=== PATIENT | female | born 1945 | race Caucasian/White ===

== ENCOUNTER 2020-10-10 08:53 | Outpatient (REF) | payer MEDICARE, SELFPAY | END 2020-10-10 08:54 | disposition home or self-care (01) | LOC: HO.HMGCLDS 08:53 | PROVIDERS: PCP Internal Medicine; Visit Provider Internal Medicine | DX: Z20.828 Contact with and (suspected) exposure to other viral communicable diseases (principal) | CPT/HCPCS: C9803; U0003 ==

== ENCOUNTER 2021-05-23 06:40 | Outpatient (REF) | payer MEDICARE, SELFPAY ==
[2021-05-23 12:06] LABS: Alanine Aminotransferase 14 U/L (0-31); Albumin Level 3.8 g/dL (3.5-5.0); Alkaline Phosphatase 57 U/L (39-117); Anion Gap 15 (12-20); Aspartate Amino Transferase 18 U/L (5-31); Bilirubin Total 1.3 mg/dL (0.0-1.0); Blood Urea Nitrogen 24 mg/dL (9-16); Calcium 9.2 mg/dL (8.4-10.2); Carbon Dioxide 22 mmol/L (22-29); Chloride 109 mmol/L (96-108); Cholesterol 177 mg/dL; Estimated Glomerular Filt Rate > 60; Glucose Fasting 95 mg/dL (60-99); HDL Cholesterol 70 mg/dL; LDL Cholesterol Calculated 88 mg/dl; Potassium 4.5 mmol/L (3.3-5.1); Sodium 141 mmol/L (135-145); Total Protein 6.7 g/dL (6.5-8.0); Triglycerides 98 mg/dL
[2021-05-23 12:20] LABS: TSH reflex Free T4 0.79 uIU/mL (0.32-4.0)
== END 2021-05-23 06:41 | disposition home or self-care (01) ==
LOC: HO.HMGCLDS 06:40
PROVIDERS: PCP Internal Medicine; Visit Provider Internal Medicine
DX: M85.80 Other specified disorders of bone density and structure, unspecified site (principal); J42 Unspecified chronic bronchitis; E78.00 Pure hypercholesterolemia, unspecified; M06.9 Rheumatoid arthritis, unspecified; I10 Essential (primary) hypertension; R09.82 Postnasal drip
CPT/HCPCS: 36415; 80053; 80061; 82306; 84443

== ENCOUNTER 2022-02-24 12:15 | Outpatient (REF) | payer MEDICARE, SELFPAY ==
--- NOTE | ~2022-02-24 | XR_ITS ---
EXAMINATION: XR KNEE, BILATERAL XR KNEE, RIGHT XR KNEE, LEFT CLINICAL INFORMATION: Pain COMPARISON: 08/25/2018 TECHNIQUE: AP standing view of both knees. Lateral and sunrise views of both knees. FINDINGS: Left knee: Total left knee arthroplasty. The femoral component articulates appropriately with the tibial plateau and patellar components. No periprosthetic lucency or fracture. No joint effusion. Soft tissue prominence anteriorly. Right knee: No fracture or subluxation. Mild narrowing of the patellofemoral compartment. Small tricompartmental marginal osteophytes. No joint effusion. The soft tissues are unremarkable. XR/XR knee LT 2V IMPRESSION: Total left knee arthroplasty without evidence of failure. Mild tricompartmental degenerative changes of the right knee.
--- NOTE | ~2022-02-24 | XR_ITS ---
EXAMINATION: XR KNEE, BILATERAL XR KNEE, RIGHT XR KNEE, LEFT CLINICAL INFORMATION: Pain COMPARISON: 08/25/2018 TECHNIQUE: AP standing view of both knees. Lateral and sunrise views of both knees. FINDINGS: Left knee: Total left knee arthroplasty. The femoral component articulates appropriately with the tibial plateau and patellar components. No periprosthetic lucency or fracture. No joint effusion. Soft tissue prominence anteriorly. Right knee: No fracture or subluxation. Mild narrowing of the patellofemoral compartment. Small tricompartmental marginal osteophytes. No joint effusion. The soft tissues are unremarkable. XR/XR knee standing BI IMPRESSION: Total left knee arthroplasty without evidence of failure. Mild tricompartmental degenerative changes of the right knee.
--- NOTE | ~2022-02-24 | XR_ITS ---
EXAMINATION: XR KNEE, BILATERAL XR KNEE, RIGHT XR KNEE, LEFT CLINICAL INFORMATION: Pain COMPARISON: 08/25/2018 TECHNIQUE: AP standing view of both knees. Lateral and sunrise views of both knees. FINDINGS: Left knee: Total left knee arthroplasty. The femoral component articulates appropriately with the tibial plateau and patellar components. No periprosthetic lucency or fracture. No joint effusion. Soft tissue prominence anteriorly. Right knee: No fracture or subluxation. Mild narrowing of the patellofemoral compartment. Small tricompartmental marginal osteophytes. No joint effusion. The soft tissues are unremarkable. XR/XR knee RT 2V IMPRESSION: Total left knee arthroplasty without evidence of failure. Mild tricompartmental degenerative changes of the right knee.
== END 2022-02-24 12:16 | disposition home or self-care (01) ==
LOC: HO.HOSX 12:15
PROVIDERS: Visit Provider Orthopaedic Surgery
DX: M17.11 Unilateral primary osteoarthritis, right knee (principal)
CPT/HCPCS: 73560; 73565; 99202

== ENCOUNTER → 2022-04-03 12:48 | Outpatient (REF) | payer MEDICARE, SELFPAY ==
--- NOTE | 2022-04-03 12:52 | CA_ITS ---
Transthoracic Echocardiogram Patient (Last, First, Middle): Melissa De La Garza Ellen Gender: Female Date of : 1945 Age: 77 Procedure Date: 04/03/2022 Procedure Type: Transthoracic Echocardiogram Location: OP Height: 170.18 cm Weight: 108.86 kg BSA: 2.18 m2 Heart Rate: bpm BP: 124 / 60 mmHg Cannon Pinion Adjuster: SB Referring MD: Ana Garcia MD Per Assessment Nurse: Fahad Toussaint MD Symptoms: s/p MVR Study Quality: Adequate ECG Rhythm: Sinus Conclusions: - 1. Normal LV systolic function with pseudonormal filling pattern 2. Mildly dilated left atrium 3. Normally function bioprosthetic mitral valve 4. Normal RV systolic pressure 5. No gross pericardial effusion Findings Left Ventricle Normal left ventricular size, thickness, and systolic function. The visually estimated ejection fraction is between 55-60%. Spectral Doppler is indicative of a pseudonormal filling pattern. Wall Motion Rest Echo Findings The basal inferior segment is hypokinetic. All other scored wall segments showed normal motion. Right Ventricle Normal right ventricular cavity size and systolic function. Atria The left atrium is mildly dilated. There is no evidence of interatrial shunt. The right atrium is normal in size. Aortic Valve Normal aortic valve structure and function. There is no aortic valve stenosis. There is trace (trivial) aortic valve regurgitation. Mitral Valve A bioprosthetic mitral valve is present. The prosthetic mitral valve appears to be functioning normally. There is no mitral valve regurgitation. mean gradient across the bioprosthetic mitral valve is 2 mmHg which is within normal limits. The valve is well seated without abnormal rocking motion. Pulmonic Valve The pulmonic valve is likely normal. There is trace to mild pulmonic valve regurgitation. Tricuspid Valve Normal tricuspid valve structure. There is mild to moderate tricuspid valve regurgitation. The right ventricular systolic pressure is normal. The right ventricular systolic pressure is 24 mmHg. Normal right atrial pressure. There is no evidence of pulmonary hypertension. Great Vessels All visible segments of the aorta are normal in size. The pulmonary artery was not well visualized. Venous The inferior vena cava is normal in size. Inferior vena cava flow is normal. Pericardium/Pleural There is no evidence of pericardial effusion. Prior Study Comparison No previous study in the last 5 years for comparison Measurements 2D Linear Measurements IVSd: 0.95 0.6-0.9/0.6-1.0 cm LVIDd: 5.10 3.9-5.3/4.2-5.9 cm LVIDd Index: 2.34 2.4-3.2/2.2-3.1 cm/m2 LVIDs: 3.46 2.0-3.6 cm LVPWd: 0.95 0.7-1.1 cm LA Diam: 3.90 2.7-3.8/3.0-4.0 cm LAIDs Index: 1.79 1.5-2.3 cm/m2 LV Mass: 217.54 67-162/88-224 g LV Mass Index: 99.79 43-95/49-115 g/m2 LVOT Diam: 2.30 3.0+(-)1.3 cm Mitral Valve MV VTI: 0.44 MV Pk Abelardo: 1.26 MV Mn Abelardo: 0.75 MV Pk Grad: 6.00 MV Mn Grad: 3.00 MV Pk E: 1.08 MV PK A: 0.96 MV Decel Time: 324.00 E/A: 1.10 E'Lateral: 7.18 E'Medial: 6.96 E/E' Med: 15.50 E/E' Lat: 15.00 PHT: 95.00 MVA PHT: 2.32 MVA Continuity: 1.59 Decel [place]: 3.34 Aortic Valve AoV Pk Abelardo: 0.84 AoV Mn Abelardo: 0.62 AoV VTI: 0.20 AoV Pk Grad: 3.00 Aov Mn Grad: 2.00 CAROLYN Cont.VTI: 3.54 LVOT LVOT Pk Abelardo: 0.73 LVOT Mn Abelardo: 0.57 LVOT VTI: 0.17 LVOT Pk Grad: 2.00 LVOT Mn Grad: 1.00 LVOT Diam: 2.30 LVOT Area: 4.15 Diastolic Function MV Pk E: 1.08 MV Pk A: 0.96 E/A: 1.10 E'Medial: 6.96 E/E' Med: 15.50 E' Laterial: 7.18 E/E' Lat: 15.00 Right Ventricle TAPSE (mm): 16.00 TVS' Abelardo: 13.80 Tricuspid Valve TR Pk Abelardo: 2.27 TR Pk Grad: 21.00 RA Press: 3.00 RVSP: 24.00 Great Vessels Aorta Sinus of Valsalva: 3.95 2.0-3.[address] [place]: 3.26 1.7-3.4 cm Ao Asc: 3.40 2.1-3.4 cm Pulmonary Valve PV Pk Abelardo: 0.66 Peak PV Grad: 2.00 Updated in Other Vendor System with Status of Final Fahad Toussaint MD electronically signed on 04/04/2022 3:09:50 PM with status of Final
== END ==
LOC: HO.CARD 12:48
PROVIDERS: PCP Internal Medicine; Visit Provider Internal Medicine
DX: M06.9 Rheumatoid arthritis, unspecified (principal); I10 Essential (primary) hypertension; Z95.2 Presence of prosthetic heart valve
CPT/HCPCS: 93306

== ENCOUNTER → 2022-04-08 09:49 | Outpatient (BNVA) | payer MEDICARE, SELFPAY | PROVIDERS: PCP Internal Medicine; Visit Provider Orthopaedic Surgery | DX: Z13.89 Encounter for screening for other disorder (principal) ==

== ENCOUNTER 2022-04-10 09:35 | Outpatient (REF) | payer MEDICARE, SELFPAY ==
[2022-04-10 11:26] LABS: MANUAL DIFF FLAG NO
[2022-04-10 11:36] LABS: Basophils Absolute Auto 0.1 X10*3/uL (0.0-0.2); Basophils Percent Auto 1.3 % (0-2); Eosinophils Absolute Auto 0.3 X10*3/uL (0.0-0.4); Eosinophils Percent Auto 5.7 % (0-4); Hematocrit 39.2 % (37.0-47.0); Hemoglobin 13.1 g/dl (12.0-16.0); Lymphocytes Absolute Auto 1.5 X10*3/uL (1.2-4.9); Lymphocytes Percent Auto 32.1 % (20-40); Mean Corpuscular HGB Conc 33.4 g/dl (31.0-35.0); Mean Corpuscular Hemoglobin 34.7 pg (27.0-33.0); Monocytes Absolute Auto 0.6 X10*3/uL (0.1-1.2); Monocytes Percent Auto 14.1 % (2-11); Neutrophils Absolute Auto 2.1 x10*3/uL (2.0-8.3); Neutrophils Percent Auto 46.8 % (45-73); Platelet Count 188 X10*3/uL (160-400); Red Blood Count 3.77 X10*6/uL (4.20-5.50); White Blood Count 4.6 X10*3/uL (4.8-10.8)
[2022-04-10 12:14] LABS: Anion Gap 11 (12-20); Blood Urea Nitrogen 14 mg/dL (9-16); Calcium 9.5 mg/dL (8.4-10.2); Carbon Dioxide 26 mmol/L (22-29); Chloride 106 mmol/L (96-108); Estimated Glomerular Filt Rate > 60; Glucose Random 97 mg/dL (60-115); Potassium 4.5 mmol/L (3.3-5.1); Sodium 138 mmol/L (135-145)
== END 2022-04-10 09:36 | disposition home or self-care (01) ==
LOC: HO.HMGCLDS 09:35
PROVIDERS: PCP Internal Medicine; Visit Provider Orthopaedic Surgery
DX: Z01.812 Encounter for preprocedural laboratory examination (principal)
CPT/HCPCS: 36415; 80048; 85025

== ENCOUNTER → 2022-04-29 10:35 | Outpatient (BNVA) | payer MEDICARE, SELFPAY | PROVIDERS: PCP Internal Medicine; Referring Provider Orthopaedic Surgery; Visit Provider Internal Medicine Cardiovascular Disease | DX: Z01.810 Encounter for preprocedural cardiovascular examination (principal); R00.2 Palpitations; Z95.2 Presence of prosthetic heart valve | CPT/HCPCS: 93005; 99202 ==

== ENCOUNTER 2022-05-06 06:42 | Outpatient (REF) | payer MEDICARE, SELFPAY ==
[2022-05-06 11:50] LABS: Hematocrit 40.2 % (37.0-47.0); Hemoglobin 13.4 g/dl (12.0-16.0); Mean Corpuscular HGB Conc 33.3 g/dl (31.0-35.0); Mean Corpuscular Hemoglobin 34.7 pg (27.0-33.0); Mean Corpuscular Volume 104.1 fL (80.0-98.0); Mean Platelet Volume 12.3 fL (9.4-12.3); Platelet Count 200 X10*3/uL (160-400); Red Blood Count 3.86 X10*6/uL (4.20-5.50); Red Cell Distribution Width 14.2 % (11.0-16.0)
[2022-05-06 12:22] LABS: Alanine Aminotransferase 15 U/L (0-31); Albumin Level 3.6 g/dL (3.5-5.0); Alkaline Phosphatase 61 U/L (39-117); Anion Gap 10 (12-20); Aspartate Amino Transferase 21 U/L (5-31); Blood Urea Nitrogen 21 mg/dL (9-16); Carbon Dioxide 26 mmol/L (22-29); Chloride 109 mmol/L (96-108); Cholesterol 167 mg/dL; Estimated Glomerular Filt Rate > 60; Glucose Fasting 95 mg/dL (60-99); HDL Cholesterol 61 mg/dL; LDL Cholesterol Calculated 88 mg/dl; Potassium 4.2 mmol/L (3.3-5.1); Sodium 141 mmol/L (135-145); Total Protein 6.4 g/dL (6.5-8.0); Triglycerides 94 mg/dL
[2022-05-06 12:32] LABS: Vitamin D 25-OH Total 33.2 ng/mL (>30)
== END 2022-05-06 06:43 | disposition home or self-care (01) ==
LOC: HO.HMGCLDS 06:42
PROVIDERS: Visit Provider Internal Medicine
DX: I10 Essential (primary) hypertension (principal); M06.9 Rheumatoid arthritis, unspecified; E78.00 Pure hypercholesterolemia, unspecified
CPT/HCPCS: 36415; 80053; 80061; 82306; 85027

== ENCOUNTER → 2022-05-08 12:35 | Outpatient (BNVA) | payer MEDICARE, SELFPAY | PROVIDERS: PCP Internal Medicine; Visit Provider Physician Assistant | DX: M17.11 Unilateral primary osteoarthritis, right knee (principal) | CPT/HCPCS: 99212 ==

== ENCOUNTER → 2022-05-09 08:27 | Outpatient (REF) | payer MEDICARE, SELFPAY ==
--- NOTE | ~2022-05-09 | NM_ITS ---
Myocardial perfusion study Indication: Preoperative cardiovascular risk stratification Technique: The patient was brought in for a Lexiscan perfusion study on 05/09/2022. Patient performed low-level exercise and was injected 0.4 mg of Lexiscan intravenously. Within a minute of injection, 30 mCi of sestamibi was given intravenously. Images were obtained using the SPECT gamma camera interlaced with the gating device. Images were obtained in supine position. Resting perfusion study was performed on 05/12/2022. Patient was administered 30 mCi of sestamibi intravenously at rest. Images were then obtained in supine position. Images obtained with and without CT attenuation. Total DLP 100 mGy-cm. Images were processed with the software and compared side to side in short axis, horizontal long axis and vertical long axis views. Findings: The stress perfusion study showed non attenuated images show moderately reduced uptake in the apex, mildly reduced uptake in the distal anterior as well as inferoapical wall of the LV myocardium as well as mildly reduced uptake in the distal lateral wall of the LV myocardium attenuation corrected images show normal uptake of radiotracer in all segments of LV myocardium. The gated study shows normal LV systolic function with visually estimated LVEF of greater than 60%. LV cavity is normal in size. The gated study shows normal systolic wall thickening and contraction of segments. Resting study shows non attenuated images show normal uptake of radiotracer in all segments of LV myocardium. Impression corrected images show some thinning of the distal anterior wall of the LV myocardium. Gating at rest reveals normal systolic wall motion with ejection fraction at 62%. The findings are consistent with no clear reversible defect on attenuated corrected images. Findings noted on non attenuated images, most likely due to shifting breast attenuation in stress and rest study. NM/NM lesa perf SPECT rest & str Impression: 1. Myocardial perfusion imaging study shows likely normal myocardial perfusion 2. Gated LVEF is 62% 3. Transient ischemic dilatation not present EKG is nondiagnostic for ischemia
--- NOTE | 2022-05-09 08:31 | CA_ITS ---
Acquisition Time: 2022-05-09 08:50:59 Total Exercise Time: 00:02:00 Test Indications: Dyspnea Medications: ATORVASTATIN CELECOXIB METHOTREXATE METOPROLOL OXYBUTYNIN Protocol: LEXISCAN Max HR: 093 BPM 64% of Pred: 145 BPM Max BP: 116/070 mmHG Max Work Load: 1.0 METS Pharmacological stress test with Lexiscan injection, while sitting and kicking her legs, with mild sob, no chest discomfort, with isolated PACs and PVCs, with normotensive response to injection, with EKG changes post injection: borderline ST depression and T wave inversion inferiorly and V3-V6 with gradual improvement back to baseline. In recovery she reported sob and lightheadedness that was treated with aminophylline 75mg IVP to reverse Lexiscan with resolution of symptoms. Nuclear images pending. Test reviewed with Dr Toussaint. Referred By: Fahad Toussaint Overread By: FLIP GUIDRY
== END ==
LOC: HO.CARD 08:27
PROVIDERS: Visit Provider Internal Medicine Cardiovascular Disease
DX: Z01.810 Encounter for preprocedural cardiovascular examination (principal)
CPT/HCPCS: 78452; 93017; A9500; J0280; J2785

== ENCOUNTER 2022-05-13 07:35 | Day surgery (SDC) | payer MEDICARE, SELFPAY ==
[2022-04-29 11:51] VITALS: BP 137/78; PULSE 55; RESP 20; O2SAT 96; BMI 34.1
--- NOTE | 2022-04-29 12:05 | HO.ANESPROP2 ---
Documented by User: Aliya Snyder NP 05/12/22 12:40 HPI - Anesthesia Eval Consult details Narrative: 77yo F for Right Knee Replacement Total Cardiology clearance pending (s/p MVR in 2005. Had heart fluttering associated with breo inhaler 02/2022 that stopped when d/c'd breo) PCP cleared Methotrexate for RA - to continue per [employer] PMFSH Active Problems Active Problems: All Active Problems (Updated 04/29/22 @ 12:01 by Charley Mensah RN) Osteoarthritis of right knee (Acute) Preop cardiovascular exam (Acute) Palpitations (Acute) Dry mouth (Acute) H/O mitral valve replacement (Acute) Hypertension (Acute) Rheumatoid arthritis (Acute) Osteopenia (Acute) Chronic bronchitis (Acute) Hypercholesteremia (Acute) Postnasal drip (Acute) Past Medical History Medical History COVID-19 vaccine series completed Ear infection H/O bone density study Hard of hearing Lumbago Osteoarthritis Family History Family History Father Cerebral hemorrhage Parkinsonism Mother COPD (chronic obstructive pulmonary disease) Lung cancer Brother Lung cancer Son No problems noted. Daughter No problems noted. Daughter No problems noted. Daughter No problems noted. Surgical History Surgical History H/O colonoscopy History of splenectomy History of total left knee replacement Hx of cholecystectomy Status post herniorrhaphy Social History Social History Housing: House Are you a primary career technical education teacher to a significant other at home: No Do you presently have visiting nurse or other home services: No Patient Tobacco Use Status: Never used Tobacco e-Cigarette/Vaping Use: Never Used Second Hand Smoke Exposure: Yes Use of substances other than those prescribed or required for medical reasons: No Have you been hit, kicked, punched, or otherwise hurt by someone within the past year? If so, by whom?: No Are you DNR?: Yes Advance Directives: No (states is ) Advance Directives Information Provided: Yes (will bring copy DOS) Advance Directives on File: No Recently lost weight without trying: No Eating poorly because of decreased appetite: No Nutrition Risks: Surgical patient >75years Poor oral hygiene: No service: No Current occupational status: retired Current occupational exposures/hazards: No Cognitive needs: No Hearing needs: Yes Vision needs: Yes Narrative Narrative: No recent illness No CP or SOB within limits of activity Meds Allergies Allergy/AdvReac Type Severity Reaction Status Date / Time No Known Allergies Allergy Verified 04/15/22 12:00 [No Known Allergies*] Home Medications Medication Instructions Recorded Confirmed Last Taken Type diclofenac sodium 1 % topical gel 1 ea topical DAILY 11/14/20 05/08/22 Unknown History flu vac qv 2019(18yr up)rc(PF) ml IM 11/14/20 05/08/22 Unknown History folic acid 1 mg tablet 1 mg PO DAILY 11/14/20 05/08/22 Unknown History celecoxib 200 mg capsule 200 mg PO DAILY 12/19/21 05/08/22 05/12/22 History aspirin 81 mg tablet,delayed 81 mg PO DAILY 04/29/22 05/08/22 04/29/22 History release cholecalciferol (vitamin D3) 50 50 mcg PO DAILY 04/29/22 05/08/22 Unknown History mcg (2,000 unit) capsule (Vitamin D3) cyanocobalamin (vitamin B-12) 2,000 mcg PO DAILY 04/29/22 05/08/22 Unknown History 2,000 mcg tablet,extended release (Vitamin B-12 ER) methotrexate sodium 2.5 mg tablet 17.5 mg PO Q7D 04/29/22 05/08/22 04/29/22 History omeprazole 20 mg tablet,delayed 20 mg PO DAILY 04/29/22 05/08/22 05/13/22 History release ciprofloxacin 0.3 %-dexamethasone 0 drp otic (ears) 05/08/22 05/08/22 Unknown History 0.1 % ear drops,suspension clotrimazole 1 % topical solution 1 appl topical BID 05/08/22 05/08/22 Unknown History Exam Exam Date and Time: April 29, 2022 1205 Height,Weight and Vital Signs: Height 5 ft 7 in Weight 98.8 kg Last Vital Signs Pulse 55 04/29/22 11:51 Resp 20 04/29/22 11:51 BP 137/78 04/29/22 11:51 Pulse Ox 96 04/29/22 11:51 Pertinent Lab Results Pertinent Lab Results: Laboratory Tests 04/10/22 04/10/22 09:47 09:47 WBC 4.6 L Hgb 13.1 Hct 39.2 Plt Count 188 Sodium 138 Potassium 4.5 Chloride 106 Carbon Dioxide 26 BUN 14 Creatinine 0.68 Narrative Narrative: EKG 04/2022 normal sinus rhythm with nonspecific ST changes ECHO 03/2022 Conclusions: - 1. Normal LV systolic function with pseudonormal filling ? ? ? pattern? 2. Mildly dilated left atrium? 3. Normally function bioprosthetic mitral valve? 4.? Normal RV systolic pressure? 5.? No gross pericardial effusion? ?? NM lesa perf SPECT rest & str 04/2022 Impression: ? 1.? Myocardial perfusion imaging study shows likely normal myocardial perfusion 2.? Gated LVEF is 62% 3. Transient ischemic dilatation not present ? EKG is nondiagnostic for ischemia Airway Mallampati Class: II TM Dist: >3cm Neck ROM: Full Loose/Missing/Broken Teeth: No (Molars crowned) Heart: RRR Lungs: CTAB Assessment and Plan Assessment Anesthesia Assessment: Anesthesia Plan Discussed and PAT Visit Documented by User: Reji Wang MD 05/13/22 10:48 PMFSH Past Medical History Medical History COVID-19 vaccine series completed Ear infection H/O bone density study Hard of hearing Lumbago Osteoarthritis Family History Family History Father Cerebral hemorrhage Parkinsonism Mother COPD (chronic obstructive pulmonary disease) Lung cancer Brother Lung cancer Son No problems noted. Daughter No problems noted. Daughter No problems noted. Daughter No problems noted. Family history of problems with anesthesia: No Surgical History Surgical History H/O colonoscopy History of splenectomy History of total left knee replacement Hx of cholecystectomy Status post herniorrhaphy History of Problems with Anesthesia: No Social History Social History Housing: House Are you a primary career technical education teacher to a significant other at home: No Do you presently have visiting nurse or other home services: No Patient Tobacco Use Status: Never used Tobacco e-Cigarette/Vaping Use: Never Used Second Hand Smoke Exposure: Yes Use of substances other than those prescribed or required for medical reasons: No Have you been hit, kicked, punched, or otherwise hurt by someone within the past year? If so, by whom?: No Are you DNR?: Yes Advance Directives: No (states is ) Advance Directives Information Provided: Yes (will bring copy DOS) Advance Directives on File: No Recently lost weight without trying: No Eating poorly because of decreased appetite: No Nutrition Risks: Surgical patient >75years Poor oral hygiene: No service: No Current occupational status: retired Current occupational exposures/hazards: No Cognitive needs: No Hearing needs: Yes Vision needs: Yes Meds Allergies Allergy/AdvReac Type Severity Reaction Status Date / Time No Known Allergies Allergy Verified 04/15/22 12:00 [No Known Allergies*] Home Medications Medication Instructions Recorded Confirmed Last Taken Type diclofenac sodium 1 % topical gel 1 ea topical DAILY 11/14/20 05/08/22 Unknown History flu vac qv 2019(18yr up)rc(PF) ml IM 11/14/20 05/08/22 Unknown History folic acid 1 mg tablet 1 mg PO DAILY 11/14/20 05/08/22 Unknown History celecoxib 200 mg capsule 200 mg PO DAILY 12/19/21 05/08/22 05/12/22 History aspirin 81 mg tablet,delayed 81 mg PO DAILY 04/29/22 05/08/22 04/29/22 History release cholecalciferol (vitamin D3) 50 50 mcg PO DAILY 04/29/22 05/08/22 Unknown History mcg (2,000 unit) capsule (Vitamin D3) cyanocobalamin (vitamin B-12) 2,000 mcg PO DAILY 04/29/22 05/08/22 Unknown History 2,000 mcg tablet,extended release (Vitamin B-12 ER) methotrexate sodium 2.5 mg tablet 17.5 mg PO Q7D 04/29/22 05/08/22 04/29/22 History omeprazole 20 mg tablet,delayed 20 mg PO DAILY 04/29/22 05/08/22 05/13/22 History release ciprofloxacin 0.3 %-dexamethasone 0 drp otic (ears) 05/08/22 05/08/22 Unknown History 0.1 % ear drops,suspension clotrimazole 1 % topical solution 1 appl topical BID 05/08/22 05/08/22 Unknown History Assessment and Plan Final Anesthetic Review Family History of Problems with Anesthesia: No History of Problems with Anesthesia: No NPO: Yes ASA Class: III Final Preanesthetic Review: No Changes in Pt Med Stat, Meds/Allgs Chart Reviewed, Consent Obtained/Reviewed and Anes Risks/Benef Reviewed Patient Risk: Low Procedure Risk: Low Anesthetic Plan Anesthetic Plan: MAC: Disposition: Standard PACU
[2022-04-29 14:37] LABS: MRSA Nasal PCR NEGATIVE (Negative); SA Nasal PCR NEGATIVE (Negative)
[2022-05-13] VITALS (20 sets, daily range): BP systolic 92–161; BP diastolic 59–88; PULSE 45–65; RESP 14–18; TEMP 36.3–37; O2SAT 94–99
--- NOTE | ~2022-05-13 | XR_ITS ---
EXAMINATION: XR KNEE, RIGHT CLINICAL INFORMATION: Right TKA COMPARISON: 02/24/2022 TECHNIQUE: Four views of the right knee. FINDINGS: Prosthetic components of the right total knee arthroplasty are appropriately aligned. No periprosthetic fracture. Gas from recent surgery is present in the joint and surrounding soft tissues. No significant joint effusion is present . XR/XR knee RT 2V IMPRESSION: Appropriate alignment of the right total knee arthroplasty.
--- NOTE | 2022-05-13 07:37 | MHC.SHP ---
Pre-Procedural Eval Section A Date of Service: 05/13/22 The patient is an INPATIENT: No Changes since office visit: Yes Patient answered all questions; No Cold of Flu in the past 2 weeks, No New Medical Problems and No Changes in Medication The History & Physical has been completed within 30 days and I have reviewed it.: Yes Section B Chief Complaint: RT TKA Allergies: Allergies Allergy/AdvReac Type Severity Reaction Status Date / Time No Known Allergies Allergy Verified 04/15/22 12:00 [No Known Allergies*] Plan I have reviewed the history and physical and performed a pertinent physical examination on my patient. No changes have occurred unless specified.
[2022-05-13 07:53] LABS: Hematocrit 41.7 % (37.0-47.0)
[2022-05-13 08:14] LABS: COVID-19 Test Negative (Negative); IDNOW Serial# 16C4AD1C
[2022-05-13] MEDS: Lactated Ringers 1,000 ML 100 ML IVCONT ×3 (08:18→23:24)
--- NOTE | 2022-05-13 11:12 | PM.OP ---
Brief Operative Note Date of Service: 05/13/22 Pre-op diagnosis: Right knee OA Post-op diagnosis: same Procedure: Right TKA Implants: [place] Triathalon cruciate retaining press fit 01/24/16 Surgeon: Walker Esquivel MD Anesthesia: regional and spinal Was an Bed Machine Operator used for this Procedure?: Yes Bed Machine Operator: Charles Tong Estimated blood loss (mL): 150 IV fluids (mL): 1,100 Pathology: other Condition: stable Disposition: PACU
--- NOTE | 2022-05-13 11:21 | W.PM.OPN ---
Operative Note Operative Note Date of Service: 05/13/22 Narrative: Date of Service: 05/13/22 Pre-op diagnosis: Right knee OA Post-op diagnosis: same Procedure: Right TKA Implants: [place] Triathalon cruciate retaining press fit 01/24/16 Surgeon: Walker Esquivel MD Anesthesia: regional and spinal Was an Agricultural Research Engineer used for this Procedure?: Yes Agricultural Research Engineer: Charles Tong Estimated blood loss (mL): 150 IV fluids (mL): 1,100 Pathology: other Condition: stable Disposition: PACU Procedure in detail: The patient was brought to the operating room and prepped and draped in standard sterile fashion. A time-out was called to identify proper site proper procedure proper surgeon and IV antibiotics were administered. 1 g of IV tranexamic acid was administered. I began by making a midline incision to the retinaculum and performed a medial parapatellar arthrotomy. The patella was translated laterally and the knee was flexed up. Their was tricompartmental disease affecting the lateral compartment most prominently. I performed a small medial peel and resected the infrapatellar fat pad. [place]'s line was then used to drill my intramedullary femoral guide and my distal femur cut of 10 mm was made in 5 degrees of valgus while protecting the soft tissues. I then measured a #3 femur and placed my cutting guide and made my anterior posterior and chamfer cuts protecting the soft tissues at all times. Once I was satisfied with my cuts I turned my attention to the tibia. I removed the meniscus medially and laterally and , using an external cutting guide, in line with the tibial crest and the third ray, I made my distal tibial cut in 3 deg slope of while protecting the PCL the posterior soft tissues at all times. An extension block was used to confirm appropriate amount of bony resection. I then sized a #3 tibia and once I was satisfied that there was complete tibial coverage I placed my trial and with the trial femur in place took the knee through range of motion. I was satisfied with the extension and flexion as well as the stability and balance at 0, 30 and 90 degrees. I then turned my attention to the patella where I removed 1 cm from the undersurface of the patella and then trialed a 29a patellar button. Again the knee was taken through range of motion I was satisfied with the tracking. I then returned to the femur and drilled my femoral lug holes and prepared the tibia. A femoral bone plug was placed and the knee was irrigated copiously. I then press fit the patella, tibia and femur in standard fashion. I trialed different inserts until I selected a #16 insert. The final insert was placed and a 3 minutes iodine soak with local TXA was performed. A Werewolf cautery wand was used to maintain hemostasis over the capsule and meniscal beds, the gutters and peripatellar soft tissues. The knee was then closed with a running Quill suture, a 3 0 Vicryl and juni on the skin. Patient was then placed in sterile dressing and brought to recovery room in stable condition there were no known complications.
--- NOTE | 2022-05-13 12:05 | PHA.MEDREC ---
Pharmacy Consult ? Medication Reconciliation Pharmacy has reviewed the medication reconciliation completed by nursing.
[2022-05-13] MEDS: Acetaminophen 325 MG TABLET 650 MG PO ×2 (12:54→17:58)
[2022-05-13] MEDS: HYDROmorphone HCl 0.5 MG/0.5 ML SYRINGE 0.25 MG IVPUSH ×4 (13:46→23:23)
--- NOTE | 2022-05-13 14:52 | PM.IMCN ---
History of Present Illness Data of Consult Service Date: 05/13/22 Primary Care Provider: Ana Garcia MD HPI Reason for consult: Medical consult A 77 years old lady with PMH of osteoarthritis, HTN, rheumatoid arthritis, HLD who presents to the hospital for planned right knee surgery. The patient reports feeling generally well as her bronchitis, rheumatoid arthritis her under fair control. She reports pain previously from her right knee osteoarthritis. denies any fever, chills, abdominal pain, chest pain, nausea or vomiting or urinary symptoms. Hospitalist team was asked to evaluate the patient after she went for right knee arthroplasty. Review of Systems Review of Systems: No fever, chills or weakness No chest pain, palpitation No shortness of breath or coughing No abdominal pain, nausea or vomiting No urinary symptoms No any rash or wounds Knee pain after surgery PMFSH Medical History COVID-19 vaccine series completed Ear infection H/O bone density study Hard of hearing Lumbago Osteoarthritis Family History Father Cerebral hemorrhage Parkinsonism Mother COPD (chronic obstructive pulmonary disease) Lung cancer Brother Lung cancer Son No problems noted. Daughter No problems noted. Daughter No problems noted. Daughter No problems noted. Surgical History H/O colonoscopy History of splenectomy History of total left knee replacement Hx of cholecystectomy Status post herniorrhaphy Social History Housing: House Are you a primary childcare center administrator to a significant other at home: No Do you presently have visiting nurse or other home services: No Patient Tobacco Use Status: Never used Tobacco e-Cigarette/Vaping Use: Never Used Second Hand Smoke Exposure: Yes service: No Current occupational status: retired Current occupational exposures/hazards: No Cognitive needs: No Hearing needs: Yes Vision needs: Yes Meds Allergies Allergy/AdvReac Type Severity Reaction Status Date / Time No Known Allergies Allergy Verified 04/15/22 12:00 [No Known Allergies*] Active Medications: Current Medications Acetaminophen (Acetaminophen 325 Mg Tablet) 650 mg PO Q6H PRN PRN Reason: Pain, Mild (Pain Scale 1-3) Last Admin: 05/13/22 12:54 Dose: 650 mg Aspirin (Aspirin 325 Mg Tablet) 325 mg PO BID [facility] Celecoxib (Celecoxib 200 Mg Capsule) 200 mg PO BID [facility] Docusate Sodium (Docusate Sodium 100 Mg Capsule) 100 mg PO BID [facility] Folic Acid (Folic Acid 1 Mg Tablet) 1 mg PO DAILY [facility] Hydromorphone HCl (Hydromorphone Hcl 0.5 Mg/0.5 Ml Syringe) 0.25 mg IVPUSH Q10M PRN; Protocol PRN Reason: Pain, Moderate (Pain Scale 4-6 Last Admin: 05/13/22 13:56 Dose: 0.25 mg Hydromorphone HCl (Hydromorphone Hcl 0.5 Mg/0.5 Ml Syringe) 0.25 mg IVPUSH Q4H PRN; Protocol PRN Reason: Pain, Severe (Pain Scale 7-10) Lactated Ringer's (Lr) 1,000 mls @ 100 mls/hr IVCONT .Q10H [facility] Last Admin: 05/13/22 12:14 Dose: 100 mls/hr Cefazolin Sodium/Dextrose (Ancef) 2 gm in 50 mls @ 100 mls/hr IV POSTOP [facility] Metoprolol Tartrate (Metoprolol Tartrate 25 Mg Tablet) 25 mg PO BID [facility]; Protocol Omeprazole (Omeprazole 20 Mg Capsule.Dr) 20 mg PO DAILY [facility] Ondansetron HCl (Ondansetron Hcl 4 Mg/2 Ml Vial) 4 mg IVPUSH Q8H PRN PRN Reason: Nausea and Vomiting Oxybutynin Chloride (Oxybutynin Chloride Er 5 Mg Tab.Er.24) 10 mg PO DAILY [facility] Oxycodone HCl (Oxycodone Hcl Immed Release 5 Mg Tablet) 5 mg PO Q4H PRN PRN Reason: Pain, Moderate (Pain Scale 4-6 Sodium Chloride (0.9 % Sodium Chloride Flush 3 Ml Syringe) 3 ml IVFLUSH QSHIFT [facility] Home Medications Medication Instructions Recorded Confirmed Last Taken Type folic acid 1 mg tablet 1 mg PO DAILY 11/14/20 05/13/22 Unknown History cholecalciferol (vitamin D3) 50 50 mcg PO DAILY 04/29/22 05/13/22 Unknown History mcg (2,000 unit) capsule (Vitamin D3) cyanocobalamin (vitamin B-12) 2,000 mcg PO DAILY 04/29/22 05/13/22 Unknown History 2,000 mcg tablet,extended release (Vitamin B-12 ER) methotrexate sodium 2.5 mg tablet 17.5 mg PO TH 04/29/22 05/13/22 04/29/22 History omeprazole 20 mg tablet,delayed 20 mg PO DAILY 04/29/22 05/08/22 05/13/22 History release ciprofloxacin 0.3 %-dexamethasone 4 drp otic (ear) right BID 05/13/22 05/13/22 Unknown History 0.1 % ear drops,suspension clotrimazole 1 % topical solution 4 drp otic (ear) right BID 05/13/22 05/13/22 Unknown History diclofenac sodium 1 % topical gel 4 g topical QID 05/13/22 05/13/22 Unknown History Physical Exam Vital Signs and Narrative: Vital Signs: Last Vital Signs Temp 97.6 F 05/13/22 14:06 Pulse 55 05/13/22 14:06 Resp 16 05/13/22 14:06 BP 152/65 H 05/13/22 14:06 Pulse Ox 96 05/13/22 14:06 O2 Del Method 05/13/22 14:06 O2 Flow Rate 6 05/13/22 11:31 BMI result Body Mass Index 34.1 Const: Other: Constitutional : Alert, oriented, not in distress Neck : Normal inspection, Supple Cardiovascular : RRR, no JVP, no lower extremity edema Respiratory : fair bilateral air entry, no crackles, wheezes or rhonchi Gastrointestinal: soft, lax, Normal bowel sounds, Non tender Skin : Warm, Dry Musculoskeletal: Right knee dressing, no drainage noted Neurological : Alert & oriented x3, No focal deficit , CN 2-12 within normal Results Labs CBC and Chem 7: 05/15/22 05:48 05/15/22 05:48 Labs: Laboratory Results - last 24 hr 05/13/22 07:28 COVID-19 (DONIS) Negative COVID-19 Clin Com See Note Imaging Radiologist's Impressions: Impressions Knee X-Ray 05/13/22 12:20 IMPRESSION: Appropriate alignment of the right total knee arthroplasty. Assessment and Plan (1) Osteoarthritis of right knee: Plan A 77 years old lady with PMH of osteoarthritis, HTN, rheumatoid arthritis, HLD who presents to the hospital for planned right knee surgery. Right knee osteoarthritis Post arthroplasty Orthopedic team following HTN Continue metoprolol HLD continue statin DVT PPX Lovenox Thank you for the consult, will continue to monitor the patient with you
[2022-05-13] MEDS: ceFAZolin Sodium/Dextrose,Iso 2 GM/50 ML PIGGYBACK IV (16:25)
[2022-05-13] MEDS: 0.9 % Sodium Chloride Flush 3 ML SYRINGE IVFLUSH ×2 (16:46→20:45)
[2022-05-13] MEDS: Docusate Sodium 100 MG CAPSULE PO (20:45)
[2022-05-13] MEDS: Celecoxib 200 MG CAPSULE PO (20:46)
[2022-05-14 03:36] VITALS: BP 141/73; PULSE 65; RESP 16; TEMP 37.1; O2SAT 94
[2022-05-14] MEDS: oxyCODONE HCl Immed Release 5 MG TABLET PO ×4 (03:46→21:18)
[2022-05-14] MEDS: Omeprazole 20 MG CAPSULE.DR PO (05:01)
[2022-05-14 06:40] LABS: Basophils Percent Auto 0.2 % (0-2); Hematocrit 35.2 % (37.0-47.0); Imm Gran Abs Auto 0.04 X10*3/uL (0.00-0.03); Imm Gran Pct Auto 0.3 % (0.0-0.4); Lymphocytes Absolute Auto 1.6 X10*3/uL (1.2-4.9); Lymphocytes Percent Auto 14.3 % (20-40); MANUAL DIFF FLAG SCAN; Mean Corpuscular HGB Conc 34.1 g/dl (31.0-35.0); Mean Corpuscular Hemoglobin 35.1 pg (27.0-33.0); Mean Corpuscular Volume 102.9 fL (80.0-98.0); Monocytes Absolute Auto 1.5 X10*3/uL (0.1-1.2); Monocytes Percent Auto 13.3 % (2-11); Neutrophils Absolute Auto 8.2 x10*3/uL (2.0-8.3); Neutrophils Percent Auto 71.9 % (45-73); Platelet Count 157 X10*3/uL (160-400); Red Blood Count 3.42 X10*6/uL (4.20-5.50); Red Cell Distribution Width 13.8 % (11.0-16.0); SCAN SMEAR FLAG 1; White Blood Count 11.4 X10*3/uL (4.8-10.8)
[2022-05-14 06:56] LABS: Anion Gap 10 (12-20); Blood Urea Nitrogen 16 mg/dL (9-16); Calcium 8.7 mg/dL (8.4-10.2); Carbon Dioxide 24 mmol/L (22-29); Chloride 106 mmol/L (96-108); Creatinine Clr Calc Pharmacy 88.9; Estimated Glomerular Filt Rate > 60; Glucose Fasting 123 mg/dL (60-99); Potassium 3.9 mmol/L (3.3-5.1); Sodium 136 mmol/L (135-145)
[2022-05-14 07:16] LABS: SLIDE REVIEW VERIFIED
[2022-05-14 07:55] VITALS: BP 134/61; PULSE 65; RESP 16; TEMP 36.5; O2SAT 95
[2022-05-14 08:00] VITALS: BP 134/61; PULSE 65; O2SAT 95
--- NOTE | 2022-05-14 09:04 | P.PNOP_ITS ---
Subjective Subjective Date of Service: 05/14/22 Interval history: Postop day 1 status post right total knee arthroplasty No overnight events. Slightly hypotensive but she is asymptomatic. Physical Exam Vital Signs: Vital Signs: Last Vital Signs Temp 97.7 F 05/14/22 07:55 Pulse 65 05/14/22 08:00 Resp 16 05/14/22 07:55 BP 134/61 05/14/22 08:00 Pulse Ox 95 05/14/22 08:00 O2 Del Method 05/14/22 07:55 O2 Flow Rate 6 05/13/22 11:31 BMI result Body Mass Index 34.1 Const: General: cooperative, healthy appearing and no acute distress Resp: Effort & Inspection: normal respiratory effort and able to speak in complete sentences Cardio: Rate: regular rate Peripheral pulses: Peripheral pulses 2+ throughout GI: Palpation (GI): Soft to palpation Skin: General skin exam: no rashes or lesions noted Extrem: Other: incision clean dry and intact. [place] intact. No erythema or joint effusion. Calf supple nontender. Neurovascularly intact. Procedures Date of Service Date of Service: 05/14/22 Progress Note: A&P Assessment and plan (1) Status post total knee replacement, right: Status: Acute Assessment and Plan: * Continue pain mgmnt * Begin Aspirin for dvt ppx * begin PT for RT TKA * Dispo planning-Pending PT eval, pain mgmnt Time Spent With Patient Time: Total time spent is greater than 50% in coordination of care (as documented) at patient's floor/unit and/or counseling patient: Quality Stroke Does the patient have a stroke diagnosis?: No VTE Prior VTE?: No VTE Risk Level:: Surgical - very high VTE Device Contraindication: N/A - Device Ordered VTE Drug Contraindication: N/A - Med Ordered
[2022-05-14] MEDS: 0.9 % Sodium Chloride 1,000 ML 999 ML IV (09:38)
[2022-05-14] MEDS: Aspirin 325 MG TABLET PO ×2 (09:38→21:15)
[2022-05-14] MEDS: Metoprolol Tartrate 25 MG TABLET PO ×2 (09:39→21:16)
[2022-05-14] MEDS: Docusate Sodium 100 MG CAPSULE PO ×2 (09:39→21:15)
[2022-05-14] MEDS: Atorvastatin Calcium 20 MG TABLET PO (09:39)
[2022-05-14] MEDS: Folic Acid 1 MG TABLET PO (09:39)
[2022-05-14] MEDS: Celecoxib 200 MG CAPSULE PO ×2 (09:39→21:16)
[2022-05-14] MEDS: 0.9 % Sodium Chloride Flush 3 ML SYRINGE IVFLUSH (09:40)
--- NOTE | 2022-05-14 10:14 | HO.POSTANES ---
Post Anesthesia Evaluation Post Anesthesia Evaluation Vital Signs: Vital Signs Temp Pulse Resp BP Pulse Ox O2 Del Method 05/14/22 08:00 65 134/61 95 05/14/22 07:55 97.7 F 65 16 134/61 95 Room Air 05/14/22 03:36 98.7 F 65 16 141/73 H 94 Room Air 05/13/22 23:47 98.6 F 63 14 149/79 H 94 Room Air Anesthesia: Spinal and Nerve Block Mental Status: Awake Pain Control: Satisfactory Nausea/Vomiting: None Hydration: Adequate Anesthesia-Related Issues: No Anes. Related Issues
--- NOTE | 2022-05-14 10:33 | PC.NURSE ---
Patient ambulated to BR with PT. While on toilet became dizzy and weak. B/P 71/40. Patient assisted back to laying position. B/P reassessed 134/71. No further dizziness. Ortho ordered 1L NS bolus. Will continue to monitor.
[2022-05-14] MEDS: Lactated Ringers 1,000 ML 100 ML IVCONT ×2 (10:56→21:14)
[2022-05-14 11:31] VITALS: BP 154/68; PULSE 56; RESP 18; TEMP 36.9; O2SAT 96
--- NOTE | 2022-05-14 13:07 | MHC.CM.PN ---
05/14/22 IMM IN CHART PT REPORTS: SHE LIVES WITH HER SPOUSE, JAMIR. DOES NOT HAVE ASSISTANCE AT HOME, IS INDEPENDENT, AND DOESN'T FEEL SHE NEEDS ASSISTANCE AT THIS TIME. USES CANE/WALKER NEEDED. PCP ON FILE: DODIE CALDWELL VACCINATED X4 (MODERNA) HCP ON FILE/VERIFIED SPOUSE R DAUGHTER WILL TRANSPORT HOME. REFERRAL TO [facility], THEY ARE WILLING TO ACCEPT DISCHARGE PLAN: DISCHARGE HOME WITH [facility] SERVICES.
[2022-05-14 14:04] VITALS: BP 154/68; PULSE 56; O2SAT 96
[2022-05-14] MEDS: Acetaminophen 325 MG TABLET 650 MG PO (14:24)
--- NOTE | 2022-05-14 14:40 | HO.PM.IMPN ---
Subjective Subjective Date of Service: 05/14/22 Interval History: cc: knee pain interval history: knee pain Eyes Eyes: Reports no additional eye complaints Cardiovascular Cardiovascular: Reports no additional cardiovascular complaints Physical Exam Vital Signs: Vital Signs: Last Vital Signs Temp 98.4 F 05/14/22 11:31 Pulse 56 05/14/22 14:04 Resp 18 05/14/22 11:31 BP 154/68 H 05/14/22 14:04 Pulse Ox 96 05/14/22 14:04 O2 Del Method 05/14/22 11:31 O2 Flow Rate 6 05/13/22 11:31 BMI result Body Mass Index 34.1 General: AO X 3, no acute distress Resp: CTA bilateral, no accessory muscles used CVS: S1,S2,RRR GI: soft, non tender, non distended Neuro: motor grossly intact, alert Psych: appropriate affect, appropriate insight Objective Data Active Medications Acetaminophen (Acetaminophen 325 Mg Tablet) 650 mg PO Q6H PRN PRN Reason: Pain, Mild (Pain Scale 1-3) Last Admin: 05/14/22 14:24 Dose: 650 mg Documented By: JIMMIE Aspirin (Aspirin 325 Mg Tablet) 325 mg PO BID [facility] Last Admin: 05/14/22 09:38 Dose: 325 mg Documented By: JIMMIE Atorvastatin Calcium (Atorvastatin Calcium 20 Mg Tablet) 20 mg PO DAILY [facility] Last Admin: 05/14/22 09:39 Dose: 20 mg Documented By: JIMMIE Celecoxib (Celecoxib 200 Mg Capsule) 200 mg PO BID [facility] Last Admin: 05/14/22 09:39 Dose: 200 mg Documented By: JIMMIE Docusate Sodium (Docusate Sodium 100 Mg Capsule) 100 mg PO BID [facility] Last Admin: 05/14/22 09:39 Dose: 100 mg Documented By: JIMMIE Folic Acid (Folic Acid 1 Mg Tablet) 1 mg PO DAILY [facility] Last Admin: 05/14/22 09:39 Dose: 1 mg Documented By: JIMMIE Hydromorphone HCl (Hydromorphone Hcl 0.5 Mg/0.5 Ml Syringe) 0.25 mg IVPUSH Q10M PRN; Protocol PRN Reason: Pain, Moderate (Pain Scale 4-6 Last Admin: 05/13/22 13:56 Dose: 0.25 mg Documented By: ILZ Hydromorphone HCl (Hydromorphone Hcl 0.5 Mg/0.5 Ml Syringe) 0.25 mg IVPUSH Q4H PRN; Protocol PRN Reason: Pain, Severe (Pain Scale 7-10) Last Admin: 05/13/22 23:23 Dose: 0.25 mg Documented By: ALVIN Lactated Ringer's (Lr) 1,000 mls @ 100 mls/hr IVCONT .Q10H [facility] Last Admin: 05/14/22 10:56 Dose: 100 mls/hr Documented By: JIMMIE Metoprolol Tartrate (Metoprolol Tartrate 25 Mg Tablet) 25 mg PO BID [facility]; Protocol Last Admin: 05/14/22 09:39 Dose: 25 mg Documented By: JIMMIE Omeprazole (Omeprazole 20 Mg Capsule.Dr) 20 mg PO DAILY@0630 [facility] Last Admin: 05/14/22 05:01 Dose: 20 mg Documented By: ALVIN Ondansetron HCl (Ondansetron Hcl 4 Mg/2 Ml Vial) 4 mg IVPUSH Q8H PRN PRN Reason: Nausea and Vomiting Oxybutynin Chloride (Oxybutynin Chloride Er 5 Mg Tab.Er.24) 10 mg PO DAILY [facility] Last Admin: 05/14/22 09:39 Dose: 10 mg Documented By: JIMMIE Oxycodone HCl (Oxycodone Hcl Immed Release 5 Mg Tablet) 5 mg PO Q4H PRN PRN Reason: Pain, Moderate (Pain Scale 4-6 Last Admin: 05/14/22 14:25 Dose: 5 mg Documented By: JIMMIE Sodium Chloride (0.9 % Sodium Chloride Flush 3 Ml Syringe) 3 ml IVFLUSH QSHIFT [facility] Last Admin: 05/14/22 09:40 Dose: 3 ml Documented By: JIMMIE Labs CBC & Chem 7: 05/14/22 05:52 05/14/22 05:52 Labs: Laboratory Results - last 24 hr 05/14/22 05/14/22 05:52 05:52 MCV 102.9 H MCH 35.1 H MCHC 34.1 RDW 13.8 Plt Count 157 L MPV 12.0 Immature Gran % (Auto) 0.3 Neut % (Auto) 71.9 Lymph % (Auto) 14.3 L [place] % (Auto) 13.3 H Eos % (Auto) 0.0 Baso % (Auto) 0.2 Lymph # (Auto) 1.6 [place] # (Auto) 1.5 H Eos # (Auto) 0.0 Baso # (Auto) 0.0 Abs Immat Gran (auto) 0.04 H Absolute Neuts (auto) 8.2 Absolute Nucleated RBC 0.000 Nucleated RBC % (auto) 0.0 Smear Tech's Comments VERIFIED Anion Gap 10 L Estim Creat Clear Calc 88.9 Estimated GFR > 60 Fasting Glucose 123 H Calcium 8.7 Assessment and Plan (1) Status post total knee replacement, right: Status: Acute Plan A 77 years old lady with PMH of osteoarthritis, HTN, rheumatoid arthritis, HLD who presents to the hospital for planned right knee surgery.? Right knee osteoarthritis Post arthroplasty pod 1 dvt prophylaxis HTN Continue metoprolol HLD ?continue statin DVT PPX Lovenox Quality Stroke Does the patient have a stroke diagnosis?: No VTE Prior VTE?: No VTE Risk Level:: Surgical - very high VTE Device Contraindication: N/A - Device Ordered VTE Drug Contraindication: N/A - Med Ordered
[2022-05-14 16:00] VITALS: BP 140/56; PULSE 66; RESP 18; TEMP 36.3; O2SAT 98
[2022-05-15] VITALS: BP 148/71; PULSE 67; RESP 16; TEMP 37.4; O2SAT 94
[2022-05-15] MEDS: HYDROmorphone HCl 0.5 MG/0.5 ML SYRINGE 0.25 MG IVPUSH ×2 (02:20→09:27)
[2022-05-15 03:36] VITALS: BP 141/69; PULSE 61; RESP 16; TEMP 37.3; O2SAT 93
[2022-05-15 06:30] LABS: Basophils Absolute Auto 0.1 X10*3/uL (0.0-0.2); Basophils Percent Auto 0.5 % (0-2); Eosinophils Absolute Auto 0.7 X10*3/uL (0.0-0.4); Eosinophils Percent Auto 6.6 % (0-4); Hematocrit 32.8 % (37.0-47.0); Hemoglobin 11.1 g/dl (12.0-16.0); Imm Gran Abs Auto 0.05 X10*3/uL (0.00-0.03); Imm Gran Pct Auto 0.5 % (0.0-0.4); MANUAL DIFF FLAG SCAN; Mean Corpuscular HGB Conc 33.8 g/dl (31.0-35.0); Mean Corpuscular Hemoglobin 34.8 pg (27.0-33.0); Mean Corpuscular Volume 102.8 fL (80.0-98.0); Mean Platelet Volume 11.9 fL (9.4-12.3); Monocytes Absolute Auto 1.5 X10*3/uL (0.1-1.2); Monocytes Percent Auto 14.2 % (2-11); Neutrophils Absolute Auto 6.3 x10*3/uL (2.0-8.3); Neutrophils Percent Auto 59.2 % (45-73); Platelet Count 141 X10*3/uL (160-400); Red Blood Count 3.19 X10*6/uL (4.20-5.50); Red Cell Distribution Width 13.9 % (11.0-16.0); SCAN SMEAR FLAG 1; White Blood Count 10.6 X10*3/uL (4.8-10.8)
[2022-05-15] MEDS: Omeprazole 20 MG CAPSULE.DR PO (06:30)
[2022-05-15] MEDS: oxyCODONE HCl Immed Release 5 MG TABLET PO (06:35)
[2022-05-15 06:50] LABS: Anion Gap 8 (12-20); Blood Urea Nitrogen 12 mg/dL (9-16); Calcium 8.2 mg/dL (8.4-10.2); Carbon Dioxide 27 mmol/L (22-29); Chloride 106 mmol/L (96-108); Creatinine Clr Calc Pharmacy 97.8; Estimated Glomerular Filt Rate > 60; Glucose Fasting 92 mg/dL (60-99); Sodium 137 mmol/L (135-145)
[2022-05-15 07:01] LABS: SLIDE REVIEW VERIFIED
[2022-05-15 08:00] VITALS: BP 139/78; PULSE 101; RESP 20; TEMP 36.4; O2SAT 90
[2022-05-15 08:24] VITALS: BP 139/78; PULSE 101; O2SAT 90
--- NOTE | 2022-05-15 08:41 | PM.DS ---
DS: Providers Provider Date of Service: 05/15/22 Primary care physician: Ana Garcia MD Consults: 05/13/22 14:39 Consult to Hospitalist Routine Consulting Provider: Hospitalist Reason For Exam: h/o mitral valve replacement DS: Diagnosis Discharge Diagnosis (1) Status post total knee replacement, right: Status: Acute DS: Summary Hospital Course Hospital Course: The patient underwent a successful right total knee arthroplasty, they were transferred to PACU and then to the floor to recover. During their stay, their vitals were stable, afebrile at 99.1. Labs were unremarkable, H/H 11.1/32.8. POD 1 they were started on Aspirin 325mg po bid for DVT ppx, they also received Physical Therapy services twice a day. Prior to discharge, their dressing was changed, incision clean dry and intact, new Aquacel dressing applied and the plan was to be discharged home with [facility] services. Time Spent with Patient Time attestation: Total time spent providing and/or coordinating discharge services: Discharge coordination time: Less than 30 minutes Quality: Safe Use of Opioids Does Pt have an Active Cancer Diagnosis on the Problem List?: No Quality: Stroke Does the patient have a stroke diagnosis?: No Physical Exam Vital Signs: Vital Signs: Last Vital Signs Temp 97.6 F 05/15/22 08:00 Pulse 101 H 05/15/22 08:24 Resp 20 05/15/22 08:00 BP 139/78 05/15/22 08:24 Pulse Ox 90 L 05/15/22 08:24 O2 Del Method 05/15/22 08:00 O2 Flow Rate 6 05/13/22 11:31 BMI result Body Mass Index 34.1 Extrem: Other: Right knee incision site is clean dry and intact. [place] intact. No erythema or drainage. New Aquacel dressing applied. NVI. DS: Data Data Completed and Pending Pending studies at discharge: Pending at discharge 05/13/22 11:08 Surgical [PTH] Routine Labs on day of discharge: Laboratory Results - last 24 hr 05/15/22 05/15/22 05:48 05:48 WBC 10.6 RBC 3.19 L Hgb 11.1 L Hct 32.8 L MCV 102.8 H MCH 34.8 H MCHC 33.8 RDW 13.9 Plt Count 141 L MPV 11.9 Immature Gran % (Auto) 0.5 H Neut % (Auto) 59.2 Lymph % (Auto) 19.0 L [place] % (Auto) 14.2 H Eos % (Auto) 6.6 H Baso % (Auto) 0.5 Lymph # (Auto) 2.0 [place] # (Auto) 1.5 H Eos # (Auto) 0.7 H Baso # (Auto) 0.1 Abs Immat Gran (auto) 0.05 H Absolute Neuts (auto) 6.3 Absolute Nucleated RBC 0.000 Nucleated RBC % (auto) 0.0 Smear Tech's Comments VERIFIED Sodium 137 Potassium 4.0 Chloride 106 Carbon Dioxide 27 Anion Gap 8 L BUN 12 Creatinine 0.60 Estim Creat Clear Calc 97.8 Estimated GFR > 60 Fasting Glucose 92 Calcium 8.2 L Discharge Plan Discharge Patient Disposition: Home Health Service Referrals: Ana Garcia MD [Primary Care Provider] - 1 Week Charles Tong PA-C [Physician [employer] Painter] - 2 Weeks (05/29/22 1:00 [facility] [place] [facility]geons Charles Tong PA-C) Discharge Medications: No Action metoprolol tartrate 25 mg tablet 25 mg PO BID Qty: 180 3RF atorvastatin 20 mg tablet 20 mg PO DAILY Qty: 90 3RF oxybutynin chloride 10 mg tablet extended release 24 hr 10 mg PO DAILY Qty: 90 3RF aspirin 81 mg Tablet,Delayed Release (Dr/Ec) 81 mg PO DAILY cyanocobalamin (vitamin B-12) [Vitamin B-12] 2,000 mcg Tablet Extended Release 2,000 mcg PO DAILY omeprazole 20 mg Tablet,Delayed Release (Dr/Ec) 20 mg PO DAILY cholecalciferol (vitamin D3) [Vitamin D3] 50 mcg (2,000 unit) Capsule 50 mcg PO DAILY clotrimazole 1 % solution 4 drp otic (ear) right BID ciprofloxacin-dexamethasone 0.3-0.1 % drops,suspension 4 drp otic (ear) right BID diclofenac sodium 1 % gel 4 g topical QID folic acid 1 mg tablet 1 mg PO DAILY methotrexate sodium 2.5 mg tablet 17.5 mg PO TH celecoxib 200 mg capsule 200 mg PO DAILY Discharge Orders: Discharge Order (Routine); Ordered 05/15/22 Ordered By: Shobha Amaya Activity Restrictions/Additional Instructions: Physical Therapy for Total hip arthroplasty: wbat, posterior precautions, gait training, ROM, strength Limit stair climbing No showering, no tub bath-keep dressing clean, dry and intact No driving x6 weeks Continue Aspirin twice a day x 6 weeks Follow up with [facility] [place] Orthopedics in 2 weeks: --you will also have your first out patient PT eval on the day of your post op appt-so please plan on being in the office that day for an extended period of time.
--- NOTE | 2022-05-15 08:57 | MHC.CM.PN ---
PATIENT IS DC HOME WITH [facility] FOR HOME P.T. RN AWARE OF PLAN.
--- NOTE | 2022-05-15 08:59 | P.F2F_ITS ---
Service Date Service Date: 05/15/22 Encounter Date of encounter: 05/15/22 Reasons for Services Signs and symptoms assessed: Pt. is considered homebound due to recent surgery. Unable to drive, poor balance, poor gait mechanics. Reason for physical therapy: home safety and mobility, therapeutic exercises, restore joint function, gait/transfer training, assess need for DME and ADL training Reason for occupational therapy: home safety and mobility, therapeutic exercises, restore joint function, gait/transfer training, assess need for DME and ADL training Homebound: Leaving the home is medically contraindicated at this time without the asist of a device and/or another person due th the listed conditions above and below. Reason homebound: unsteady gait / fall risk, leg weakness, pain with transfers, poor balance / fall risk and unable to drive Homebound supporting statement: Pt. is considered homebound due to recent surgery. Unable to drive, poor balance, poor gait mechanics. Certification: Based on the above findings, I certify that this patient is confined to the home and needs intermittent prison care, physical therapy and/or speech therapy, or continues to need occupational therapy. The patient is under my care, and I have initiated the establishment of the plan of care. The patient will be followed by a physician who will periodically review the plan of care.
[2022-05-15] MEDS: Celecoxib 200 MG CAPSULE PO (09:16)
[2022-05-15] MEDS: Docusate Sodium 100 MG CAPSULE PO (09:16)
[2022-05-15] MEDS: Aspirin 325 MG TABLET PO (09:17)
[2022-05-15] MEDS: Folic Acid 1 MG TABLET PO (09:17)
[2022-05-15] MEDS: Atorvastatin Calcium 20 MG TABLET PO (09:17)
[2022-05-15] MEDS: 0.9 % Sodium Chloride Flush 3 ML SYRINGE IVFLUSH (09:18)
[2022-05-15] MEDS: Metoprolol Tartrate 25 MG TABLET PO (09:27)
== END 2022-05-15 10:44 | disposition home health service (06) ==
LOC: HO.SSS 07:37 → HO.S3 13:47
PROVIDERS: Physician Assistant; PCP Internal Medicine; Visit Provider Orthopaedic Surgery
PROC: (CPT 27447; principal; 2022-05-13 09:30)
DX: M17.11 Unilateral primary osteoarthritis, right knee (principal); M25.561 Pain in right knee; R26.89 Other abnormalities of gait and mobility; M54.50 Low back pain, unspecified; I10 Essential (primary) hypertension; E78.5 Hyperlipidemia, unspecified; J42 Unspecified chronic bronchitis; H91.93 Unspecified hearing loss, bilateral; Z79.82 Long term (current) use of aspirin; Z79.899 Other long term (current) drug therapy; Z20.822 Contact with and (suspected) exposure to COVID-19
CPT/HCPCS: 27447; 36415; 73560; 80048; 85014; 85018; 85025; 86850; 86900; 86901; 87635; 87640; 87641; 88305; 88311; 97110; 97116; 97162; 97530; C1776; J0690; J1100; J1170; J2370; J2795

== ENCOUNTER → 2022-06-16 10:31 | Outpatient (REF) | payer MEDICARE, SELFPAY ==
--- NOTE | 2022-06-16 10:36 | HM_ITS ---
* Total monitoring time 13 days and 11 hours. * Underlying rhythm is sinus. Average rate 65/Min. Range 44 to 88/Min. * Frequent supraventricular ectopy. [place] of 21%. Numerous episodes. Longest, 27 minutes. Probable atrial tachycardia. Less likely atypical flutter. * Frequent ventricular ectopy. 3 morphologies. 206 couplets. Overall burden 1.27%. * Palpitations correlate with above arrhythmias. MTDD
== END ==
LOC: HO.CARD 10:31
PROVIDERS: Visit Provider Internal Medicine
DX: R00.2 Palpitations (principal)
CPT/HCPCS: 93246

== ENCOUNTER 2022-07-24 09:00 | Outpatient (RCR) | payer MEDICARE, SELFPAY ==
--- NOTE | 2022-05-29 13:53 | MHC.PT.EP ---
[facility] [place] Office [place] Office [place] Office [address] Kristofer Cooney [address] [phone] F: [phone] F: [phone] F: [phone] F: [phone] Physical Therapy Plan of Care Date of Evaluation: Date of Surgery: 05/13/22 Diagnosis: Rt TKA Assessment: 77 YO FEMALE REF TO PT S/P Rt TKA 05/13/22. SHE RESIDES W HER SPOUSE IN A 1 LEVEL HOME AND IS CURRENTLY AMB W A W/WALKER . OBJECTIVE FINDINGS: LIMITED AROM Rt KNEE, TIGHT PSOAS MM MARII AND DECR ANKLE DF MARII; DECR STRENGTH IN PROX / LUMBOPELVIC AND Rt LE, POST-OP PAIN IN RIGHT KNEE ,AND HEALING ANT Rt KNEE INCISION. FUNCTIONALLY, Pt IS AMB W A W/WALKER- SHE HAS COMPENSATORY GAIT, MODIFIED STAIR MGMT, DECR STANDING, SLEEPING, AND DECR MARLEN TO ADLs REQ Rt KNEE FLEX. Pt IS A VERY GOOD PT CANDIDATE TO GUIDE HER IN HER POST-OP TKR COURSE, ADDRESSING THE ABOVE FINDINGS, PAIN MGMT, AND MAXIMIZING FUNCTIONAL INDEPENDENCE. Frequency and Duration: The patient will be seen 2X wk X 8 wks Short Term Goals: Pt DEMON PROPER QUAD SET IN 1 WK Pt'S KNEE PAIN DECREASED TO 2-3/10 IN 2 WKS Pt DEMON WFL AROM HIP EXT AND ANKLE DF/PF AND AROM RIGHT KNEE 0* TO 120* IN 3 WKS Pt DEMO IMPROVED TRANSFERS (W DECR UEs USAGE) AND GAIT MECH W LEAST RESTRICTIVE AD ON LEVEL GROUND AND STAIRS IN 2 WKS Pt INDEP W SCAR MOBILITY LEFT ANT KNEE IN 3 WKS Jail Goals: Pt INDEP W HEP PROGRESSION AND SELF-SX MGMT STRATEGIES IN 8 WKS Pt RESUME REG ADLs EVIDENT W IMPROVED LEFI SCORE BY 8-10 POINTS (AT EVAL 27/80 ) IN 8 WKS Pt INCR LE STRENGTH BY 1 GRADE IN 8 WKS Treatment Plan: Modalities to reduce pain, spasms and effusion. Manual therapy to restore motion and function. Therapeutic exercise to improve strength and flexibility. Neuromuscular re-education for posture and balance. Therapeutic activities to return to functional activities of daily living. Electronically signed by: Lucina Corley PT Please sign and return to therapist. Thank you for your referral.
--- NOTE | 2022-09-05 08:55 | MHC.PT.DC ---
[facility] [place] Office [place] [facility] [place] Office [address] Kristofer Cooney [address] [phone] F: [phone] F: [phone] F: [phone] F: [phone] Physical Therapy Discharge Report Diagnosis: Rt TKA Date of Surgery: 05/13/22 Date of Evaluation: 05/29/22 Date of Discharge: 09/05/22 Treatments to Date: 16 Cancellations to Date: No Shows to Date: Discharge Status: Achieved Goals Improved Function Independent with HEP Discharge Summary: Pt achieved all goals. Pt is DC with HEP Electronically signed by: Hardik No PT Please sign and return to therapist. Thank you for your referral.
== END 2022-09-05 08:51 | disposition home or self-care (01) ==
LOC: HO.PTCHIC 09:00
PROVIDERS: Visit Provider Physician Assistant
DX: Z96.651 Presence of right artificial knee joint (principal)
CPT/HCPCS: 97110; 97112; 97116; 97140; 97162; 97530

== ENCOUNTER → 2022-07-31 10:19 | Outpatient (BNVA) | payer MEDICARE, SELFPAY | PROVIDERS: PCP Internal Medicine; Referring Provider Internal Medicine; Visit Provider Internal Medicine Cardiovascular Disease | DX: I49.9 Cardiac arrhythmia, unspecified (principal); Z95.2 Presence of prosthetic heart valve; Z79.82 Long term (current) use of aspirin | CPT/HCPCS: 99212 ==

== ENCOUNTER 2022-08-08 08:54 | Outpatient (REF) | payer MEDICARE, SELFPAY ==
--- NOTE | ~2022-08-08 | XR_ITS ---
EXAMINATION: XR KNEES, STANDING AP XR KNEE, RIGHT CLINICAL INFORMATION: Knee pain. Prior knee arthroplasty. COMPARISON: Radiographs right knee 05/13/2022, standing AP knees bilateral knees 02/24/2022. TECHNIQUE: Standing AP view of both knees is performed along with lateral and axial patella views of the right knee. FINDINGS: Right: Status post total right knee arthroplasty. Hardware intact. No destructive process or osteolysis or periostitis. Possible trace suprapatellar fluid. Otherwise, no significant effusion. Borderline lateralization patella. Small oval mineralization adjacent to lateral patella. No fracture. Left: Status post left knee arthroplasty. Hardware intact. No destructive process or osteolysis. No fracture or periostitis. XR/XR knee standing BI IMPRESSION: -Bilateral knee arthroplasty. Hardware intact. No osteolysis. -Borderline lateralization right patella.
--- NOTE | ~2022-08-08 | XR_ITS ---
EXAMINATION: XR KNEES, STANDING AP XR KNEE, RIGHT CLINICAL INFORMATION: Knee pain. Prior knee arthroplasty. COMPARISON: Radiographs right knee 05/13/2022, standing AP knees bilateral knees 02/24/2022. TECHNIQUE: Standing AP view of both knees is performed along with lateral and axial patella views of the right knee. FINDINGS: Right: Status post total right knee arthroplasty. Hardware intact. No destructive process or osteolysis or periostitis. Possible trace suprapatellar fluid. Otherwise, no significant effusion. Borderline lateralization patella. Small oval mineralization adjacent to lateral patella. No fracture. Left: Status post left knee arthroplasty. Hardware intact. No destructive process or osteolysis. No fracture or periostitis. XR/XR knee RT 2V IMPRESSION: -Bilateral knee arthroplasty. Hardware intact. No osteolysis. -Borderline lateralization right patella.
== END 2022-08-08 08:55 | disposition home or self-care (01) ==
LOC: HO.HOSX 08:54
PROVIDERS: Visit Provider Orthopaedic Surgery
DX: M25.561 Pain in right knee (principal)
CPT/HCPCS: 73560; 73565

== ENCOUNTER → 2022-08-08 09:17 | Outpatient (BNVA) | payer MEDICARE, SELFPAY | PROVIDERS: PCP Internal Medicine; Visit Provider Orthopaedic Surgery | DX: Z47.1 Aftercare following joint replacement surgery (principal); Z96.651 Presence of right artificial knee joint | CPT/HCPCS: 99212 ==

== ENCOUNTER 2022-10-30 17:15 | Outpatient (REF) | payer MEDICARE, SELFPAY | END 2022-10-30 17:16 | disposition home or self-care (01) | LOC: HO.HOSX 17:15 | PROVIDERS: Visit Provider Orthopaedic Surgery | DX: Z13.89 Encounter for screening for other disorder (principal) ==

== ENCOUNTER 2022-10-31 | Outpatient (REF) | payer MEDICARE, SELFPAY ==
--- NOTE | ~2022-10-31 | XR_ITS ---
EXAMINATION: XR KNEE, RIGHT XR KNEE AP STANDING CLINICAL INFORMATION: Pain. COMPARISON: Radiographs dated 08/06/2022. TECHNIQUE: Lateral and axial views of the right knee were obtained. AP bilateral standing view of the knees was obtained. FINDINGS: Prosthetic components of the bilateral total knee arthroplasties are appropriately aligned without periprosthetic fracture or abnormal lucency. No component migration. No joint effusion. No significant varus or valgus configuration is seen bilaterally. XR/XR knee standing BI IMPRESSION: Appropriate alignment of the bilateral total knee arthroplasties, without evidence of complications.
--- NOTE | ~2022-10-31 | XR_ITS ---
EXAMINATION: XR KNEE, RIGHT XR KNEE AP STANDING CLINICAL INFORMATION: Pain. COMPARISON: Radiographs dated 08/06/2022. TECHNIQUE: Lateral and axial views of the right knee were obtained. AP bilateral standing view of the knees was obtained. FINDINGS: Prosthetic components of the bilateral total knee arthroplasties are appropriately aligned without periprosthetic fracture or abnormal lucency. No component migration. No joint effusion. No significant varus or valgus configuration is seen bilaterally. XR/XR knee RT 2V IMPRESSION: Appropriate alignment of the bilateral total knee arthroplasties, without evidence of complications.
== END 2022-10-31 00:01 | disposition home or self-care (01) ==
LOC: HO.HOSX
PROVIDERS: Visit Provider Orthopaedic Surgery
DX: M25.561 Pain in right knee (principal); M76.31 Iliotibial band syndrome, right leg; Z96.651 Presence of right artificial knee joint
CPT/HCPCS: 73560; 73565; 99212

== ENCOUNTER 2022-12-02 14:25 | Outpatient (REF) | payer MEDICARE, SELFPAY ==
[2022-12-02 17:11] LABS: Appearance Urine Turbid; Color Urine Dark Yellow; Glucose Urine UA Negative (Negative); Leukocyte Esterase Urine Moderate (2+) (Negative); Nitrite Urine Negative (Negative); PH 5.5 (5.0-9.0); Specific Gravity - Urine >= 1.030 (1.005-1.025); UMIC TRIGGER UACC YES; Urine Blood Large (3+) (Negative); Urine Ketones Negative (Negative); Urine Protein 300 (3+) mg/dL (Neg-Trace)
[2022-12-02 17:46] LABS: Bacteria Urine 1+ (None Seen); Calcium Oxalate Crystals Urine Present; Hyaline Casts Urine 0-2 /LPF (0-2); RBC Urine >20 /HPF (0-2); Squamous Epithelial Cell Urine >20 /HPF (0-2); UACC Culture Trigger YES; WBC Urine >50 /HPF (0-5)
== END 2022-12-02 14:26 | disposition home or self-care (01) ==
LOC: HO.HMGCLDS 14:25
PROVIDERS: PCP Internal Medicine; Visit Provider Internal Medicine
DX: R30.0 Dysuria (principal)
CPT/HCPCS: 81001; 81003; 87086; 87088; 87186

== ENCOUNTER 2022-12-29 09:00 | Outpatient (RCR) | payer MEDICARE, SELFPAY ==
--- NOTE | 2022-11-20 16:52 | MHC.PT.EP ---
[facility] [place] Office [place] Office [place] Office [address] Kristofer Cooney [address] [phone] F: [phone] F: [phone] F: [phone] F: [phone] Physical Therapy Plan of Care Date of Evaluation: Date of Surgery: Diagnosis: R leg ITB syndrome, s/p R TKA Assessment: Pt is a 77 y/o female who is 6 months s/p R TKE and is referred to PT for eval and treat of R ITB syndrome resulting in difficulty walking for duration, ascending stairs, performing squatting activities and entering her car secondary to decreased R hip and knee strength, increased lateral R leg tissue tension, gait abnormality, mild- moderate R knee anterior drawer instability, TTP of her lateral R knee, and pain with activity. Pt is deemed an appropriate candidate to receive skilled PT services to address their physical impairments in order to improve their functional ability. Frequency and Duration: The patient will be seen 2 x / wk x 5 wks. Short Term Goals: Initiate HEP. No longer TTP of R lateral knee. Senior Care Goals: I with HEP. Pt will no longer be painful entering and exiting vehicles. Pt will be able to walk 2 blocks with at most a little bid of difficulty, initial: quite a bit of difficulty. Pt will no longer painful negotiating stairs. Improve R knee flexion and extension MMT by at least 1/2 MMT; initial: 4/5 Treatment Plan: Modalities to reduce pain, spasms and effusion. Manual therapy to restore motion and function. Therapeutic exercise to improve strength and flexibility. Neuromuscular re-education for posture and balance. Therapeutic activities to return to functional activities of daily living. Electronically signed by: Hardik No PT. Please sign and return to therapist. Thank you for your referral.
== END 2022-12-29 10:06 | disposition home or self-care (01) ==
LOC: HO.PTCHIC 09:00
PROVIDERS: Visit Provider Orthopaedic Surgery
DX: M76.31 Iliotibial band syndrome, right leg (principal); Z96.651 Presence of right artificial knee joint
CPT/HCPCS: 97110; 97116; 97140; 97162

== ENCOUNTER → 2023-04-09 10:06 | Outpatient (BNVA) | payer MEDICARE, SELFPAY | PROVIDERS: PCP Internal Medicine; Visit Provider Internal Medicine Cardiovascular Disease | DX: R00.2 Palpitations (principal); R06.02 Shortness of breath | CPT/HCPCS: 93005 ==

== ENCOUNTER 2023-04-22 10:12 | Outpatient (REF) | payer MEDICARE, SELFPAY ==
[2023-04-22 11:24] LABS: Appearance Urine Cloudy; Color Urine Dark Yellow; Glucose Urine UA Negative (Negative); Leukocyte Esterase Urine Moderate (2+) (Negative); Nitrite Urine Positive (Negative); UMIC TRIGGER UACC YES; Urine Blood Large (3+) (Negative); Urine Ketones Negative (Negative); Urine Protein 30 (1+) mg/dL (Neg-Trace)
[2023-04-22 12:03] LABS: Bacteria Urine 4+ (None Seen); Hyaline Casts Urine 0-2 /LPF (0-2); RBC Urine >20 /HPF (0-2); UACC Culture Trigger YES; WBC Urine >50 /HPF (0-5)
== END 2023-04-22 10:13 | disposition home or self-care (01) ==
LOC: HO.HMGCLDS 10:12
PROVIDERS: PCP Internal Medicine; Visit Provider Internal Medicine
DX: R30.0 Dysuria (principal)
CPT/HCPCS: 81001; 87086; 87088; 87186

== ENCOUNTER 2023-05-25 06:46 | Outpatient (REF) | payer MEDICARE, SELFPAY ==
[2023-05-25 11:57] LABS: Alanine Aminotransferase 13 U/L (0-31); Albumin Level 3.7 g/dL (3.5-5.0); Alkaline Phosphatase 60 U/L (39-117); Anion Gap 13 (12-20); Aspartate Amino Transferase 22 U/L (5-31); Bilirubin Total 1.6 mg/dL (0.0-1.0); Blood Urea Nitrogen 21 mg/dL (9-16); Calcium 9.6 mg/dL (8.4-10.2); Carbon Dioxide 22 mmol/L (22-29); Chloride 110 mmol/L (96-108); Cholesterol 157 mg/dL; Estimated Glomerular Filt Rate > 60; Glucose Fasting 98 mg/dL (60-99); HDL Cholesterol 65 mg/dL; LDL Cholesterol Calculated 75 mg/dl; Potassium 4.1 mmol/L (3.3-5.1); Sodium 141 mmol/L (135-145); Total Protein 6.7 g/dL (6.5-8.0); Triglycerides 85 mg/dL
[2023-05-25 12:14] LABS: Vitamin D 25-OH Total 47.1 ng/mL (>30)
== END 2023-05-25 06:47 | disposition home or self-care (01) ==
LOC: HO.HMGCLDS 06:46
PROVIDERS: PCP Internal Medicine; Visit Provider Internal Medicine
DX: I10 Essential (primary) hypertension (principal); E78.00 Pure hypercholesterolemia, unspecified; M06.9 Rheumatoid arthritis, unspecified
CPT/HCPCS: 36415; 80053; 80061; 82306; 82607; 82746; 85025

== ENCOUNTER → 2023-05-28 15:07 | Outpatient (BNVA) | payer MEDICARE, SELFPAY | PROVIDERS: PCP Internal Medicine; Referring Provider Internal Medicine; Visit Provider Internal Medicine Cardiovascular Disease | DX: I49.9 Cardiac arrhythmia, unspecified (principal); R00.2 Palpitations; R06.02 Shortness of breath; R53.83 Other fatigue; Z95.2 Presence of prosthetic heart valve | CPT/HCPCS: 99212 ==

== ENCOUNTER 2023-06-01 09:27 | Outpatient (AMB) | payer MEDICARE, SELFPAY ==
--- NOTE | 2023-06-01 10:17 | AM.OFFVISMDC ---
Intake Vital Signs 06/01/23 10:18 Height 5 ft 7 in Weight 211 lb BMI 33.0 BP 122/100 H Blood Pressure Location Lt brachial Position Sitting Pulse 66 Pulse Source Pulse Oximeter Pulse Oximetry (%) 96 Oxygen Delivery Method Room Air Intake Visit Reasons: AWV Intake Note: Pt is here today for AWV. Allergies No Known Allergies [No Known Allergies*] Allergy (Verified 04/09/23 10:27) Medication List - Last Reconciled 06/01/23 by Ana Garcia MD acetaminophen 650 mg (2 x 325 mg) PO Q6H PRN 30 days adalimumab (Humira Pen) mg subcut albuterol sulfate 90 mcg/actuation 2 puffs inhalation Q6H PRN aspirin (Adult Low Dose Aspirin) 81 mg PO DAILY atorvastatin 20 mg PO DAILY celecoxib 200 mg PO BID cholecalciferol (vitamin D3) (Vitamin D3) 50 mcg PO DAILY cyanocobalamin (vitamin B-12) ER (Vitamin B-12 ER) 2,000 mcg PO DAILY diclofenac sodium 1% 4 grams topical QID docusate sodium 100 mg PO BID fluticasone propion-salmeterol 100-50 mcg/dose (Advair Diskus) 1 inh inhalation BID folic acid 1 mg PO DAILY methotrexate sodium 17.5 mg PO TH metoprolol tartrate 50 mg PO BID omeprazole 20 mg PO DAILY oxybutynin chloride ER 10 mg PO DAILY HPI AWV HPI Details Patient presents for annual visit. She complains of increased urination and bladder pressure for the last week. Patient denies abdominal pain nausea vomiting fever chills or back pain. Patient is concerned about the episode of bronchitis that took a few weeks for patient to recover. She currently denies any shortness of breath pain, cough, wheezing or pleurisy. Patient had secondhand tobacco exposure because her both parents smoked heavily and is concerned because her brother was diagnosed with lung cancer . Initiated the conversation about Advanced Directives. Advanced Directives help? patients prepare for current and future decisions about their medical treatment? and place of care. Discussed with patient that it is a process where a patients? current condition and prognosis are reviewed, their wishes for information? regarding their illness are elicited, and likely medical dilemmas are presented? and options discussed. The form can be amended as needed, reviewed yearly and? make changes as needed IPPE/AWV ? year old presents? for her ? Annual? Wellness Visit, initial visit.? Medical / Social History Reviewed? Past Medical History ?Yes? . ? [place]? of Care / Care Team list updated ?Yes . ? Surgical/Hospitalization? History ?Yes . ? Current Medications? (including OTC and supplements) ?Yes . ? Family History ?Yes? . ? Tobacco? Control form ?Yes . ? AUDIT-C (Alcohol use) form? ?Yes . ? Illicit drug use in Social? History ?Yes . ? Current diagnosis of? depression? ?No ? Appropriate PHQ2/PHQ9? completed ?Yes . ? Data entered by ?Medical? Commercial Solar Sales Consultant and reviewed by provider ? Fall Risk ? Fall? History? Have you had any falls with? injury in the past year? ?No . ? Have you had two or more? falls in the past year? ?No . ? Fall Risk Assessment: ?No? falls in the past year . ? HRA filled out by? the patient, reviewed by Provider and scanned. ? IPPE/AWV ? Balance? [place]? ?Yes . ? Tandem? walk ?Yes . ? Walk and? Turn ?Yes . ? Rise from? sit to stand ?Yes . ?Vision? Corrective? lens ?Yes ? Vision? screen ? Up-to-date, has an appointment [] for vision? screening and glaucoma screening ?Hearing? Whisper? test ?pass .? Initiated the conversation about Advanced Directives. Advanced Directives help? patients prepare for current and future decisions about their medical treatment? and place of care. Discussed with patient that it is a process where a patients? current condition and prognosis are reviewed, their wishes for information? regarding their illness are elicited, and likely medical dilemmas are presented? and options discussed. The form can be amended as needed, reviewed yearly and? make changes as needed Written? Plan?Completed. See Patient? Documents. [facility] Medical History Chronic bronchitis COVID-19 vaccine series completed Dry mouth Ear infection H/O bone density study Hard of hearing Hypercholesteremia Hypertension Lumbago Osteoarthritis Osteoarthritis of right knee Osteopenia Palpitations Postnasal drip Preop cardiovascular exam Rheumatoid arthritis Surgical History H/O colonoscopy H/O mitral valve replacement History of splenectomy History of total left knee replacement Hx of cholecystectomy Status post herniorrhaphy Family History Father Cerebral hemorrhage Parkinsonism Mother COPD (chronic obstructive pulmonary disease) Lung cancer Brother Lung cancer Son No problems noted. Daughter No problems noted. Daughter No problems noted. Daughter No problems noted. Social History Housing: House Are you a primary pet caregiver to a significant other at home: No Do you presently have visiting nurse or other home services: No Patient Tobacco Use Status: Never used Tobacco e-Cigarette/Vaping Use: Never Used Second Hand Smoke Exposure: Yes service: No Current occupational status: retired Current occupational exposures/hazards: No Cognitive needs: No Hearing needs: Yes Vision needs: Yes Questionnaire Medicare Wellness Checkup What [age] What gender do you identify with?: female During the past 4 weeks, how much have you been bothered by emotional problems such as feeling anxious, depressed, irritable, sad or downhearted, and blue?: not at all During the past 4 weeks, has your physical & emotional health limited your social activities with family, friends, neighbors, or groups?: not at all During the past 4 weeks, how much bodily pain have you generally had?: severe pain During the past 4 weeks, was someone available to help you if you needed & wanted help?: yes, as much as I wanted During the past 4 weeks, what was the hardest physical activity you could do for at least 2 minutes?: moderate Can you get to places out of walking distance without help? (For eg., can you travel alone on buses, taxis or drive your car?): Yes Can you go shopping for groceries or clothes without someone's help?: Yes Can you prepare your own meals?: Yes Because of any health problems, do you need the help of another person with your personal care needs such as eating, bathing, dressing or getting around the house?: No Can you handle your own money without help?: Yes During the past 4 weeks, how would you rate your health in general?: good During the past 4 weeks how have things been going for you?: pretty well Are you having difficulties driving your car?: no Do you always fasten your seat belt when you are in a car?: yes, usually During past 4 weeks, have you been bothered by the following: never: Falling or dizzy when standing up, Sexual problems?, Trouble eating well?, Teeth or denture problems? and Problems using the telephone? and sometimes: Tiredness or fatigue? Have you fallen 2 or more times in the past year?: No Are you afraid of falling?: No Are you a smoker?: no During the past 4 weeks, how many drinks of wine, beer, or other alcoholic beverages did you have?: no alcohol at all Do you exercise for about 20 minutes 3 or more times a week?: no, I usually do not exercise this much Have you been given information to help with the following?: no: Hazards in your house that might hurt you? and no: Keeping track of your medications? How often do you have trouble taking medicines the way you have been told to take them?: I always take medicine as prescribed How confident are you that you can control & manage most of your health problems?: very confident What is your race?: White Mini Mental State Exam (MMSE) Orientation What is the (year) (season) (date) (day) (month)?: year, season, date, day and month Where are we (state) (county) (town or city) (hospital) (floor)?: state, county, town or city, hospital/clinic and floor Registration Name of 3 unrelated objects clearly and slowly, then ask patient to repeat all 3 of them. (1st repeat determines score. Make sure they can repeat all three): object 1, object 2 and object 3 Attention & Calculation (CHOOSE ONE) Spell WORLD backwards (DLROW): 5 letters Recall Ask patient to repeat the 3 items from question #3.: object 1, object 2 and object 3 Language Show patient a wristwatch & ask what it is. Repeat for pencil.: watch and pencil Ask the patient to repeat the phrase 'No ifs, ands, or buts' after you.: correct Ask the patient to 'take a piece of paper with their right hand' 'fold paper in half' 'place paper on floor': take paper in right hand, fold paper in half and place paper on floor Print the sentence 'CLOSE YOUR EYES' on a piece. If patient actually closes eyes then score.: followed written direction Give patient a blank piece of paper & ask to write a sentence. Score if it contains a noun & verb.: sentence contains subject and verb Ask patient to copy figure of intersecting pentagons exactly. Score if all 10 angles & 2 intersects are included.: all 10 angles present & 2 are intersected Score Score: 30 Activity of Daily Living Bathing - sponge bath, tub bath or shower: receives no assistance (gets in/out by self, if usual bathing means Dressing - getting clothes from closets & drawers, including inner/outer garments & fasteners.: gets clothes & gets completely dressed without help Toileting - going to the 'toilet room' for urine/bowel elimination & cleaning self/arranging clothes: goes to toilet room, cleans self, arranges clothes without help Transfer: moves in & out of bed and chair without help (may use support object) Continence: controls urination/bowel movements completely by self Feeding: feeds self without help Total Score: 0 Information obtained from: patient Using telephone: independent Traveling: independent Shopping: independent Preparing meals: independent Housework: independent Taking medicine: independent Managing money: independent PHQ-9 Over the last 2 weeks, how often have you been bothered by any of the following problems? 1. Little interest or pleasure in doing things: not at all 2. Feeling down, depressed, or hopeless: not at all 3. Trouble falling or staying asleep, or sleeping too much: not at all 4. Feeling tired or having little energy: several days 5. Poor appetite or overeating: not at all 6. Feeling bad about yourself - or that you are a failure or have let yourself or your family down: not at all 7. Trouble concentrating on things, such as reading the newspaper or watching television: not at all 8. Moving or speaking so slowly that other people could have noticed. Or the opposite - being so fidgety or restless that you have been moving around a lot more than usual: not at all 9. Thoughts that you would be better off or of hurting yourself in some way: not at all Total score: 1 Depression Screening Interpretation: Negative Source: Developed by Drs. Peterson Torres, Sangeetha Avelar, Jorge Alberto Bradshaw and colleagues, with an educational lauren from [employer]. Review of Systems Const All systems reviewed & are unremarkable except as noted in HPI and below Reports no additional complaints Eyes Reports no additional complaints ENT Reports no additional complaints Card Reports no additional complaints Resp Reports no additional complaints GI Reports no additional complaints Reports no additional complaints Physical Exam Vital Signs: Last Vital Signs Pulse 66 06/01/23 10:18 BP 122/100 H 06/01/23 10:18 Pulse Ox 96 06/01/23 10:18 Oxygen Delivery Method Room Air 06/01/23 10:18 BMI result Body Mass Index 33.0 Const General: no acute distress HEENT Head: Yes normal to inspection Neck Neck: Yes supple Resp Effort & Inspection: normal respiratory effort Auscultation: clear to auscultation bilaterally Cardio Rhythm: regular rhythm Heart sounds: S1 normal heart sound present and S2 normal heart sound present GI Inspection: Yes normal to inspection Palpation (GI): Soft to palpation Percussion: Yes normal to percussion Auscultation: normal bowel sounds Extrem General: Yes no clubbing, cyanosis or edema Results AMB Urinalysis, Automated UA Leukoctes 70 Calista/uL Last Edit by JUDITH Angela on 06/01/23 10:26 1+ Diane Escalante 06/01/23 10:26 UA Nitrite Positive Last Edit by JUDITH Angela on 06/01/23 10:26 UA Urobilinogen 0.2 mg/dL Last Edit by Diane Escalante [facility] on 06/01/23 10:26 UA Protein 100 mg/dL Last Edit by Diane Escalante [facility] on 06/01/23 10:26 2+ Diane Escalante 06/01/23 10:26 UA pH 6.0 Last Edit by RICK Angela on 06/01/23 10:26 UA Blood 200 Sky/uL Last Edit by Diane Escalante [facility] on 06/01/23 10:26 3+ Diane Escalante 06/01/23 10:26 UA Specific [place] 1.030 Last Edit by JUDITH Angela on 06/01/23 10:26 UA Ketone Last Edit by Diane Escalante [facility] on 06/01/23 10:26 UA Bilirubin 0 mg/dL Last Edit by Diane Escalante [facility] on 06/01/23 10:26 UA Glucose 0 mg/dL Last Edit by Diane Escalante [facility] on 06/01/23 10:26 Results Reviewed Results Reviewed: Laboratory Last Values Urine pH (Auto) 6.0 06/01/23 10:24 Specific [place] (Auto) 1.030 06/01/23 10:24 Urine Protein (Auto) 100 mg/dL 06/01/23 10:24 Glucose (UA)(Auto) 0 mg/dL 06/01/23 10:24 Urine Blood (Auto) 200 Sky/uL 06/01/23 10:24 Urine Nitrite (Auto) Positive 06/01/23 10:24 Urine Bilirubin (Auto) 0 mg/dL 06/01/23 10:24 Urine Urobilinogen (Auto) 0.2 mg/dL 06/01/23 10:24 Leukocyte Esterase (Auto) 70 Calista/uL 06/01/23 10:24 Assessment & Plan Assessment & Plan (1) Dysuria: Code(s): R30.0 - Dysuria Plan: Check urine culture and start Macrobid (2) Hypertension: Code(s): I10 - Essential (primary) hypertension Plan: Continue current medications (3) Chronic bronchitis: Code(s): J42 - Unspecified chronic bronchitis Plan: Obtain PFTs and refer to registered clinical dietitian as per patient's request (4) Annual physical exam: Code(s): Z00.00 - Encounter for general adult medical examination without abnormal findings Plan: Well-balanced diet regular physical activity discussed with the patient. She is up-to-date with the mammogram. Patient follows up with traffic checker for osteoporosis (5) H/O mitral valve replacement: Comment: repair 2005 (ring on mitral valve)- ECHO 04/13 nl EF, NORMAL BIOPROSTHETIC MITRAL VALVE, mild to moderate TR Code(s): Z95.2 - Presence of prosthetic heart valve Plan: Follow-up with Cardiology (6) Cardiac arrhythmia: Code(s): I49.9 - Cardiac arrhythmia, unspecified Plan: Patient has Holter and echocardiogram ordered by fire regulator Orders: Orders UA CC w/rflx Micro + Cult Today R35.0 - Frequency of micturition PFT pulmonary function test Today J42 - Unspecified chronic bronchitis AMB Urinalysis Automated Today Z13.9 - Encounter for screening, unspecified Referrals Pulmonary Medicine Referral J42 - Unspecified chronic bronchitis Medications: New nitrofurantoin monohyd/m-cryst 100 mg (Macrobid) must administer with a meal/food 100 mg PO Q12H 14 caps 0RF 7 days Quality Reporting (2019) Depression/Bipolar (159/160/161/177) PHQ-9: Total score: 1 Coding Level of Care Code Medicare Subsequent (G0439) Diagnoses Dysuria R30.0 Hypertension I10 Chronic bronchitis J42 Annual physical exam Z00.00 H/O mitral valve replacement Z95.2 Cardiac arrhythmia I49.9 CPT Codes Advance Care Planning - Time spent: 1-15 minutes, not on file ([id number]) Advance Care Planning Advance Care Planning discussion: Exists, not on file Forms completed: Health Care Proxy Time spent: 1-15 minutes, not on file
[2023-06-01 10:18] VITALS: BP 122/100; PULSE 66; O2SAT 96; BMI 33.0
== END 2023-06-01 10:52 | disposition home or self-care (01) ==
LOC: HO.HMGC 10:13
PROVIDERS: PCP Internal Medicine; Visit Provider Internal Medicine
DX: Z00.00 Encounter for general adult medical examination without abnormal findings (principal); I10 Essential (primary) hypertension; J42 Unspecified chronic bronchitis; R30.0 Dysuria; Z95.2 Presence of prosthetic heart valve; I49.9 Cardiac arrhythmia, unspecified; Z71.89 Other specified counseling
CPT/HCPCS: 1124F; 81003; G0439

== ENCOUNTER 2023-06-01 10:24 | Outpatient (REF) | payer MEDICARE, SELFPAY | END 2023-06-01 10:25 | disposition home or self-care (01) | LOC: HO.LAB 10:24 | PROVIDERS: Visit Provider Internal Medicine | DX: R35.0 Frequency of micturition (principal) | CPT/HCPCS: 81001; 81003; 87086; 87088; 87186 ==

== ENCOUNTER 2023-06-16 11:15 | Outpatient (REF) | payer MEDICARE, SELFPAY ==
--- NOTE | 2023-06-16 12:12 | PFT_ITS ---
Forced vital capacity is 72%, FEV1 71%, FEV1/FVC ratio is 75. FEF 25/75 69% and MVV 77%. Post bronchodilator therapy, there is a slight improvement in FEF 25/75. Total lung capacity 71% and residual volume 69%. Diffusion capacity is 43%. DL/VA is 65%. CONCLUSION: Mild restrictive pulmonary disorder. Mild small airway obstructive disorder with good response to bronchodilator therapy. This finding is suggestive of mild bronchial asthma. For this, clinical correlation is recommended. Diffusion capacity is much decreased, which is partly due to restrictive and obstructive disorder, but may also be due to non-pulmonary factor such as technical difficulty or pulmonary vascular disease. Clinical correlation is recommended. MD SYDNEE Ames/MODL / [phone]
== END 2023-06-16 11:16 | disposition home or self-care (01) ==
LOC: HO.RESP 11:15
PROVIDERS: PCP Internal Medicine; Visit Provider Internal Medicine
DX: J42 Unspecified chronic bronchitis (principal)
CPT/HCPCS: 94010; 94727; 94729

== ENCOUNTER → 2023-06-16 12:12 | Outpatient (BNV) | payer MEDICARE, SELFPAY | PROVIDERS: PCP Internal Medicine; Visit Provider Internal Medicine | DX: J42 Unspecified chronic bronchitis (principal) | CPT/HCPCS: 94060; 94727; 94729 ==

== ENCOUNTER 2023-06-18 08:00 | Outpatient (RCR) | payer MEDICARE, SELFPAY | END 2023-06-29 14:24 | disposition home or self-care (01) | LOC: HO.PTCHIC 08:00 | PROVIDERS: PCP Internal Medicine; Visit Provider Internal Medicine Rheumatology | DX: M51.36 Other intervertebral disc degeneration, lumbar region (principal) | CPT/HCPCS: 97110; 97140; 97161 ==

== ENCOUNTER → 2023-07-20 09:46 | Outpatient (REF) | payer MEDICARE, SELFPAY ==
--- NOTE | 2023-07-20 09:48 | HM_ITS ---
* Total monitoring time 3 days. * Underlying rhythm is sinus. Average ventricular rate 50/Min. Range 41 to 67/Min. About 80% the time, ventricular rate less than 60/Min. * Frequent supraventricular ectopy with a burden of 4%. * Occasional ventricular ectopy with a burden of 0.3%. Two couplets. Evidence of bigeminy. * No significant pauses or AV blocks. * No patient markers or events in diary. MTDD
--- NOTE | 2023-07-20 09:48 | CA_ITS ---
Transthoracic Echocardiogram Patient (Last, First, Middle): Melissa De La Garza Ellen Gender: Female Date of : 1945 Age: 78 Procedure Date: 07/20/2023 Procedure Type: Transthoracic Echocardiogram Location: OP Height: 170.18 cm Weight: 97.52 kg BSA: 2.09 m2 Heart Rate: 49 bpm BP: 140 / 80 mmHg Binder And Wrapper Packer: LYNN Referring MD: Fahad Toussaint MD Symptoms: Z95.2 - Presence of prosthetic heart valve Study Quality: Fair ECG Rhythm: Bradycardia Conclusions: - The left ventricular systolic function is normal. The calculated ejection fraction is 58% by biplane method. - Suspect mitral annuloplasty ring with normal valvular function. Findings Left Ventricle Normal left ventricular cavity size. There is mildly increased left ventricular wall thickness. The left ventricular systolic function is normal. The calculated ejection fraction is 58% by biplane method. There is no evidence of regional wall motion abnormalities. Diastolic function is indeterminate on the basis of available data. Right Ventricle Normal right ventricular cavity size and systolic function. Atria The left atrium is mildly dilated. The right atrium is moderately dilated. Aortic Valve There is a normal trileaflet aortic valve. There is no aortic valve stenosis. There is trace (trivial) aortic valve regurgitation. Mitral Valve There is no mitral valve regurgitation. There is no mitral valve stenosis. Suspect mitral annuloplasty ring with normal valvular function. Pulmonic Valve The pulmonic valve is likely normal. Tricuspid Valve Normal tricuspid valve structure. There is mild tricuspid valve regurgitation. There is no evidence of pulmonary hypertension. Great Vessels The asc aorta is normal in size. Venous The inferior vena cava is mildly dilated and collapses greater than 50% with inspiration. Pericardium/Pleural There is no evidence of pericardial effusion. Prior Study Comparison No significant change compared to prior study dated: 04/03/2022. Measurements 2D Linear Measurements IVSd: 1.16 0.6-0.9/0.6-1.0 cm LVIDd: 5.27 3.9-5.3/4.2-5.9 cm LVIDd Index: 2.52 2.4-3.2/2.2-3.1 cm/m2 LVIDs: 3.01 2.0-3.6 cm LVPWd: 1.10 0.7-1.1 cm LA Diam: 3.60 2.7-3.8/3.0-4.0 cm LAIDs Index: 1.72 1.5-2.3 cm/m2 LV Mass: 291.82 67-162/88-224 g LV Mass Index: 139.63 43-95/49-115 g/m2 LVOT Diam: 2.40 3.0+(-)1.3 cm 2D Systolic Function EF 4C: 53.20 >55% EF 2C: 59.60 >55% EF BiP: 57.90 >55% Mitral Valve MV VTI: 0.46 MV Pk Abelardo: 1.25 MV Mn Abelardo: 0.59 MV Pk Grad: 6.00 MV Mn Grad: 2.00 MV Pk E: 1.14 MV PK A: 0.91 MV Decel Time: 361.00 E/A: 1.20 E'Lateral: 7.72 E'Medial: 5.55 E/E' Med: 20.50 E/E' Lat: 14.80 PHT: 106.00 MVA PHT: 2.08 MVA Continuity: 1.72 Decel [place]: 3.16 Aortic Valve AoV Pk Abelardo: 0.92 AoV Mn Abelardo: 0.68 AoV VTI: 0.26 AoV Pk Grad: 3.00 Aov Mn Grad: 2.00 CAROLYN Cont.VTI: 3.04 LVOT LVOT Pk Abelardo: 0.65 LVOT Mn Abelardo: 0.48 LVOT VTI: 0.18 LVOT Pk Grad: 2.00 LVOT Mn Grad: 1.00 LVOT Diam: 2.40 LVOT Area: 4.52 Diastolic Function MV Pk E: 1.14 MV Pk A: 0.91 E/A: 1.20 E'Medial: 5.55 E/E' Med: 20.50 E' Laterial: 7.72 E/E' Lat: 14.80 Right Ventricle TAPSE (mm): 24.00 TVS' Abelardo: 10.60 Tricuspid Valve TR Pk Abelardo: 2.42 TR Pk Grad: 23.00 RA Press: 8.00 RVSP: 31.00 Great Vessels Aorta Sinus of Valsalva: 4.40 2.0-3.5 cm Ao Asc: 3.80 2.1-3.4 cm Pulmonary Valve PV Pk Abelardo: 0.48 Peak PV Grad: 1.00 Updated in Other Vendor System with Status of Final Tray Yanez MD electronically signed on 07/20/2023 12:31:06 PM with status of Final
== END ==
LOC: HO.CARD 09:46
PROVIDERS: PCP Internal Medicine; Visit Provider Internal Medicine Cardiovascular Disease
DX: Z95.2 Presence of prosthetic heart valve (principal); R00.1 Bradycardia, unspecified
CPT/HCPCS: 93242; 93306

== ENCOUNTER → 2023-07-20 09:48 | Outpatient (BNV) | payer MEDICARE, SELFPAY | PROVIDERS: PCP Internal Medicine; Visit Provider Internal Medicine | DX: I47.1 Supraventricular tachycardia (principal) | CPT/HCPCS: 93244; 93306 ==

== ENCOUNTER 2023-08-03 14:18 | Outpatient (AMB) | payer MEDICARE, SELFPAY ==
[2023-08-03 14:38] VITALS: BP 132/68; PULSE 46; O2SAT 98; BMI 33.0
--- NOTE | 2023-08-03 14:38 | MHC.OFFVIS ---
Intake Vital Signs 08/03/23 14:38 Height 5 ft 7 in Weight 211 lb BMI 33.0 BP 132/68 Blood Pressure Location Lt brachial Position Sitting Pulse 46 L Pulse Source Pulse Oximeter Pulse Oximetry (%) 98 Oxygen Delivery Method Room Air Intake Visit Reasons: Chronic Bronchitis Intake Note: pt is here as a new patient, she states she had a horrible 2021. started with nasal drip that now has a lot of phlegm, only some short of breath with tiredness due to knee replacement. Charge Manager Required: No Allergies No Known Allergies [No Known Allergies*] Allergy (Verified 08/03/23 15:40) Medication List - Last Reconciled 08/03/23 by Won Boyce MD acetaminophen 650 mg (2 x 325 mg) PO Q6H PRN 30 days adalimumab (Humira Pen) mg subcut albuterol sulfate 90 mcg/actuation 2 puffs inhalation Q6H PRN aspirin (Adult Low Dose Aspirin) 81 mg PO DAILY atorvastatin 20 mg PO DAILY celecoxib 200 mg PO BID cholecalciferol (vitamin D3) (Vitamin D3) 50 mcg PO DAILY cyanocobalamin (vitamin B-12) ER (Vitamin B-12 ER) 2,000 mcg PO DAILY diclofenac sodium 1% 4 grams topical QID docusate sodium 100 mg PO BID fluticasone propion-salmeterol 100-50 mcg/dose (Advair Diskus) 1 inh inhalation BID folic acid 1 mg PO DAILY methotrexate sodium 17.5 mg PO TH metoprolol tartrate 50 mg PO BID omeprazole 20 mg PO DAILY oxybutynin chloride ER 10 mg PO DAILY Do you need a note to return to daycare/school/sports/work: No HPI Chronic Bronchitis HPI Details THIS PATIENT IS 78 YEARS OLD FEMALE, REFERRED FOR PULMONARY EVALUATION, SHE HAD HISTORY OF ONGOING COUGH WITH SOME NASAL CONGESTION AND POSTNASAL DISCHARGE. HAS A BACKGROUND THIS PATIENT HAS RHEUMATOID ARTHRITIS, WHICH IS CURRENTLY BEING TREATED WITH HUMIRA INJECTION ONCE A MONTH. PREVIOUSLY HAS BEEN TREATED WITH METHOTREXATE AND STILL ON 17.5 MG DAILY. SHE SUFFERED FROM COVID-19 INFECTION IN LATE 2020, RECOVERED AT HOME WITHOUT ANY RESIDUAL SIDE EFFECTS. THIS YEAR IN SPRING SHE HAD SYMPTOMS OF COMMON COLD. AND AFTER THAT CONTINUE TO HAVE ONGOING COUGH FOR A FEW MONTHS. NOW HER COUGH HAS ALREADY DISSIPATED TO MINIMAL. SHE ALSO STARTED HAVING INCREASED NASAL CONGESTION WITH POSTNASAL DISCHARGE. INITIALLY BEING TREATED WITH SYMPTOMATIC MEDS AND NOW SHE HAS SEEN AN RN SUPPORT SERVICES WHO HAS PRESCRIBED 2 KIND OF NASAL SPRAYS BUT SHE HAS NOT PICKED UP FROM THE PHARMACY. THIS PATIENT HAS BEEN A NONSMOKER. SHE DID HAVE SECONDHAND EXPOSURE TO SMOKING FROM HER MOTHER AND BROTHER WERE BOTH SMOKERS, AND ACTUALLY BOTH OF THEM OF LUNG CANCER. AFTER THE COMMON COLD SYMPTOMS IN SPRING AND ONGOING COUGH SHE WAS STARTED ON ADVAIR DISKUS 100-51 INHALATION B.I.D., WHICH SHE USED ONLY FOR A SHORT PERIOD AND THEN HAS STOPPED USING IT. [facility] Medical History Restrictive lung disease Cough Ear infection Hard of hearing COVID-19 vaccine series completed Preop cardiovascular exam Palpitations Osteoarthritis of right knee Dry mouth Osteopenia Postnasal drip Hypercholesteremia Chronic bronchitis Osteoarthritis Hypertension Rheumatoid arthritis H/O bone density study Lumbago Surgical History History of total left knee replacement H/O colonoscopy Status post herniorrhaphy H/O mitral valve replacement History of splenectomy Hx of cholecystectomy Family History Father Cerebral hemorrhage Parkinsonism Mother COPD (chronic obstructive pulmonary disease) Lung cancer Brother Lung cancer Son No problems noted. Daughter No problems noted. Daughter No problems noted. Daughter No problems noted. Social History Housing: House Are you a primary certified caregiver to a significant other at home: No Do you presently have visiting nurse or other home services: No Patient Tobacco Use Status: Never used Tobacco e-Cigarette/Vaping Use: Never Used Second Hand Smoke Exposure: Yes service: No Current occupational status: retired Current occupational exposures/hazards: No Cognitive needs: No Hearing needs: Yes Vision needs: Yes Review of Systems Const All systems reviewed & are unremarkable except as noted in HPI and below Eyes Reports no additional complaints ENT Reports nasal congestion and Reports nasal discharge Card Denies chest pain, Denies syncope, Denies irregular heart rhythm and Denies leg edema Resp Reports as per HPI GI Reports no additional complaints Reports nocturia Musc Reports back pain and Reports arthralgias Skin/Breast Reports system reviewed and no additional complaints, except as documented Neuro Reports no additional complaints and Denies syncope Psych Reports no additional complaints Physical Exam Vital Signs: Last Vital Signs Pulse 46 L 08/03/23 14:38 BP 132/68 08/03/23 14:38 Pulse Ox 98 08/03/23 14:38 Oxygen Delivery Method Room Air 08/03/23 14:38 BMI result Body Mass Index 33.0 Const General: healthy appearing (EXCEPT FOR BEING OVERWEIGHT), comfortable, no acute distress, alert and awake Orientation/consciousness: patient oriented x3 HEENT Head: Yes normal to inspection General nose exam: No nasal polyps present and No nasal discharge present Face and sinus: Yes sinuses nontender Mouth: oropharynx normal Throat: Yes posterior oropharynx normal Eyes General: appearance normal, both eyes and all related structures Neck Neck: Yes normal visual inspection, Yes no lymphadenopathy, Yes trachea midline and Yes no JVD Thyroid: Thyroid normal Chest Chest palpation & inspection: normal inspection of the chest, normal palpation of entire chest wall and no tenderness Resp Effort & Inspection: normal respiratory effort and no cough Auscultation: clear to auscultation bilaterally, no crackles and no wheezes Cardio Palpation: normal PMI Rate: regular rate Rhythm: regular rhythm Heart sounds: no gallops and no murmurs GI Palpation (GI): Soft to palpation, nontender, No hepatosplenomegaly present and no masses Auscultation: normal bowel sounds Back/Spine/Pelvis Thoracic/Lumbar Spine: thoracic and lumbar spine normal to inspection Skin General skin exam: no rashes or lesions noted Neuro General: patient oriented x3 and no focal motor deficits Cranial nerves: Yes CN's II-XII intact bilaterally Extrem General: Yes normal to inspection, Yes no clubbing, cyanosis or edema and Yes no calf tenderness Psych Speech and movement: Normal speech and movement present Results Reviewed Results Reviewed: PULMONARY FUNCTION TEST ON 06/16/2023. FVC FEV1 AND TLC WORSE SLIGHTLY DECREASED CONSISTENT AND WITH MILD RESTRICTIVE PULMONARY DISORDER, THERE WAS NO EVIDENCE OF OBSTRUCTIVE. AIRWAY DISORDER DLCO , 43 WHICH IS MODERATELY DECREASED HOWEVER DL/VA WAS 65, Assessment & Plan Assessment & Plan (1) Cough: Comment: POST INFECTIOUS COUGH SECONDARY TO REACTIVE AIRWAYS, RESOLVED, NOW SHE DOES HAVE MILD RESIDUAL COUGH WHICH MAY BE DUE TO ALLERGIC RHINITIS AND POSTNASAL DISCHARGE. Code(s): R05.9 - Cough, unspecified (2) Postnasal drip: Comment: SHE HAS POSTNASAL DISCHARGE, SECONDARY TO ALLERGIC RHINITIS, WHICH FLARES UP IN CERTAIN SEASONS LIKE THE END OF SUMMER THIS TIME. PATIENT IS UNDER CARE OF AN RN SUPPORT SERVICES, I THINK SHE WOULD NEED STEROID NASAL SPRAY LIKE FLONASE TWICE A DAY , AND MAY USE. ANTIHISTAMINIC AGENTS NEEDED Code(s): R09.82 - Postnasal drip (3) Restrictive lung disease: Comment: PULMONARY FUNCTION TEST SHOWS MILD RESTRICTIVE PULMONARY DISORDER, THIS IS RELATED TO HER MODERATE OBESITY, AND CHEST X-RAY IS ORDERED TO RULE OUT ANY PARENCHYMAL DISEASE OF THE LUNGS, ESPECIALLY BECAUSE SHE HAS RHEUMATOID ARTHRITIS AND HAS HAD TREATMENT WITH METHOTREXATE. CHEST X-RAY WILL BE REVIEWED AND IF ANY SUSPICION OF INTERSTITIAL LUNG DISEASE THEN SHE WOULD NEED A CT SCAN OF THE CHEST, IN THE MEANTIME SHE IS INSTRUCTED TO LOSE 5-10 LB OF WEIGHT. AND ALSO INSTRUCTED TO DO DEEP BREATHING EXERCISES 3 TIMES A DAY. Code(s): J98.4 - Other disorders of lung Orders: Orders XR chest 2V Today J98.4 - Other disorders of lung, R05.9 - Cough, unspecified Coding Level of Care Code New Pt Level 4 (10073) Diagnoses Cough R05.9 Postnasal drip R09.82 Restrictive lung disease J98.4
== END 2023-08-03 16:00 | disposition home or self-care (01) ==
PROVIDERS: PCP Internal Medicine; Visit Provider Internal Medicine
DX: R05.9 Cough, unspecified (principal); R09.82 Postnasal drip; J98.4 Other disorders of lung
CPT/HCPCS: 99214

== ENCOUNTER 2023-08-03 14:18 | Outpatient (REF) | payer MEDICARE, SELFPAY ==
--- NOTE | ~2023-08-03 | XR_ITS ---
EXAMINATION: XR CHEST 2 VIEWS CLINICAL INFORMATION: Cough. COMPARISON: Chest radiographs dated 09/12/2013 TECHNIQUE: Frontal and lateral views of the chest were obtained. FINDINGS: There is stable cardiomegaly. There has been a prior cardiac valvuloplasty. The lungs are clear. No infiltrate, effusion or pneumothorax is seen. There is biapical pleural thickening. There is no acute osseous abnormality. There are right upper quadrant surgical clips. XR/XR chest 2V IMPRESSION: 1. No focal infiltrate or congestive heart clear is seen. 2. There is cardiomegaly, without congestive heart failure. 3. There has been a prior cardiac valvuloplasty.
== END 2023-08-03 14:19 | disposition home or self-care (01) ==
LOC: HO.XRAY 14:18
PROVIDERS: PCP Internal Medicine; Visit Provider Internal Medicine
DX: J98.4 Other disorders of lung (principal); R05.9 Cough, unspecified
CPT/HCPCS: 71046; 99212

== ENCOUNTER 2023-08-06 10:35 | Outpatient (AMB) | payer MEDICARE, SELFPAY ==
[2023-08-06 10:41] VITALS: BP 118/70; PULSE 47; BMI 32.5
--- NOTE | 2023-08-06 10:41 | A.OFFVIS_ITS ---
Intake Vital Signs 08/06/23 10:41 Height 5 ft 7 in Weight 207 lb 3.752 oz BMI 32.5 BP 118/70 Blood Pressure Location Lt brachial Position Sitting Pulse 47 L Intake Visit Reasons: 1 year follow up Intake Note: 1 year follow-up with ekg feeling good Paper Finisher Required: No Allergies No Known Allergies [No Known Allergies*] Allergy (Verified 08/03/23 15:40) Medication List - Last Reconciled 08/06/23 by Fahad Toussaint MD acetaminophen 650 mg (2 x 325 mg) PO Q6H PRN 30 days adalimumab (Humira Pen) mg subcut albuterol sulfate 90 mcg/actuation 2 puffs inhalation Q6H PRN aspirin (Adult Low Dose Aspirin) 81 mg PO DAILY atorvastatin 20 mg PO DAILY celecoxib 200 mg PO BID cholecalciferol (vitamin D3) (Vitamin D3) 50 mcg PO DAILY cyanocobalamin (vitamin B-12) ER (Vitamin B-12 ER) 2,000 mcg PO DAILY diclofenac sodium 1% 4 grams topical QID docusate sodium 100 mg PO BID folic acid 1 mg PO DAILY methotrexate sodium 17.5 mg PO TH metoprolol tartrate 50 mg PO BID omeprazole 20 mg PO DAILY oxybutynin chloride ER 10 mg PO DAILY HPI HPI Comments History of Present Illness Details Melissa comes for follow-up. She says she feels lot more energetic on current metoprolol dose. She denies any prolonged palpitation irregular heartbeat. Her shortness of breath is improved. Denies any orthopnea, PND, leg edema. Taking all her medications as prescribed [facility] Medical History Restrictive lung disease Cough Ear infection Hard of hearing COVID-19 vaccine series completed Preop cardiovascular exam Palpitations Osteoarthritis of right knee Dry mouth Osteopenia Postnasal drip Hypercholesteremia Chronic bronchitis Osteoarthritis Hypertension Rheumatoid arthritis H/O bone density study Lumbago Surgical History History of total left knee replacement H/O colonoscopy Status post herniorrhaphy H/O mitral valve replacement History of splenectomy Hx of cholecystectomy Family History Father Cerebral hemorrhage Parkinsonism Mother COPD (chronic obstructive pulmonary disease) Lung cancer Brother Lung cancer Son No problems noted. Daughter No problems noted. Daughter No problems noted. Daughter No problems noted. Social History Housing: House Are you a primary transitional care liaison to a significant other at home: No Do you presently have visiting nurse or other home services: No Patient Tobacco Use Status: Never used Tobacco e-Cigarette/Vaping Use: Never Used Second Hand Smoke Exposure: Yes service: No Current occupational status: retired Current occupational exposures/hazards: No Cognitive needs: No Hearing needs: Yes Vision needs: Yes Review of Systems Const Denies chills, Denies fatigue, Denies fever(s), Denies frequent falls, Denies weakness, Denies weight gain and Denies weight loss ENT Denies dizziness Card Denies chest pain, Denies leg edema, Denies lightheadedness, Denies palpitations, Denies dyspnea, Denies dyspnea on exertion, Denies orthopnea and Denies other (loss of consciousness) Resp Denies cough, Denies dyspnea and Denies dyspnea on exertion GI Denies hematochezia and Denies change in stool character Musc Denies abnormal gait, Denies muscle weakness, Denies numbness, Denies radiating pain into limb and Denies tingling Neuro Denies Abnormal speech present, Denies abnormal gait, Denies dizziness, Denies frequent falls, Denies numbness, Denies tingling and Denies weakness Endo Denies fatigue and Denies palpitations Physical Exam Vital Signs: Last Vital Signs Pulse 47 L 08/06/23 10:41 BP 118/70 08/06/23 10:41 BMI result Body Mass Index 32.5 Const General: cooperative, comfortable, no acute distress, alert and awake Nutritional Appearance: obese Orientation/consciousness: patient oriented x3 Limitations: no limitations Neck Neck: Yes trachea midline, Yes supple and Yes no JVD Chest Chest palpation & inspection: normal inspection of the chest and other (Well- healed sternotomy scar) Resp Effort & Inspection: normal respiratory effort Auscultation: clear to auscultation bilaterally Cardio Jugular venous distension: no JVD Palpation: normal PMI Rate: bradycardic Rhythm: regular rhythm Heart sounds: S1 normal heart sound present, S2 normal heart sound present, no click, no gallops, no murmurs and no rubs GI Inspection: Yes obesity Auscultation: normal bowel sounds Neuro General: patient oriented x3 and no focal motor deficits Speech: No Abnormal speech present Extrem General: Yes no clubbing, cyanosis or edema Office Procedures EKG Details: EKG shows sinus bradycardia with sinus arrhythmia otherwise no acute ST T wave changes [id number], Complete Assessment & Plan Assessment & Plan (1) Cardiac arrhythmia: Code(s): I49.9 - Cardiac arrhythmia, unspecified Plan: Patient with frequent atrial tachycardia also frequent PACs, now suppressed with symptom improvement on metoprolol therapy. Continue the same. Importance of continue metoprolol therapy was discussed. Avoidance of stimulants was discussed. She understands agrees. Advised to call me with any worsening symptoms that may require antiarrhythmic drug therapy. (2) H/O mitral valve replacement: Comment: repair 2005 (ring on mitral valve)- ECHO 04/13 nl EF, NORMAL BIOPROSTHETIC MITRAL VALVE, mild to moderate TR Code(s): Z95.2 - Presence of prosthetic heart valve Plan: History of prior mitral valve repair. Currently doing well from that perspective. Continue low-dose aspirin therapy. SBE prophylaxis as per ACC/[facility] guidelines. Will follow with echocardiogram in 1 year's time. (3) Sinus bradycardia: Code(s): R00.1 - Bradycardia, unspecified Plan: Sinus bradycardia suggestive sinoatrial xavier dysfunction. Most likely exacerbated by medical therapy. Currently having no symptoms. She has good energy level. Will continue to monitor clinically. Advised to call me with any symptoms of increasing fatigue, lightheadedness, syncope. Follow up in the clinic in 1 year's time after echo and Holter monitor. Thank you for allowing me to partake in her care Coding Level of Care Code Est Pt Level 4 (55687) Diagnoses Cardiac arrhythmia I49.9 H/O mitral valve replacement Z95.2 Sinus bradycardia R00.1 CPT Codes EKG - CPT: 34962-[id number], Complete ([id number])
== END 2023-08-06 10:59 | disposition home or self-care (01) ==
PROVIDERS: PCP Internal Medicine; Referring Provider Internal Medicine; Visit Provider Internal Medicine Cardiovascular Disease
DX: R00.1 Bradycardia, unspecified (principal); Z95.2 Presence of prosthetic heart valve
CPT/HCPCS: 93010; 99214

== ENCOUNTER → 2023-08-06 10:35 | Outpatient (BNVA) | payer MEDICARE, SELFPAY | PROVIDERS: PCP Internal Medicine; Referring Provider Internal Medicine; Visit Provider Internal Medicine Cardiovascular Disease | DX: I49.9 Cardiac arrhythmia, unspecified (principal); Z79.82 Long term (current) use of aspirin; Z79.899 Other long term (current) drug therapy | CPT/HCPCS: 93005; 99212 ==

== ENCOUNTER 2023-10-05 10:16 | Outpatient (AMB) | payer MEDICARE, SELFPAY ==
--- NOTE | 2023-10-05 13:32 | AM.OFFWIN_ITS ---
Intake Vital Signs 10/05/23 13:33 Height 5 ft 7 in Weight 212 lb 8 oz BMI 33.3 BP 120/78 Blood Pressure Location Rt brachial Position Sitting Pulse 97 Pulse Source Pulse Oximeter Temp 97.9 F Temp Source Temporal Artery Scan Pulse Oximetry (%) 98 Oxygen Delivery Method Room Air Intake Visit Reasons: EP Runny nose/cough/sneezeing etc. [id number] Intake Note: pt is here for c.o runny nose, cough, sneezing, 1 neg and 1 pos at home covid test Patient Tobacco Use Status: Never used Tobacco Allergies No Known Allergies [No Known Allergies*] Allergy (Verified 10/05/23 14:11) Medication List - Last Reconciled 10/05/23 by Jose Miguel Flores MD acetaminophen 650 mg (2 x 325 mg) PO Q6H PRN 30 days adalimumab (Humira Pen) mg subcut albuterol sulfate 90 mcg/actuation 2 puffs inhalation Q6H PRN aspirin (Adult Low Dose Aspirin) 81 mg PO DAILY atorvastatin 20 mg PO DAILY cefdinir 300 mg PO BID celecoxib 200 mg PO BID cholecalciferol (vitamin D3) (Vitamin D3) 50 mcg PO DAILY cyanocobalamin (vitamin B-12) ER (Vitamin B-12 ER) 2,000 mcg PO DAILY diclofenac sodium 1% 4 grams topical QID docusate sodium 100 mg PO BID folic acid 1 mg PO DAILY methotrexate sodium 17.5 mg PO TH metoprolol tartrate 50 mg PO BID 90 days omeprazole 20 mg PO DAILY oxybutynin chloride ER 10 mg PO DAILY Do you need a note to return to daycare/school/sports/work: Yes HPI EP Runny nose/cough/sneezeing etc. [id number] HPI Details Patient presents for a sick visit. Reporting symptoms of sinus congestion, sore throat and difficulty swallowing. Low-grade fever. No family member is sick. No recent travel. Patient reports symptoms of malaise and fatigue. [facility] Medical History Restrictive lung disease Cough Ear infection Hard of hearing COVID-19 vaccine series completed Preop cardiovascular exam Palpitations Osteoarthritis of right knee Dry mouth Osteopenia Postnasal drip Hypercholesteremia Chronic bronchitis Osteoarthritis Hypertension Rheumatoid arthritis H/O bone density study Lumbago Surgical History History of total left knee replacement H/O colonoscopy Status post herniorrhaphy H/O mitral valve replacement History of splenectomy Hx of cholecystectomy Family History Father Cerebral hemorrhage Parkinsonism Mother COPD (chronic obstructive pulmonary disease) Lung cancer Brother Lung cancer Son No problems noted. Daughter No problems noted. Daughter No problems noted. Daughter No problems noted. Social History Housing: House Are you a primary career law clerk to a significant other at home: No Do you presently have visiting nurse or other home services: No Patient Tobacco Use Status: Never used Tobacco e-Cigarette/Vaping Use: Never Used Second Hand Smoke Exposure: Yes service: No Current occupational status: retired Current occupational exposures/hazards: No Cognitive needs: No Hearing needs: Yes Vision needs: Yes Physical Exam Vital Signs: Last Vital Signs Temp 97.9 F 10/05/23 13:33 Pulse 97 10/05/23 13:33 BP 120/78 10/05/23 13:33 Pulse Ox 98 10/05/23 13:33 Oxygen Delivery Method Room Air 10/05/23 13:33 BMI result Body Mass Index 33.3 Const General: cooperative and healthy appearing Nutritional Appearance: well nourished Orientation/consciousness: patient oriented x3 Limitations: no limitations HEENT Head: Yes normal to inspection Eyes General: appearance normal, both eyes and all related structures Neck Neck: Yes normal visual inspection Chest Chest palpation & inspection: normal palpation of entire chest wall Resp Effort & Inspection: normal respiratory effort Neuro General: patient oriented x3 Assessment & Plan Assessment & Plan (1) Upper respiratory tract infection: Code(s): J06.9 - Acute upper respiratory infection, unspecified Plan: Continue medications that she is taking from her primary care doc for this condition. Flu swab was done and will call with results. Orders: Orders SARS-CoV2/FLU/RSV Today R43.9 - Unspecified disturbances of smell and taste Coding Level of Care Code Est Pt Level 3 (74640) Diagnoses Upper respiratory tract infection J06.9
[2023-10-05 13:33] VITALS: BP 120/78; PULSE 97; TEMP 36.6; O2SAT 98; BMI 33.3
== END 2023-10-05 14:17 | disposition home or self-care (01) ==
PROVIDERS: PCP Internal Medicine; Visit Provider Internal Medicine
DX: J06.9 Acute upper respiratory infection, unspecified (principal)
CPT/HCPCS: 99213

== ENCOUNTER 2023-10-05 15:52 | Outpatient (REF) | payer MEDICARE, SELFPAY ==
[2023-10-05 16:35] LABS: Influenza A PCR NEGATIVE (Negative); Influenza B PCR NEGATIVE (Negative); Resp Syncy Virus RNA Qual PCR NEGATIVE (Negative); SARS COV2 PCR INHOUSE POSITIVE (Negative)
== END 2023-10-05 15:53 | disposition home or self-care (01) ==
LOC: HO.LNP 15:52
PROVIDERS: Visit Provider Internal Medicine
DX: R43.9 Unspecified disturbances of smell and taste (principal); Z11.52 Encounter for screening for COVID-19
CPT/HCPCS: 0241U

== ENCOUNTER 2023-11-25 11:46 | Outpatient (REF) | payer MEDICARE, SELFPAY | END 2023-11-25 11:47 | disposition home or self-care (01) | LOC: HO.HMGCLDS 11:46 | PROVIDERS: PCP Internal Medicine; Visit Provider Internal Medicine | DX: R30.0 Dysuria (principal) | CPT/HCPCS: 87086 ==

== ENCOUNTER 2023-12-02 09:47 | Outpatient (AMB) | payer MEDICARE, SELFPAY ==
--- NOTE | 2023-12-02 09:51 | A.OFFPC_ITS ---
Vital Signs 12/02/23 09:52 Height 5 ft 7 in Weight 210 lb BMI 32.9 BP 124/80 Blood Pressure Location Lt brachial Position Sitting Pulse 86 Pulse Source Pulse Oximeter Pulse Oximetry (%) 96 Oxygen Delivery Method Room Air Intake Visit Reasons: 6 month follow up Intake Note: Pt is here today for 6 months follow up visit. Allergies No Known Allergies [No Known Allergies*] Allergy (Verified 12/02/23 09:56) Medication List - Last Reconciled 12/02/23 by Ana Garcia MD acetaminophen 650 mg (2 x 325 mg) PO Q6H PRN 30 days adalimumab (Humira Pen) mg subcut albuterol sulfate 90 mcg/actuation 2 puffs inhalation Q6H PRN aspirin (Adult Low Dose Aspirin) 81 mg PO DAILY atorvastatin 20 mg PO DAILY celecoxib 200 mg PO BID cholecalciferol (vitamin D3) (Vitamin D3) 50 mcg PO DAILY cyanocobalamin (vitamin B-12) ER (Vitamin B-12 ER) 2,000 mcg PO DAILY diclofenac sodium 1% 4 grams topical QID docusate sodium 100 mg PO BID estradiol 0.01%(0.1mg/gram) 0.25 appful vaginal 2XW famotidine PO folic acid 1 mg PO DAILY methotrexate sodium 17.5 mg PO TH metoprolol tartrate 50 mg PO BID 90 days omeprazole 20 mg PO DAILY oxybutynin chloride ER 10 mg PO DAILY Tobacco use date assessed: 12/02/23 Fall risk assessment: No Falls in past year Last assessed Fall Risk: 12/02/23 Dental Screening Dental Screen Date: 12/02/23 Did you have a dental visit in the last 12 months?: Yes Did you have a dental problem in the last 6 months where you did not have access to dental care?: No Was dental information given to patient?: Patient has dentist HPI 6 month follow up HPI Details Patient presents for the follow-up of hypertension hyperlipidemia. She reports recurrent urine tract infections and symptoms of increased urinary frequency. She denies pelvic pain dysuria fever chills nausea vomiting. Patient has been seeing ENT for evaluation of her chronic postnasal drip and has been using saline nasal spray in taking famotidine. Patient tried Flonase nasal spray which cause nasaldryness when she used it daily. Patient was up with team coordinator for RA. She has been under lot of stress taking care of her with Alzheimer's. FORMERLY [facility] Medical History (Updated 12/02/23 @ 11:00 by Ana Garcia MD) Restrictive lung disease Cough Ear infection Hard of hearing COVID-19 vaccine series completed Preop cardiovascular exam Osteoarthritis of right knee Dry mouth Osteopenia Postnasal drip Hypercholesteremia Osteoarthritis Hypertension Rheumatoid arthritis H/O bone density study Lumbago Surgical History History of total left knee replacement H/O colonoscopy Status post herniorrhaphy H/O mitral valve replacement History of splenectomy Hx of cholecystectomy Family History Father Cerebral hemorrhage Parkinsonism Mother COPD (chronic obstructive pulmonary disease) Lung cancer Brother Lung cancer Son No problems noted. Daughter No problems noted. Daughter No problems noted. Daughter No problems noted. Social History Housing: House Are you a primary wound care coordinator to a significant other at home: No Do you presently have visiting nurse or other home services: No Patient Tobacco Use Status: Never used Tobacco e-Cigarette/Vaping Use: Never Used Second Hand Smoke Exposure: Yes service: No Current occupational status: retired Current occupational exposures/hazards: No Cognitive needs: No Hearing needs: Yes Vision needs: Yes Questionnaire Thrive Questionnaire Date Thrive assessed: 11/27/22 AUDIT C Alcohol Use Questionnaire (AUDIT-C) 1. How often do you have a drink containing alcohol?: Monthly or less 2. How many drinks containing alcohol do you have on a typical day when you are drinking?: 1 or 2 3. How often do you have six or more drinks on one occasion?: Never Total Score: 1 STACEY-7 AMB Questionnaire STACEY-7 Date STACEY - 7 assessed: 11/27/22 Feeling nervous, anxious, or on edge: 0 = Not at all Not being able to stop or control worryin = Not at all Worrying too much about different things: 0 = Not at all Trouble relaxin = Not at all Being so restless that it is hard to sit still: 0 = Not at all Becoming easily annoyed or irritable: 1 = Several days Feeling afraid as if something awful might happen: 0 = Not at all Total STACEY-7 score (0-4 normal; 5-9 mild; 10-14 moderate; 15-21 severe): 1 Source: Developed by Drs. Peterson Torres, Sangeetha Avelar, Jorge Alberto Bradshaw and colleagues, with an educational lauren from [employer]. Review of Systems Const All systems reviewed & are unremarkable except as noted in HPI and below Reports no additional complaints Eyes Reports no additional complaints ENT Reports no additional complaints Card Reports no additional complaints Resp Reports no additional complaints GI Reports no additional complaints Physical exam (Primary Care) Vital Signs: Last Vital Signs Pulse 86 12/02/23 09:52 BP 124/80 12/02/23 09:52 Pulse Ox 96 12/02/23 09:52 Oxygen Delivery Method Room Air 12/02/23 09:52 BMI result Body Mass Index 32.9 Tobacco/Smoking Status: Tobacco use Status Tobacco use date assessed 12/02/23 12/02/23 09:59 Patient Tobacco Use Status Never used Tobacco 12/02/23 09:59 e-Cigarette/Vaping Use Never Used 12/02/23 09:52 Thrive Assessment: Date of Thrive Assessment Date Thrive assessed 11/27/22 12/02/23 09:52 Const General: no acute distress HENMT Ears: hearing grossly normal bilaterally Mouth: Normal oral and palatal mucosa present Throat: Yes posterior oropharynx normal Eyes General: appearance normal, both eyes and all related structures Neck Neck: Yes supple Resp Effort & Inspection: normal respiratory effort Auscultation: clear to auscultation bilaterally Cardio Rhythm: regular rhythm Heart sounds: S1 normal heart sound present and S2 normal heart sound present GI Inspection: Yes normal to inspection Palpation (GI): Soft to palpation Percussion: Yes normal to percussion Auscultation: normal bowel sounds Assessment and Plan Assessment & Plan (1) Dysuria: Code(s): R30.0 - Dysuria Plan: For increased urinary frequency urine culture will be obtained and estradiol vaginal cream twice a week will be tried (2) H/O mitral valve replacement: Comment: repair 2005 (ring on mitral valve)- ECHO 04/13 nl EF, NORMAL BIOPROSTHETIC MITRAL VALVE, mild to moderate TR Code(s): Z95.2 - Presence of prosthetic heart valve Plan: Follow-up with Cardiology (3) Hypertension: Code(s): I10 - Essential (primary) hypertension Plan: Continue metoprolol (4) Rheumatoid arthritis: Comment: f/u Code(s): M06.9 - Rheumatoid arthritis, unspecified Plan: Continue current medications and follow-up with team coordinator (5) Hypercholesteremia: Code(s): E78.00 - Pure hypercholesterolemia, unspecified Plan: Continue statin (6) Postnasal drip: Comment: SHE HAS POSTNASAL DISCHARGE, SECONDARY TO ALLERGIC RHINITIS, WHICH FLARES UP IN CERTAIN SEASONS LIKE THE END OF SUMMER THIS TIME. PATIENT IS UNDER CARE OF AN DIRECTOR OF PROMOTIONS, I THINK SHE WOULD NEED STEROID NASAL SPRAY LIKE FLONASE TWICE A DAY , AND MAY USE. ANTIHISTAMINIC AGENTS NEEDED Code(s): R09.82 - Postnasal drip Plan: Patient was advise restart fluticasone nasal spray at least 3 times a week and continue saline nasal spray daily, she will try antihistamine as needed (7) Sinus bradycardia: Code(s): R00.1 - Bradycardia, unspecified Orders: Orders Urine Culture Today R30.0 - Dysuria Comprehensive [place]. Panel Fast 6 Months E53.8 - Deficiency of other specified B group vitamins, E55.9 - Vitamin D deficiency, unspecified, E78.00 - Pure hypercholesterolemia, unspecified, I10 - Essential (primary) hypertension, R00.1 - Bradycardia, unspecified Complete Blood Count Auto Diff 6 Months E53.8 - Deficiency of other specified B group vitamins, E55.9 - Vitamin D deficiency, unspecified, E78.00 - Pure hypercholesterolemia, unspecified, I10 - Essential (primary) hypertension, R00.1 - Bradycardia, unspecified Lipid Panel 6 Months E53.8 - Deficiency of other specified B group vitamins, E55.9 - Vitamin D deficiency, unspecified, E78.00 - Pure hypercholesterolemia, unspecified, I10 - Essential (primary) hypertension, R00.1 - Bradycardia, unspecified Vitamin D 25-OH Total 6 Months E53.8 - Deficiency of other specified B group vitamins, E55.9 - Vitamin D deficiency, unspecified, E78.00 - Pure hypercholesterolemia, unspecified, I10 - Essential (primary) hypertension, R00.1 - Bradycardia, unspecified Vitamin B12 and Folate 6 Months E53.8 - Deficiency of other specified B group vitamins, E55.9 - Vitamin D deficiency, unspecified, E78.00 - Pure hypercholesterolemia, unspecified, I10 - Essential (primary) hypertension, R00.1 - Bradycardia, unspecified Medications: New estradiol 0.01%(0.1mg/gram) 0.25 appful vaginal 2XW 42.5 grams 2RF Coding Level of Care Code Est Pt Level 4 (73207) Diagnoses Dysuria R30.0 H/O mitral valve replacement Z95.2 Hypertension I10 Rheumatoid arthritis M06.9 Hypercholesteremia E78.00 Postnasal drip R09.82 Sinus bradycardia R00.1
[2023-12-02 09:52] VITALS: BP 124/80; PULSE 86; O2SAT 96; BMI 32.9
== END 2023-12-02 11:03 | disposition home or self-care (01) ==
PROVIDERS: PCP Internal Medicine; Visit Provider Internal Medicine
DX: R30.0 Dysuria (principal); M06.9 Rheumatoid arthritis, unspecified; Z95.2 Presence of prosthetic heart valve; I10 Essential (primary) hypertension; E78.00 Pure hypercholesterolemia, unspecified; R09.82 Postnasal drip; R00.1 Bradycardia, unspecified
CPT/HCPCS: 99214

== ENCOUNTER 2023-12-02 10:46 | Outpatient (REF) | payer MEDICARE, SELFPAY | END 2023-12-02 10:47 | disposition home or self-care (01) | LOC: HO.HMGCLDS 10:46 | PROVIDERS: PCP Internal Medicine; Visit Provider Internal Medicine | DX: R30.0 Dysuria (principal) | CPT/HCPCS: 87086 ==

== ENCOUNTER 2024-04-13 13:52 | Outpatient (REF) | payer MEDICARE, SELFPAY ==
[2024-04-13 17:33] LABS: Erythrocyte Sedimentation Rate 9 MM/HR (0-20)
== END 2024-04-13 13:53 | disposition home or self-care (01) ==
LOC: HO.HMGCLDS 13:52
PROVIDERS: PCP Internal Medicine; Visit Provider Podiatrist
DX: M10.9 Gout, unspecified (principal)
CPT/HCPCS: 36415; 84550; 85652

== ENCOUNTER 2024-05-24 06:48 | Outpatient (REF) | payer MEDICARE, SELFPAY ==
[2024-05-24 10:46] LABS: MANUAL DIFF FLAG NO
[2024-05-24 11:24] LABS: Basophils Absolute Auto 0.1 X10*3/uL (0.0-0.2); Basophils Percent Auto 1.8 % (0-2); Eosinophils Absolute Auto 0.3 X10*3/uL (0.0-0.4); Eosinophils Percent Auto 6.6 % (0-4); Hematocrit 40.5 % (37.0-47.0); Hemoglobin 13.5 g/dl (12.0-16.0); Imm Gran Abs Auto 0.01 X10*3/uL (0.00-0.03); Imm Gran Pct Auto 0.3 % (0.0-0.4); Lymphocytes Absolute Auto 1.2 X10*3/uL (1.2-4.9); Lymphocytes Percent Auto 30.3 % (20-40); Mean Corpuscular HGB Conc 33.3 g/dl (31.0-35.0); Mean Platelet Volume 10.9 fL (9.4-12.3); Monocytes Absolute Auto 0.7 X10*3/uL (0.1-1.2); Monocytes Percent Auto 16.9 % (2-11); Neutrophils Absolute Auto 1.8 x10*3/uL (2.0-8.3); Neutrophils Percent Auto 44.1 % (45-73); Platelet Count 198 X10*3/uL (160-400); Red Blood Count 3.75 X10*6/uL (4.20-5.50); Red Cell Distribution Width 15.1 % (11.0-16.0)
[2024-05-24 11:56] LABS: Alanine Aminotransferase 13 U/L (0-31); Albumin Level 3.9 g/dL (3.5-5.0); Alkaline Phosphatase 62 U/L (39-117); Anion Gap 13 (12-20); Aspartate Amino Transferase 23 U/L (5-31); Bilirubin Total 1.3 mg/dL (0.0-1.0); Blood Urea Nitrogen 20 mg/dL (9-16); Calcium 9.7 mg/dL (8.4-10.2); Carbon Dioxide 26 mmol/L (22-29); Chloride 108 mmol/L (96-108); Cholesterol 151 mg/dL (<200); Estimated Glomerular Filt Rate > 60; Glucose Fasting 92 mg/dL (60-99); HDL Cholesterol 54 mg/dL (>40); LDL Cholesterol Calculated 72 mg/dL (<100); Potassium 4.6 mmol/L (3.3-5.1); Sodium 142 mmol/L (135-145); Triglycerides 128 mg/dL (<150); Vitamin D 25-OH Total 37.1 ng/mL (>30)
[2024-05-24 12:17] LABS: Folate 12.6 ng/mL (> or = 4.0); Vitamin B12 1420 pg/mL (200-900)
== END 2024-05-24 06:49 | disposition home or self-care (01) ==
LOC: HO.HMGCLDS 06:48
PROVIDERS: PCP Internal Medicine; Visit Provider Internal Medicine
DX: R00.1 Bradycardia, unspecified (principal); I10 Essential (primary) hypertension; E78.00 Pure hypercholesterolemia, unspecified; E55.9 Vitamin D deficiency, unspecified; E53.8 Deficiency of other specified B group vitamins
CPT/HCPCS: 36415; 80053; 80061; 82306; 82607; 82746; 85025

== ENCOUNTER 2024-06-02 14:12 | Outpatient (REF) | payer MEDICARE, SELFPAY ==
[2024-06-02 16:20] LABS: Appearance Urine Clear; Color Urine Dark Yellow; Glucose Urine UA Negative (Negative); Leukocyte Esterase Urine Large (3+) (Negative); Nitrite Urine Positive (Negative); Specific Gravity - Urine <= 1.005 (1.005-1.025); UMIC TRIGGER UA YES; Urine Blood Trace (Negative); Urine Ketones Negative (Negative); Urine Protein Negative (Neg-Trace)
[2024-06-02 16:31] LABS: Bacteria Urine 4+ (None Seen); Hyaline Casts Urine 0-2 /LPF (0-2); RBC Urine 0-2 /HPF (0-2); WBC Urine >50 /HPF (0-5)
== END 2024-06-02 14:13 | disposition home or self-care (01) ==
LOC: HO.HMGCLDS 14:12
PROVIDERS: PCP Internal Medicine; Visit Provider Internal Medicine
DX: R30.0 Dysuria (principal)
CPT/HCPCS: 81001; 87086; 87088; 87186

== ENCOUNTER 2024-06-03 08:41 | Outpatient (AMB) | payer MEDICARE, SELFPAY ==
[2024-06-03 08:47] VITALS: BP 120/76; PULSE 82; O2SAT 98; BMI 32.9
--- NOTE | 2024-06-03 08:47 | A.OFFVIS_ITS ---
Intake Vital Signs 06/03/24 08:47 Height 5 ft 7 in Weight 210 lb BMI 32.9 BP 120/76 Blood Pressure Location Lt brachial Position Sitting Pulse 82 Pulse Source Pulse Oximeter Pulse Oximetry (%) 98 Oxygen Delivery Method Room Air Intake Visit Reasons: HATTIE [id number] Allergies No Known Allergies [No Known Allergies*] Allergy (Verified 06/03/24 09:03) Medication List - Last Reconciled 06/03/24 by Ana Garcia MD acetaminophen 650 mg (2 x 325 mg) PO Q6H PRN 30 days adalimumab (Humira Pen) mg subcut albuterol sulfate 90 mcg/actuation 2 puffs inhalation Q6H PRN aspirin (Adult Low Dose Aspirin) 81 mg PO DAILY atorvastatin 20 mg PO DAILY celecoxib 200 mg PO BID cholecalciferol (vitamin D3) (Vitamin D3) 50 mcg PO DAILY cyanocobalamin (vitamin B-12) ER (Vitamin B-12 ER) 2,000 mcg PO DAILY diclofenac sodium 1% 4 grams topical QID docusate sodium 100 mg PO BID estradiol 0.01%(0.1mg/gram) 0.25 appful vaginal 2XW famotidine PO folic acid 1 mg PO DAILY methotrexate sodium 17.5 mg PO TH metoprolol tartrate 50 mg PO BID omeprazole 20 mg PO DAILY oxybutynin chloride ER 10 mg PO DAILY HPI V [id number] HPI Details Patient presents for annual visit. 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 Patient was recommended to see pain management for cortisone injection and is referral to [facility]. Initiated the conversation about Advanced Directives. Advanced Directives help? patients prepare for current and future decisions about their medical treatment? and place of care. Discussed with patient that it is a process where a patients? current condition and prognosis are reviewed, their wishes for information? regarding their illness are elicited, and likely medical dilemmas are presented? and options discussed. The form can be amended as needed, reviewed yearly and? make changes as needed IPPE/AWV ? year old presents? for her ? Annual? Wellness Visit, initial visit.? Medical / Social History Reviewed? Past Medical History ?Yes? . ? [place]? of Care / Care Team list updated ?Yes . ? Surgical/Hospitalization? History ?Yes . ? Current Medications? (including OTC and supplements) ?Yes . ? Family History ?Yes? . ? Tobacco? Control form ?Yes . ? AUDIT-C (Alcohol use) form? ?Yes . ? Illicit drug use in Social? History ?Yes . ? Current diagnosis of? depression? ?No ? Appropriate PHQ2/PHQ9? completed ?Yes . ? Data entered by ?Medical? [employer] and reviewed by provider ? Fall Risk ? Fall? History? Have you had any falls with? injury in the past year? ?No . ? Have you had two or more? falls in the past year? ?No . ? Fall Risk Assessment: ?No? falls in the past year . ? HRA filled out by? the patient, reviewed by Provider and scanned. ? IPPE/AWV ? Balance? [place]? ?Yes . ? Tandem? walk ?Yes . ? Walk and? Turn ?Yes . ? Rise from? sit to stand ?Yes . ?Vision? Corrective? lens ?Yes ? Vision? screen ? Up-to-date, has an appointment [] for vision? screening and glaucoma screening ?Hearing? Whisper? test ?pass .? Initiated the conversation about Advanced Directives. Advanced Directives help? patients prepare for current and future decisions about their medical treatment? and place of care. Discussed with patient that it is a process where a patients? current condition and prognosis are reviewed, their wishes for information? regarding their illness are elicited, and likely medical dilemmas are presented? and options discussed. The form can be amended as needed, reviewed yearly and? make changes as needed Written? Plan?Completed. See Patient? Documents. FORMERLY [facility] Medical History (Updated 06/03/24 @ 09:09 by Ana Garcia MD) Restrictive lung disease Cough Ear infection Hard of hearing COVID-19 vaccine series completed Preop cardiovascular exam Osteoarthritis of right knee Dry mouth Osteopenia Postnasal drip Hypercholesteremia Osteoarthritis Hypertension Rheumatoid arthritis H/O bone density study Lumbago Surgical History History of total left knee replacement H/O colonoscopy Status post herniorrhaphy H/O mitral valve replacement History of splenectomy Hx of cholecystectomy Family History Father Cerebral hemorrhage Parkinsonism Mother COPD (chronic obstructive pulmonary disease) Lung cancer Brother Lung cancer Son No problems noted. Daughter No problems noted. Daughter No problems noted. Daughter No problems noted. Social History Housing: House Are you a primary managed care nurse to a significant other at home: No Do you presently have visiting nurse or other home services: No Patient Tobacco Use Status: Never used Tobacco e-Cigarette/Vaping Use: Never Used Second Hand Smoke Exposure: Yes service: No Current occupational status: retired Current occupational exposures/hazards: No Cognitive needs: No Hearing needs: Yes Vision needs: Yes Questionnaire Medicare Wellness Checkup [age] What gender do you identify with?: female During the past 4 weeks, how much have you been bothered by emotional problems such as feeling anxious, depressed, irritable, sad or downhearted, and blue?: slightly During the past 4 weeks, has your physical & emotional health limited your social activities with family, friends, neighbors, or groups?: not at all During the past 4 weeks, how much bodily pain have you generally had?: moderate pain During the past 4 weeks, was someone available to help you if you needed & wanted help?: yes, as much as I wanted During the past 4 weeks, what was the hardest physical activity you could do for at least 2 minutes?: moderate Can you get to places out of walking distance without help? (For eg., can you travel alone on buses, taxis or drive your car?): Yes Can you go shopping for groceries or clothes without someone's help?: Yes Can you prepare your own meals?: Yes Can you do your housework without help?: Yes Because of any health problems, do you need the help of another person with your personal care needs such as eating, bathing, dressing or getting around the house?: No Can you handle your own money without help?: Yes During the past 4 weeks, how would you rate your health in general?: good During the past 4 weeks how have things been going for you?: pretty well Are you having difficulties driving your car?: no Do you always fasten your seat belt when you are in a car?: yes, usually During past 4 weeks, have you been bothered by the following: never: Falling or dizzy when standing up, Sexual problems?, Trouble eating well?, Teeth or denture problems? and Problems using the telephone? and sometimes: Tiredness or fatigue? Have you fallen 2 or more times in the past year?: No Are you afraid of falling?: Yes Are you a smoker?: no During the past 4 weeks, how many drinks of wine, beer, or other alcoholic beverages did you have?: 1 drink or less per week Do you exercise for about 20 minutes 3 or more times a week?: no, I usually do not exercise this much Have you been given information to help with the following?: yes: Keeping track of your medications? and no: Hazards in your house that might hurt you? How often do you have trouble taking medicines the way you have been told to take them?: I always take medicine as prescribed How confident are you that you can control & manage most of your health problems?: very confident What is your race?: White Mini Mental State Exam (MMSE) Orientation What is the (year) (season) (date) (day) (month)?: year, season, date, day and month Where are we (state) (county) (town or city) (hospital) (floor)?: state, county, town or city, hospital/clinic and floor Registration Name of 3 unrelated objects clearly and slowly, then ask patient to repeat all 3 of them. (1st repeat determines score. Make sure they can repeat all three): object 1, object 2 and object 3 Attention & Calculation (CHOOSE ONE) Spell WORLD backwards (DLROW): 5 letters Recall Ask patient to repeat the 3 items from question #3.: object 1, object 2 and object 3 Language Show patient a wristwatch & ask what it is. Repeat for pencil.: watch and pencil Ask the patient to repeat the phrase 'No ifs, ands, or buts' after you.: correct Ask the patient to 'take a piece of paper with their right hand' 'fold paper in half' 'place paper on floor': take paper in right hand, fold paper in half and place paper on floor Print the sentence 'CLOSE YOUR EYES' on a piece. If patient actually closes eyes then score.: followed written direction Give patient a blank piece of paper & ask to write a sentence. Score if it contains a noun & verb.: sentence contains subject and verb Score Score: 29 Activity of Daily Living Bathing - sponge bath, tub bath or shower: receives no assistance (gets in/out by self, if usual bathing means Dressing - getting clothes from closets & drawers, including inner/outer garments & fasteners.: gets clothes & gets completely dressed without help Toileting - going to the 'toilet room' for urine/bowel elimination & cleaning self/arranging clothes: goes to toilet room, cleans self, arranges clothes without help Transfer: moves in & out of bed and chair without help (may use support object) Continence: controls urination/bowel movements completely by self Feeding: feeds self without help Total Score: 0 Information obtained from: patient Using telephone: independent Traveling: independent Shopping: independent Preparing meals: independent Housework: independent Taking medicine: independent Managing money: independent PHQ-9 Over the last 2 weeks, how often have you been bothered by any of the following problems? 1. Little interest or pleasure in doing things: not at all 2. Feeling down, depressed, or hopeless: not at all 3. Trouble falling or staying asleep, or sleeping too much: not at all 4. Feeling tired or having little energy: not at all 5. Poor appetite or overeating: not at all 6. Feeling bad about yourself - or that you are a failure or have let yourself or your family down: not at all 7. Trouble concentrating on things, such as reading the newspaper or watching television: not at all 8. Moving or speaking so slowly that other people could have noticed. Or the opposite - being so fidgety or restless that you have been moving around a lot more than usual: not at all 9. Thoughts that you would be better off or of hurting yourself in some w ay: not at all Total score: 0 Depression Screening Interpretation: Negative Depression Screening Done: Yes Source: Developed by Drs. Peterson Torres, Sangeetha Avelar, Jorge Alberto Bradshaw and colleagues, with an educational lauren from [employer]. Review of Systems Const All systems reviewed & are unremarkable except as noted in HPI and below Eyes Reports no additional complaints ENT Reports no additional complaints Card Reports no additional complaints Resp Reports no additional complaints GI Reports no additional complaints Reports no additional complaints Physical Exam Vital Signs: Last Vital Signs Pulse 82 06/03/24 08:47 BP 120/76 06/03/24 08:47 Pulse Ox 98 06/03/24 08:47 Oxygen Delivery Method Room Air 06/03/24 08:47 BMI result Body Mass Index 32.9 Const General: no acute distress HEENT Head: Yes normal to inspection Neck Neck: Yes no lymphadenopathy and Yes supple Resp Effort & Inspection: normal respiratory effort Auscultation: clear to auscultation bilaterally Cardio Rhythm: regular rhythm Heart sounds: S1 normal heart sound present and S2 normal heart sound present GI Inspection: Yes normal to inspection Palpation (GI): Soft to palpation Percussion: Yes normal to percussion Auscultation: normal bowel sounds Extrem General: Yes no clubbing, cyanosis or edema Assessment & Plan Assessment & Plan (1) Lumbar spinal stenosis: Code(s): M48.061 - Spinal stenosis, lumbar region without neurogenic claudication Plan: Referred to [facility] (2) Hypertension: Code(s): I10 - Essential (primary) hypertension Plan: Continue metoprolol (3) Rheumatoid arthritis: Comment: f/u Code(s): M06.9 - Rheumatoid arthritis, unspecified Plan: Follow-up with Rheumatology on methotrexate and Humira (4) Hypercholesteremia: Code(s): E78.00 - Pure hypercholesterolemia, unspecified Plan: Continue statin (5) Vitamin B 12 deficiency: Code(s): E53.8 - Deficiency of other specified B group vitamins Plan: Continue vitamin B12 (6) Vitamin D deficiency: Code(s): E55.9 - Vitamin D deficiency, unspecified Plan: Continue vitamin-D supplement Orders: Orders TSH reflex Free T4 1 Year E53.8 - Deficiency of other specified B group vitamins, E55.9 - Vitamin D deficiency, unspecified, E78.00 - Pure hypercholesterolemia, unspecified, M06.9 - Rheumatoid arthritis, unspecified, Z00.00 - Encounter for general adult medical examination without abnormal findings Vitamin D 25-OH Total 1 Year E53.8 - Deficiency of other specified B group vitamins, E55.9 - Vitamin D deficiency, unspecified, E78.00 - Pure hypercholesterolemia, unspecified, M06.9 - Rheumatoid arthritis, unspecified, Z00.00 - Encounter for general adult medical examination without abnormal findings Comprehensive [place]. Panel Fast 1 Year E53.8 - Deficiency of other specified B group vitamins, E55.9 - Vitamin D deficiency, unspecified, E78.00 - Pure hypercholesterolemia, unspecified, M06.9 - Rheumatoid arthritis, unspecified, Z00.00 - Encounter for general adult medical examination without abnormal findings Complete Blood Count Auto Diff 1 Year E53.8 - Deficiency of other specified B group vitamins, E55.9 - Vitamin D deficiency, unspecified, E78.00 - Pure hypercholesterolemia, unspecified, M06.9 - Rheumatoid arthritis, unspecified, Z00.00 - Encounter for general adult medical examination without abnormal findings Lipid Panel 1 Year E53.8 - Deficiency of other specified B group vitamins, E55.9 - Vitamin D deficiency, unspecified, E78.00 - Pure hypercholesterolemia, unspecified, M06.9 - Rheumatoid arthritis, unspecified, Z00.00 - Encounter for general adult medical examination without abnormal findings Vitamin B12 and Folate 1 Year E53.8 - Deficiency of other specified B group vitamins, E55.9 - Vitamin D deficiency, unspecified, E78.00 - Pure hypercholesterolemia, unspecified, M06.9 - Rheumatoid arthritis, unspecified, Z00.00 - Encounter for general adult medical examination without abnormal findings Referrals Pain Management Referral M48.061 - Spinal stenosis, lumbar region without neurogenic claudication Medications: New famotidine 40 mg PO BEDTIME 90 tabs 2RF nitrofurantoin monohyd/m-cryst 100 mg (Macrobid) must administer with a meal/food 100 mg PO Q12H 7 days 14 caps 0RF Quality Reporting (2019) Depression/Bipolar (159/160/161/177) PHQ-9: Total score: 0 Coding Level of Care Code Medicare Subsequent (G0439) Diagnoses Lumbar spinal stenosis M48.061 Hypertension I10 Rheumatoid arthritis M06.9 Hypercholesteremia E78.00 Vitamin B 12 deficiency E53.8 Vitamin D deficiency E55.9 CPT Codes Advance Care Planning - Advance Care Planning discussion: On file, no changes ([id number]) Advance Care Planning - Time spent: 1-15 minutes, on File ([id number]) Advance Care Planning Advance Care Planning discussion: On file, no changes Forms completed: Health Care Proxy Time spent: 1-15 minutes, on File
== END 2024-06-03 09:24 | disposition home or self-care (01) ==
PROVIDERS: PCP Internal Medicine; Visit Provider Internal Medicine
DX: Z00.00 Encounter for general adult medical examination without abnormal findings (principal); M06.9 Rheumatoid arthritis, unspecified; M48.061 Spinal stenosis, lumbar region without neurogenic claudication; I10 Essential (primary) hypertension; E78.00 Pure hypercholesterolemia, unspecified; E53.8 Deficiency of other specified B group vitamins; E55.9 Vitamin D deficiency, unspecified
CPT/HCPCS: 1123F; G0439

== ENCOUNTER → 2024-07-18 08:39 | Outpatient (REF) | payer MEDICARE, SELFPAY ==
--- NOTE | 2024-07-18 08:43 | HM_ITS ---
* Total monitoring time 3 days. * Underlying rhythm is atrial fibrillation. Average ventricular rate 73/Min. * Frequent ventricular ectopy with a burden of 2.8%. Rare couplets and triplets. * No significant pauses or AV blocks. * No patient markers or diary events. * Overall, well controlled atrial fibrillation. MTDD
--- NOTE | 2024-07-18 08:43 | CA_ITS ---
Transthoracic Echocardiogram Patient (Last, First, Middle): Melissa De La Garza Ellen Gender: Female Date of : 1945 Age: 79 Procedure Date: 07/18/2024 Procedure Type: Transthoracic Echocardiogram Location: OP Height: 170.18 cm Weight: 94.8 kg BSA: 2.06 m2 Heart Rate: 82 bpm BP: 140 / 85 mmHg Can Tester: LYNN Referring MD: Fahad Toussaint MD Medical Administrative Technician: Fahad Toussaint MD Symptoms: Z95.2 - Presence of prosthetic heart valve Study Quality: Fair ECG Rhythm: Atrial Fibrillation Conclusions: - 1. [id number]-[id number] LV systolic dysfunction with LVEF of 40 45%, 2. At least mildly dilated left atrium and severely dilated right atrium 3. Moderate to severe RV systolic dysfunction 4. Overall good mitral valve repair next 5. Trivial aortic regurgitation 6. Mildly dilated ascending aorta at 3.9 cm 7. Normal RV systolic pressure 8. No gross pericardial effusion Findings Left Ventricle Normal left ventricular cavity size. There is normal left ventricular wall thickness. The left ventricular systolic function is mild to moderately decreased. The visually estimated ejection fraction is between 40-45%. Diastolic function is indeterminate on the basis of available data. Right Ventricle Normal right ventricular cavity size. There is moderate to severely decreased right ventricular systolic function. Atria The left atrium is mildly dilated. There is no evidence of interatrial shunt. The right atrium is severely dilated. Aortic Valve Normal aortic valve structure and function. There is no aortic valve stenosis. There is trace (trivial) aortic valve regurgitation. Mitral Valve There is mild anterior and posterior mitral leaflet thickening. There is trace mitral valve regurgitation. There is no mitral valve stenosis. mitral annuloplasty ring in place with overall good repair Pulmonic Valve The pulmonic valve was not well visualized. Tricuspid Valve Normal tricuspid valve structure. There is mild to moderate tricuspid valve regurgitation. The right ventricular systolic pressure is normal. The right ventricular systolic pressure is 22 mmHg. Normal right atrial pressure. There is no evidence of pulmonary hypertension. Great Vessels The pulmonary artery was not well visualized. There is mild dilatation of the ascending aorta measuring 3.90 cm. Venous The inferior vena cava is normal in size and collapses greater than 50% with inspiration. Pericardium/Pleural There is no evidence of pericardial effusion. Prior Study Comparison Changes noted compared to prior study dated: 07/20/2023. LV systolic function appears to be depressed. RV systolic function appears to be significantly depressed. Measurements 2D Linear Measurements IVSd: 1.13 0.6-0.9/0.6-1.0 cm LVIDd: 4.88 3.9-5.3/4.2-5.9 cm LVIDd Index: 2.37 2.4-3.2/2.2-3.1 cm/m2 LVIDs: 3.53 2.0-3.6 cm LVPWd: 1.10 0.7-1.1 cm LA Diam: 3.90 2.7-3.8/3.0-4.0 cm LAIDs Index: 1.89 1.5-2.3 cm/m2 LV Mass: 252.94 67-162/88-224 g LV Mass Index: 122.79 43-95/49-115 g/m2 LVOT Diam: 2.50 3.0+(-)1.3 cm 2D Systolic Function EF 4C: 42.30 >55% EF 2C: 48.20 >55% EF BiP: 41.80 >55% Mitral Valve MV VTI: 0.24 MV Pk Abelardo: 1.44 MV Mn Abelardo: 0.94 MV Pk Grad: 8.00 MV Mn Grad: 4.00 MV Pk E: 1.47 MV Decel Time: 173.00 E'Lateral: 9.53 E'Medial: 6.93 E/E' Med: 21.20 E/E' Lat: 15.40 PHT: 51.00 MVA PHT: 4.31 MVA Continuity: 2.00 Decel Mcclain: 8.50 Aortic Valve AoV Pk Abelardo: 0.79 AoV Mn Abelardo: 0.59 AoV VTI: 0.17 AoV Pk Grad: 2.00 Aov Mn Grad: 2.00 CAROLYN Cont.VTI: 2.73 LVOT LVOT Pk Abelardo: 0.47 LVOT Mn Abelardo: 0.34 LVOT VTI: 0.10 LVOT Pk Grad: 1.00 LVOT Mn Grad: 1.00 LVOT Diam: 2.50 LVOT Area: 4.91 Diastolic Function MV Pk E: 1.47 E'Medial: 6.93 E/E' Med: 21.20 E' Laterial: 9.53 E/E' Lat: 15.40 Right Ventricle TAPSE (mm): 10.45 TVS' Abelardo: 8.16 Tricuspid Valve TR Pk Abelardo: 2.19 TR Pk Grad: 19.00 RA Press: 3.00 RVSP: 22.00 Great Vessels Aorta Sinus of Valsalva: 4.10 2.0-3.5 cm Ao Asc: 3.90 2.1-3.4 cm Ao Arch: 2.90 Pulmonary Valve PV Pk Abelardo: 0.57 Peak PV Grad: 1.00 Updated in Other Vendor System with Status of Final Fahad Toussaint MD electronically signed on 07/19/2024 11:14:20 AM with status of Final
== END ==
LOC: HO.CARD 08:39
PROVIDERS: PCP Internal Medicine; Visit Provider Internal Medicine Cardiovascular Disease
DX: R00.1 Bradycardia, unspecified (principal); Z95.2 Presence of prosthetic heart valve
CPT/HCPCS: 93242; 93306

== ENCOUNTER → 2024-07-18 08:43 | Outpatient (BNV) | payer MEDICARE, SELFPAY | PROVIDERS: PCP Internal Medicine; Visit Provider Internal Medicine Cardiovascular Disease | DX: I48.91 Unspecified atrial fibrillation (principal) | CPT/HCPCS: 93244; 93306 ==

== ENCOUNTER 2024-08-04 10:43 | Outpatient (AMB) | payer MEDICARE, SELFPAY ==
[2024-08-04 11:06] VITALS: BP 128/70; PULSE 78; BMI 32.5
--- NOTE | 2024-08-04 11:06 | A.OFFVIS_ITS ---
Vital Signs 08/04/24 11:06 Height 5 ft 7 in Weight 207 lb 3.752 oz BMI 32.5 BP 128/70 Blood Pressure Location Lt brachial Position Sitting Pulse 78 Pulse Source Monitor Intake Visit Reasons: 1Y Holter & Echo Allergies No Known Allergies [No Known Allergies*] Allergy (Verified 06/03/24 09:03) Medication List - Last Reconciled 08/04/24 by Fahad Toussaint MD acetaminophen 650 mg (2 x 325 mg) PO Q6H PRN 30 days adalimumab (Humira Pen) mg subcut albuterol sulfate 90 mcg/actuation 2 puffs inhalation Q6H PRN aspirin (Adult Low Dose Aspirin) 81 mg PO DAILY atorvastatin 20 mg PO DAILY celecoxib 200 mg PO BID cholecalciferol (vitamin D3) (Vitamin D3) 50 mcg PO DAILY cyanocobalamin (vitamin B-12) ER (Vitamin B-12 ER) 2,000 mcg PO DAILY diclofenac sodium 1% 4 grams topical QID docusate sodium 100 mg PO BID famotidine 40 mg PO BEDTIME folic acid 1 mg PO DAILY methotrexate sodium 17.5 mg PO TH metoprolol tartrate 50 mg PO BID nitrofurantoin monohyd/m-cryst 100 mg (Macrobid) 100 mg PO Q12H 7 days omeprazole 20 mg PO DAILY oxybutynin chloride ER 10 mg PO DAILY HPI Comments Details: Melissa comes for follow-up. Recently on echocardiogram she was noted to be in atrial fibrillation subsequently Holter monitor confirmed presence of atrial fibrillation with adequate rate control. She denies any new symptoms. Denies any symptoms of progressive shortness of breath, orthopnea, PND. She occasionally feels palpitation when she feels her chest at nighttime. Otherwise no prolonged palpitation irregular heartbeat. Comes today for further evaluation. No bleeding issues or neurologic events. No exertional chest pain. No lightheadedness, syncope. [facility] Medical History (Updated 08/04/24 @ 12:45 by Fahad Toussaint MD) Cardiac arrhythmia Restrictive lung disease Cough Ear infection Hard of hearing COVID-19 vaccine series completed Osteoarthritis of right knee Dry mouth Osteopenia Postnasal drip Hypercholesteremia Osteoarthritis Hypertension Rheumatoid arthritis H/O bone density study Lumbago Surgical History History of total left knee replacement H/O colonoscopy Status post herniorrhaphy H/O mitral valve replacement History of splenectomy Hx of cholecystectomy Family History Father Cerebral hemorrhage Parkinsonism Mother COPD (chronic obstructive pulmonary disease) Lung cancer Brother Lung cancer Son No problems noted. Daughter No problems noted. Daughter No problems noted. Daughter No problems noted. Social History Housing: House Are you a primary aged or disabled carer to a significant other at home: No Do you presently have visiting nurse or other home services: No Patient Tobacco Use Status: Never used Tobacco e-Cigarette/Vaping Use: Never Used Second Hand Smoke Exposure: Yes service: No Current occupational status: retired Current occupational exposures/hazards: No Cognitive needs: No Hearing needs: Yes Vision needs: Yes Review of Systems Const Denies weakness ENT Denies dizziness Card Denies chest pain, Denies chest pain with activity, Denies syncope, Denies rapid heart rate, Denies pedal edema, Denies edema, Denies leg edema, Denies lightheadedness, Denies palpitations, Denies dyspnea, Denies dyspnea on exertion and Denies orthopnea Resp Denies cough, Denies dyspnea and Denies dyspnea on exertion GI Denies hematochezia and Denies change in stool character Musc Denies abnormal gait, Denies muscle cramps, Denies muscle weakness, Denies numbness, Denies radiating pain into limb and Denies tingling Neuro Denies Abnormal speech present, Denies abnormal gait, Denies dizziness, Denies syncope, Denies numbness, Denies tingling and Denies weakness Endo Denies palpitations Physical Exam Vital Signs: Last Vital Signs Pulse 78 08/04/24 11:06 BP 128/70 08/04/24 11:06 BMI result Body Mass Index 32.5 Const General: cooperative, comfortable, no acute distress, alert and awake Nutritional Appearance: obese Orientation/consciousness: patient oriented x3 Limitations: no limitations Neck Neck: Yes trachea midline, Yes supple and Yes no JVD Chest Chest palpation & inspection: normal inspection of the chest and other (Well- healed sternotomy scar) Resp Effort & Inspection: normal respiratory effort Auscultation: clear to auscultation bilaterally Cardio Jugular venous distension: no JVD Palpation: normal PMI Rhythm: abnormal rhythm irregularly irregular Heart sounds: S1 normal heart sound present, S2 normal heart sound present, no click, no gallops, no murmurs and no rubs GI Inspection: Yes obesity Auscultation: normal bowel sounds Neuro General: patient oriented x3 and no focal motor deficits Speech: No Abnormal speech present Extrem General: Yes no clubbing, cyanosis or edema Office Procedures EKG Details: EKG shows atrial fibrillation with complete right bundle-branch block with ST T wave changes suggestive of repolarization abnormality [id number], Complete Assessment & Plan Assessment & Plan (1) Persistent atrial fibrillation: Code(s): I48.19 - Other persistent atrial fibrillation Category: Medical Plan: New onset rate control atrial fibrillation this elderly lady which is not unexpected given her prior mitral valve surgery and underlying biatrial structural changes. She has no obvious significant symptoms although there is reduction LV ejection fraction noted. This will need to be worked up and potentially reason for LV systolic dysfunction with atrial fibrillation. Will need to pursue rhythm control approach given short duration of atrial fibrillation new onset atrial fibrillation. This was discussed with her. However given her biatrial enlargement will require antiarrhythmic drug support. For now will start her on Eliquis 5 mg b.i.d. for 3 weeks. Once she is taking Eliquis for 3 weeks will start her on loading with amiodarone 400 mg b.i.d. for 2 weeks and switch her to 200 mg after that. Will schedule him for synchronized cardioversion 6 weeks time after loading of amiodarone completed. We discussed in details about risks, benefits, alternatives for synchronized cardioversion and the treatment approach. CHADSVASc score of at least 5 along with mitral valve replacement with bioprosthetic valve in the past. She can be on a direct oral anticoagulant therapy. This was discussed with her. She understands agrees. She was a little taken back but she understands and wants to pursue treatment as planned. Aspirin will be discontinued. No signs or symptoms of heart failure at this point time. Discussed with her potential signs of heart failure. (2) Cardiomyopathy: Code(s): I42.9 - Cardiomyopathy, unspecified Category: Medical Plan: Cardiomyopathy which could be most likely related to new onset persistent atrial fibrillation. Will pursue ischemic workup to rule out any obstructive coronary disease although less likely. Will pursue rhythm control approach as above and see if she will improve her LV systolic function in normal rhythm. This was discussed with her. She understands agrees. Continue metoprolol therapy for neurohormonal modulation. (3) H/O mitral valve replacement: Comment: repair 2005 (ring on mitral valve)- ECHO 04/13 nl EF, NORMAL BIOPROSTHETIC MITRAL VALVE, mild to moderate TR Code(s): Z95.2 - Presence of prosthetic heart valve Category: Surgical Plan: History of prior mitral valve replacement. Doing well at this point time. Continue and will switch to oral anticoagulant therapy. Aspirin will be discontinued. Continue SBE prophylaxis as per ACC/aha guidelines. Follow up in the clinic in 10 weeks time, sooner p.r.n.. Thank you for allowing me to partake in his care Coding Level of Care Code Est Pt Level 4 (34252) Diagnoses Persistent atrial fibrillation I48.19 Cardiomyopathy I42.9 H/O mitral valve replacement Z95.2 CPT Codes EKG - CPT: 86426-[id number], Complete ([id number])
== END 2024-08-04 11:35 | disposition home or self-care (01) ==
PROVIDERS: PCP Internal Medicine; Visit Provider Internal Medicine Cardiovascular Disease
DX: I48.19 Other persistent atrial fibrillation (principal); I42.9 Cardiomyopathy, unspecified; Z95.2 Presence of prosthetic heart valve
CPT/HCPCS: 93010; 99214

== ENCOUNTER → 2024-08-04 10:43 | Outpatient (BNVA) | payer MEDICARE, SELFPAY | PROVIDERS: PCP Internal Medicine; Visit Provider Internal Medicine Cardiovascular Disease | DX: I45.10 Unspecified right bundle-branch block (principal); I48.19 Other persistent atrial fibrillation; I42.9 Cardiomyopathy, unspecified; Z95.2 Presence of prosthetic heart valve | CPT/HCPCS: 93005; 99212 ==

== ENCOUNTER 2024-08-17 07:59 | Outpatient (REF) | payer MEDICARE, SELFPAY ==
[2024-08-17 10:33] LABS: Appearance Urine Cloudy; Color Urine Yellow; Glucose Urine UA Negative (Negative); Leukocyte Esterase Urine Moderate (2+) (Negative); Nitrite Urine Negative (Negative); PH 5.5 (5.0-9.0); UMIC TRIGGER UA YES; Urine Blood Large (3+) (Negative); Urine Ketones Negative (Negative); Urine Protein Trace mg/dL (Neg-Trace)
[2024-08-17 10:41] LABS: Bacteria Urine 4+ (None Seen); Hyaline Casts Urine 0-2 /LPF (0-2); RBC Urine >20 /HPF (0-2); Squamous Epithelial Cell Urine 0-2 /HPF (0-2); WBC Urine >50 /HPF (0-5)
== END 2024-08-17 08:00 | disposition home or self-care (01) ==
LOC: HO.HMGCLDS 07:59
PROVIDERS: PCP Internal Medicine; Visit Provider Internal Medicine
DX: N39.0 Urinary tract infection, site not specified (principal)
CPT/HCPCS: 81001; 87086; 87088; 87186

== ENCOUNTER 2024-09-14 10:29 | Outpatient (REF) | payer MEDICARE, SELFPAY ==
--- NOTE | ~2024-09-14 | US_ITS ---
EXAMINATION: US RETROPERITONEAL COMPLETE (RENAL) CLINICAL INFORMATION: Hematuria. COMPARISON: None available. TECHNIQUE: Real-time imaging of the kidneys and bladder. FINDINGS: RIGHT KIDNEY: 10.2 x 3.7 x 4.5 cm (SAG x AP x TRV). The kidney is normal in size, contour, and echogenicity. Renal cortical thickness is normal. No calculi or focal parenchymal lesions. No hydronephrosis. LEFT KIDNEY: 9.9 x 5.7 x 5.5 cm (SAG x AP x TRV). The kidney is normal in size, contour, and echogenicity. Renal cortical thickness is normal. No calculi . No hydronephrosis. Multiple benign parapelvic Bosniak class I renal cysts are noted which require no additional imaging or follow-up. No solid renal masses are seen. BLADDER: Well distended and normal. Bilateral ureteral jets are demonstrated. Prevoid bladder volume is 348 mL. Postvoid bladder volume is 46 mL. US/US retroperitoneal comp IMPRESSION: No significant abnormality is seen. A cause for the patient's hematuria has not been found. Electronically signed by: Deangelo Lucero MD 09/15/2024 10:15 AM EDT
[2024-09-14 13:24] LABS: Appearance Urine Clear; Color Urine Yellow; Glucose Urine UA Negative (Negative); Leukocyte Esterase Urine Trace (Negative); Nitrite Urine Negative (Negative); UMIC TRIGGER UA YES; Urine Blood Trace (Negative); Urine Ketones Trace mg/dL (Negative); Urine Protein Negative (Neg-Trace)
[2024-09-14 13:27] LABS: Bacteria Urine None Seen (None Seen); Hyaline Casts Urine 0-2 /LPF (0-2); WBC Urine 0-5 /HPF (0-5)
== END 2024-09-14 10:30 | disposition home or self-care (01) ==
LOC: HO.US 10:29
PROVIDERS: PCP Internal Medicine; Visit Provider Internal Medicine
DX: R31.9 Hematuria, unspecified (principal)
CPT/HCPCS: 76770; 81001; 87086

== ENCOUNTER 2024-10-11 08:20 | Outpatient (REF) | payer MEDICARE, SELFPAY ==
[2024-10-11 10:38] LABS: Appearance Urine Cloudy; Color Urine Yellow; Glucose Urine UA Negative (Negative); Leukocyte Esterase Urine Moderate (2+) (Negative); Nitrite Urine Negative (Negative); PH 6.5 (5.0-9.0); Specific Gravity - Urine >= 1.030 (1.005-1.025); UMIC TRIGGER UA YES; Urine Blood Large (3+) (Negative); Urine Ketones Trace mg/dL (Negative); Urine Protein 100 (2+) mg/dL (Neg-Trace)
[2024-10-11 10:51] LABS: Bacteria Urine 2+ (None Seen); RBC Urine >20 /HPF (0-2); Squamous Epithelial Cell Urine >20 /HPF (0-2); WBC Urine >50 /HPF (0-5)
== END 2024-10-11 08:21 | disposition home or self-care (01) ==
LOC: HO.HMGCLDS 08:20
PROVIDERS: PCP Internal Medicine; Visit Provider Internal Medicine
DX: R30.0 Dysuria (principal)
CPT/HCPCS: 81001; 87086; 87088; 87186

== ENCOUNTER 2024-11-03 13:59 | Outpatient (AMB) | payer MEDICARE, SELFPAY ==
--- NOTE | 2024-11-03 14:26 | MHC.OFFVIS ---
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 Allergies No Known Allergies [No Known Allergies*] Allergy (Verified 06/03/24 09:03) Medication List - Last Reconciled 11/03/24 by Fahad Toussaint MD acetaminophen 650 mg (2 x 325 mg) PO Q6H PRN 30 days adalimumab (Humira Pen) mg subcut albuterol sulfate 90 mcg/actuation 2 puffs inhalation Q6H PRN amiodarone 200 mg PO DAILY atorvastatin 20 mg PO DAILY celecoxib 200 mg PO BID diclofenac sodium 1% 4 grams topical QID docusate sodium 100 mg PO BID famotidine 40 mg PO BEDTIME folic acid 1 mg PO DAILY methotrexate sodium 17.5 mg PO TH metoprolol tartrate 25 mg (1/2 x 50 mg) PO BID omeprazole 20 mg PO DAILY oxybutynin chloride ER 10 mg PO DAILY HPI Comments Details: Melissa comes for follow-up. She is not able to take Eliquis as she has recurrent hematuria. She had 1st episode while she was having UTI. This subsequently got better and then she restarted taking Eliquis and had recurrent hematuria. She has stopped taking Eliquis. Although she remains on amiodarone. She can not undergo cardioversion without oral anticoagulant therapy and this was discussed with her. She continues to have no symptoms. Denies any worsening shortness of breath, orthopnea, PND, fatigue, lightheadedness, leg edema, abdominal distension. No bleeding issues or neurologic events. [facility] Medical History Cardiac arrhythmia Restrictive lung disease Cough Ear infection Hard of hearing COVID-19 vaccine series completed Osteoarthritis of right knee Dry mouth Osteopenia Postnasal drip Hypercholesteremia Osteoarthritis Hypertension Rheumatoid arthritis H/O bone density study Lumbago Surgical History History of total left knee replacement H/O colonoscopy Status post herniorrhaphy H/O mitral valve replacement History of splenectomy Hx of cholecystectomy Family History Father Cerebral hemorrhage Parkinsonism Mother COPD (chronic obstructive pulmonary disease) Lung cancer Brother Lung cancer Son No problems noted. Daughter No problems noted. Daughter No problems noted. Daughter No problems noted. Social History Housing: House Are you a primary direct care staffer to a significant other at home: No Do you presently have visiting nurse or other home services: No Patient Tobacco Use Status: Never used Tobacco e-Cigarette/Vaping Use: Never Used Second Hand Smoke Exposure: Yes service: No Current occupational status: retired Current occupational exposures/hazards: No Cognitive needs: No Hearing needs: Yes Vision needs: Yes Review of Systems Const Denies chills, Denies fatigue, Denies fever(s), Denies frequent falls, Denies weakness, Denies weight gain and Denies weight loss ENT Denies dizziness Card Denies chest pain, Denies leg edema, Denies lightheadedness, Denies palpitations, Denies dyspnea, Denies dyspnea on exertion, Denies orthopnea and Denies other (loss of consciousness) Resp Denies cough, Denies dyspnea and Denies dyspnea on exertion GI Denies hematochezia and Denies change in stool character Musc Denies abnormal gait, Denies muscle weakness, Denies numbness, Denies radiating pain into limb and Denies tingling Neuro Denies Abnormal speech present, Denies abnormal gait, Denies dizziness, Denies frequent falls, Denies numbness, Denies tingling and Denies weakness Endo Denies fatigue and Denies palpitations Physical Exam Vital Signs: Last Vital Signs Pulse 65 11/03/24 14:27 BP 110/62 11/03/24 14:27 BMI result Body Mass Index 32.8 Const General: cooperative, comfortable, no acute distress, alert and awake Nutritional Appearance: obese Orientation/consciousness: patient oriented x3 Limitations: no limitations Neck Neck: Yes trachea midline, Yes supple and Yes no JVD Chest Chest palpation & inspection: normal inspection of the chest and other (Well-healed sternotomy scar) Resp Effort & Inspection: normal respiratory effort Auscultation: clear to auscultation bilaterally Cardio Jugular venous distension: no JVD Palpation: normal PMI Rhythm: abnormal rhythm irregularly irregular Heart sounds: S1 normal heart sound present, S2 normal heart sound present, no click, no gallops, no murmurs and no rubs GI Inspection: Yes obesity Auscultation: normal bowel sounds Neuro General: patient oriented x3 and no focal motor deficits Speech: No Abnormal speech present Extrem General: Yes no clubbing, cyanosis or edema Office Procedures EKG Details: Atrial fibrillation 65 beats per minute with nonspecific ST T wave changes [id number], Complete Assessment & Plan Assessment & Plan (1) Persistent atrial fibrillation: Code(s): I48.19 - Other persistent atrial fibrillation Category: Medical Plan: Persistent atrial fibrillation in this elderly woman without any obvious signs or symptoms or signs of decompensation from cardiac perspective although has cardiomyopathy. Can not undergo synchronized cardioversion given that she can not be on oral anticoagulation therapy at this point time. She has upcoming appointment with urology, will try to see if this can be seen sooner than possible to assess for etiology of her hematuria and see if this could be reversible and treatable. If this is not and she has likelihood of recurrent hematuria may consider an alternative such as Watchman device. I have discussed with her and provide her with literature about the same. For now she is off Eliquis therapy and remains at risk for thromboembolic complication given her age and cardiomyopathy process. For now will discontinue amiodarone and switch her to metoprolol 50 mg b.i.d. for rate control. (2) Cardiomyopathy: Code(s): I42.9 - Cardiomyopathy, unspecified Category: Medical Plan: Cardiomyopathy without heart failure syndrome. At this point time will increase metoprolol at 50 mg b.i.d. for neurohormonal modulation as well as for rate control. Will also add Entresto 24-26 mg b.i.d. to her regimen for neurohormonal modulation to prevent heart failure syndrome. This was discussed with her. Follow-up echocardiogram in 3 months time. Signs and symptoms of heart failure were discussed. Will follow up in the clinic in 3 months time, sooner p.r.n.. Thank you for allowing me to partake in his care Orders: Orders Basic Metabolic Panel 1 Week I42.9 - Cardiomyopathy, unspecified CA echo transthoracic complete 3 Months I42.9 - Cardiomyopathy, unspecified Medications: New sacubitril-valsartan 24-26 mg (Entresto) 1 tab PO BID 60 tabs 2RF Changed From metoprolol tartrate 25 mg (1/2 x 50 mg) PO BID 180 tabs 3RF Z95.2 - Presence of prosthetic heart valve To metoprolol tartrate 50 mg PO BID 180 tabs 3RF Z95.2 - Presence of prosthetic heart valve Discontinued amiodarone Discontinued Reason: Doctor's Order 200 mg PO DAILY 90 tabs 1RF Coding Level of Care Code Est Pt Level 4 (53107) Complex EM visit Add On G2211 Diagnoses Persistent atrial fibrillation I48.19 Cardiomyopathy I42.9 CPT Codes EKG - CPT: 81908-[id number], Complete ([id number])
[2024-11-03 14:27] VITALS: BP 110/62; PULSE 65; BMI 32.8
== END 2024-11-03 15:04 | disposition home or self-care (01) ==
PROVIDERS: PCP Internal Medicine; Visit Provider Internal Medicine Cardiovascular Disease
DX: I48.19 Other persistent atrial fibrillation (principal); I42.9 Cardiomyopathy, unspecified
CPT/HCPCS: 93010; 99214; G2211

== ENCOUNTER → 2024-11-03 13:59 | Outpatient (BNVA) | payer MEDICARE, SELFPAY | PROVIDERS: PCP Internal Medicine; Visit Provider Internal Medicine Cardiovascular Disease | DX: I48.19 Other persistent atrial fibrillation (principal); I42.9 Cardiomyopathy, unspecified; R94.31 Abnormal electrocardiogram [ECG] [EKG] | CPT/HCPCS: 93005; 99212 ==

== ENCOUNTER 2024-11-08 14:23 | Outpatient (REF) | payer MEDICARE, SELFPAY ==
[2024-11-08 16:37] LABS: Anion Gap 8 (12-20); Blood Urea Nitrogen 19 mg/dL (9-16); Calcium 8.7 mg/dL (8.4-10.2); Carbon Dioxide 29 mmol/L (22-29); Chloride 108 mmol/L (96-108); Estimated Glomerular Filt Rate > 60; Glucose Random 84 mg/dL (60-115); Potassium 4.1 mmol/L (3.3-5.1); Sodium 141 mmol/L (135-145)
== END 2024-11-08 14:24 | disposition home or self-care (01) ==
LOC: HO.HMGCLDS 14:23
PROVIDERS: PCP Internal Medicine; Visit Provider Internal Medicine Cardiovascular Disease
DX: I42.9 Cardiomyopathy, unspecified (principal)
CPT/HCPCS: 36415; 80048

== ENCOUNTER 2024-11-14 09:44 | Outpatient (REF) | payer MEDICARE, SELFPAY ==
[2024-11-14 16:46] LABS: Urine Cytology See Pathology rpt
== END 2024-11-14 09:45 | disposition home or self-care (01) ==
LOC: HO.LAB 09:44
PROVIDERS: PCP Internal Medicine; Visit Provider Nurse Practitioner Family
DX: N39.0 Urinary tract infection, site not specified (principal); R31.9 Hematuria, unspecified; N28.1 Cyst of kidney, acquired
CPT/HCPCS: 81003; 88112; 99202

== ENCOUNTER 2024-11-14 09:44 | Outpatient (AMB) | payer MEDICARE, SELFPAY ==
--- NOTE | 2024-11-14 09:48 | MHC.OFFVIS ---
Intake Visit Reasons: microscopic hematuria Intake Note: Patient is present for MICROSCOPIC HEMATURIA Urology Medication:OXYBUTYNIN Antibiotic Allergy:NONE Blood Thinner:NONE Activities Therapist Required: No Allergies No Known Allergies [No Known Allergies*] Allergy (Verified 11/14/24 10:23) Medication List - Last Reconciled 11/14/24 by OANH Mo acetaminophen 650 mg (2 x 325 mg) PO Q6H PRN 30 days adalimumab (Humira Pen) mg subcut atorvastatin 20 mg PO DAILY celecoxib 200 mg PO BID diclofenac sodium 1% 4 grams topical QID docusate sodium 100 mg PO BID famotidine 40 mg PO BEDTIME folic acid 1 mg PO DAILY methotrexate sodium 17.5 mg PO TH metoprolol tartrate 50 mg PO BID omeprazole 20 mg PO DAILY oxybutynin chloride ER 10 mg PO DAILY sacubitril-valsartan 24-26 mg (Entresto) 1 tab PO BID HPI Comments Details: Ian is a very pleasant 79-year-old female patient of Dr. Garcia. She has a past medical history of cardiac arrhythmia, restrictive lung disease, hard of hearing, osteoarthritis, osteopenia, hypercholesteremia, osteoarthritis, hypertension, and rheumatoid arthritis. She presents to the office today as a new patient for hematuria as well as recurrent urinary tract infections. In discussion with the patient today she reports following up with her PCP and Cardiology here at [facility] for ongoing cardiac issues she has been experiencing. She reports cardiology would like her to be on blood thinners to undergo near future cardioversion however upon initiation of anticoagulation she continues to experience episodes of gross hematuria. When asked she denies any previous history of smoking and or workplace chemical exposure. In review of patient's chart it appears retroperitoneal ultrasound was ordered that noted bilateral kidneys are normal in size, contour, and echogenicity. No hydronephrosis, lesions, and or renal calculi noted bilaterally. The bladder is well distended and normal. Pre void bladder volume is a proximally 350 mL. Postvoid bladder volume is approximately 50 mL. She reports when she discontinues anticoagulation she no longer has episodes of gross hematuria. In office urinalysis results reviewed with the patient today no microscopic hematuria noted. We discussed potential causes of hematuria as well as further workup to include in office cystoscopy. When asked she denies urinary urgency, urinary frequency, incontinence, nocturia, dysuria, foul smelling urine, changes to urinary stream, flank pain, fever, and or chills. She is happy with her current voiding parameters. Urine cultures are as follows: 12/15 E coli, 04/14 E coli, 06/14 E coli, 06/15 E coli, 08-16 hafnia alvei, 10/16 Proteus mirabilis She reports she had been on Estrace cream prescribed by PCP however has stopped. We discussed importance of taking medications as prescribed. When asked she does report a history of constipation. We discussed correlation of bowel issues with lower urinary tract symptoms. She otherwise offers no other issues or concerns at this time. FORMERLY [facility] Medical History Cardiac arrhythmia Restrictive lung disease Cough Ear infection Hard of hearing COVID-19 vaccine series completed Osteoarthritis of right knee Dry mouth Osteopenia Postnasal drip Hypercholesteremia Osteoarthritis Hypertension Rheumatoid arthritis H/O bone density study Lumbago Surgical History History of total left knee replacement H/O colonoscopy Status post herniorrhaphy H/O mitral valve replacement History of splenectomy Hx of cholecystectomy Family History Father Cerebral hemorrhage Parkinsonism Mother COPD (chronic obstructive pulmonary disease) Lung cancer Brother Lung cancer Son No problems noted. Daughter No problems noted. Daughter No problems noted. Daughter No problems noted. Social History Housing: House Are you a primary professional healthcare representative to a significant other at home: No Do you presently have visiting nurse or other home services: No Patient Tobacco Use Status: Never used Tobacco e-Cigarette/Vaping Use: Never Used Second Hand Smoke Exposure: Yes service: No Current occupational status: retired Current occupational exposures/hazards: No Cognitive needs: No Hearing needs: Yes Vision needs: Yes Review of Systems Eyes Reports no additional complaints ENT Reports as per HPI Card Reports as per HPI Resp Reports as per HPI GI Reports no additional complaints Reports as per HPI Musc Reports as per HPI Physical Exam Const General: cooperative, healthy appearing, comfortable, no acute distress, well developed, alert and awake Nutritional Appearance: overweight Orientation/consciousness: patient oriented x3 Limitations: no limitations HEENT Head: Yes normal to inspection, Yes normocephalic and Yes atraumatic Ears: hearing grossly normal bilaterally Eyes General: appearance normal, both eyes and all related structures Neck Neck: Yes normal visual inspection and Yes trachea midline Chest Chest palpation & inspection: normal inspection of the chest Resp Effort & Inspection: normal respiratory effort and able to speak in complete sentences Cardio Rate: regular rate GI Inspection: Yes normal to inspection General: Yes no CVA tenderness Back/Spine/Pelvis Back: no CVA tenderness Skin General skin exam: no rashes or lesions noted Neuro General: patient oriented x3 Extrem General: Yes normal to inspection Psych Appearance: grossly normal and well kempt Mental Status: mental status grossly normal Speech and movement: Normal speech and movement present and Clear speech present Affect: normal affect Attitude: cooperative Thought process: Normal thought process present Thought content: Normal thought content present Insight: Fair insight present (Psych) Judgement: Fair judgement present (Psych) Results AMB Urinalysis, Automated UA Leukoctes 70 Calista/uL Last Edit by JESSE Camargo on 11/14/24 10:01 UA Nitrite Negative Last Edit by JESSE Camargo on 11/14/24 10:01 UA Urobilinogen 0.2 mg/dL Last Edit by JESSE Camargo on 11/14/24 10:01 UA Protein 30 mg/dL Last Edit by JESSE Camargo on 11/14/24 10:01 UA pH 6.0 Last Edit by JESSE Camargo on 11/14/24 10:01 UA Blood 0 Sky/uL Last Edit by JESSE Camargo on 11/14/24 10:01 UA Specific [place] 1.015 Last Edit by JESSE Camargo on 11/14/24 10:01 UA Ketone Negative Last Edit by JESSE Camargo on 11/14/24 10:01 UA Bilirubin 0 mg/dL Last Edit by JESSE Camargo on 11/14/24 10:01 UA Glucose 0 mg/dL Last Edit by JESSE Camargo on 11/14/24 10:01 Results Reviewed Results Reviewed: Laboratory Last Values Urine pH (Auto) 6.0 11/14/24 10:00 Specific [place] (Auto) 1.015 11/14/24 10:00 Urine Protein (Auto) 30 mg/dL 11/14/24 10:00 Glucose (UA)(Auto) 0 mg/dL 11/14/24 10:00 Urine Ketones (Auto) Negative 11/14/24 10:00 Urine Blood (Auto) 0 Sky/uL 11/14/24 10:00 Urine Nitrite (Auto) Negative 11/14/24 10:00 Urine Bilirubin (Auto) 0 mg/dL 11/14/24 10:00 Urine Urobilinogen (Auto) 0.2 mg/dL 11/14/24 10:00 Leukocyte Esterase (Auto) 70 Calista/uL 11/14/24 10:00 Date of Service: 09/14/24 EXAMINATION: US RETROPERITONEAL COMPLETE (RENAL) CLINICAL INFORMATION: Hematuria. COMPARISON: None available. TECHNIQUE: Real-time imaging of the kidneys and bladder. FINDINGS: RIGHT KIDNEY: 10.2 x 3.7 x 4.5 cm (SAG x AP x TRV). The kidney is normal in size, contour, and echogenicity. Renal cortical thickness is normal. No calculi or focal parenchymal lesions. No hydronephrosis. LEFT KIDNEY: 9.9 x 5.7 x 5.5 cm (SAG x AP x TRV). The kidney is normal in size, contour, and echogenicity. Renal cortical thickness is normal. No calculi . No hydronephrosis. Multiple benign parapelvic Bosniak class I renal cysts are noted which require no additional imaging or follow-up. No solid renal masses are seen. BLADDER: Well distended and normal. Bilateral ureteral jets are demonstrated. Prevoid bladder volume is 348 mL. Postvoid bladder volume is 46 mL. IMPRESSION: No significant abnormality is seen. A cause for the patient's hematuria has not been found. Assessment & Plan Assessment & Plan (1) Hematuria: Code(s): R31.9 - Hematuria, unspecified Category: Medical (2) Recurrent UTI: Code(s): N39.0 - Urinary tract infection, site not specified Category: Medical (3) Renal cyst: Code(s): N28.1 - Cyst of kidney, acquired Category: Medical Plan In office urinalysis results reviewed with the patient today; as noted above; will send for urine cytology. Recent retroperitoneal ultrasound results reviewed with the patient today; as noted above. Continue Estrace cream as discussed and prescribed. Discussed UTI prevention with D mannose supplement, vitamin-C, increasing fluid intake, behavioral therapy with timed voiding, perineal hygiene and postcoital voiding, and management of constipation with stool softeners and increased fiber intake. She reports be happy with current voiding parameters. We discussed bladder triggers/irritants. We discussed potential causes for recurrent urinary tract infections as well as episodes of gross hematuria patient was experiencing. Will schedule for in office cystoscopy for further assessment evaluation; or sooner with any issues, concerns, and or questions. Orders: Orders AMB Urinalysis Automated Today Z13.9 - Encounter for screening, unspecified Urine Cytology Today N39.0 - Urinary tract infection, site not specified Patient Instructions: The patient had an opportunity to ask questions regarding the treatment plan. All questions were answered. Physical exam, labs, and imaging were discussed and reviewed in detail. As well as risks, benefits, and discussion of treatment choices. No major barriers to understanding were identified. The patient expressed understanding and agreement with the above treatment plan. The patient was made aware they should contact our office by phone for worsening of their current condition, the appearance of new symptoms, or with any questions or concerns. Compliance is encouraged with any medications and follow up testing that is ordered. It is a privilege to be allowed the opportunity to participate in? your urological care.? Again, if you have any questions or concerns If you have any questions or concerns please do not hesitate to contact me. The office is [phone]. This note is constructed using voice recognition software. While every effort has been made to ensure accuracy mattress finisher errors may have been included. Yours sincerely, OANH Mo Coding Level of Care Code New Pt Level 3 (81458) Diagnoses Hematuria R31.9 Recurrent UTI N39.0 Renal cyst N28.1
== END 2024-11-14 10:31 | disposition home or self-care (01) ==
PROVIDERS: PCP Internal Medicine; Visit Provider Nurse Practitioner Family
DX: R31.9 Hematuria, unspecified (principal); N39.0 Urinary tract infection, site not specified; N28.1 Cyst of kidney, acquired; Z13.9 Encounter for screening, unspecified
CPT/HCPCS: 99203

== ENCOUNTER 2024-12-15 09:54 | Outpatient (AMB) | payer MEDICARE, SELFPAY ==
--- NOTE | 2024-12-15 09:59 | A.OFFVIS_ITS ---
Intake Visit Reasons: Cysto(Hematuria) Intake Note: Patient presents today for cystoscopy Urology Medication:OXYBUTYNIN Antibiotic Allergy:NONE Blood Thinner:NONE Lot:[id number] Exp:09/26/27 Electrical Line Mechanic Required: No Accompanied by: Self / Same As Patient Allergies No Known Allergies [No Known Allergies*] Allergy (Verified 12/15/24 13:18) Medication List - Last Reconciled 12/15/24 by OANH Mo acetaminophen 650 mg (2 x 325 mg) PO Q6H PRN 30 days adalimumab (Humira Pen) mg subcut atorvastatin 20 mg PO DAILY celecoxib 200 mg PO BID diclofenac sodium 1% 4 grams topical QID docusate sodium 100 mg PO BID estradiol 0.01%(0.1mg/gram) 0.25 appful vaginal 3XW 90 days famotidine 40 mg PO BEDTIME folic acid 1 mg PO DAILY methotrexate sodium 17.5 mg PO TH metoprolol tartrate 50 mg PO BID omeprazole 20 mg PO DAILY oxybutynin chloride ER 10 mg PO DAILY sacubitril-valsartan 24-26 mg (Entresto) 1 tab PO BID HPI Comments Details: Ian is a very pleasant 79-year-old female patient of Dr. Garcia. She has a past medical history of cardiac arrhythmia, restrictive lung disease, hard of hearing, osteoarthritis, osteopenia, hypercholesteremia, osteoarthritis, hypertension, and rheumatoid arthritis. She presents to the office today for follow-up. Of note, patient was seen approximately 1 month ago as a new patient for hematuria as well as recurrent urinary tract infections at which time recommendations were made for in office cystoscopy for further assessment evaluation. This was performed at today's office visit. Grade 2 trabeculations noted otherwise NAD. She reports compliance with Estrace cream as prescribed and feels this has been extremely helpful. She denies having had any UTI like symptoms and or urinary tract infections since her last office visit. She discusses her upcoming appointment with cardiology here at [facility] to discussed further treatment options of her ongoing cardiac issues. She reports episodes of nocturia she had been experiencing have significantly decreased. She currently denies any bothersome urinary issues or concerns. Previous workup has included a retroperitoneal ultrasound 09/15 noting bilateral kidneys are normal in size, contour, and echogenicity. No hydronephrosis, lesions, and or renal calculi noted bilaterally. The bladder is well distended and normal. Pre void bladder volume is approximately 350 mL. Postvoid bladder volume is approximately 50 mL. She reports when she discontinues anticoagulation she no longer has episodes of gross hematuria. In office urinalysis results reviewed with the patient today no microscopic hematuria noted. We discussed potential causes of hematuria. When asked she denies urinary urgency, urinary frequency, incontinence, nocturia, dysuria, foul smelling urine, changes to urinary stream, flank pain, fever, and or chills. She is happy with her current voiding parameters. Urine cultures are as follows: 12/15 E coli, 04/14 E coli, 06/14 E coli, 06/15 E coli, 08-16 hafnia alvei, 10/16 Proteus mirabilis When asked she does report a history of constipation. We discussed correlation of bowel issues with lower urinary tract symptoms. She otherwise offers no other issues or concerns at this time. FORMERLY [facility], [facility] Medical History Cardiac arrhythmia Restrictive lung disease Cough Ear infection Hard of hearing COVID-19 vaccine series completed Osteoarthritis of right knee Dry mouth Osteopenia Postnasal drip Hypercholesteremia Osteoarthritis Hypertension Rheumatoid arthritis H/O bone density study Lumbago Surgical History History of total left knee replacement H/O colonoscopy Status post herniorrhaphy H/O mitral valve replacement History of splenectomy Hx of cholecystectomy Family History Father Cerebral hemorrhage Parkinsonism Mother COPD (chronic obstructive pulmonary disease) Lung cancer Brother Lung cancer Son No problems noted. Daughter No problems noted. Daughter No problems noted. Daughter No problems noted. Social History Housing: House Are you a primary career consultant to a significant other at home: No Do you presently have visiting nurse or other home services: No Patient Tobacco Use Status: Never used Tobacco e-Cigarette/Vaping Use: Never Used Second Hand Smoke Exposure: Yes service: No Current occupational status: retired Current occupational exposures/hazards: No Cognitive needs: No Hearing needs: Yes Vision needs: Yes Review of Systems Eyes Reports no additional complaints ENT Reports as per HPI Card Reports as per HPI Resp Reports as per HPI GI Reports no additional complaints Reports as per HPI Musc Reports as per HPI Physical Exam Const General: cooperative, healthy appearing, comfortable, no acute distress, well developed, alert and awake Nutritional Appearance: overweight Orientation/consciousness: patient oriented x3 Limitations: no limitations HEENT Head: Yes normal to inspection, Yes normocephalic and Yes atraumatic Ears: hearing grossly normal bilaterally Eyes General: appearance normal, both eyes and all related structures Neck Neck: Yes normal visual inspection and Yes trachea midline Chest Chest palpation & inspection: normal inspection of the chest Resp Effort & Inspection: normal respiratory effort and able to speak in complete sentences Cardio Rate: regular rate GI Inspection: Yes normal to inspection General: Yes no CVA tenderness External Female Exam: normal external appearance and normal appearance of the urethra (Mild irritation of urethra) Speculum Exam - Vagina: normal appearance of the vagina Back/Spine/Pelvis Back: no CVA tenderness Skin General skin exam: no rashes or lesions noted Neuro General: patient oriented x3 Extrem General: Yes normal to inspection Psych Appearance: grossly normal and well kempt Mental Status: mental status grossly normal Speech and movement: Normal speech and movement present and Clear speech present Affect: normal affect Attitude: cooperative Thought process: Normal thought process present Thought content: Normal thought content present Insight: Fair insight present (Psych) Judgement: Fair judgement present (Psych) Office Procedures Cystoscopy Consent Discussed risk and benefit or proposed procedure with the patient. Information consent for procedure given to the patient. Discussed technical aspects, risks, benefits and alternatives in full. Addressed all of the patient's questions and concerns regarding the procedure. The patient demonstrated knowledge and understanding. They wish to proceed with this procedure. Preparation The patient was prepped in the usual manner. A contracts officer was present and in the room. Genitalia was prepped with betadine solution in a sterile manner. Lidocaine Jelly 2% was placed into the urethra and 16Fr flexible Olympus cystoscope was inserted into the meatus after adequate lubrication. Procedure Urethra mild irritation Bladder examination with retroflexion of cystoscope Bladder Orifices normal shape and position Trigone metaplasia Bladder Capacity ------- Trabeculations mild/grade 2 Cellule Formation none Diverticulum Formation none Mucosal Erythema none Bladder Tumor none [id number] DISPOSABLE SCOPE URO-G FLEXIBLE SCOPE Procedure code (CPT) selection complete Office Meds lidocaine HCl 2 % mucosal jelly in applicator Performing Provider: OANH Mo Performing Location: [facility] Administered by: Kam Marroquin LPN on 12/15/24 10:14 Dose Route Admin Location Dispensed Lot Number Expiration Date [facility] [employer] 10 mL intra-urethral 10 mL nitrofurantoin monohydrate/macrocrystals 100 mg capsule Performing Provider: OANH Mo Performing Location: [facility] Administered by: Kam Marroquin LPN on 12/15/24 10:14 Dose Route Admin Location Dispensed Lot Number Expiration Date [place] [employer] 100 mg PO 1 cap Results AMB Urinalysis, Automated UA Leukoctes 15 Calista/uL Last Edit by Luis Fernando Ortiz on 12/15/24 10:25 UA Nitrite Negative Last Edit by Luis Fernando Otriz on 12/15/24 10:25 UA Urobilinogen 0.2 mg/dL Last Edit by Luis Fernando Ortiz on 12/15/24 10:25 UA Protein 30 mg/dL Last Edit by Luis Fernando Ortiz on 12/15/24 10:25 UA pH 6.0 Last Edit by Luis Fernando Ortiz on 12/15/24 10:25 UA Blood 0 Sky/uL Last Edit by Luis Fernando Ortiz on 12/15/24 10:25 UA Specific [place] 1.030 Last Edit by Luis Fernando Ortiz on 12/15/24 10:25 UA Ketone Positive Last Edit by Luis Fernando Ortiz on 12/15/24 10:25 UA Bilirubin 1 mg/dL Last Edit by Luis Fernando Ortiz on 12/15/24 10:25 UA Glucose 0 mg/dL Last Edit by Luis Fernando Ortiz on 12/15/24 10:25 Results Reviewed Results Reviewed: Laboratory Last Values Urine pH (Auto) 6.0 12/15/24 10:24 Specific [place] (Auto) 1.030 12/15/24 10:24 Urine Protein (Auto) 30 mg/dL 12/15/24 10:24 Glucose (UA)(Auto) 0 mg/dL 12/15/24 10:24 Urine Ketones (Auto) Positive 12/15/24 10:24 Urine Blood (Auto) 0 Sky/uL 12/15/24 10:24 Urine Nitrite (Auto) Negative 12/15/24 10:24 Urine Bilirubin (Auto) 1 mg/dL 12/15/24 10:24 Urine Urobilinogen (Auto) 0.2 mg/dL 12/15/24 10:24 Leukocyte Esterase (Auto) 15 Calista/uL 12/15/24 10:24 Assessment & Plan Assessment & Plan (1) Renal cyst: Code(s): N28.1 - Cyst of kidney, acquired Category: Medical (2) Recurrent UTI: Code(s): N39.0 - Urinary tract infection, site not specified Category: Medical (3) Hematuria: Code(s): R31.9 - Hematuria, unspecified Category: Medical Plan In office urinalysis results reviewed with the patient today; as noted above; no hematuria noted. Continue Estrace cream as discussed and prescribed. Cystoscopy with no acute findings. We discussed at length potential causes of hematuria. She currently denies any bothersome urinary issues. She reports be happy with current voiding parameters. Discussed correlation of gross hematuria and anticoagulation. Follow-up in 3 months with [facility]; or sooner with any issues, concerns, and or questions. Orders: Orders AMB Urinalysis Automated Today Z13.9 - Encounter for screening, unspecified AMB Cystoscopy Today N39.0 - Urinary tract infection, site not specified, R30.0 - Dysuria, R31.9 - Hematuria, unspecified Medications: Changed From estradiol 0.01%(0.1mg/gram) 0.25 appful vaginal 2XW 42.5 grams 2RF To estradiol 0.01%(0.1mg/gram) Apply pea-sized amount to urethra 3 times per week 0.25 appful vaginal 3XW 42.5 grams 3RF 90 days Patient Instructions: The patient had an opportunity to ask questions regarding the treatment plan. All questions were answered. Physical exam, labs, and imaging were discussed and reviewed in detail. As well as risks, benefits, and discussion of treatment cho ices. No major barriers to understanding were identified. The patient expressed understanding and agreement with the above treatment plan. The patient was made aware they should contact our office by phone for worsening of their current condition, the appearance of new symptoms, or with any questions or concerns. Compliance is encouraged with any medications and follow up testing that is ordered. It is a privilege to be allowed the opportunity to participate in? your urological care.? Again, if you have any questions or concerns If you have any questions or concerns please do not hesitate to contact me. The office is [phone]. This note is constructed using voice recognition software. While every effort has been made to ensure accuracy hose cementer errors may have been included. Yours sincerely, OANH Mo Coding Level of Care Code Est Pt Level 3 (88081) Complex EM visit Add On G2211 Diagnoses Renal cyst N28.1 Recurrent UTI N39.0 Hematuria R31.9 CPT Codes Cystoscopy - CPT: [id number] ([id number])
== END 2024-12-15 10:47 | disposition home or self-care (01) ==
PROVIDERS: PCP Internal Medicine; Visit Provider Nurse Practitioner Family
DX: N28.1 Cyst of kidney, acquired (principal); N39.0 Urinary tract infection, site not specified; R31.9 Hematuria, unspecified; R30.0 Dysuria; Z13.9 Encounter for screening, unspecified
CPT/HCPCS: 52000

== ENCOUNTER → 2024-12-15 09:54 | Outpatient (BNVA) | payer MEDICARE, SELFPAY | PROVIDERS: PCP Internal Medicine; Visit Provider Nurse Practitioner Family | DX: N28.1 Cyst of kidney, acquired (principal); N39.0 Urinary tract infection, site not specified; R31.9 Hematuria, unspecified | CPT/HCPCS: 52000; 81003 ==

== ENCOUNTER → 2025-01-02 09:34 | Outpatient (REF) | payer MEDICARE, SELFPAY | LOC: HO.CARD 09:34 | PROVIDERS: PCP Internal Medicine; Visit Provider Internal Medicine Cardiovascular Disease | DX: I42.9 Cardiomyopathy, unspecified (principal) | CPT/HCPCS: 93017; J0280; J2785 ==

== ENCOUNTER → 2025-01-02 09:37 | Outpatient (BNV) | payer MEDICARE, SELFPAY | PROVIDERS: PCP Internal Medicine | DX: R06.02 Shortness of breath (principal); I49.3 Ventricular premature depolarization | CPT/HCPCS: 78452; 93016; 93018 ==

== ENCOUNTER 2025-01-10 09:19 | Outpatient (AMB) | payer MEDICARE, SELFPAY ==
--- NOTE | 2025-01-10 09:39 | AM.OFFWIN_ITS ---
Intake Vital Signs 01/10/25 09:41 Weight 212 lb BP 120/78 Blood Pressure Location Rt brachial Position Sitting Pulse 72 Pulse Source Pulse Oximeter Temp 98.0 F Temp Source Oral Pulse Oximetry (%) 95 Oxygen Delivery Method Room Air Intake Visit Reasons: EP cough, lightheaded Intake Note: Patient here for cough and lightheaded since Thursday. Patient Tobacco Use Status: Never used Tobacco Allergies No Known Allergies [No Known Allergies*] Allergy (Verified 01/10/25 09:42) HPI HPI Comments History of Present Illness Details History - The patient is a 79-year-old female pr esenting with acute cough and associated symptoms. - Symptoms began 4 days ago with an init ial raspy throat, which resolved, leaving a persistent cough. - The patient reports daily and nocturna l cough with substantial yellow mucus production, lightheadedness, and fatigue. - She denies fever, wheezing, or shortne ss of breath, with COVID-19 testing indicating a negative result. - History of Chronic Obstructive Pulmona ry Disease (COPD) /asthma is noted; neither condition is actively managed with inhalers. - The patient has attempted symptom shaneka tment with Delsym cough syrup without relief. 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 Physical Exam General: Cooperative, healthy appearing, comfortable and no acute distress Orientation/consciousness: Patient oriented x3 Limitations: No limitations Head: Normal to inspection Ears: Hearing grossly normal bilaterally, external ears normal and TM's normal left, right TM has perforation Nose: Normal external nose present, Normal nares present and No nasal discharge present Face and sinus: Normal facial exam and Yes sinuses nontender Mouth: Normal oral and palatal mucosa present and moist mucous membranes Throat: Yes tonsils normal, Yes uvula midline. Posterior oropharynx not erythematous Eyes: Appearance normal, both eyes and all related structures Neck: Normal visual inspection Respiratory: Clear to auscultation bilaterally. Normal respiratory effort, able to speak in complete sentences, Actively coughing, no respiratory distress, not tachypneic, no tripod positioning and no use of accessory muscles Cardiovascular: Regular rate and rhythm. Normal S1 and S2 Skin: No rashes or lesions noted Neuro: Patient oriented x3 Extremities: Normal to inspection and Yes no clubbing, cyanosis or edema [facility] Medical History Cardiac arrhythmia Restrictive lung disease Cough Ear infection Hard of hearing COVID-19 vaccine series completed Osteoarthritis of right knee Dry mouth Osteopenia Postnasal drip Hypercholesteremia Osteoarthritis Hypertension Rheumatoid arthritis H/O bone density study Lumbago Surgical History History of total left knee replacement H/O colonoscopy Status post herniorrhaphy H/O mitral valve replacement History of splenectomy Hx of cholecystectomy Family History Father Cerebral hemorrhage Parkinsonism Mother COPD (chronic obstructive pulmonary disease) Lung cancer Brother Lung cancer Son No problems noted. Daughter No problems noted. Daughter No problems noted. Daughter No problems noted. Social History Housing: House Are you a primary care provider to a significant other at home: No Do you presently have visiting nurse or other home services: No Patient Tobacco Use Status: Never used Tobacco e-Cigarette/Vaping Use: Never Used Second Hand Smoke Exposure: Yes service: No Current occupational status: retired Current occupational exposures/hazards: No Cognitive needs: No Hearing needs: Yes Vision needs: Yes Review of Systems Const All systems reviewed & are unremarkable except as noted in HPI and below Physical Exam Vital Signs: Last Vital Signs Temp 98.0 F 01/10/25 09:41 Pulse 72 01/10/25 09:41 BP 120/78 01/10/25 09:41 Pulse Ox 95 01/10/25 09:41 Oxygen Delivery Method Room Air 01/10/25 09:41 Assessment & Plan Assessment & Plan (1) Cough: Comment: Code(s): R05.9 - Cough, unspecified Qualifiers: Cough type: acute Qualified Code(s): R05.1 - Acute cough Plan: Further testing for influenza, COVID-19, and RSV using a PCR test was conducted to determine the specific viral cause of the symptoms. The patient was provided with an inhaler for episodes of coughing related to bronchospasm, and Tessalon pearls were prescribed for nighttime use to aid coughing suppression allowing improved sleep. Discussion was conducted on the potential use of keow-hdf-utjidby antihistamines such as Cristiane D for addressing mucus accumulation and inflammation. It was recommended to continue gargling with warm salt water to reduce throat irritation. Patient was informed and verbally consented to the use of an ambient scribe for clinic note documentation during this visit Medications: New benzonatate 200 mg PO TID PRN 14 caps 0RF cough albuterol sulfate 90 mcg/actuation 2 puffs inhalation Q6H PRN 8.5 grams 0RF shortness of breath or wheezing or cough Coding Level of Care Code Est Pt Level 3 (73200) Diagnoses Acute cough R05.1 Cough type: acute
[2025-01-10 09:41] VITALS: BP 120/78; PULSE 72; TEMP 36.7; O2SAT 95
--- OUTSIDE RECORDS SUMMARY | 2025-01-10 10:04 | XMS_ITS | Data Portability ---
Author Organization [place] - [facility], Allergy Address [address] [address] Assessment Encounter Date Assessment Date Assessment LastModified by Organization Details LastModified Time 12/19/2024 12/19/2024 Resolution: Schedule an appointment for cerumen management. [email or web address] Not available 12/19/2024 11:27:01 Plan of Treatment Reminders Order Date Submit Date Provider Last Modified By Organization Details Last Modified Time Details Appointments None record ed. Lab None record ed. Referral None record ed. Procedures None record ed. Surgeries None record ed. Imaging None record ed. Medication Orders None record ed. Patient TargetsNo targets recorded. Patient InstructionsNo instructions recorded. Reason for Referral None Reported. 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 59409766044 75203 Active 2021 Central perforat ion of tympanic membrane , right ear; Note: Date Diagnose d: 2 10:31 AM (H72.91) Not Available [facility] 4 02:47:14 Sensorin eural hearing loss in left ear 15451171220 109 Active 2016 Sensorin eural hearing loss, unilater al, left ear, with restrict ed hearing on the contrala teral side; Note: Date Diagnose d: 7 11:42 AM (H90.A22 ) Not Available [facility] 4 02:47:11 Otorrhea of right ear [id number] 03520 Completed 202106/24/2024 Otorrhea , right ear; Note: Date Diagnose d: 2 9:32 AM (H92.11) Not Available [facility] 4 02:47:09 Acute non-supp urative otitis media of right ear 31655627019 19202 Active 2021 Other acute nonsuppu rative otitis media, right ear; Note: Date Diagnose d: 2 10:32 AM (H65.191 ) Not Available [facility] 4 02:47:13 Mixed conducti ve and sensorin eural hearing loss of right ear 27699680157 105 Active 2016 Mixed conducti ve and sensorin eural hearing loss, unilater al, right ear with restrict ed hearing on the contrala teral side; Note: Date Diagnose d: 7 11:42 AM (H90.A31 ) Not Available [facility] 4 02:47:11 Posterio r rhinorrh ea 18465145 Active 2021 Postnasa l drip; Note: Date Diagnose d: 11/14/20 4:46 PM (R09.82) Not Available [facility] 4 02:47:12 Gastroes ophageal reflux disease without esophagi tis 309013304 Active 2022 Gastro-e sophagea l reflux disease without esophagi tis; Note: Date Diagnose d: 10/20/20 11:01 AM (K21.9) Not Available [facility] 4 02:47:10 Somatofo rm disorder 89237224 Active 2022 Psychoge sumaya dysphagi a, includin g 'globus hysteric us'; Note: Date Diagnose d: 10/20/20 11:07 AM (F45.8) Not Available [facility] 4 02:47:10 Allergic rhinitis 56124912 Active 2022 Allergic rhinitis , unspecif ied; Note: Date Diagnose d: 07/31/2023 10:04 AM (J30.9) Not Available [facility] 4 02:47:13 Problem Notes None recorded. Medical Equipment None Reported. Medications Name Sig Start Date Stop Date Status Note LastModified by Organization Details LastModified Time Prescript ion - Prior Authoriza tion Request active Script Copy/Juanita or Auth^Scr ipt Copy/Juanita or Auth_ [id number] Not Available Not Available Not Available celecoxib 200 mg capsule TAKE 1 CAPSULE BY MOUTH TWICE A DAY active Not Available Not Available No t Available atorvasta tin 20 mg tablet TAKE 1 TABLET BY MOUTH EVERY DAY active Not Available Not Available No t Available sulfasala zine 500 mg tablet 04/11 completed Medicati on ID: [id number] D uration Value: 90 Brand Name: sulfasal azine Se nd Method: E-Prescr ibed Sub s Allowed: subs OK Speci al Instruct ion: TAKE 2 TABLETS BY MOUTH TWICE A DAY Medi cationGe nericNam e: sulfasal azine Not Available Not Available Not Available oxybutyni n chloride ER 10 mg tablet,ex tended release 24 hr TAKE 1 TABLET BY MOUTH EVERY DAY active Not Available Not Available No t Available aspirin 325 mg tablet active Medicati on ID: [id number] B rand Name: aspirin Send Method: E-Prescr ibed Sub s Allowed: subs OK Speci al Instruct ion: TAKE 1 TABLET BY MOUTH TWICE A DAY FOR 42 DAYS Med icationG enericNa me: aspirin Not Available Not Available Not Available amiodaron e 200 mg tablet TAKE 1 TABLET BY MOUTH EVERY DAY active Not Available Not Available No t Available famotidin e 40 mg tablet TAKE 1 TABLET BY MOUTH EVERYDAY AT BEDTIME active Not Available Not Available No t Available sulfameth oxazole 800 mg-trimet hoprim 160 mg tablet TAKE 1 TABLET BY MOUTH TWICE A DAY active Not Available Not Available No t Available amoxicill in 500 mg tablet TAKE 4(FOUR) 1 HOUR PRIOR TO APPOINTM ENT, active Not Available Not Available No t Available methotrex ate sodium 2.5 mg tablet TAKE 7 TABLETS BY MOUTH ONCE A WEEK ON THURSDAY . active Not Available Not Available No t Available amiodaron e 400 mg tablet TAKE 1 TABLET BY MOUTH TWICE A DAY START 08/26/24 active Not Available Not Available No t Available cefaclor 250 mg capsule TAKE 1 CAPSULE BY MOUTH EVERY 12 HOURS active Not Available Not Available No t Available clotrimaz ole 1 % topical solution 4 as directed to affected area 2021 active Medicati on ID: [id number] D uration Value: 14 Prescri bed By Name: SIMEON Rm nd Name: saurabh lee Sen d Method: E-Prescr ibed Sub s Allowed: subs OK Speci al Instruct ion: 4 drops to right ear twice daily X 14 days Med ication enericNa me: clotrima zole Not Available Not Available Not Available metoprolo l tartrate 50 mg tablet TAKE 1 TABLET BY MOUTH TWICE A DAY active Not Available Not Available No t Available omeprazol e 20 mg capsule,d elayed release active Medicati on ID: [id number] B rand Name: omeprazo le Send Method: E-Prescr ibed Sub s Allowed: subs OK Medic ationGen ericName : omeprazo le Not Available Not Available Not Available folic acid 1 mg tablet TAKE 1 TABLET BY MOUTH EVERY DAY active Not Available Not Available No t Available azelastin e 137 mcg (0.1 %) nasal spray [place] 2 spray into both nostrils twice a day as directed 2022 active Medicati on ID: [id number] D uration Value: 30 Prescri bed By Name: SIMEON Cramer nd Name: azelasti ne Send Method: E-Prescr ibed Sub s Allowed: subs OK Medic ationGen ericName : azelasti ne Not Available Not Available Not Available estradiol 0.01% (0.1 mg/gram) vaginal cream USE 0.25 OF AN APPLICAT ORFULL VAGINALL Y 2 TIMES A WEEK active Not Available Not Available No t Available ipratropi um bromide 42 mcg (0.06 %) nasal spray [place] 2 spray into both nostrils three times a day 2022 active Medicati on ID: [id number] D uration Value: 30 Prescri bed By Name: SIMEON Cramer nd Name: ipratrop ium bromide Send Method: E-Prescr ibed Sub s Allowed: subs OK Medic ationGen ericName : ipratrop ium bromide Not Available Not Available Not Available colchicin e 0.6 mg tablet TAKE 1 TABLET BY MOUTH EVERY DAY FOR 10 DAYS active Not Available Not Available No t Available cefdinir 300 mg capsule Take 1 capsule by mouth twice a day 2022 active Medicati on ID: [id number] D uration Value: 21 Brand Name: cefdinir Send Method: E-Prescr ibed Sub s Allowed: subs OK Medic ationGen ericName : cefdinir Not Available Not Available Not Available ipratropi um bromide 21 mcg (0.03 %) nasal spray [place] 2 spray into both nostrils twice a day as directed 2021 active Medicati on ID: [id number] D uration Value: 30 Brand Name: ipratrop ium bromide Send Method: E-Prescr ibed Sub s Allowed: subs OK Speci al Instruct ion: 2 sprays in each nostril twice a day Medi cationGe nericNam e: ipratrop ium bromide Not Available Not Available Not Available amoxicill in 875 mg-potass ium clavulana te 125 mg tablet Take 1 tablet by mouth twice a day with meals 10/01 completed Medicati on ID: [id number] D uration Value: 14 Brand Name: amoxicil yamila-pot clavulan ate Send Method: E-Prescr ibed Sub s Allowed: subs OK Medic ationGen ericName : amoxicil yamila-pot clavulan ate Not Available Not Available Not Available TobraDex 0.3 %-0.1 % eye drops,han pension 06/11 completed Medicati on ID: [id number] P rescribe d By Name: SIMEON Rm nd Name: TobraDex Send Method: E-Prescr ibed Sub s Allowed: subs OK Speci al Instruct ion: Instill 3 drops in the affect ear BID for 14 days Med icationG enericNa me: TobraDex Not Available Not Available Not Available Ciprodex 0.3 %-0.1 % ear drops,han pension 4 drop into right ear 2021 active Medicati on ID: [id number] D uration Value: 14 Prescri bed By Name: SIMEON Rm nd Name: Ciprodex Send Method: E-Prescr ibed Sub s Allowed: subs OK Speci al Instruct ion: x 14 days Med icationG enericNa me: Ciprodex Not Available Not Available Not Available metoprolo l tartrate 25 mg tablet 06/11 completed Medicati on ID: [id number] D uration Value: 90 Brand Name: metoprol ol tartrate Send Method: E-Prescr ibed Sub s Allowed: subs OK Speci al Instruct ion: TAKE 1 TABLET BY MOUTH TWICE A DAY Medi cationGe nericNam e: metoprol ol tartrate Not Available Not Available Not Available nitrofura ntoin monohydra te/macroc rystals 100 mg capsule TAKE 1 CAPSULE BY MOUTH EVERY 12 HOURS FOR 7 DAYS MUST ADMINIST ER WITH A MEAL/MELANY D active Not Available Not Available No t Available Humira Pen 40 mg/0.8 mL subcutane ous kit active Not Available Not Available Not Available diclofena c 1 % topical gel APPLY 4 GRAMS TO AFFECTED AREA 4 TIMES A DAY active Not Available Not Available No t Available Eliquis 5 mg tablet TAKE 1 TABLET BY MOUTH TWICE A DAY active Not Available Not Available No t Available Breo Ellipta 100 mcg-25 mcg/dose powder for inhalatio n 06/11 completed Medicati on ID: [id number] B rand Name: Breo Ellipta Send Method: E-Prescr ibed Sub s Allowed: subs OK Medic ationGen ericName : Breo Ellipta Not Available Not Available Not Available Entresto 24 mg-26 mg tablet TAKE 1 TABLET BY MOUTH TWICE A DAY active Not Available Not Available No t Available aspirin 81 mg capsule active Medicati on ID: [id number] B rand Name: aspirin Send Method: E-Prescr ibed Sub s Allowed: subs OK Medic ationGen ericName : aspirin Not Available Not Available Not Available Vitals None Recorded Social History None recorded. Functional Status None recorded. Mental Status None recorded. Family History Nothing Reported. Medical History No medical history recorded. Gynecological HistoryNo gynecological history recorded. Obstetrics History GPAL:G 0 P 0 0 0 0 Past Encounters Encounter ID Performer Location Encounter Start Date Encounter Closed Date Diagnosis/Indication Diagnosis SNOMED-CT Code Diagnosis ICD10 Code Diagnosis Note [id number] Carol PALMA RAMOS [place] [address] [facility] [address] 12/19/2024 11:04:37 12/20/2024 07:24:19 Mixed conductive and sensorineural hearing loss of right ear [id number] 9105 H90.A31 Health Concerns Section Related Observation LastModified by Organization Detai ls LastModified Time None Recorded Concern Status LastModified by Organization Details LastModified Time None Recorded Advance Directives Directive None Recorded Payers Encounter Date Sequence Insurance Name Policy Number Policy Hines Covered Member ID Hines Member ID Guarantor Name 12/19/2024 2 [facility] Melissa De La Garza [id number] Melissa De La Garza 12/19/2024 1 MEDICARE B-[place]: [employer] Melissa Keylexi [id number] Melissa De La Garza Notes Date Note Type Note Provider Name and Address Organization Details Recorded Time 12/19/2024 text/html Hearing Aid ProblemReported bypatient.Visit typein office repair Hearing Aidhearing device is functioning well Hearing Aidfeedback LANDEN NDIAYE, [address], [address], [facility] - [facility] 12/19/2024 11:27:32 OBGyn Episode No OBEpisode recorded.
--- OUTSIDE RECORDS SUMMARY | 2025-01-10 10:05 | XMS_ITS ---
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 Role Phone Ana Garcia MD Primary Care Provider Sabino Eva Brooks Unavailable [phone] Allergies No Known Allergies REASON FOR VISIT Painful Nail(s) aggrevated by shoes and causing difficulty standing/walking., Ingrown Nail Medications Medication SIG (Take, Route, Frequency, Duration) Notes Start Date End Date Status PriLOSEC Active Metoprolol Tartrate Active Folic Acid Active Celecoxib Active Methotrexate 2.5 MG Orally Active sulfaSALAzine Not-Ta Famotidine 40 MG 1 tablet Orally Once a day Active Omeprazole 20 MG 1 capsule 1/2 to 1 h our before morning meal Orally Once a day Active oxyBUTYnin Chloride ER 10 MG 1 tablet Orally Once a day Active Atorvastatin Calcium 20 MG 1 tablet Orally Once a day Active ASO Ankle/Foot Stablizing AFO As directed Wear Daily for as needed 05/12/2024 Not-Taking Colcrys 0.6 MG 1 tablet Orally once a day for 10 days 04/13/2024 Not-Taking Vitamin B 12 Not-Jose ing Vitamin D Not-Taking Night Splint AFO - L1930 as directed 08/15/2019 Not-Taking Aspirin 81 MG Orally Not-Ta Voltaren Arthritis Pain 1 % as directed Externally 07/08/2024 Activ e Humira 40 MG/0.8ML Subcutaneous Active Social History Tobacco Use: Social History Observation Description Date Details (start date - stop date) Never Smoker NA - NA Tobacco use other than smoking: Question Answer Notes Are you an other tobacco user? No Tobacco Control (Standard) Question Answer Notes Tobacco use: Nonsmoker Additional Findings: Tobacco non-user Current no nsmoker AUDIT-C (Standard) Question Answer Notes Did you have a drink containing alcohol in the p ast year? No Points 0 Interpretation Negative Vital Signs Height 5 ft 7 in in 12/16/2024 Weight 207 lbs 12/16/2024 BMI 32.42 kg/m2 12/16/2024 Blood pressure systolic 130 mm Hg 12/16/19 25 Blood pressure diastolic 77 mm Hg 025 Procedures Procedure Date Ordered Date Performed Result Body Sit e 36640-QWTCFDC NAIL, 6 OR MORE 12/16/2024 N/A Encounters Encounter Location Date Provider Diagnosis [facility] [place] [address] [place] [address] 12/16/2024 Eva Alas Onychomycosis B35.1 ; Ingrown nail L60.0 ; Pain in right toe(s) M79.674 and Pain in left toe(s) M79.675 Assessments Encounter Date Diagnosis (ICD Code) Assessment Notes Treatment Notes Treatment Clinical Notes Section Notes 12/16/2024 Onychomycosis (ICD-10 - B35.1) 12/16/2024 Ingrown nail (ICD-10 - L60.0) 12/16/2024 Pain in right toe(s) (ICD-10 - M79.674) 12/16/2024 Pain in left toe(s) (ICD-10 - M79.675) Plan Of Treatment Pending Test Test Name Order Date 09013-IWIHBXG NAIL, 6 OR MORE 12/16/2024 Next Appt Details Follow Up: 2 Weeks, Reason: Provider Name:Eva Alas , 02/24/2025 09:00:00 AM, [address] [facility], [place], [address], Procedure Notes * Category Sub-Category Detail Notes Nail Avulsion Procedure A fine sterile e levator was placed between the eponychium, nail fold, and nail plate to separate the structures. A sterile nail splitter, and/or sterile 316 blade, was then used to longitudinally section the nail along its entire length through the eponychium to the area under the nail fold. The offending portion of nail was from the nail bed with a rolling action and then removed with a hemostat. No underlying bone was identified. There was minimal bleeding as hemostasis was achieved through the temporary use of either a digital tourniquet or the aforementioned local with epinephrine. A bacitracin sterile dressing was applied. Local wound aftercare instructions were discussed and dispensed. The patient was informed of both conservative and future surgical procedures to prevent recurrence. Tylenol or Motrin was recommended for pain or discomfort (88412), Pt DEFERS matricectomy Anesthesia , was accomplished T OPICALLY with Lidocaine Hydrochloride Jelly 2 percent Location , Lateral nail borde r, TA Debride Nail 6-10 Nail debridement Due to the cl inical pathology outlined in the exam findings, performance of this nail treatment is medically necessary as its management by an unskilled/untrained nonprofessional would put this patients foot and overall health at risk. Therefore, debridement to affected nail(s), as described in exam ( T5, T6, T7, T8, T9, T1 ), was performed exclusively by the physician of record to reduce/remove overall nail length, girth, thickness, subungual debris, and necrotic tissue, by manual and/or electrical means through the use of a nail nipper and/or dremel-type precision thread grinder operator, to a more viable healthy nail plate or bed tissue 6-10 nails in total. Silver nitrate was used for any petechial bleeding as necessary. Definitive antifungal treatment options, both pharmaceutical and surgical, have been reviewed and discussed with the patient. The patient solely prefers the use of intermittent/as needed professional debridement services for their nail condition and understands the need for additional periodic treatments to maintain effectiveness in symptomatic relief - 18127 Progress Notes * Melissa NAPIEROB:[birth year] (79 yo F)Acc No.[id number]:12/16/2024 Progress Note Patient:?Melissa NAPIER Provider:?Eva Alas DPM :1945???Age:79 Y???Sex:Female D ate:12/16/2024 Address: [address] [place], [id number] Pcp:Ana Garcia MD Subjective: * Chief Complaints: * ???Painful Nail(s) aggrevate d by shoes and causing difficulty standing/walking.Ingrown Nail * HPI: ???Painful Nails:?Pt States Last PCP Visit:?Date:?09/13/2024 * ROS:?General/Constitutional:?Nausea?denies.?Vomiting?denies.?Hunger Thirst?denies.?Loss appetite?denies.?Chills?denies.?Fatigue?denies.?Fever?denies.?Night Sweats?denies.?Unexplained weight loss?denies.?Unexplained weight gain?admits.?HEENTM:?Dentures?denies.?Dizziness?denies.?Glasses/contacts?admits.?Retinopathy?de nies.?Blurred/double vision?denies.?TMJ?denies.?Discharge/drainage?denies.?Implants?denies.?Sore throat?denies.?Dental implants?denies.?Hard of hearing ?admits.?Difficulty chewing/swallowing/speaking?denies.?Nose bleeds?denies.?Sore mouth?denies.?Respiratory:?On Oxygen?denies.?Pneumonia/pleurisy?denies.?Bronchitis?denies.?Emphysema?denies.?C oughing?denies.?Cough blood?denies.?Shortness of breath?denies.?Wheezing?denies.?Cardiovascular:?Pacemaker?denies.?MVP?denies.?WPW?denies.?CHF?denies.?Heart attack?denies.?Septal defect?denies.?Rapid beat?admits.?Chest pain ?denies.?Atrial Fib.?denies.?Murmur/Palpitations?denies.?Gastrointestinal:?Hemorrhoids?denies.?Stomach/Abdominal pain?denies.?Dark blood stool?denies.?Irritable bowel ?denies.?Constipation?admits.?Diarrhea?denies.?Hematology:?Swelling?denies.?Clots?denies.?Varicose Veins?denies.?Bruising?denies.?Bleeding problem?denies.?Genitourinary:?Blood urine?denies.?Frequent/Painfu/urination/bladder control?denies.?Kidney stones?denies.?Infection (UTI)?denies.?Nephropathy?denies.?sex trans dis (STD)?denies.?Prostate?denies.?Musculoskeletal:?Hammertoes?admits.?Bunions?admits.?Back Pain?denies.?Muscle Cramps/ Resting?denies.?Muscle cramps / walking?denies.?Generalized aches and pains?admits.?Weakness?denies.?Integ.:?Camp?denies.?Scars?denies.?Corns/calluses?denies.?Ingrown nails?denies.?Painful nails?admits.?Open Sores?, admits.?Rashes?denies.?Neurologic:?Difficulty sleeping?denies.?Brain disorder?denies.?Numbness?denies.?Balance trouble?denies.?Confusion?denies.?Fainting/blackouts?denies.?Tingling?denies.?Tr emors?denies.? * Medical History:? * Surgical History:?splenectom y 1961heart surgery unspecified 2006hernia 2006hysterectomy 2006cyst removal 2004right knee replacement 05/13/2022 * Hospitalization/Major Diagno stic Procedure:?Denies Past Hospitalization * Family History:?Mother: dece ased, heart attack, diagnosed with Other malignant neoplasm of unspecified site, Unspecified essential hypertension.?Father: , foot problems, high blood pressure, poor circulation, diagnosed with Unspecified essential hypertension.?Siblings: Brother, diagnosed with Other malignant neoplasm of unspecified site.?Spouse: alive.? * Social History:?Tobacco Use:?Tobacco use other than smoking?Are you an other tobacco user??No ?Tobacco Control (Standard)?Tobacco use:?Nonsmoker ?Additional Findings: Tobacco non-user?Current nonsmoker ???Drugs/Alcohol:?Drugs?Have you used drugs other than those for medical reasons in the past 12 months??No ???Miscellaneous:?Caffeine: yes, frequency:, 1-2 cups per day. ?Children: yes, 4. ?Exercise: no. ?Marital status: . ?Occupation: Retired. ???Drug/Alcohol:?AUDIT-C (Standard)?Did you have a drink containing alcohol in the past year??No ?Points?0 ?Interpretation?Negative * Medications:?TakingFamotidin e 40 MG Tablet 1 tablet Orally Once a day Atorvastatin Calcium 20 MG Tablet 1 tablet Orally Once a day oxyBUTYnin Chloride ER 10 MG Tablet Extended Release 24 Hour 1 tablet Orally Once a day Omeprazole 20 MG Capsule Delayed Release 1 capsule 1/2 to 1 hour before morning meal Orally Once a day Celecoxib Folic Acid Metoprolol Tartrate PriLOSEC Methotrexate 2.5 MG Tablet Orally Humira 40 MG/0.8ML Prefilled Syringe Kit Subcutaneous Voltaren Arthritis Pain 1 % Gel as directed Externally Taking Famotidine 40 MG Tablet 1 tablet Orally Once a day Taking Atorvastatin Calcium 20 MG Tablet 1 tablet Orally Once a day Taking oxyBUTYnin Chloride ER 10 MG Tablet Extended Release 24 Hour 1 tablet Orally Once a day Taking Omeprazole 20 MG Capsule Delayed Release 1 capsule 1/2 to 1 hour before morning meal Orally Once a day Taking Celecoxib Taking Folic Acid Taking Metoprolol Tartrate Taking PriLOSEC Taking Methotrexate 2.5 MG Tablet Orally Taking Humira 40 MG/0.8ML Prefilled Syringe Kit Subcutaneous Taking Voltaren Arthritis Pain 1 % Gel as directed Externally Not-Taking/PRNAspirin 81 MG Tablet Delayed Release Orally Vitamin D Vitamin B 12 Night Splint AFO - L1930 as directed Colcrys 0.6 MG Tablet 1 tablet Orally once a day ASO Ankle/Foot Stablizing AFO As directed Wear Daily sulfaSALAzine Medication List reviewed and reconciled with the patientNot-Taking/PRN Aspirin 81 MG Tablet Delayed Release Orally Not-Taking/PRN Vitamin D Not-Taking/PRN Vitamin B 12 Not-Taking/PRN Night Splint AFO - L1930 as directed Not-Taking/PRN Colcrys 0.6 MG Tablet 1 tablet Orally once a day Not-Taking/PRN ASO Ankle/Foot Stablizing AFO As directed Wear Daily Not-Taking/PRN sulfaSALAzine Medication List reviewed and reconciled with the patient * Allergies:?N.K.D.A.yes[Aller gies Verified] Objective: * Vitals:?Ht: 5 ft 7 in, Wt: 2 07, BMI: 32.42, Shoe size: 10, BP: 130/77 mm Hg, Wt- k.89 kg. * Examination: ???General Examination: ?GENERAL APPEARANCE:?pleasant, alert, well nourished, well developed, well hydrated, with good attention to hygene/body habitus, and in no acute distress.?ORIENTED:?person,place, and time.?Neurological: ?SENSORY:?Neurological exam is normal, pain sensation normal, vibration sensation intact, pinprick sensation is normal in the lower extremities, denies, tingling, burning, anesthesia, paresthesia, hyperesthesia, B/L, Neurological exam demonstrates pop medial right ankle lig's.?Vascular: ?DP PULSES (B):? 11/26, B/L.?PT PULSES (B):? 11/26, B/L.?Dermatologic: ?SKIN FINDINGS:?Skin exam reveals normal texture, elasticity, and tugor. There are no masses. The interspaces are clear, B/L .?Nails: ?NAILS are:?elongated,overgrown,dystrophic,greater than 3mm thick,discolored and friable with crumbly malodorous subungual debris, with pain on palpation, T5, T6, T7, T8, T9, T1.?Ingrown Nail: ?INSPECTION:?Reveals nail incurvation, pain on palpation, groove hypertrophy, groove ischemia, Lateral nail border, TA.? Assessment: * Assessment: 1.?Ingrown nail - L60.0 (uJanita garcia)???2.?Onychomycosis - B35.1???3.?Pain in right toe(s) - M79.674???4.?Pain in left toe(s) - M79.675??? Plan: * Treatment: * Procedures:?Debride Nail 6-10:?Nail debridement?Due to the clinical pathology outlined in the exam findings, performance of this nail treatment is medically necessary as its management by an unskilled/untrained nonprofessional would put this patients foot and overall health at risk. Therefore, debridement to affected nail(s), as described in exam (??T5, T6, T7, T8, T9,?T1?), was performed exclusively by the physician of record to reduce/remove overall nail length, girth, thickness, subungual debris, and necrotic tissue, by manual and/or electrical means through the use of a nail nipper and/or dremel-type precision thread grinder operator, to a more viable healthy nail plate or bed tissue 6-10 nails in total. Silver nitrate was used for any petechial bleeding as necessary. Definitive antifungal treatment options, both pharmaceutical and surgical, have been reviewed and discussed with the patient. The patient solely prefers the use of intermittent/as needed professional debridement services for their nail condition and understands the need for additional periodic treatments to maintain effectiveness in symptomatic relief - 09263.?Nail Avulsion:?Location?, Lateral nail border, TA.?Anesthesia?, was accomplished TOPICALLY with Lidocaine Hydrochloride Jelly 2 percent.?Procedure?A fine sterile elevator was placed between the eponychium, nail fold, and nail plate to separate the structures. A sterile nail splitter, and/or sterile 316 blade, was then used to longitudinally section the nail along its entire length through the eponychium to the area under the nail fold. The offending portion of nail was from the nail bed with a rolling action and then removed with a hemostat. No underlying bone was identified. There was minimal bleeding as hemostasis was achieved through the temporary use of either a digital tourniquet or the aforementioned local with epinephrine. A bacitracin sterile dressing was applied. Local wound aftercare instructions were discussed and dispensed. The patient was informed of both conservative and future surgical procedures to prevent recurrence. Tylenol or Motrin was recommended for pain or discomfort (10330), Pt DEFERS matricectomy.? * Procedure Codes:?70551 DEBRI DE NAIL, 6 OR MORE, Modifiers: XS 98749 Avulsion Plate, Modifiers: TA * Follow Up:?2 Weeks * Images: * Sign off status: Completed true * Provider:?Eva Alas DPM Date:?2024 Generated for Jed pabon/Nimisha/eTdmitrysmitting on:?01/10/2025 10:04 AM EST History and Physical Notes * HPI (History of Present Illness) Category Sub-Category Detail Notes Category Not es Painful Nails Pt States Last PCP Visit: Date:: 09/13/2024 Examination Category Sub-Category Detail Notes Category Not es Ingrown Nail INSPECTION: Reveals nail inc urvation, pain on palpation, groove hypertrophy, groove ischemia, Lateral nail border, TA Neurological SENSORY: Neurological exa m is normal, pain sensation normal, vibration sensation intact, pinprick sensation is normal in the lower extremities, denies, tingling, burning, anesthesia, paresthesia, hyperesthesia, B/L, Neurological exam demonstrates pop medial right ankle lig's BABINSKI REFLEX: TINEL'S COMPRESSION: DEEP TENDON REFLEXES: Dermatologic SKIN FINDINGS: Skin exam reveal s normal texture, elasticity, and tugor. There are no masses. The interspaces are clear, B/L General Examination GENERAL APPEARANCE: pleasant , alert, well nourished, well developed, well hydrated, with good attention to hygene/body habitus, and in no acute distress ORIENTED: person,place, and ti me Vascular DP PULSES (B): 11/26, B/L PT PULSES (B): 11/26, B/L Nails NAILS are: elongated,overgr own,dystrophic,greater than 3mm thick,discolored and friable with crumbly malodorous subungual debris, with pain on palpation, T5, T6, T7, T8, T9, T1
--- OUTSIDE RECORDS SUMMARY | 2025-01-10 10:05 | XMS_ITS | Patient Health Record ---
Author Organization [facility] Maty belinda Franco Address [address] [facility] [place] [address] Care Team Providers Care Re Etcher Name Role Phone Ana Garcia MD Primary Care Provider Sabino Alas Eva Unavailable [phone] Keshawn Sepulveda Unavailable [phone] Allergies No Known Allergies Reason For Referral No Information Medications Medication SIG (Take, Route, Frequency, Duration) Notes Start Date End Date Status PriLOSEC Active Metoprolol Tartrate Active sulfaSALAzine Not-Ta reji Folic Acid Active ASO Ankle/Foot Stablizing AFO As directed Wear Daily for as needed 05/12/2024 Not-Taking Celecoxib Active Colcrys 0.6 MG 1 tablet Orally once a day for 10 days 04/13/2024 Not-Taking Famotidine 40 MG 1 tablet Orally Once a day Active Aspirin 81 MG Orally Not-Ta reij Voltaren Arthritis Pain 1 % as directed Externally 07/08/2024 Activ e Humira 40 MG/0.8ML Subcutaneous Active Methotrexate 2.5 MG Orally Active Night Splint AFO - L1930 as directed 08/15/2019 Not-Taking Omeprazole 20 MG 1 capsule 1/2 to 1 h our before morning meal Orally Once a day Active oxyBUTYnin Chloride ER 10 MG 1 tablet Orally Once a day Active Vitamin B 12 Not-Jose ing Atorvastatin Calcium 20 MG 1 tablet Orally Once a day Active Vitamin D Not-Taking Immunizations Vaccine Route Administration Date Status Comme nts COVID-19 Moderna Vaccine Unknown 02/22/2021 Administered First Dose: 04/12 Social History Tobacco Use: Social History Observation [...] ast year? 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 Problem Acquired hammer toe of right foot (2183707600437926) Other hammer toe(s) (acquired), right foot (M20.41) Active confirmed Problem Acquired hammer toe of left foot (7136114877927939) Other hammer toe(s) (acquired), left foot (M20.42) Active confirmed Problem Acquired hammer toe of right foot (7773064714949697) Other hammer toe(s) (acquired), right foot (M20.41) Active confirmed Problem Acquired hammer toe of left foot (6923132532273697) Other hammer toe(s) (acquired), left foot (M20.42) Active confirmed Problem Joint contracture of the ankle and/or foot (653940441) Flexion 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) Active confirmed Problem Joint contracture of the ankle and/or foot (931243169) Flexion contracture of joint of right foot (M24.574) Active confirmed Problem Acquired deformity of right foot (93662453493379863) PlantarFlexion of metatarsal of right foot (M21.6X1) Active confirmed Problem Joint contracture of the ankle and/or foot (476348579) Flexion contracture of joint of right foot (M24.574) Active confirmed Problem 8427952848643094 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) Active confirmed Problem 515984974 Ulcer of right foot, limited to breakdown of skin (L97.511) Active confirmed Problem 672033936 Gouty arthritis (M10.9) Active confirmed Problem 992232500 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) Active confirmed Vital Signs Blood pressure diastolic 77 mm Hg 12/16/2024 Height 5 ft 7 in in 12/16/2024 Blood pressure systolic 130 mm Hg 12/16/2024 Weight 207 lbs 12/16/2024 BMI 32.42 kg/m2 12/16/2024 Procedures Procedure Date Ordered Date Performed Result Body Sit e 46182-ZKJXUKE NAIL, 6 OR MORE 04/01/2024 N/A 47234, J0702- INJECT or DRAI N, JOINT/BURSA 04/13/2024 N/A 23498-EKLDQXL NAIL, 6 OR MORE 07/08/2024 N/A 07611-NDCHTRV NAIL, 6 OR MORE 10/07/2024 N/A 92355- Debride <25 sq cm 10/07/2024 N/A 55967-FMYVIPZ NAIL, 6 OR MORE 12/16/2024 N/A Encounters Encounter Location Date Provider Diagnosis [address] [place] [address] 04/01/2024 Eva Black Onychomycosis B35.1 ; Pain in right toe(s) M79.674 and Pain in left toe(s) M79.[address] [address] 04/13/2024 Keshawn Sepulveda Pain in right foot M79.671 ; Gouty arthritis M10.9 and Arthritis of right ankle M19.[address] [address] 05/12/2024 Keshawn Sepulveda Pain in right foot M79.671 ; Arthritis of right ankle M19.071 and 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.[address] [place] [address] 07/08/2024 Eva Black Pain in right foot M79.671 ; Arthritis of right ankle M19.071 ; 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.771 ; Onychomycosis B35.1 ; Pain in right toe(s) M79.674 and Pain in left toe(s) M79.[address] [facility] [place] [address] 10/07/2024 Eva Black Pain in right foot M79.671 ; Arthritis of right ankle M19.071 ; 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.771 ; Onychomycosis B35.1 ; Pain in right toe(s) M79.674 ; Pain in left toe(s) M79.675 and Ulcer of right foot, limited to breakdown of skin L97.511 [facility] [address] [place] [address] 12/16/2024 Eva Black Onychomycosis B35.1 ; Ingrown nail L60.0 ; Pain in right toe(s) M79.674 and Pain in left toe(s) M79.675 [facility] [address] [facility] [address] [place] [address] 04/13/2024 Eva Black [facility] [address] [address] 05/12/2024 [facility] [address] [address] 05/12/2024 Eva Black Assessments Encounter Date Diagnosis (ICD Code) Assessment Notes Treatment Notes Treatment Clinical Notes Section Notes 04/01/2024 Pain in right toe(s) (ICD-10 - M79.674) 04/13/2024 Gouty arthritis (ICD-10 - M10.9) 05/12/2024 Pain in right foot (ICD-10 - M79.671) 05/12/2024 Arthritis of right ankle (ICD-10 - M19.071) 04/01/2024 Onychomycosis (ICD-10 - B35.1) 04/13/2024 Pain in right foot (ICD-10 - M79.671) 07/08/2024 Pain in right foot (ICD-10 - M79.671) 07/08/2024 Arthritis of right ankle (ICD-10 - M19.071) 10/07/2024 Pain in right foot (ICD-10 - M79.671) 12/16/2024 Ingrown nail (ICD-10 - L60.0) 12/16/2024 Onychomycosis (ICD-10 - B35.1) 10/07/2024 Rheumatoid arthritis involving right ankle with positive rheumatoid factor (ICD-10 - M05.771) 12/16/2024 Pain in right toe(s) (ICD-10 - M79.674) 10/07/2024 Arthritis of right ankle (ICD-10 - M19.071) 07/08/2024 Rheumatoid arthritis involving right ankle with positive rheumatoid factor (ICD-10 - M05.771) 04/13/2024 Arthritis of right ankle (ICD-10 - M19.071) 05/12/2024 Rheumatoid arthritis involving right ankle with positive rheumatoid factor (ICD-10 - M05.771) 04/01/2024 Pain in left toe(s) (ICD-10 - M79.675) 07/08/2024 Onychomycosis (ICD-10 - B35.1) 10/07/2024 Onychomycosis (ICD-10 - B35.1) 12/16/2024 Pain in left toe(s) (ICD-10 - M79.675) 10/07/2024 Pain in right toe(s) (ICD-10 - M79.674) 07/08/2024 Pain in right toe(s) (ICD-10 - M79.674) 07/08/2024 Pain in left toe(s) (ICD-10 - M79.675) 10/07/2024 Pain in left toe(s) (ICD-10 - M79.675) 10/07/2024 Ulcer of right foot, limited to breakdown of skin (ICD-10 - L97.511) Plan Of Treatment Pending Test Test Name Order Date *Uric Acid, Serum 04/13/2024 *Sedimentation Rate-Westergren 55354-ZKVLNAW NAIL, 6 OR MORE 12/29/2023 47879-IYSOTOD NAIL, 6 OR MORE 04/01/2024 24035-BDBNHMB NAIL, 6 OR MORE 04/29/2023 78790-OKBJUUE NAIL, 6 OR MORE 07/08/2023 98103-RYYBGKB NAIL, 6 OR MORE 09/22/2023 02109-XEWIRPL NAIL, 6 OR MORE 02/13/2023 45275-XAQHRSM NAIL, 6 OR MORE 07/08/2024 63825-ATHZXEF NAIL, 6 OR MORE 10/07/2024 35491-PCWJCPN NAIL, 6 OR MORE 12/16/2024 60472-PFDXHER NAIL, 1-5 12/10/2021 65901-Zsyajfnc Plate 12/29/2023 92888-Jwupzcjj Plate 04/29/2023 16296-Pucxokbn Plate 07/22/2021 14962- Debride <25 sq cm 10/07/2024 88108, J0702- INJECT or DRAIN, JOINT/BUR SA 04/13/2024 82067, K0350-LVWFH/INJECT, JOINT/BURSA 0 08/17/2017 93864,U5314-OXP TENDON SHEATH/LIGAMENT 0 08/15/2019 35950,T7758-CNU TENDON SHEATH/LIGAMENT 1 60279, J0702- Neuroma/Injection 09/14/20 17 X ray : Ankle, right 3V 04/13/2024 20384 - Tenotomy, open flexor 08/07/2021 Next Appt Details Provider Name:Eva Giles Bishop , 02/24/2025 09:00:00 AM, [address] [facility], [place], [address], Insurance Providers Payer Name Payer Address Payer Phone Subscriber Number Group Number Insured Name Patient Relationship to Insured Coverage Start Date Coverage End Date Medicare National [facility] [address] [facility] [place] [address] [id number] Melissa De La Garza Self - patient is the insured [employer] [address] [place] [address] [id number] Melissa De La Garza Self - patient is the insured Medical (General) History Medical History History ICD Code Arthritis Back,Hip,and Knee pain Cataracts Heart disease Osteoporosis Chicken pox Measles Joint implants/screws Replacement Heart Valves Transfusions A Fib Surgical History Surgery Date(Month/Year) splenectomy 196 heart surgery unspecified 2006 hernia 2006 hysterectomy 2006 cyst removal 2004 right knee replacement 05/13/2022
--- OUTSIDE RECORDS SUMMARY | 2025-01-10 10:05 | XMS_ITS ---
[facility] [place] Address [address] [facility] [place] [address] Care Team Providers Care Oyster Sorter Name Role Phone Ana Garcia MD Primary Care Provider Sabino Eva Brooks Unavailable [phone] Allergies No Known Allergies REASON FOR VISIT Last PCP visit 05/2024, Painful Nail(s) aggrevated by shoes and causing difficulty standing/walking., foot/ankle pain Medications Medication SIG (Take, Route, Frequency, Duration) Notes Start Date End Date Status Vitamin B 12 Active Night Splint AFO - L1930 as directed 08/15/2019 Not-Taking Colcrys 0.6 MG 1 tablet Orally once a day for 10 days 04/13/2024 Not-Taking ASO Ankle/Foot Stablizing AFO As directed Wear Daily for as needed 05/12/2024 Not-Taking sulfaSALAzine Not-Ta reji Vitamin D Active Aspirin 81 MG Orally Active Methotrexate 2.5 MG Orally Active Humira 40 MG/0.8ML Subcutaneous Active PriLOSEC Active Voltaren Arthritis Pain 1 % as directed Externally 07/08/2024 Activ e Celecoxib Active Folic Acid Active Metoprolol Tartrate Active Social History Tobacco Use: Social History Observation Description Date Details (start date - stop date) Former Smoker NA - NA Tobacco Use/Smoking Question Answer Notes Are you a: former smoker Additional Findings: Tobacco Non-User Current no n-smoker Alcohol Screen Question Answer Notes Did you have a drink contain ing alcohol in the past year? Yes How often did you have a dri nk containing alcohol in the past year? Monthly or less (1 point) Points 1 Interpretation Negative Tobacco use other than smoking: Question Answer Notes Are you an other tobacco user? No Vital Signs Height 5 ft 7 in in 07/08/2024 Weight 207 lbs 07/08/2024 BMI 32.42 kg/m2 07/08/2024 Procedures Procedure Date Ordered Date Performed Result Body Sit e 60764-XOURSHJ NAIL, 6 OR MORE 07/08/2024 N/A Encounters Encounter Location Date Provider Diagnosis [facility] [address] 07/08/2024 Eva Alas Pain in right foot M79.671 ; Arthritis of right ankle M19.071 ; 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.771 ; Onychomycosis B35.1 ; Pain in right toe(s) M79.674 and Pain in left toe(s) M79.675 Assessments Encounter Date Diagnosis (ICD Code) Assessment Notes Treatment Notes Treatment Clinical Notes Section Notes 07/08/2024 Pain in right foot (ICD-10 - M79.671) 07/08/2024 Arthritis of right ankle (ICD-10 - M19.071) 07/08/2024 Rheumatoid arthritis involving right ankle with positive rheumatoid factor (ICD-10 - M05.771) 07/08/2024 Onychomycosis (ICD-10 - B35.1) 07/08/2024 Pain in right toe(s) (ICD-10 - M79.674) 07/08/2024 Pain in left toe(s) (ICD-10 - M79.675) Plan Of Treatment Medication Medication Name Sig Start Date Stop Date Notes Voltaren Arthritis Pain 1 % as directed Externally 024 Pending Test Test Name Order Date 34681-NQIKTBT NAIL, 6 OR MORE 07/08/2024 Next Appt Details Follow Up: 2 Months, Reason: with Dr. Aals Provider Name:Eva Alas , 02/24/2025 09:00:00 AM, [address] [facility], [place], [address], Procedure Notes * Category Sub-Category Detail Notes Debride Nail 6-10 Nail debridement Nail debridem ent performed extensively to reduce/remove overall nail length and girth, subungual debris, and necrotic tissue, by manual and electrical means with use of a nail nipper and/or dremel, to more viable healthy nail plate or bed tissue 6-10. Silver nitrate used for any petechial bleeding as necessary. Patient STILL chooses, no pharmaceutical tx (88179) Progress Notes * Melissa NAPIEROB:[birth year] (79 yo F)Acc No.[id number]:07/08/2024 Progress Note Patient:?Melissa Napier Provider:?Eva Alas DPM :1945???Age:79 Y???Sex:Female D ate:07/08/2024 Address: [address] [facility] Pcp:Ana Garcia MD Subjective: * Chief Complaints: * ???Last PCP visit ain ful Nail(s) aggrevated by shoes and causing difficulty standing/walking.Foot/ankle pain * HPI: ???Foot Pain:?Nature:?sharp, swelling, tenderness, aching.?Location?Right , Rearfoot and ankle.?Duration:?several months.?Onset/Cause:?unknown, denies trauma, sudden--onset 04/08/24.?Course:?improved , at 30 %.?Aggrevated:?any pressure, standing, walking.?Treatments:?rest, ice, elevation, tylenol, cane; , cortisone injection therapy (1R), ASO Brace,blood wrok.?Quality/Severity?, 6 , scale 1-10.?Painful Nails:?Pt States Last PCP Visit:?Date:?10/23/2023 * ROS:?General/Constitutional:?Nausea?denies.?Vomiting?denies.?Hunger Thirst?denies.?Loss appetite?denies.?Chills?denies.?Fatigue?denies.?Fever?denies.?Night Sweats?denies.?Unexplained weight loss?denies.?Unexplained weight gain?admits.?HEENTM:?Dentures?denies.?Dizziness?denies.?Glasses/contacts?admits.?Retinopathy?de nies.?Blurred/double vision?denies.?TMJ?denies.?Discharge/drainage?denies.?Implants?denies.?Sore throat?denies.?Dental implants?denies.?Hard of hearing ?admits.?Difficulty chewing/swallowing/speaking?denies.?Nose bleeds?denies.?Sore mouth?denies.?Respiratory:?On Oxygen?denies.?Pneumonia/pleurisy?denies.?Bronchitis?denies.?Emphysema?denies.?C oughing?denies.?Cough blood?denies.?Shortness of breath?denies.?Wheezing?denies.?Cardiovascular:?Pacemaker?denies.?MVP?denies.?WPW?denies.?CHF?denies.?Heart attack?denies.?Septal defect?denies.?Rapid beat?admits.?Chest pain ?denies.?Atrial Fib.?denies.?Murmur/Palpitations?denies.?Gastrointestinal:?Hemorrhoids?denies.?Stomach/Abdominal pain?denies.?Dark blood stool?denies.?Irritable bowel ?denies.?Constipation?admits.?Diarrhea?denies.?Hematology:?Swelling?denies.?Clots?denies.?Varicose Veins?denies.?Bruising?denies.?Bleeding problem?denies.?Genitourinary:?Blood urine?denies.?Frequent/Painfu/urination/bladder control?denies.?Kidney stones?denies.?Infection (UTI)?denies.?Nephropathy?denies.?sex trans dis (STD)?denies.?Prostate?denies.?Musculoskeletal:?Hammertoes?admits.?Bunions?admits.?Back Pain?denies.?Muscle Cramps/ Resting?denies.?Muscle cramps / walking?denies.?Generalized aches and pains?admits.?Weakness?denies.?Integ.:?Camp?denies.?Scars?denies.?Corns/calluses?denies.?Ingrown nails?denies.?Painful nails?admits.?Open Sores?denies.?Rashes?denies.?Neurologic:?Difficulty sleeping?denies.?Brain disorder?denies.?Numbness?denies.?Balance trouble?denies.?Confusion?denies.?Fainting/blackouts?denies.?Tingling?denies.?Tr emors?denies.? * Medical History:? * Surgical History:?splenectom y 1961heart surgery unspecified 2006hernia 2006hysterectomy 2006cyst removal 2004right knee replacement 05/13/2022 * Hospitalization/Major Diagno stic Procedure:?No Hospitalization History. * Family History:?Mother: dece ased, heart attack, diagnosed with Unspecified essential hypertension, Other malignant neoplasm of unspecified site.?Father: , foot problems, high blood pressure, poor circulation, diagnosed with Unspecified essential hypertension.?Siblings: Brother, diagnosed with Other malignant neoplasm of unspecified site.?Spouse: alive.? * Social History:?Tobacco Use:?Tobacco Use/Smoking?Are you a:?former smoker ?Additional Findings: Tobacco Non-User?Current non-smoker ?Tobacco use other than smoking?Are you an other tobacco user??No ???Drugs/Alcohol:?Drugs?Have you used drugs other than those for medical reasons in the past 12 months??No ?Alcohol Screen?Did you have a drink containing alcohol in the past year??Yes ?How often did you have a drink containing alcohol in the past year??Monthly or less (1 point) ?Points?1 ?Interpretation?Negative ???Miscellaneous:?Caffeine: yes, frequency:, 1-2 cups per day. ?Children: yes, 4. ?no Exercise. ?Marital status: . ?Occupation: Retired. * Medications:?TakingCelecoxib Folic Acid Metoprolol Tartrate PriLOSEC Aspirin 81 MG Tablet Delayed Release Orally Methotrexate 2.5 MG Tablet Orally Humira 40 MG/0.8ML Prefilled Syringe Kit Subcutaneous Vitamin D Vitamin B 12 Taking Celecoxib Taking Folic Acid Taking Metoprolol Tartrate Taking PriLOSEC Taking Aspirin 81 MG Tablet Delayed Release Orally Taking Methotrexate 2.5 MG Tablet Orally Taking Humira 40 MG/0.8ML Prefilled Syringe Kit Subcutaneous Taking Vitamin D Taking Vitamin B 12 Not-Taking/PRNNight Splint AFO - L1930 as directed Colcrys 0.6 MG Tablet 1 tablet Orally once a dayASO Ankle/Foot Stablizing AFO As directed Wear DailysulfaSALAzine Medication List reviewed and reconciled with the patientNot-Taking/PRN Night Splint AFO - L1930 as directed Not-Taking/PRN Colcrys 0.6 MG Tablet 1 tablet Orally once a dayNot-Taking/PRN ASO Ankle/Foot Stablizing AFO As directed Wear DailyNot- Taking/PRN sulfaSALAzine Medication List reviewed and reconciled with the patient * Allergies:?N.K.D.A.yes[Aller gies Verified] Objective: * Vitals:?Ht: 5 ft 7 in, Wt: 2 07, BMI: 32.42, Shoe size: 10, Wt-k.89 kg. * Examination: ???General Examination: ?GENERAL APPEARANCE:?pleasant, alert, well nourished, well developed, well hydrated, with good attention to hygene/body habitus, and in no acute distress.?ORIENTED:?person,place, and time.?Neurological: ?SENSORY:?Neurological exam is normal, pain sensation normal, vibration sensation intact, pinprick sensation is normal in the lower extremities, denies, tingling, burning, anesthesia, paresthesia, hyperesthesia, B/L, Neurological exam demonstrates pop medial right ankle lig's.?TINEL'S COMPRESSION:?Negative tarsal tunnel, selena pedis, and medial calcaneal nerves B/L.?BABINSKI REFLEX:?absent.?Neuroma Pain: ?PALPATION:?No interspace pain noted on palpation.?Vascular: ?DP PULSES:? 11/26, B/L.?PT PULSES:? 11/26, B/L.?CAPILLARY FILL TIME:?3 secs. per digit, B/L.?SKIN TEMPERTURE GRADIENT OF THE LOWER EXTERMITIES:?warm to cool, proximal to distal, B/L.?HAIR GROWTH/TEXTURE/ELASTICITY/TURGOR:?normal, B/L.?PIGMENTATION:?normal, B/L.?EDEMA:? /4, B/L, Foot, Ankle(s), Leg(s).?TELANGECTASIA:?absent.?VARICOSITIES:?absent.?Dermatologic: ?SKIN FINDINGS:?Skin exam reveals normal texture, elasticity, and tugor. There are no masses. The interspaces are clear, B/L .?Orthopedic: ?MUSCLE STRENGTH:?5/5 all groups in a symmetrical fashion , B/L.?GAIT ABNORMALITY:?pronated, abducted, B/L.?ANKLE PAIN LOCATED:?RIGHT , Medial ankle , ( + ) swelling , limited ankle joint range of motion , Pain on palpation to navicular bone and Medial malleolus.?Nails: ?NAILS are:?elongated,overgrown,dystrophic,greater than 3mm thick,discolored and friable with crumbly malodorous subungual debris, with pain on palpation, 1-5 Right foot, , ,2 L.? Assessment: * Assessment: 1.?Pain in right foot - M79. 671?2.?Arthritis of right ankle - M19.071 (Primary)?3.?Rheumatoid arthritis involving right ankle with positive rheumatoid factor - M05.771?4.?Onychomycosis - B35.1?5.?Pain in right toe(s) - M79.674?6.?Pain in left toe(s) - M79.675? Plan: * Treatment: 2.?Onychomycosis?Procedure: 70135-JJMMFRZ NAIL, 6 OR MORE * Procedures:?Debride Nail 6-10:?Nail debridement?Nail debridement performed extensively to reduce/remove overall nail length and girth, subungual debris, and necrotic tissue, by manual and electrical means with use of a nail nipper and/or dremel, to more viable healthy nail plate or bed tissue 6-10. Silver nitrate used for any petechial bleeding as necessary. Patient STILL chooses, no pharmaceutical tx (73194).? * Procedure Codes:?60098 DEBRI DE NAIL, 6 OR MORE, Modifiers: XS * Preventive Medicine:? ??Counseling:?Discussion:?-13: Office or other outpatient visit for the evaluation and management of an established patient, which required a medically appropriate history and/or examination and LOW level of DECISION MAKING for: 1 STABLE ACUTE UNCOMPLICATED PROBLEM, 2 OR MORE MINOR PROBLEMS, OR 1 STABLE CHRONIC PROBLEM, THAT POSE(S) A LOW RISK FOR MORBIDITY/MORTALITY. The visit on the day of the encounter encompassed interpreting the data and educating the patient as to the nature of their condition, treatment options available according to their individual PMH, meds, allergies, and overall health/living conditions, as well as any potential risks or complications that may occur from a failure to adhere to, and participate in, the recommended course of therapy. The discussion included a complete verbal, and/or written explanation of the examination results, any x-rays taken, the proposed diagnosis, and outline of the treatment plan. A schedule for future care needs was also explained. The patient verbalized an understanding of the instructions at this time and agreed to be an active participant in their treatment. If the patient should think of any questions or concerns after the visit, I have encouraged the patient to call the office.?Arthritis:?The patient was counseled on the various etiologies for their Arthritis including genetic, history of injury or trauma, abnormal foot biomechanics leading to excessive joint wear, and use/overuse. We discussed the various treatment options from no treatment, to topical analgesics such as Biofreeze gel, Aspercream, Voltaren gel, Lidoderm patches, CBD oils, THC creams, and Custom-compounded topical cream preparations to natural oral products such as Glucosamine Sulfate/Chondroitin/MSM/Collegen to analgesic Tylenol, to anti-inflammatory medications such as Ibuprofen/Naproxen, and the use of oral steroids if needed. Cardiac, Kidney, and GI issues were discussed RE: potential complications of oral anti-inflammatories. We discussed several other treatment options consisting of accom shoes, supportive innersoles, AFO bracing/support, cortisone injection therapy, and surgical resection of the arthritic joint(s) or fusion reconstruction if necessary. We discussed the advantages and disadvantages of conservative (vs) surgical treamtents including pain relief, improved function/activities of daily life, return to exercise to failure, expense, systemic complications, infection, [id number], prolongued postop course. Patient questions re: the various treatment options available, their successes and potential failures, and mcfp effects were discussed and the answers were verbally confirmed understood, Recommended Topical analgesics including Biofreeze/Aspercream/Voltaren gel, The Pt. and I reviewed previous x-rays and discussed other treatment options, and the importance of following all homecare instructions. Examined pt s inserts which are still proving support.?Steriod Injection:?Pt defers another injection today.? * Follow Up:?2 Months (Reason: with Dr. Alas) * Images: * Sign off status: Completed true * Provider:?Eva Alas DPM Date:?2023 Generated for Jed pabon/Nimisha/Angely on:?01/10/2025 10:05 AM EST History and Physical Notes * HPI (History of Present Illness) Category Sub-Category Detail Notes Category Not es Painful Nails Pt States Last PCP Visit: Date:: 10/23/2023 Foot Pain Aggrevated: any pressure, st anding, walking Onset/Cause: unknown, denies sonya farmer, sudden--onset 04/08/24 Course: improved , at 30 % Duration: several months Nature: sharp, swelling, ten derness, aching Treatments: rest, ice, elevation , tylenol, cane; , cortisone injection therapy (1R), ASO Brace,blood wrok Quality/Severity , 6 , scale 1-10 Location Right , Rearfoot and ankle Examination Category Sub-Category Detail Notes Category Not es Ingrown Nail INSPECTION: Neuroma Pain PALPATION: No interspace pain noted on palpation Neurological SENSORY: Neurological exa m is normal, pain sensation normal, vibration sensation intact, pinprick sensation is normal in the lower extremities, denies, tingling, burning, anesthesia, paresthesia, hyperesthesia, B/L, Neurological exam demonstrates pop medial right ankle lig's BABINSKI REFLEX: absent TINEL'S COMPRESSION: Negative tarsal ebony dione, selena pedis, and medial calcaneal nerves B/L Dermatologic SKIN FINDINGS: Skin exam reveal s normal texture, elasticity, and tugor. There are no masses. The interspaces are clear, B/L Orthopedic GAIT ABNORMALITY: pronated, abducted, B/L ANKLE PAIN LOCATED: RIGHT , Medial ankle , ( + ) swelling , limited ankle joint range of motion , Pain on palpation to navicular bone and Medial malleolus MUSCLE STRENGTH: 5/5 all groups in a symmetrical fashion , B/L General Examination GENERAL APPEARANCE: pleasant , alert, well nourished, well developed, well hydrated, with good attention to hygene/body habitus, and in no acute distress ORIENTED: person,place, and ti me Vascular DP PULSES (B): 1/4, B/L PT PULSES (B): 1/4, B/L CAPILLARY FILL TIME: 3 secs. per digit, B/L TEMPERTURE GRADIENT (C): warm to cool, p roximal to distal, B/L TROPHIC CONDITION-TEXTURE/ELASTICITY/TURGOR/HAIR GROWTH (B): normal, B/L EDEMA (C): 2/4, B/L, Foot, Ankl e(s), Leg(s) TELANGECTASIA: absent VARICOSITIES: absent PIGMENTATION: normal, B/L Nails NAILS are: elongated,overgr own,dystrophic,greater than 3mm thick,discolored and friable with crumbly malodorous subungual debris, with pain on palpation, 1-5 Right foot, , ,2 L
--- OUTSIDE RECORDS SUMMARY | 2025-01-10 10:05 | XMS_ITS | Continuity of Care Document ---
Author Organization [place] [facility] Address [address] [address] Assessment Encounter Date Assessment Date Assessment LastModified by Organization Details LastModified Time 12/19/2024 12/19/2024 Resolution: Schedule an appointment for cerumen management. 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 15359250489 48065 Active 2021 Central perforat ion of tympanic membrane , right ear; Note: Date Diagnose d: 2 10:31 AM (H72.91) Not Available [facility] 4 02:47:14 Sensorin eural hearing loss in left ear 82311470182 109 Active 2016 Sensorin eural hearing loss, unilater al, left ear, with restrict ed hearing on the contrala teral side; Note: Date Diagnose d: 7 11:42 AM (H90.A22 ) Not Available [facility] 4 02:47:11 Otorrhea of right ear [id number] 96102 Completed 202106/24/2024 Otorrhea , right ear; Note: Date Diagnose d: 2 9:32 AM (H92.11) Not Available [facility] 4 02:47:09 Acute non-supp urative otitis media of right ear 25383835508 20590 Active 2021 Other acute nonsuppu rative otitis media, right ear; Note: Date Diagnose d: 2 10:32 AM (H65.191 ) Not Available [facility] 4 02:47:13 Mixed conducti ve and sensorin eural hearing loss of right ear 23263708509 105 Active 2016 Mixed conducti ve and sensorin eural hearing loss, unilater al, right ear with restrict ed hearing on the contrala teral side; Note: Date Diagnose d: 7 11:42 AM (H90.A31 ) Not Available [facility] 4 02:47:11 Posterio r rhinorrh ea 86008393 Active 2021 Postnasa l drip; Note: Date Diagnose d: 11/14/20 22 4:46 PM (R09.82) Not Available [facility] 4 02:47:12 Gastroes ophageal reflux disease without esophagi tis 583837070 Active 2022 Gastro-e sophagea l reflux disease without esophagi tis; Note: Date Diagnose d: 10/20/20 23 11:01 AM (K21.9) Not Available [facility] 4 02:47:10 Somatofo rm disorder 55348743 Active 2022 Psychoge sumaya dysphagi a, includin g 'globus hysteric us'; Note: Date Diagnose d: 10/20/20 11:07 AM (F45.8) Not Available [facility] 4 02:47:10 Allergic rhinitis 25363632 Active 2022 Allergic rhinitis , unspecif ied; Note: Date Diagnose d: 07/31/2023 10:04 AM (J30.9) Not Available [facility] 4 02:47:13 Problem Notes None recorded. Medical Equipment None Reported. Medications Name Sig Start Date Stop Date Status Note LastModified by Organization Details LastModified Time Prescript ion - Prior Authoriza tion Request active Script Copy/Juanita or Auth^Scr ipt Copy/Juanita or Auth_ 74189 Not Available Not Available Not Available celecoxib 200 mg capsule TAKE 1 CAPSULE BY MOUTH TWICE A DAY active Not Available Not Available No t Available atorvasta tin 20 mg tablet TAKE 1 TABLET BY MOUTH EVERY DAY active Not Available Not Available No t Available sulfasala zine 500 mg tablet 04/11 completed Medicati on ID: [id number] D uration Value: 90 Brand Name: sulfasal [...] 325 mg tablet active Medicati on ID: [id number] B rand Name: aspirin Send Method: E-Prescr [...] affected area 2021 active Medicati on ID: [id number] D uration Value: 14 Prescri bed By [...] capsule,d elayed release active Medicati on ID: [id number] B rand Name: omeprazo le Send Method: E-Prescr ibed Sub s Allowed: subs OK Medic ationGen ericName : omeprazo le Not Available Not Available Not Available folic acid 1 mg tablet TAKE 1 TABLET BY MOUTH EVERY DAY active Not Available Not Available No t Available azelastin e 137 mcg (0.1 %) nasal spray [place] 2 spray into both nostrils twice a day as directed 2022 active Medicati on ID: [id number] D uration Value: 30 Prescri bed By [...] bromide 42 mcg (0.06 %) nasal spray [place] 2 spray into both nostrils three times a day 2022 active Medicati on ID: [id number] D uration Value: 30 Prescri bed By [...] a day 2022 active Medicati on ID: [id number] D uration Value: 21 Brand Name: cefdinir Send Method: E-Prescr ibed Sub s Allowed: subs OK Medic ationGen ericName : cefdinir Not Available Not Available Not Available ipratropi um bromide 21 mcg (0.03 %) nasal spray [place] 2 spray into both nostrils twice a day as directed 2021 active Medicati on ID: [id number] D uration Value: 30 Brand Name: ipratrop [...] with meals 10/01 completed Medicati on ID: [id number] D uration Value: 14 Brand Name: amoxicil yamila-pot clavulan ate Send Method: E-Prescr ibed Sub s Allowed: subs OK Medic ationGen ericName : amoxicil yamila-pot clavulan ate Not Available Not Available Not Available TobraDex 0.3 %-0.1 % eye drops,han pension 06/11 completed Medicati on ID: [id number] P rescribe d By Name: SIMEON Rm nd Name: TobraDex Send Method: E-Prescr ibed Sub s Allowed: subs OK Speci al Instruct ion: Instill 3 drops in the affect ear BID for 14 days Med icationG enericNa me: TobraDex Not Available Not Available Not Available Ciprodex 0.3 %-0.1 % ear drops,han pension 4 drop into right ear 2021 active Medicati on ID: [id number] D uration Value: 14 Prescri bed By Name: SIMEON Rm nd Name: Ciprodex Send Method: E-Prescr ibed Sub s Allowed: subs OK Speci al Instruct ion: x 14 days Med icationG enericNa me: Ciprodex Not Available Not Available Not Available metoprolo l tartrate 25 mg tablet 06/11 completed Medicati on ID: [id number] D uration Value: 90 Brand Name: metoprol [...] inhalatio n 06/11 completed Medicati on ID: [id number] B rand Name: Breo Ellipta Send Method: E-Prescr ibed Sub s Allowed: subs OK Medic ationGen ericName : Breo Ellipta Not Available Not Available Not Available Entresto 24 mg-26 mg tablet TAKE 1 TABLET BY MOUTH TWICE A DAY active Not Available Not Available No t Available aspirin 81 mg capsule active Medicati on ID: [id number] B rand Name: aspirin Send Method: E-Prescr [...] SNOMED-CT Code Diagnosis ICD10 Code Diagnosis Note [id number] Carol PALMA RAMOS [place] [address] [facility], [place] [address] [facility] [place] [address] 12/19/2024 11:04:37 12/20/2024 07:24:19 Mixed conductive and sensorineural hearing loss of right ear [id number] 9105 H90.A31 Health Concerns Section Related Observation LastModified by Organization Detai ls LastModified Time None Recorded Concern Status LastModified by Organization Details LastModified Time None Recorded Payers Encounter Date Sequence Insurance Name Policy Number Policy Hines Covered Member ID Hines Member ID Guarantor Name 12/19/2024 2 [facility] Melissa De La Garza [id number] Melissa Garayalida 12/19/2024 1 MEDICARE B-[place]: [employer] Melissa Keylexi [id number] Melissa De La Garza Notes Date Note Type Note Provider Name and Address Organization Details Recorded Time 12/19/2024 text/html Hearing Aid ProblemReported bypatient.Visit typein office repair Hearing Aidhearing device is functioning well Hearing Aidfeedback LANDEN NDIAYE, [facility] [address], [address], [facility] 12/19/2024 11:27:32 OBGyn Episode No OBEpisode recorded.
--- OUTSIDE RECORDS SUMMARY | 2025-01-10 10:05 | XMS_ITS ---
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 Name Role Phone Ana Garcia MD Primary Care Provider Sabino Eva Brooks Unavailable [phone] Allergies No Known Allergies REASON FOR VISIT Painful Nail(s) aggrevated by shoes and causing difficulty standing/walking., foot/ankle pain, [place] Medications Medication SIG (Take, Route, Frequency, Duration) Notes Start Date End Date Status Folic Acid Active Celecoxib Active Omeprazole 20 MG 1 capsule 1/2 to 1 h our before morning meal Orally Once a day Active oxyBUTYnin Chloride ER 10 MG 1 tablet Orally Once a day Active Atorvastatin Calcium 20 MG 1 tablet Orally Once a day Active sulfaSALAzine Not-Ta reji ASO Ankle/Foot Stablizing AFO As directed Wear Daily for as needed 05/12/2024 Not-Taking Colcrys 0.6 MG 1 tablet Orally once a day for 10 days 04/13/2024 Not-Taking Night Splint AFO - L1930 as directed 08/15/2019 Not-Taking Famotidine 40 MG 1 tablet Orally Once a day Active Voltaren Arthritis Pain 1 % as directed Externally 07/08/2024 Activ e Vitamin B 12 Not-Jose ing Vitamin D Not-Taking Humira 40 MG/0.8ML Subcutaneous Active Methotrexate 2.5 MG Orally Active Aspirin 81 MG Orally Not-Ta erji PriLOSEC Active Metoprolol Tartrate Active Social History Tobacco [...] Are you an other tobacco user? No Problems Problem Type SNOMED Code ICD Code Onset Dates Problem Status W/U Status Risk Notes Problem [id number] Ulcer of right foot, limited to breakdown of skin (L97.511) Active confirmed Vital Signs Height 5 ft 7 in in 10/07/2024 Weight 207 lbs 10/07/2024 BMI 32.42 kg/m2 10/07/2024 Procedures Procedure Date Ordered Date Performed Result Body Sit e 51496-VWVQHSH NAIL, 6 OR MORE 10/07/2024 N/A 64462- Debride <25 sq cm 10/07/2024 N/A Encounters Encounter Location Date Provider Diagnosis [facility] [address] 10/07/2024 Eva Black Pain in right foot M79.671 ; Arthritis of right ankle M19.071 ; 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.771 ; Onychomycosis B35.1 ; Pain in right toe(s) M79.674 ; Pain in left toe(s) M79.675 and Ulcer of right foot, limited to breakdown of skin L97.511 Assessments Encounter Date Diagnosis (ICD Code) Assessment Notes Treatment Notes Treatment Clinical Notes Section Notes 10/07/2024 Pain in right foot (ICD-10 - M79.671) 10/07/2024 Arthritis of right ankle (ICD-10 - M19.071) 10/07/2024 Rheumatoid arthritis involving right ankle with positive rheumatoid factor (ICD-10 - M05.771) 10/07/2024 Onychomycosis (ICD-10 - B35.1) 10/07/2024 Pain in right toe(s) (ICD-10 - M79.674) 10/07/2024 Pain in left toe(s) (ICD-10 - M79.675) 10/07/2024 Ulcer of right foot, limited to breakdown of skin (ICD-10 - L97.511) Plan Of Treatment Pending Test Test Name Order Date 18893-TDDYROQ NAIL, 6 OR MORE 10/07/2024 52400- Debride <25 sq cm 10/07/2024 Next Appt Details Follow Up: 2 Months, Reason: Provider Name:Eva Alas , 02/24/2025 09:00:00 AM, [address] [facility], [place], [address], Procedure Notes * Category Sub-Category Detail Notes Debride Nail 6-10 Nail debridement Performance o f this nail treatment by a nonprofessional would put this patients foot and overall health at risk. Therefore, debridement to affected nail(s), as described in exam, was performed extensively to reduce/remove overall nail length, girth, thickness, subungual debris, and necrotic tissue, by manual and/or electrical means through the use of a nail nipper and/or dremel-type centerless grinder set up operator, to a more viable healthy nail plate or bed tissue 6-10. Silver nitrate used for any petechial bleeding as necessary. Definitive antifungal treatment options have been reviewed and discussed with the patient. The patient chooses, no pharmaceutical tx - 77657 Debride skin< 25 sq cm Open wound : Physici an of record performed open wound selective debridement of first 25 sq cm or less, of devitilized necrotic/nonviable soft tissue, fibrin, and exudate extending from the epidermis through the dermis, utilizing sharp dissection with sterile 15 blade, and/or tissue nippers. Hemostasis was controlled through direct pressure. Sterile antibiotic dressing applied, ANESTHESIA was not required due to presence of NEUROPATHY. Post debridement measurements: 6 mm x 5 mm x 2 mm. Character of the wound post debridement is stable (06184) Progress Notes * Melissa NAPIERHilarioOB:[birth year] (79 yo F)Acc No.[id number]:10/07/2024 Progress Note Patient:?Melissa NAPIER Provider:?Eva Alas DPM :1945???Age:79 Y???Sex:Female D ate:10/07/2024 [facility] Pcp:Ana Garcia MD Subjective: * Chief Complaints: * ???Painful Nail(s) aggrevate d by shoes and causing difficulty standing/walking.Foot/ankle painOpen sore * HPI: ???Painful Nails:?Pt States Last PCP Visit:?Date:?06/16/2024 ???Foot Pain:?Nature:?sharp, swelling, tenderness, aching.?Location?Right , Rearfoot and ankle.?Duration:?several months.?Onset/Cause:?unknown, denies trauma, sudden--onset 04/08/24.?Course:?improved ,, at 90 %.?Aggrevated:?any pressure, standing, walking.?Treatments:?rest, ice, elevation, tylenol, cane; , cortisone injection therapy (1R), ASO Brace,blood wrok, innersoles, medication ( _voltaren gel).?Quality/Severity?, 6 , scale 1-10.? * ROS:?General/Constitutional:?Nausea?denies.?Vomiting?denies.?Hunger Thirst?denies.?Loss appetite?denies.?Chills?denies.?Fatigue?denies.?Fever?denies.?Night Sweats?denies.?Unexplained weight loss?denies.?Unexplained [...] * Medical History:? * Surgical History:?splenectom y 196heart surgery unspecified 2006hernia 2006hysterectomy 2006cyst removal 2004right [...] ?Exercise: no. ?Marital status: . ?Occupation: Retired. * Medications:?TakingFamotidin e 40 MG Tablet 1 [...] Neurological exam demonstrates pop medial right ankle lig's.?Neuroma Pain: ?PALPATION:?No interspace pain noted on palpation.?Vascular: ?DP PULSES(B):? 11/26, B/L.?PT PULSES(B):? 11/26, B/L.?CAPILLARY FILL TIME:?3 secs. per digit, B/L.?TROPHIC CONDITION-TEXTURE/ELASTICITY/TURGOR/HAIR GROWTH(B):?normal, B/L.?TEMPERTURE GRADIENT(C):?warm to cool, proximal to distal, B/L.?PIGMENTATION:?normal, B/L.?EDEMA(C):? 12/27, B/L, Foot, Ankle(s), Leg(s).?TELANGECTASIA:?absent.?VARICOSITIES:?absent.?Dermatologic: ?SKIN FINDINGS:?Skin exam reveals normal texture, elasticity, and tugor. There are no masses. The interspaces are clear, B/L .?ULCER:?Plantar, 1 MTH, RIGHT, LOCATION, SIZE, 5mm X 4mm X 2mm, BASE, granular, RIM, hyperkeratotic, UNDERMINING, absent, TRACKING, Full thickness breakdown of skin, DRAINAGE, serosanguineous, mild, NECROTIC TISSUE, loosely-adherent, yellow slough, MALODOR, absent, CALOR, absent, ERYTHEMA, absent, PAIN ON PALPATION, present.?Orthopedic: ?MUSCLE STRENGTH:?5/5 all groups in a symmetrical fashion , B/L.?GAIT ABNORMALITY:?pronated, abducted, B/L.?ANKLE PAIN LOCATED:?RIGHT , Medial ankle , ( - ) swelling , limited ankle joint range of motion , no?Pain on palpation to navicular bone and Medial malleolus.?Nails: ?NAILS are:?elongated,overgrown,dystrophic,greater than 3mm thick,discolored and friable with crumbly malodorous subungual debris, with pain on palpation, 1-5 Right foot, , ,2 L.? Assessment: * Assessment: 1.?Pain in right foot - M79. 671???2.?Arthritis of right ankle - M19.071 (Primary)???3.?Rheumatoid arthritis involving right ankle with positive rheumatoid factor - M05.771???4.?Onychomycosis - B35.1???5.?Pain in right toe(s) - M79.674???6.?Pain in left toe(s) - M79.675???7.?Ulcer of right foot, limited to breakdown of skin - L97.511??? Plan: * Treatment: 2.?Ulcer of right foot, limi luke to breakdown of skin?Procedure: 67159- Debride <25 sq cm * Procedures:?Debride Nail 6-10:?Nail debridement?Performance of this nail treatment by a nonprofessional would put this patients foot and overall health at risk. Therefore, debridement to affected nail(s), as described in exam, was performed extensively to reduce/remove overall nail length, girth, thickness, subungual debris, and necrotic tissue, by manual and/or electrical means through the use of a nail nipper and/or dremel-type centerless grinder set up operator, to a more viable healthy nail plate or bed tissue 6-10. Silver nitrate used for any petechial bleeding as necessary. Definitive antifungal treatment options have been reviewed and discussed with the patient. The patient chooses, no pharmaceutical tx - 54699.?Debride skin< 25 sq cm:?Open wound?: Physician of record performed open wound selective debridement of first 25 sq cm or less, of devitilized necrotic/nonviable soft tissue, fibrin, and exudate extending from the epidermis through the dermis, utilizing sharp dissection with sterile 15 blade, and/or tissue nippers. Hemostasis was controlled through direct pressure. Sterile antibiotic dressing applied, ANESTHESIA was not required due to presence of NEUROPATHY. Post debridement measurements: 6 mm x 5 mm x 2 mm. Character of the wound post debridement is stable (26018).? * Procedure Codes:?01715 DEBRI DE NAIL, 6 OR MORE, Modifiers: XS 50720 ACTIVE WOUND CARE/20 CM OR <, Modifiers: XS * Preventive Medicine:? ??Counseling:?Ulcer:?A detailed plan of care was reviewed with the patient. We emphasized the fact that the patient takes on an active participating role in the treatment process and emphasized to them that they are an included, valued, and important member of the wound healing team in order to reach an expedient successful outcome. The patient agreed to follow their medically recommended diet while increasing their protein intake if safely able to do so, maintain proper bodily hydaration, abide by weight-bearing restrictions at all times, quit all current smoking habits if any, and diligently follow any/all dressing change instructions. It was clearly made known to the patient that if they fail to do their part, they will likely extend their course of treatment as well as possibly increase their risk of adverse events including amputation. The patient was instructed on importance of proper wound care consisting of pressure reduction, and proper maintainance of a moist wound environment. The patient is to cleanse the wound with warm soapy water/peroxide/saline, or betadine BID based on product availability. The patient is to apply ( Neosporin, Polysporin, or Triple, ) Antibiotic to the wound and cover with a DSD as directed. The patient was instructed to change dressings according to orders, or PRN saturation, leaks. The patient was instructed to monitor and report any signs or symptoms of infection or any untoward reactions. Precautions Taken: Offloading/Pressure reduction via rest/ limited activity to essential to daily life only, cane/ crutches/ walker/ knee scooter/ wheel chair, shoe modification, accommodative padding, sharp debridement, and take/apply medication as directed. THE GOALS of wound debridement to remove devitilized tissue, decrease risk for infection, promote wound healing and prevent further complication were discussed/reviewed. Debridement frequency as indicated, Every 5-8 weeks until healed.? ??Screening/Special Tests:?Fall Risk?Assessment:?Performed ?Screening:?No falls in the past year ?FALLS: Screening for Future Fall Risk?Have you had two or more falls in the past year??No ?Have you had any falls with injury in the past year??No * Follow Up:?2 Months * Images: * Sign off status: Completed true * Provider:?Eva Alas DPM Date:?2023 Generated for Jed pabon/Nimisha/eTransmitting on:?01/10/2025 10:04 AM EST History and Physical Notes * HPI (History of Present Illness) Category Sub-Category Detail Notes Category Not es Painful Nails Pt States Last PCP Visit: Date:: 06/16/2024 Foot Pain Aggrevated: any pressure, st anding, walking Onset/Cause: unknown, denies sonya farmer, sudden--onset 04/08/24 Course: improved ,, at 90 % Duration: several months Nature: sharp, swelling, ten derness, aching Treatments: rest, ice, elevation , tylenol, cane; , cortisone injection therapy (1R), ASO Brace,blood wrok, innersoles, medication ( _voltaren gel) Quality/Severity , 6 , scale 1-10 Location [...] no masses. The interspaces are clear, B/L ULCER: Plantar, 1 MTH, RIGH T, LOCATION, SIZE, 5mm X 4mm X 2mm, BASE, granular, RIM, hyperkeratotic, UNDERMINING, absent, TRACKING, Full thickness breakdown of skin, DRAINAGE, serosanguineous, mild, NECROTIC TISSUE, loosely-adherent, yellow slough, MALODOR, absent, CALOR, absent, ERYTHEMA, absent, PAIN ON PALPATION, present Orthopedic GAIT ABNORMALITY: pronated, abducted, B/L ANKLE PAIN LOCATED: RIGHT , Medial ankle , ( - ) swelling , limited ankle joint range of motion , no Pain on palpation to navicular bone and [...]
== END 2025-01-10 10:10 | disposition home or self-care (01) ==
PROVIDERS: PCP Internal Medicine; Visit Provider Physician Assistant
DX: R05.1 Acute cough (principal)

== ENCOUNTER → 2025-01-10 10:51 | Outpatient (REF) | payer MEDICARE, SELFPAY ==
--- NOTE | 2025-01-10 10:53 | CA_ITS ---
Transthoracic Echocardiogram Patient (Last, First, Middle): Melissa De La Garza Ellen Gender: Female Date of : 1945 Age: 79 Procedure Date: 01/10/2025 Procedure Type: Transthoracic Echocardiogram Location: OP Height: 170.18 cm Weight: 94.8 kg BSA: 2.06 m2 Heart Rate: bpm BP: 110 / 62 mmHg Manager Java: HECTOR Referring MD: Fahad Toussaint MD Symptoms: I42.9 - Cardiomyopathy, unspecified Study Quality: Fair Conclusions: - The left ventricular systolic function is mildly decreased. The calculated ejection fraction is 44% by biplane method. - s/p mitral valve repair; normal valvular function. - There is moderate tricuspid valve regurgitation. - Mild to moderate pulmonary hypertension is present. Findings Left Ventricle Normal left ventricular cavity size. There is normal left ventricular wall thickness. The left ventricular systolic function is mildly decreased. The calculated ejection fraction is 44% by biplane method. There is mild global hypokinesis. There is paradoxical septal motion consistent with post operative status. Diastolic function is indeterminate on the basis of available data. Right Ventricle Mildly increased right ventricular cavity size. There is low normal right ventricular systolic function. Atria Severe biatrial enlargement. Aortic Valve There is a normal trileaflet aortic valve. There is no aortic valve stenosis. Trace to mild aortic regurgitation. Mitral Valve There is trace mitral valve regurgitation. There is no mitral valve stenosis. s/p mitral valve repair; normal valvular function. Mean gradient 4mmHg at 72/min. Pulmonic Valve The pulmonic valve is likely normal. Tricuspid Valve There is moderate tricuspid valve regurgitation. Mild to moderate pulmonary hypertension is present. Great Vessels The asc aorta and aortic arch are normal in size. Venous The inferior vena cava is mildly dilated and collapses less than 50% with inspiration. Pericardium/Pleural There is no evidence of pericardial effusion. Prior Study Comparison No significant change compared to prior study dated: 07/18/2024. Measurements 2D Linear Measurements IVSd: 0.93 0.6-0.9/0.6-1.0 cm LVIDd: 4.71 3.9-5.3/4.2-5.9 cm LVIDd Index: 2.29 2.4-3.2/2.2-3.1 cm/m2 LVIDs: 3.06 2.0-3.6 cm LVPWd: 0.96 0.7-1.1 cm LA Diam: 4.20 2.7-3.8/3.0-4.0 cm LAIDs Index: 2.04 1.5-2.3 cm/m2 LV Mass: 190.19 67-162/88-224 g LV Mass Index: 92.33 43-95/49-115 g/m2 LVOT Diam: 2.50 3.0+(-)1.3 cm 2D Systolic Function EF 4C: 48.40 >55% EF 2C: 40.20 >55% EF BiP: 44.30 >55% Mitral Valve MV VTI: 0.31 MV Pk Abelardo: 1.52 MV Mn Abelardo: 0.83 MV Pk Grad: 9.00 MV Mn Grad: 4.00 MV Pk E: 1.39 MV Decel Time: 210.00 E'Lateral: 11.50 E'Medial: 5.59 E/E' Med: 24.90 E/E' Lat: 12.10 PHT: 62.00 MVA PHT: 3.55 MVA Continuity: 1.92 Decel Nelson: 6.67 Aortic Valve AoV Pk Abelardo: 0.81 AoV Mn Abelardo: 0.63 AoV VTI: 0.20 AoV Pk Grad: 3.00 Aov Mn Grad: 2.00 CAROLYN Cont.VTI: 3.02 LVOT LVOT Pk Abelardo: 0.52 LVOT Mn Abelardo: 0.35 LVOT VTI: 0.12 LVOT Pk Grad: 1.00 LVOT Mn Grad: 1.00 LVOT Diam: 2.50 LVOT Area: 4.91 Diastolic Function MV Pk E: 1.39 E'Medial: 5.59 E/E' Med: 24.90 E' Laterial: 11.50 E/E' Lat: 12.10 Right Ventricle TAPSE (mm): 18.00 TVS' Abelardo: 8.84 Tricuspid Valve TR Pk Abelardo: 3.01 TR Pk Grad: 36.00 RA Press: 15.00 RVSP: 51.00 Great Vessels Aorta Sinus of Valsalva: 4.34 2.0-3.[address] [place]: 3.66 1.7-3.4 cm Ao Asc: 3.90 2.1-3.4 cm Ao Arch: 3.20 Updated in Other Vendor System with Status of Final Tray Yanez MD electronically signed on 01/11/2025 11:18:25 AM with status of Final
--- OUTSIDE RECORDS SUMMARY | 2025-01-10 11:58 | XMS_ITS | Data Portability ---
Author Organization [facility], [facility] [address] [place] [address] Care Team Providers Care Skeiner Name Role Phone DODIE GALVAN Primary Care Provider CIRO REED Matcher [employer] Assessment No assessment recorded. Plan of Treatment Reminders Order Date Submit Date Provider Last Modified By Organization Details Last Modified Time Details Appointments None recorded. Lab CMP, serum or plasma 2018 019 [facility] ([facility]), [address], [place], [address], 9 11:10:40 C reactive protein, QN, serum or plasma 2018 019 [facility] ([facility]), [address], [place], [address], 9 11:10:37 CBC w/ diff 2018 019 [facility] ([facility]), [address], [place], [address], 9 11:01:30 CBC w/ diff 2018 020 [facility] ([facility]), [address], [place], [address], 0 03:16:16 C reactive protein, QN, serum or plasma 2018 020 [facility] ([facility]), [address] [place], [address], 0 03:16:16 CMP, serum or plasma 2018 020 [facility] ([facility]), [address], [place], [address], 0 03:16:16 Referral None recorded. Procedures None recorded. Surgeries None recorded. Imaging None recorded. Medication Orders methotrexa te sodium 2.5 mg tablet 2018 019 INTERFACE [id number], [address], [place], [address], 9 10:03:37 Patient TargetsNo targets recorded. Patient Instructions Encounter Date Encounter Id Patient Instructions Last Modified By Organization Details Last Modified Time 11/02/2019 [id number] osteoporosis: care instructions [email or web address] Not available 11/02/2019 10:03:35 Reason for Referral None Reported. Results Created Date Observation Date Name Description Value Unit Range Abnormal Flag Note LastModifiedBy Organization Detail LastModifiedTime 11/08/20 19 11/08/2019 CBC w/ diff WBC 5.47 10*/3 uL 3.90-1 1.20 Not Available [facility] ([facility]) [address], [place], [address], 11/08/2019 11:01:29 11/08/20 19 11/08/2019 CBC w/ diff RBC 4.01 10*6/ uL 3.40-5 .40 Not Available [facility] ([facility]) [address], [place], [address], 11/08/2019 11:01:29 11/08/20 19 11/08/2019 CBC w/ diff hemoglobin 13.9 g/dL 10.8-1 5.5 Not Available [facility] ([facility]) [address], [place], [address], 11/08/2019 11:01:29 11/08/20 19 11/08/2019 CBC w/ diff hematocrit 41.1 % 33.0-4 5.0 Not Available [facility] ([facility]) [address], [place], [address], 11/08/2019 11:01:29 11/08/20 19 11/08/2019 CBC w/ diff MCV 102.5 fL 82.0-1 00.0 high Not Available [facility] ([facility]) [address], [place], [address], 11/08/2019 11:01:29 11/08/20 19 11/08/2019 CBC w/ diff MCH 34.7 pg 26.0-3 4.0 high Not Available [facility] ([facility]) [address], [place], [address], 11/08/2019 11:01:29 11/08/20 19 11/08/2019 CBC w/ diff MCHC 33.8 g/dL 32.0-3 6.0 Not Available [facility] ([facility]) [address], [place], [address], 11/08/2019 11:01:29 11/08/20 19 11/08/2019 CBC w/ diff RDW-SD 54.7 fL 35.1-4 6.8 high Not Available [facility] ([facility]) [address], [place], [address], 11/08/2019 11:01:29 11/08/20 19 11/08/2019 CBC w/ diff plt 215 10*3/ uL 140-44 0 Not Available [facility] ([facility]) [address] [place], [address], 11/08/2019 11:01:29 11/08/20 19 11/08/2019 CBC w/ diff MPV 11.5 fL 9.7-12 .8 Not Available [facility] ([facility]) [address] [place], [address], 11/08/2019 11:01:29 11/08/20 19 11/08/2019 CBC w/ diff neut% 49.30 % 40.00- 77.00 Not Available [facility] ([facility]) [address] , [place], [address], 11/08/2019 11:01:29 11/08/20 19 11/08/2019 CBC w/ diff lymph% 31.30 % 14.00- 47.00 Not Available [facility] ([facility]) [address] , [place], [address], 11/08/2019 11:01:29 11/08/20 19 11/08/2019 CBC w/ diff mono% 12.20 % <13.00 Not Available [facility] ([facility]) [address], [place], [address], 11/08/2019 11:01:29 11/08/20 19 11/08/2019 CBC w/ diff eo% 5.50 % <7.00 Not Available [facility] ([facility]) [address], [place], [address], 11/08/2019 11:01:29 11/08/20 19 11/08/2019 CBC w/ diff baso% 1.50 % <2.00 Not Available [facility] ([facility]) [address], [place], [address], 11/08/2019 11:01:29 11/08/20 19 11/08/2019 CBC w/ diff Ig% 0.20 % <0.50 Not Available [facility] ([facility]) [address], [place], [address], 11/08/2019 11:01:29 11/08/20 19 11/08/2019 CBC w/ diff NRBC% 0.00 % <0.20 Not Available [facility] ([facility]) [address] [place], [address], 11/08/2019 11:01:29 11/08/20 19 11/08/2019 CBC w/ diff neut# 2.70 10*3/ uL 2.00-6 .80 Not Available [facility] ([facility]) [address] , [place], [address], 11/08/2019 11:01:29 11/08/20 19 11/08/2019 CBC w/ diff lymph# 1.71 10*3/ uL 0.90-3 .00 Not Available [facility] ([facility]) [address] , [place], [address], 11/08/2019 11:01:29 11/08/20 19 11/08/2019 CBC w/ diff mono# 0.67 10*3/ 3uL 0.20-0 .80 Not Available [facility] ([facility]) [address], [place], [address], 11/08/2019 11:01:29 11/08/20 19 11/08/2019 CBC w/ diff eo# 0.30 10*3/ uL <0.81 Not Available [facility] ([facility]) [address] , [place], [address], 11/08/2019 11:01:29 11/08/20 19 11/08/2019 CBC w/ diff baso# 0.08 10*3/ uL 0.00-0 .10 Not Available [facility] ([facility]) [address], [place], [address], 11/08/2019 11:01:29 11/08/20 19 11/08/2019 CBC w/ diff Ig# 0.01 10*3/ uL <0.40 Not Available [facility] ([facility]) [address], [place], [address], 11/08/2019 11:01:29 11/08/20 19 11/08/2019 CBC w/ diff NRBC# <0.01 10*3/ uL <0.01 Not Available [facility] ([facility]) [address] [place], [address], 11/08/2019 11:01:29 11/08/20 19 11/08/2019 C react nunu prote in, QN, serum or plasm a CRP 0.09 mg/dL 0.00-0 .88 Not Available [facility] ([facility]) [address] [place], [address], 11/08/2019 11:10:37 11/08/20 19 11/08/2019 CMP, serum or plasm a glucose 103 mg/dL 74-100 high Not Available [facility] ([facility]) [address] [place], [address], 11/08/2019 11:10:40 11/08/20 19 11/08/2019 CMP, serum or plasm a BUN 17.9 mg/dL 8.0-23 .0 Not Available [facility] ([facility]) [address] [place], [address], 11/08/2019 11:10:40 11/08/20 19 11/08/2019 CMP, serum or plasm a creat 0.69 mg/dL 0.40-1 .10 Not Available [facility] ([facility]) [address] [place], [address], 11/08/2019 11:10:40 11/08/20 19 11/08/2019 CMP, serum or plasm a GFR estimated 83 mL/mi n/1.7 3m2 >60 IDMS trace able MDRD study equat ion. If patie nt is Afric an-Am marcela n, multi ply repor luke resul t by 1.21 Not Available [facility] ([facility]) [address] [place], [address], 11/08/2019 11:10:40 11/08/20 19 11/08/2019 CMP, serum or plasm a BUN/creat 26 % Not Available [facility] ([facility]) [address] [place], [address], 11/08/2019 11:10:40 11/08/20 19 11/08/2019 CMP, serum or plasm a Na+ 139 mmol/ L 136-14 5 Not Available [facility] ([facility]) [address], [place], [address], 11/08/2019 11:10:40 11/08/20 19 11/08/2019 CMP, serum or plasm a K+ 4.4 mmol/ L 3.5-5. 2 Not Available [facility] ([facility]) [address], [place], [address], 11/08/2019 11:10:40 11/08/20 19 11/08/2019 CMP, serum or plasm a cL- 104 mmol/ L 98-107 Not Available [facility] ([facility]) [address] [place], [address], 11/08/2019 11:10:40 11/08/20 19 11/08/2019 CMP, serum or plasm a CO2 23 mmol/ L 22-29 Not Available [facility] ([facility]) [address] [place], [address], 11/08/2019 11:10:40 11/08/20 19 11/08/2019 CMP, serum or plasm a anion gap 12 7-17 Not Available [facility] ([facility]) [address] [place], [address], 11/08/2019 11:10:40 11/08/20 19 11/08/2019 CMP, serum or plasm a calcium 9.2 mg/dL 8.6-10 .5 Not Available [facility] ([facility]) [address] [place], [address], 11/08/2019 11:10:40 11/08/20 19 11/08/2019 CMP, serum or plasm a tl prot 6.8 g/dL 6.4-8. 3 Not Available [facility] ([facility]) [address] [place], [address], 11/08/2019 11:10:40 12/17/20 19 11/08/2019 CMP, serum or plasm a alb 3.9 g/dL 3.5-5. 2 Not Available [facility] ([facility]) [address] [place], [address], 11/08/2019 11:10:40 11/08/20 19 11/08/2019 CMP, serum or plasm a A/G ratio 1.0 Not Available [facility] ([facility]) [address] [place], [address], 11/08/2019 11:10:40 11/08/20 19 11/08/2019 CMP, serum or plasm a tbil 0.8 mg/dL 0.0-1. 2 Not Available [facility] ([facility]) [address] [place], [address], 11/08/2019 11:10:40 11/08/20 19 11/08/2019 CMP, serum or plasm a alk phos 50 U/L 22-126 Not Available [facility] ([facility]) [address] [place], [address], 11/08/2019 11:10:40 11/08/20 19 11/08/2019 CMP, serum or plasm a SGOT/AST 26 IU/L 0-32 Not Available [facility] ([facility]) [address] [place], [address], 11/08/2019 11:10:40 11/08/20 19 11/08/2019 CMP, serum or plasm a SGPT/ALT 26 IU/L 0-40 Not Available [facility] ([facility]) [address] [place], [address], 11/08/2019 11:10:40 11/08/20 19 11/08/2019 CMP, serum or plasm a osmol cory 280 mOsm/ kg 270-32 0 Not Available [facility] ([facility]) [address] [place], [address], 11/08/2019 11:10:40 Result Notes None recorded. Problems Name Problem SNOMED Code Status Onset Date Resolution Date Notes Provider Name and Address Organization Details Recorded Time [facility] methotrex ate user 03495478510 0 Active 2017 FUR BLOWER METHOTREX ATE THERAPY; Original code:Z79. 899 Enter ed By: Odalis Sun MA; Signed By: Angelica García MD Not Available [facility] 9 01:04:58 Osteoarth ritis of knee 020292451 Active 2012 OSTEOARTH RITIS, KNEE; Original code:M17. 9 Entered By: RICK Joe; Signed By: RICK Joe Not Available [facility] 9 01:04:58 Osteopeni a 004283008 Active 2017 OSTEOPENI A; Original code:M85. 80 Entere d By: Odalis Sun MA; Signed By: Angelica García MD Not Available [facility] 9 01:04:58 History of total knee arthropla sty 35927455011 05 Active 2016 TOTAL KNEE REPLACEME NT, LEFT; Original code:Z96. 652 Enter ed By: Odalis Sun MA; Signed By: Angelica García MD Not Available [facility] 9 01:04:58 History of chemother apy 950022160 Active 2014 PERSONAL HISTORY OF MONOCL[place] L DRUG THERAPY; Original code:Z92. 22 Entere d By: Angelica García MD; Signed By: Angelica García MD Not Available [facility] 9 01:04:58 History of drug therapy 198549366 Active 2015 PERSONAL HISTORY OF OTHER DRUG THERAPY; Original code:Z92. 29 Entere d By: Angelica García MD; Signed By: Angelica García MD Not Available [facility] 9 01:04:58 Seroposit nunu rheumatoi d arthritis 251759661 Active 2008 OTHER RHEUMATOI D ARTHRITIS WITH RHEUMATOI D FACTOR OF MULTIPLE SITES; Original code:M05. 89 Entere d By: Angelica García MD; Signed By: Angelica García MD Not Available [facility] 9 01:04:58 Rupture of anterior cruciate ligament 378963987 Active 2012 ACL TEAR, RIGHT KNEE; Original code:S83. 511 Enter ed By: Wilmer Al CMA ([facility]); Signed By: Wilmer Al CMA ([facility]) Not Available [facility] 9 01:04:58 Osteoporo sis 27966054 Active 2018 Odalis Sun ([employer]) null, [facility] 9 09:13:34 Problem Notes None recorded. Procedures Surgical History Date Name Laterality Status Provider Name and Address Organization Details Recorded Time 09/20/20 13 Most Recent Bone Density completed Odalis Sun ([facility]) [facility] 11/02/2019 09:08:42 Cholecystectomy (Gallbladder) completed Odalisjanis Sun ([facility]) [facility] 11/02/2019 09:09:40 Hernia Repair completed Odalis Sun ([facility]) [facility] 11/02/2019 09:10:44 operation on heart completed Michell rosas Sun ([facility]) [facility] 11/02/2019 09:10:21 repair of mitral valve completed Odalisjanis Sun ([facility]) [facility] 11/02/2019 09:10:34 Hysterectomy - Total completed Odalisjanis Sun ([facility]) [facility] 11/02/2019 09:10:59 splenectomy completed Odalis Sun ([facility]) [facility] 11/02/2019 09:11:35 Orthopedic - Knee Replacement completed Angelica García MD [address], [place], [address] 11/02/2019 10:02:41 Imaging Results None recorded. Procedure Notes None recorded. Medical Equipment None Reported. Allergies No known drug allergies Medications Name Sig Start Date Stop Date Status Note LastModified by Organization Details LastModified Time amoxicill in 500 mg capsule 11/02 completed Not Available Not Available Not Available atorvasta tin 20 mg tablet 11/02 completed Not Available Not Available Not Available clindamyc in HCl 300 mg capsule 11/02 completed Not Available Not Available Not Available atorvasta tin 10 mg tablet 1tab po qd 2017 active Enter By: Brianne mcdonough; Signed By: Angelica Pereyra MD Not Available Not Available Not Available oxybutyni n chloride ER 10 mg tablet,ex tended release 24 hr active Not Available Not Available Not Available triamcino lone acetonide 0.1 % topical cream 11/02 completed Not Available Not Available Not Available methotrex ate sodium 2.5 mg tablet Take 7 tablets by mouth once a week 2018 active Enter By: Claudia Rodriguez CMA ([facility]); Signed By: Claudia Rodriguez CMA ([facility]); Date: 018; Authoriz ed by: Angelica García MD Not Available Not Available Not Available Prilosec 10 mg capsule,d elayed release 1 po QDay 2008 active Enter By: Melia Lopez CMA; Signed By: Angelica Pereyra MD Not Available Not Available Not Available folic acid 1 mg tablet TAKE 1 TABLET BY MOUTH EVERY DAY active Not Available Not Available No t Available Aspirin Low-Stren gth 81 mg chewable tablet 1 po QDay 2008 active Enter By: Melia Lopez CMA; Signed By: Angelica Pereyra MD Not Available Not Available Not Available metoprolo l tartrate 25 mg tablet one tab po bid active Not Available Not Available No t Available Humira Pen 40 mg/0.8 mL subcutane ous kit INJECT 0.8 MILLILIT ER (40 MG) BY SUBCUTAN EOUS ROUTE EVERY 4 WEEKS IN THE ABDOMEN OR THIGH (ROTATE SITES) active Not Available Not Available No t Available diclofena c 1 % topical gel Apply 2-4 gm to affected area up to four times a day active Not Available Not Available No t Available Breo Ellipta 100 mcg-25 mcg/dose powder for inhalatio n active Not Available Not Available Not Available Vitals Date Recorded Body height Body mass index (BMI) Body weight Heart rate Oxygen saturation Oxygen saturation in Arterial blood by Pulse oximetry Systolic blood pressure Diastolic blood pressure Provider Name and Address Organization Details Last Updated DateTime 9 170.18 cm 33.5 kg/m2 55732.7 7 g 54 /min 97 % 97 % 116 mm[Hg] 74 mm[Hg] Odalis Sun ([facility]) [facility] 9 09:27:02 Social History Question Answer Notes LastModified by Organizat ion Details LastModified Time Tobacco Smoking Status Never Smoker Odalis Sun ([facility]) [facility], [facility] 11/02/2019 09:09:26 Do You Or Have You Ever Used E-cigarettes Or Vape? Never Used Electronic Cigarettes [id number] Information not available 11/02/2019 Do You Or Have You Ever Used Smokeless Tobacco? Never Used Smokeless Tobacco [email or web address] Information not available 11/02/2019 Sex: Unknown Functional Status None recorded. Mental Status None recorded. Family History Relationship Description Onset Age of this Age Resolved Age Notes LastModified by Organization Details LastModified Time Father Hypertensive disorder [email or web address] Not available 11/02 09:09:09 Medical History No medical history recorded. Gynecological History Statement/Question Response Most Recent Bone Density 09/20/2013 Obstetrics History GPAL:G 0 P 0 0 0 0 Immunizations Vaccine Type Date Status Note Provider Nam e and Address Organization Details Recorded Time influenza, unspecified formulation 9 completed Not Available [facility] 06/12/2019 14:13:11 Past Encounters Encounter ID Performer Location Encounter Start Date Encounter Closed Date Diagnosis/Indication Diagnosis SNOMED-CT Code Diagnosis ICD10 Code Diagnosis Note [id number] Angelica García MD [facility] [address] [place] [address] 11/02/2019 09:06:10 11/02/2019 10:49:49 Seropositive rheumatoid arthritis 395007845 M05.9 keep methotrexa te /Humira taper, labs q3mo Osteoporosis 18629297 M8 1.0 bisphospho annika holiday, calcium and vitamin D. DXA q2y ( per rheum up [place]) History of drug therapy 327077062 Z92.22 Generally Tb screen recommende d q2y and hep BC screen q5 years ( unless more frequent testing indicated) [facility] methotrexate user 3868982011 00 Z79.899 Health Concerns Section Related Observation LastModified by Organization Detai ls LastModified Time None Recorded Concern Status LastModified by Organization Details LastModified Time None Recorded Advance Directives Directive None Recorded Payers Encounter Date Sequence Insurance Name Policy Number Policy Hines Covered Member ID Hines Member ID Guarantor Name 11/02/2019 2 [facility] LISA MARTINEZ [id number] Melissa De La Garza [id number] Melissa De La Garza 11/02/2019 1 [place] Melissa De La Garza [id number] Melissa De La Garza Notes Date Note Type Note Provider Name and Address Organization Details Recorded Time 11/02/2019 text/html 74 yo w PMH Of rheumatoid arthritis ( 2006), knee osteoarthritis, osteoporosis, asthma , intermittent leukopenia, presented today for followup sulfasalazine ( slightly more LBP) , cont Methotrexate + Humira( now once a month) , stable labs 11/2018 On bisph holiday ( 7y Fosamax 70 mg ), cont calcium and vitamin D, off pain meds Rheumatoid not flaring in fact wandering about stopping biologic all together Had TB elisa/CXR summer 2017? per pt, not available, last blood work in August also not available Denies psoriasis, inflammatory eye, bowel disease,photosensi tivity, nephrolithiasis. Denies exposure to hepatitis, HIV, infectious pathogens. DXa last year per pt normal Dr. Ciro Reed, Rheumatology [address] [place] [address] [phone] Angelica García MD [address], [place], [address], [facility] 11/02/2019 13:14:59 OBGyn Episode No OBEpisode recorded.
[2025-01-10 14:26] LABS: Influenza A PCR NEGATIVE (Negative); Influenza B PCR NEGATIVE (Negative); Resp Syncy Virus RNA Qual PCR NEGATIVE (Negative); SARS COV2 PCR INHOUSE NEGATIVE (Negative)
== END ==
LOC: HO.CARD 10:51
PROVIDERS: PCP Internal Medicine; Visit Provider Internal Medicine Cardiovascular Disease
DX: I42.9 Cardiomyopathy, unspecified (principal); R05.1 Acute cough
CPT/HCPCS: 0241U; 93306; 99212

== ENCOUNTER → 2025-01-10 10:53 | Outpatient (BNV) | payer MEDICARE, SELFPAY | PROVIDERS: PCP Internal Medicine; Visit Provider Internal Medicine | DX: I35.1 Nonrheumatic aortic (valve) insufficiency (principal); I36.1 Nonrheumatic tricuspid (valve) insufficiency; I51.7 Cardiomegaly; Z95.2 Presence of prosthetic heart valve | CPT/HCPCS: 93306 ==

== ENCOUNTER 2025-01-13 11:08 | Outpatient (AMB) | payer MEDICARE, SELFPAY ==
[2025-01-13 11:10] VITALS: BP 118/74; PULSE 80; TEMP 36.7; O2SAT 98; BMI 32.9
--- NOTE | 2025-01-13 11:10 | MHC.PC.OV ---
Vital Signs 01/13/25 11:10 Height 5 ft 7 in Weight 210 lb BMI 32.9 BP 118/74 Blood Pressure Location Lt brachial Position Sitting Pulse 80 Pulse Source Pulse Oximeter Temp 98.0 F Temp Source Oral Pulse Oximetry (%) 98 Intake Visit Reasons: cough and shortness of breath Allergies benzonatate Adverse Reaction (Mild, Verified 01/13/25 11:36) Hallucinations Medication List - Last Reconciled 01/13/25 by Ana Garcia MD acetaminophen 650 mg (2 x 325 mg) PO Q6H PRN 30 days adalimumab (Humira Pen) mg subcut albuterol sulfate 90 mcg/actuation 2 puffs inhalation Q6H PRN atorvastatin 20 mg PO DAILY celecoxib 200 mg PO BID diclofenac sodium 1% 4 grams topical QID docusate sodium 100 mg PO BID estradiol 0.01%(0.1mg/gram) pea sized amount vaginally 3 times a week; Apply pea-sized amount to urethra 3 times per week 90 days famotidine 40 mg PO BEDTIME folic acid 1 mg PO DAILY methotrexate sodium 17.5 mg PO TH metoprolol tartrate 50 mg PO BID omeprazole 20 mg PO DAILY oxybutynin chloride ER 10 mg PO DAILY sacubitril-valsartan 24-26 mg (Entresto) 1 tab PO BID Tobacco use date assessed: 01/13/25 Fall risk assessment: No Falls in past year Last assessed Fall Risk: 01/13/25 Dental Screening Dental Screen Date: 01/13/25 Did you have a dental visit in the last 12 months?: Yes Did you have a dental problem in the last 6 months where you did not have access to dental care?: No Was dental information given to patient?: Patient has dentist HPI cough and shortness of breath HPI Details Pt c/o 1 week of productive cough, yellow sputum, sinus congestion postnasal drip fatigue. Patient denies fever chills. She has been taking alkm-ggd-vdcsitw expectorant with some relief PFSH Medical History Cardiac arrhythmia Restrictive lung disease Cough Ear infection Hard of hearing COVID-19 vaccine series completed Osteoarthritis of right knee Dry mouth Osteopenia Postnasal drip Hypercholesteremia Osteoarthritis Hypertension Rheumatoid arthritis H/O bone density study Lumbago Surgical History History of total left knee replacement H/O colonoscopy Status post herniorrhaphy H/O mitral valve replacement History of splenectomy Hx of cholecystectomy Family History Father Cerebral hemorrhage Parkinsonism Mother COPD (chronic obstructive pulmonary disease) Lung cancer Brother Lung cancer Son No problems noted. Daughter No problems noted. Daughter No problems noted. Daughter No problems noted. Social History Housing: House Are you a primary director of health care marketing to a significant other at home: No Do you presently have visiting nurse or other home services: No Patient Tobacco Use Status: Never used Tobacco e-Cigarette/Vaping Use: Never Used Second Hand Smoke Exposure: Yes service: No Current occupational status: retired Current occupational exposures/hazards: No Cognitive needs: No Hearing needs: Yes Vision needs: Yes Questionnaire PHQ-9 Over the last 2 weeks, how often have you been bothered by any of the following problems? 1. Little interest or pleasure in doing things: not at all 2. Feeling down, depressed, or hopeless: not at all 3. Trouble falling or staying asleep, or sleeping too much: not at all 4. Feeling tired or having little energy: several days 5. Poor appetite or overeating: not at all 6. Feeling bad about yourself - or that you are a failure or have let yourself or your family down: not at all 7. Trouble concentrating on things, such as reading the newspaper or watching television: not at all 8. Moving or speaking so slowly that other people could have noticed. Or the opposite - being so fidgety or restless that you have been moving around a lot more than usual: not at all 9. Thoughts that you would be better off or of hurting yourself in some way: not at all Total score: 1 Depression Screening Interpretation: Negative Depression Screening Done: Yes 65050 - PHQ-9 Billing: Yes Source: Developed by Drs. Peterson Torres, Sangeetha Avelar, Jorge Alberto Bradshaw and colleagues, with an educational lauren from [employer]. Thrive Questionnaire Date Thrive assessed: 01/11/25 I am a: Patient What is your living situation today?: I have a steady place to live Within the past 12 months, did the food you bought not last and you didn't have the money to get more?: I choose not to answer this question Within the past 12 months, did you worry whether your food would run out before you got money to buy more?: Never true Do you have trouble paying for medicines?: No Do you have trouble getting transportation to medical appointments?: No Do you have trouble paying your heating and electricity bill?: No Do you have trouble taking care of your child, family member or friend?: No Do you have trouble with day-to-day activities such as bathing, preparing meals, shopping, managing finances, etc.?: No Are you currently unemployed and looking for a job?: No Are you interested in more education?: No Please select the resources that you would like help with: None Currently or been in a relationship where the following occur: No concerns reported THRIVE Score: 0 AUDIT C Alcohol Use Questionnaire (AUDIT-C) 1. How often do you have a drink containing alcohol?: Monthly or less 2. How many drinks containing alcohol do you have on a typical day when you are drinking?: 1 or 2 3. How often do you have six or more drinks on one occasion?: Never Total Score: 1 Score Reviewed/Action Taken: Yes STACEY-7 AMB Questionnaire STACEY-7 Date STACEY - 7 assessed: 01/13/25 Feeling nervous, anxious, or on edge: 0 = Not at all Not being able to stop or control worryin = Not at all Worrying too much about different things: 0 = Not at all Trouble relaxin = Not at all Being so restless that it is hard to sit still: 0 = Not at all Becoming easily annoyed or irritable: 0 = Not at all Feeling afraid as if something awful might happen: 0 = Not at all Total STACEY-7 score (0-4 normal; 5-9 mild; 10-14 moderate; 15-21 severe): 0 Source: Developed by Drs. Peterson Torres, Sangeetha Avelar, Jorge Alberto Bradshaw and colleagues, with an educational lauren from [employer]. STACEY-7 Assessment Billing STACEY-7 Assessment Tool: STACEY-7 Assessment 31417 Review of Systems Const All systems reviewed & are unremarkable except as noted in HPI and below ENT Reports no additional complaints Card Reports no additional complaints Resp Reports no additional complaints GI Reports no additional complaints Physical exam (Primary Care) Vital Signs: Last Vital Signs Temp 98.0 F 01/13/25 11:10 Pulse 80 01/13/25 11:10 BP 118/74 01/13/25 11:10 Pulse Ox 98 01/13/25 11:10 BMI result Body Mass Index 32.9 Tobacco/Smoking Status: Tobacco use Status Tobacco use date assessed 01/13/25 01/13/25 11:11 Patient Tobacco Use Status Never used Tobacco 01/13/25 11:11 e-Cigarette/Vaping Use Never Used 01/13/25 11:11 PHQ-9: PHQ-9 Score PHQ-9: Total score 1 01/13/25 11:11 Depression Screening Interpretation: Negative Thrive Assessment: Date of Thrive Assessment Date Thrive assessed 01/11/25 01/13/25 11:11 Currently or been in a relationship where the following occur: No concerns reported Const General: no acute distress HENMT Head: Yes normal to inspection Ears: TM's normal bilaterally Face and sinus: Yes normal facial exam and Yes sinus tenderness Mouth: Normal oral and palatal mucosa present Throat: Yes postnasal drainage Eyes General: appearance normal, both eyes and all related structures Resp Effort & Inspection: normal respiratory effort Auscultation: rhonchi Cardio Rhythm: regular rhythm Heart sounds: S1 normal heart sound present and S2 normal heart sound present Coding Level of Care Code Est Pt Level 3 (84636) Diagnoses Sinusitis J32.9 Cardiomyopathy I42.9 Additional Codes STACEY-7 Assessment Billing - STACEY-7 Assessment Tool: STACEY-7 Assessment 84616 ([id number]) PHQ-9 - 85731 - PHQ-9 Billing: Yes ([id number]) Assessment & Plan Assessment & Plan (1) Sinusitis: Code(s): J32.9 - Chronic sinusitis, unspecified Category: Medical Plan: Z-Seamus as prescribed and supportive care discussed with the patient (2) Cardiomyopathy: Code(s): I42.9 - Cardiomyopathy, unspecified Category: Medical Plan: Continue current medications Medications: New azithromycin For 250 mg dose pack: take 500 mg today (day 1), then 250 mg for 4 days (days 2-5) PO 6 tabs 0RF
--- OUTSIDE RECORDS SUMMARY | 2025-01-13 12:16 | XMS_ITS ---
Author Organization [facility] [place] Address [address] [place] [address] Care Team Providers Care Crm Business Analyst Name Role Phone Ana Garcia MD Primary Care Provider Sabino Eva Brooks Unavailable [phone] Allergies No Known Allergies REASON FOR VISIT [...] Ordered Date Performed Result Body Sit e 74274-FRMPXAN NAIL, 6 OR MORE 12/16/2024 N/A Encounters Encounter Location Date Provider Diagnosis [facility] [address] [place] [address] 12/16/2024 Eva Alas Onychomycosis B35.1 ; Ingrown [...] Treatment Pending Test Test Name Order Date 37016-KBXHQGA NAIL, 6 OR MORE 12/16/2024 Next Appt Details Follow Up: 2 Weeks, Reason: Provider Name:Eva Alas , 02/24/2025 09:00:00 AM, [address] [facility], [place], [address], Procedure Notes * Category Sub-Category Detail Notes [...] Motrin was recommended for pain or discomfort (70023), Pt DEFERS matricectomy Anesthesia , was accomplished [...] use of a nail nipper and/or dremel-type automatic corn grinder operator, to a more viable healthy [...] to maintain effectiveness in symptomatic relief - 18767 Progress Notes * Melissa NAPIEROB:01[birth year]20 (79 yo F)Acc No.[id number]:12/16/2024 Progress Note Patient:?Melissa NAPIER Provider:?Eva Alas DPM :1945???Age:79 Y???Sex:Female D ate:12/16/2024 Address: [address] [place], [place] Pcp:Ana Garcia MD Subjective: * Chief Complaints: [...] Assessment: * Assessment: 1.?Ingrown nail - L60.0 (Juanita garcia)???2.?Onychomycosis - B35.1???3.?Pain in right toe(s) - [...] use of a nail nipper and/or dremel-type automatic corn grinder operator, to a more viable healthy [...] to maintain effectiveness in symptomatic relief - 21580.?Nail Avulsion:?Location?, Lateral nail border, TA.?Anesthesia?, was accomplished [...] Motrin was recommended for pain or discomfort (76700), Pt DEFERS matricectomy.? * Procedure Codes:?76970 DEBRI DE NAIL, 6 OR MORE, Modifiers: XS 38766 Avulsion Plate, Modifiers: TA * Follow Up:?2 Weeks * Images: * Sign off status: Completed true * Provider:?Eva Alas DPM Date:?2024 Generated for Jed pabon/Nimisha/eTaugust on:?01/13/2025 12:16 PM EST History and Physical Notes * HPI [...]
--- OUTSIDE RECORDS SUMMARY | 2025-01-13 12:16 | XMS_ITS ---
Author Organization [facility] [place] Address [address] [place] [address] Care Team Providers Care Sales And Retail Management Recruiter Name Role Phone Ana Garcia MD Primary Care Provider Sabino Eva Brooks Unavailable [phone] Allergies No Known Allergies REASON FOR VISIT [...] Orally Active Aspirin 81 MG Orally Not-Ta reji PriLOSEC Active Metoprolol Tartrate Active Social History [...] Problem Status W/U Status Risk Notes Problem 683472380 Ulcer of right foot, limited to breakdown of skin (L97.511) Active confirmed Vital Signs Height 5 ft 7 in in 10/07/2024 Weight 207 lbs 10/07/2024 BMI 32.42 kg/m2 10/07/2024 Procedures Procedure Date Ordered Date Performed Result Body Sit e 04188-GFKUOTB NAIL, 6 OR MORE 10/07/2024 N/A 30822- Debride <25 sq cm 10/07/2024 N/A Encounters Encounter Location Date Provider Diagnosis [facility] [address] 10/07/2024 Eva Black Pain in right foot [...] Treatment Pending Test Test Name Order Date 67858-WOKNPWS NAIL, 6 OR MORE 10/07/2024 66980- Debride <25 sq cm 10/07/2024 Next Appt Details Follow Up: 2 Months, Reason: Provider Name:Eva Alas , 02/24/2025 09:00:00 AM, [address] [facility], [place], [address], Procedure Notes * Category Sub-Category Detail Notes [...] use of a nail nipper and/or dremel-type grinder hand, to a more viable healthy nail plate or bed tissue 6-10. Silver nitrate used for any petechial bleeding as necessary. Definitive antifungal treatment options have been reviewed and discussed with the patient. The patient chooses, no pharmaceutical tx - 95725 Debride skin< 25 sq cm Open wound [...] of the wound post debridement is stable (97617) Progress Notes * Melissa NAPIERHilarioOB:01[birth year]20 (79 yo F)Acc No.[id number]:10/07/2024 Progress Note Patient:?Melissa NAPIER Provider:?Eva Alas DPM :1945???Age:79 Y???Sex:Female D ate:10/07/2024 [facility] Pcp:Ana Garcia MD Subjective: * Chief Complaints: [...] foot, limi luke to breakdown of skin?Procedure: 87691- Debride <25 sq cm * Procedures:?Debride Nail [...] use of a nail nipper and/or dremel-type grinder hand, to a more viable healthy nail plate or bed tissue 6-10. Silver nitrate used for any petechial bleeding as necessary. Definitive antifungal treatment options have been reviewed and discussed with the patient. The patient chooses, no pharmaceutical tx - 33447.?Debride skin< 25 sq cm:?Open wound?: Physician of [...] of the wound post debridement is stable (85489).? * Procedure Codes:?98030 DEBRI DE NAIL, 6 OR MORE, Modifiers: XS 38304 ACTIVE WOUND CARE/20 CM OR <, Modifiers: [...] Provider:?Eva Alas DPM Date:?2023 Generated for Jed pabon/Nimisha/eTdmitrysmitting on:?01/13/2025 12:16 PM EST History and Physical [...]
--- OUTSIDE RECORDS SUMMARY | 2025-01-13 12:17 | XMS_ITS ---
Author Organization [facility] [place] Address [address] [place] [address] Care Team Providers Care Jail Manager Name Role Phone Ana Garcia MD Primary Care Provider Sabino Eva Brooks Unavailable [phone] Allergies No Known Allergies REASON FOR VISIT [...] Ordered Date Performed Result Body Sit e 67584-EPSWHFU NAIL, 6 OR MORE 07/08/2024 N/A Encounters Encounter Location Date Provider Diagnosis [facility] [address] 07/08/2024 Eva Alas Pain in right foot [...] 024 Pending Test Test Name Order Date 30430-WSHYJHP NAIL, 6 OR MORE 07/08/2024 Next Appt Details Follow Up: 2 Months, Reason: with Dr. Alas Provider Name:Eva Alas , 02/24/2025 09:00:00 AM, [address] [facility], [place], [address], Procedure Notes * Category Sub-Category Detail Notes [...] necessary. Patient STILL chooses, no pharmaceutical tx (58473) Progress Notes * Melissa NAPIEROB:[birth year] (79 yo F)Acc No.[id number]:07/08/2024 Progress Note Patient:?Melissa Napier Provider:?Eva Alas DPM :1945???Age:79 Y???Sex:Female D ate:07/08/2024 Address: [address] [facility] Pcp:Ana Garcia MD Subjective: * Chief Complaints: [...] toe(s) - M79.675? Plan: * Treatment: 2.?Onychomycosis?Procedure: 06699-IWIZOWD NAIL, 6 OR MORE * Procedures:?Debride Nail 6-10:?Nail debridement?Nail debridement performed extensively to reduce/remove overall nail length and girth, subungual debris, and necrotic tissue, by manual and electrical means with use of a nail nipper and/or dremel, to more viable healthy nail plate or bed tissue 6-10. Silver nitrate used for any petechial bleeding as necessary. Patient STILL chooses, no pharmaceutical tx (09371).? * Procedure Codes:?82755 DEBRI DE NAIL, 6 OR MORE, Modifiers: [...] exercise to failure, expense, systemic complications, infection, wuhlaue-dvv-lpipxyn, prolongued postop course. Patient questions re: the various treatment options available, their successes and potential failures, and fpc effects were discussed and the answers were [...] Alas DPM Date:?2023 Generated for Jed pabon/Nimisha/Angely on:?01/13/2025 12:16 PM EST History and Physical [...]
--- OUTSIDE RECORDS SUMMARY | 2025-01-13 12:17 | XMS_ITS | Patient Health Record ---
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, 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 Problem Acquired hammer toe of right foot (1972721060151235) Other hammer toe(s) (acquired), right foot (M20.41) Active confirmed Problem Acquired hammer toe of left foot (8855366484177543) Other hammer toe(s) (acquired), left foot (M20.42) Active confirmed Problem Acquired hammer toe of right foot (3369271430842142) Other hammer toe(s) (acquired), right foot (M20.41) Active confirmed Problem Acquired hammer toe of left foot (8399737232628923) Other hammer toe(s) (acquired), left foot (M20.42) Active confirmed Problem Joint contracture of the ankle and/or foot (639730225) Flexion 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) Active confirmed Problem Joint contracture of the ankle and/or foot (158526294) Flexion contracture of joint of right foot (M24.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) Active confirmed Problem Acquired deformity of right foot (47672778819938015) PlantarFlexion of metatarsal of right foot (M21.6X1) Active confirmed Problem Joint contracture of the ankle and/or foot (013303365) Flexion contracture of joint of right foot (M24.574) Active confirmed Problem 1140680867939718 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) Active confirmed Problem 977514555 Ulcer of right foot, limited to breakdown of skin (L97.511) Active confirmed Problem 740227297 Gouty arthritis (M10.9) Active confirmed Problem 019523753 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) Active confirmed Vital Signs Blood pressure diastolic 77 mm Hg 12/16/2024 Height 5 ft 7 in in 12/16/2024 Blood pressure systolic 130 mm Hg 12/16/2024 Weight 207 lbs 12/16/2024 BMI 32.42 kg/m2 12/16/2024 Procedures Procedure Date Ordered Date Performed Result Body Sit e 89798-OOOAKHB NAIL, 6 OR MORE 04/01/2024 N/A 32109, J0702- INJECT or DRAI N, JOINT/BURSA 04/13/2024 N/A 19027-PLSSXXM NAIL, 6 OR MORE 07/08/2024 N/A 69817-ROARRUS NAIL, 6 OR MORE 10/07/2024 N/A 58031- Debride <25 sq cm 10/07/2024 N/A 01424-IKYEEFX NAIL, 6 OR MORE 12/16/2024 N/A Encounters Encounter Location Date Provider Diagnosis [address] [place] [address] 04/01/2024 Eva Black Onychomycosis B35.1 ; Pain in right toe(s) M79.674 and Pain in left toe(s) M79.[address] [address] 04/13/2024 Keshawn Sepulveda Pain in right foot M79.671 ; Gouty arthritis M10.9 and Arthritis of right ankle M19.[address] [address] 05/12/2024 Keshawn Sepulveda Pain in right foot M79.671 ; Arthritis of right ankle M19.071 and 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.[address] [place] [address] 07/08/2024 Eva Black Pain in right foot M79.671 ; Arthritis of right ankle M19.071 ; 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.771 ; Onychomycosis B35.1 ; Pain in right toe(s) M79.674 and Pain in left toe(s) M79.[address] [place] [address] 10/07/2024 Eva Black Pain in right foot M79.671 ; Arthritis of right ankle M19.071 ; 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.771 ; Onychomycosis B35.1 ; Pain in right toe(s) M79.674 ; Pain in left toe(s) M79.675 and Ulcer of right foot, limited to breakdown of skin L97.511 [facility] [place] [address] [place] [address] 12/16/2024 Eva Black Onychomycosis B35.1 ; Ingrown nail L60.0 ; Pain in right toe(s) M79.674 and Pain in left toe(s) M79.675 [facility] [address] [facility] [address] [place] [address] 04/13/2024 Eva Black [facility] [address] [address] 05/12/[address] [facility] [address] [address] 05/12/2024 Eva Black Assessments Encounter Date Diagnosis [...] Date *Uric Acid, Serum 04/13/2024 *Sedimentation Rate-Westergren 69874-FCMUOLP NAIL, 6 OR MORE 12/29/2023 11808-GTPOOWK NAIL, 6 OR MORE 04/01/2024 67773-EPETIPL NAIL, 6 OR MORE 04/29/2023 51863-FZHTCQD NAIL, 6 OR MORE 07/08/2023 49789-MKHDDSI NAIL, 6 OR MORE 09/22/2023 37938-OBIMIGG NAIL, 6 OR MORE 02/13/2023 44938-MZTLJJI NAIL, 6 OR MORE 07/08/2024 43906-DQNUBCC NAIL, 6 OR MORE 10/07/2024 69535-JAAQYSN NAIL, 6 OR MORE 12/16/2024 20892-QDPXPGI NAIL, 1-5 12/10/2021 32755-Rxyrcedr Plate 12/29/2023 71839-Hdthwooc Plate 04/29/2023 12244-Uqztpinw Plate 07/22/2021 03562- Debride <25 sq cm 10/07/2024 37004, J0702- INJECT or DRAIN, JOINT/BUR SA 04/13/2024 58344, B0090-XNMIW/INJECT, JOINT/BURSA 0 08/17/2017 73492,G1458-WGY TENDON SHEATH/LIGAMENT 0 08/15/2019 90339,N1461-MRZ TENDON SHEATH/LIGAMENT 1 91355, J0702- Neuroma/Injection 09/14/20 17 X ray : Ankle, right 3V 04/13/2024 27194 - Tenotomy, open flexor 08/07/2021 Next Appt Details Provider Name:Eva Giles Bishop , 02/24/2025 09:00:00 AM, [address] [facility], [place], [address], Insurance Providers Payer Name Payer Address Payer Phone Subscriber Number Group Number Insured Name Patient Relationship to Insured Coverage Start Date Coverage End Date Medicare [facility] [address] [place] [address] [id number] Melissa De La Garza Self - patient is the insured [employer] [address] [place] [address] [id number] Melissa De La Garza Self - patient [...]
== END 2025-01-13 12:12 | disposition home or self-care (01) ==
PROVIDERS: PCP Internal Medicine; Visit Provider Internal Medicine
DX: J32.9 Chronic sinusitis, unspecified (principal); I42.9 Cardiomyopathy, unspecified

== ENCOUNTER → 2025-01-13 11:08 | Outpatient (BNVA) | payer MEDICARE, SELFPAY | PROVIDERS: PCP Internal Medicine; Visit Provider Internal Medicine | DX: J32.9 Chronic sinusitis, unspecified (principal); I42.9 Cardiomyopathy, unspecified | CPT/HCPCS: 96127; 99212 ==

== ENCOUNTER 2025-01-23 13:44 | Outpatient (AMB) | payer MEDICARE, SELFPAY ==
--- NOTE | 2025-01-23 14:12 | MHC.OFFVIS ---
Vital Signs 01/23/25 14:13 Height 5 ft 7 in Weight 209 lb 7.026 oz BMI 32.8 BP 120/76 Blood Pressure Location Lt brachial Position Sitting Pulse 68 Intake Visit Reasons: 3 month f/up Intake Note: 3 month follow-up feeling ok Asphalt Heater Tender Required: No Allergies benzonatate Adverse Reaction (Mild, Verified 01/13/25 11:36) Hallucinations Medication List - Last Reconciled 01/23/25 by Fahad Toussaint MD acetaminophen 650 mg (2 x 325 mg) PO Q6H PRN 30 days adalimumab (Humira Pen) mg subcut albuterol sulfate 90 mcg/actuation 2 puffs inhalation Q6H PRN atorvastatin 20 mg PO DAILY celecoxib 200 mg PO BID diclofenac sodium 1% 4 grams topical QID docusate sodium 100 mg PO BID estradiol 0.01%(0.1mg/gram) pea sized amount vaginally 3 times a week; Apply pea-sized amount to urethra 3 times per week 90 days famotidine 40 mg PO BEDTIME folic acid 1 mg PO DAILY methotrexate sodium 17.5 mg PO TH metoprolol tartrate 50 mg PO BID omeprazole 20 mg PO DAILY oxybutynin chloride ER 10 mg PO DAILY sacubitril-valsartan 24-26 mg (Entresto) 1 tab PO BID HPI Comments Details: Melissa comes for follow-up. She has not had any recurrent hematuria. She underwent a cystoscopy without any obvious reason for her to have hematuria. She is taking all her medications. Denies any worsening symptoms except for the last 2 weeks, she was suffering from bronchitis and she says she feels tired. She denies any orthopnea, PND, leg edema. Denies any weight gain. No progressive symptoms of fatigue or tiredness. No lightheadedness, syncope. Most recent echocardiogram shows LVEF of 44%, unchanged from before. Denies any neurologic events. REPLACED BY [facility] Medical History Cardiac arrhythmia Restrictive lung disease Cough Ear infection Hard of hearing COVID-19 vaccine series completed Osteoarthritis of right knee Dry mouth Osteopenia Postnasal drip Hypercholesteremia Osteoarthritis Hypertension Rheumatoid arthritis H/O bone density study Lumbago Surgical History History of total left knee replacement H/O colonoscopy Status post herniorrhaphy H/O mitral valve replacement History of splenectomy Hx of cholecystectomy Family History Father Cerebral hemorrhage Parkinsonism Mother COPD (chronic obstructive pulmonary disease) Lung cancer Brother Lung cancer Son No problems noted. Daughter No problems noted. Daughter No problems noted. Daughter No problems noted. Social History Housing: House Are you a primary home care specialist to a significant other at home: No Do you presently have visiting nurse or other home services: No Patient Tobacco Use Status: Never used Tobacco e-Cigarette/Vaping Use: Never Used Second Hand Smoke Exposure: Yes service: No Current occupational status: retired Current occupational exposures/hazards: No Cognitive needs: No Hearing needs: Yes Vision needs: Yes Review of Systems Const Denies chills, Denies fatigue, Denies fever(s), Denies frequent falls, Denies weakness, Denies weight gain and Denies weight loss ENT Denies dizziness Card Denies chest pain, Denies leg edema, Denies lightheadedness, Denies palpitations, Denies dyspnea, Denies dyspnea on exertion, Denies orthopnea and Denies other (loss of consciousness) Resp Denies cough, Denies dyspnea and Denies dyspnea on exertion GI Denies hematochezia and Denies change in stool character Musc Denies abnormal gait, Denies muscle weakness, Denies numbness, Denies radiating pain into limb and Denies tingling Neuro Denies Abnormal speech present, Denies abnormal gait, Denies dizziness, Denies frequent falls, Denies numbness, Denies tingling and Denies weakness Endo Denies fatigue and Denies palpitations Physical Exam Vital Signs: Last Vital Signs Pulse 68 01/23/25 14:13 BP 120/76 01/23/25 14:13 BMI result Body Mass Index 32.8 Const General: cooperative, comfortable, no acute distress, alert and awake Nutritional Appearance: obese Orientation/consciousness: patient oriented x3 Limitations: no limitations Neck Neck: Yes trachea midline, Yes supple and Yes no JVD Chest Chest palpation & inspection: normal inspection of the chest and other (Well-healed sternotomy scar) Resp Effort & Inspection: normal respiratory effort Auscultation: clear to auscultation bilaterally Cardio Jugular venous distension: no JVD Palpation: normal PMI Rhythm: abnormal rhythm irregularly irregular Heart sounds: S1 normal heart sound present, S2 normal heart sound present, no click, no gallops, no murmurs and no rubs GI Inspection: Yes obesity Auscultation: normal bowel sounds Neuro General: patient oriented x3 and no focal motor deficits Speech: No Abnormal speech present Extrem General: Yes no clubbing, cyanosis or edema Assessment & Plan Assessment & Plan (1) Persistent atrial fibrillation: Code(s): I48.19 - Other persistent atrial fibrillation Category: Medical Plan: Persistent atrial fibrillation, rate control without any obvious worsening symptoms at this point time. At this point time will continue with rate control approach given that she is currently not on any oral anticoagulation therapy. She was not had any recurrent hematuria and there was no obvious reason for her to have hematuria noted. Advised her to restart Eliquis 5 mg b.i.d. and call us with any adverse events including bleeding and recurrent hematuria. At that point time will refer for Watchman device placement. Will continue pursue rate control approach as she is not having any evidence of cardiac decompensation at this point time. Advised to call me with any new symptoms including worsening shortness of breath, orthopnea, PND. (2) Cardiomyopathy: Code(s): I42.9 - Cardiomyopathy, unspecified Category: Medical Plan: Sluk-vt-rvojpqrb LV systolic dysfunction with LVEF of 44%. No signs or symptoms of heart failure. Continue Entresto as well as metoprolol therapy for neurohormonal modulation. Signs and symptoms of heart failure were discussed. Advised to call me with any new symptoms. (3) H/O mitral valve replacement: Comment: repair 2005 (ring on mitral valve)- ECHO 04/13 nl EF, NORMAL BIOPROSTHETIC MITRAL VALVE, mild to moderate TR Code(s): Z95.2 - Presence of prosthetic heart valve Category: Surgical Plan: Prior mitral valve intervention with well functioning mitral valve at this point time. SBE prophylaxis as per ACC/aha guidelines. Start Eliquis as above. Will follow up in the clinic in 3 months time, sooner p.r.n.. Thank you for allowing me to partake in her care Coding Level of Care Code Est Pt Level 4 (35214) Complex EM visit Add On G2211 Diagnoses Persistent atrial fibrillation I48.19 Cardiomyopathy I42.9 H/O mitral valve replacement Z95.2
[2025-01-23 14:13] VITALS: BP 120/76; PULSE 68; BMI 32.8
--- OUTSIDE RECORDS SUMMARY | 2025-01-23 16:14 | XMS_ITS ---
Author Organization [facility] [place] Address [address] [place] [address] Care Team Providers Care Prison Psychiatrist Name Role Phone Ana Garcia MD Primary Care Provider Sabino Eva Brooks Unavailable [phone] Allergies No Known Allergies REASON FOR VISIT [...] Ordered Date Performed Result Body Sit e 19659-WXRXJJD NAIL, 6 OR MORE 12/16/2024 N/A Encounters Encounter Location Date Provider Diagnosis [facility] [place] [address] [place] [address] 12/16/2024 Eva Alas Onychomycosis B35.1 ; Ingrown [...] Treatment Pending Test Test Name Order Date 73619-WMEFXJT NAIL, 6 OR MORE 12/16/2024 Next Appt Details Follow Up: 2 Weeks, Reason: Provider Name:Eva Alas , 02/24/2025 09:00:00 AM, [address] [facility], [place], [address], Procedure Notes * Category Sub-Category Detail Notes [...] Motrin was recommended for pain or discomfort (28313), Pt DEFERS matricectomy Anesthesia , was accomplished [...] use of a nail nipper and/or dremel-type industrial coffee grinder, to a more viable healthy nail plate [...] to maintain effectiveness in symptomatic relief - 62309 Progress Notes * Melissa NAPIEROB:[birth year] (79 yo F)Acc No.[id number]:12/16/2024 Progress Note Patient:?Melissa NAPIER Provider:?Eva Alas DPM :1945???Age:79 Y???Sex:Female D ate:12/16/2024 Address: [address] [place], [id number] Pcp:Ana Garcia MD Subjective: * Chief Complaints: [...] use of a nail nipper and/or dremel-type industrial coffee grinder, to a more viable healthy nail plate [...] to maintain effectiveness in symptomatic relief - 36488.?Nail Avulsion:?Location?, Lateral nail border, TA.?Anesthesia?, was accomplished [...] Motrin was recommended for pain or discomfort (30971), Pt DEFERS matricectomy.? * Procedure Codes:?54404 DEBRI DE NAIL, 6 OR MORE, Modifiers: XS 97098 Avulsion Plate, Modifiers: TA * Follow Up:?2 Weeks * Images: * Sign off status: Completed true * Provider:?Eva Alas DPM Date:?2024 Generated for Jed pabon/Nimisha/eTaugust on:?01/23/2025 04:14 PM EST History and Physical Notes * [...]
--- OUTSIDE RECORDS SUMMARY | 2025-01-23 16:15 | XMS_ITS ---
Author Organization [facility] [place] Address [address] [facility] [place] [address] Care Team Providers Care Weed Inspector Name Role Phone Ana Garcia MD Primary Care Provider Sabino Eva Brooks Unavailable [phone] Allergies No Known Allergies REASON FOR VISIT [...] Problem Status W/U Status Risk Notes Problem 213633532 Ulcer of right foot, limited to breakdown of skin (L97.511) Active confirmed Vital Signs Height 5 ft 7 in in 10/07/2024 Weight 207 lbs 10/07/2024 BMI 32.42 kg/m2 10/07/2024 Procedures Procedure Date Ordered Date Performed Result Body Sit e 36008-IZSEANT NAIL, 6 OR MORE 10/07/2024 N/A 87793- Debride <25 sq cm 10/07/2024 N/A Encounters Encounter Location Date Provider Diagnosis [facility] [address] 10/07/2024 Eva Black Pain in right foot [...] Treatment Pending Test Test Name Order Date 48602-FPMIDYT NAIL, 6 OR MORE 10/07/2024 00545- Debride <25 sq cm 10/07/2024 Next Appt Details Follow Up: 2 Months, Reason: Provider Name:Eva Alas , 02/24/2025 09:00:00 AM, [address] [facility], [place], [address], Procedure Notes * Category Sub-Category Detail Notes [...] use of a nail nipper and/or dremel-type regrinder operator, to a more viable healthy nail plate or bed tissue 6-10. Silver nitrate used for any petechial bleeding as necessary. Definitive antifungal treatment options have been reviewed and discussed with the patient. The patient chooses, no pharmaceutical tx - 34846 Debride skin< 25 sq cm Open wound [...] of the wound post debridement is stable (65145) Progress Notes * Melissa NAPIERHilarioOB:[birth year]20 (79 yo F)Acc No.[id number]:10/07/2024 Progress Note Patient:?Melissa NAPIER Provider:?Eva Alas DPM :1945???Age:79 Y???Sex:Female D ate:10/07/2024 [facility] Pcp:Ana Garcia MD Subjective: * Chief Complaints: [...] foot, limi luke to breakdown of skin?Procedure: 46176- Debride <25 sq cm * Procedures:?Debride Nail [...] use of a nail nipper and/or dremel-type regrinder operator, to a more viable healthy nail plate or bed tissue 6-10. Silver nitrate used for any petechial bleeding as necessary. Definitive antifungal treatment options have been reviewed and discussed with the patient. The patient chooses, no pharmaceutical tx - 81231.?Debride skin< 25 sq cm:?Open wound?: Physician of [...] of the wound post debridement is stable (96902).? * Procedure Codes:?17819 DEBRI DE NAIL, 6 OR MORE, Modifiers: XS 12723 ACTIVE WOUND CARE/20 CM OR <, Modifiers: [...] Alas DPM Date:?2023 Generated for Jed pabon/Nimisha/eTdmitrysmitting on:?01/23/2025 04:14 PM EST History and Physical [...]
--- OUTSIDE RECORDS SUMMARY | 2025-01-23 16:15 | XMS_ITS ---
Author Organization [facility] [place] Address [address] [facility] [place] [address] Care Team Providers Care Shrimp Trawler Captain Name Role Phone Ana Garcia MD Primary Care Provider Sabino Eva Brooks Unavailable [phone] Allergies No Known Allergies REASON FOR VISIT [...] Ordered Date Performed Result Body Sit e 71034-JJNZGNN NAIL, 6 OR MORE 07/08/2024 N/A Encounters Encounter Location Date Provider Diagnosis [facility] [address] 07/08/2024 Eva Alas Pain in right foot [...] 024 Pending Test Test Name Order Date 45573-UPXSETJ NAIL, 6 OR MORE 07/08/2024 Next Appt Details Follow Up: 2 Months, Reason: with Dr. Alas Provider Name:Eva Alas , 02/24/2025 09:00:00 AM, [address] [facility], [place], [address], Procedure Notes * Category Sub-Category Detail Notes [...] necessary. Patient STILL chooses, no pharmaceutical tx (99240) Progress Notes * Melissa NAPIEROB:[birth year] (79 yo F)Acc No.[id number]:07/08/2024 Progress Note Patient:?Melissa Napier Provider:?Eva Alas DPM :1945???Age:79 Y???Sex:Female D ate:07/08/2024 Address: [address] [facility] [place] Pcp:Ana Garcia MD Subjective: * Chief Complaints: [...] toe(s) - M79.675? Plan: * Treatment: 2.?Onychomycosis?Procedure: 82517-HFXPCGI NAIL, 6 OR MORE * Procedures:?Debride Nail 6-10:?Nail debridement?Nail debridement performed extensively to reduce/remove overall nail length and girth, subungual debris, and necrotic tissue, by manual and electrical means with use of a nail nipper and/or dremel, to more viable healthy nail plate or bed tissue 6-10. Silver nitrate used for any petechial bleeding as necessary. Patient STILL chooses, no pharmaceutical tx (73352).? * Procedure Codes:?29047 DEBRI DE NAIL, 6 OR MORE, Modifiers: [...] exercise to failure, expense, systemic complications, infection, ktixolb-zap-sctvehe, prolongued postop course. Patient questions re: the various treatment options available, their successes and potential failures, and mcc effects were discussed and the answers were [...] Alas DPM Date:?2023 Generated for Jed pabon/Nimisha/Angely on:?01/23/2025 04:15 PM EST History and Physical Notes * [...]
--- OUTSIDE RECORDS SUMMARY | 2025-01-23 16:15 | XMS_ITS | Patient Health Record ---
Author Organization [facility] belinda [place] Address [address] 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 Problem Acquired hammer toe of right foot (6539158364901753) Other hammer toe(s) (acquired), right foot (M20.41) Active confirmed Problem Acquired hammer toe of left foot (9057401714997094) Other hammer toe(s) (acquired), left foot (M20.42) Active confirmed Problem Acquired hammer toe of right foot (0827624702833288) Other hammer toe(s) (acquired), right foot (M20.41) Active confirmed Problem Acquired hammer toe of left foot (0177104696202577) Other hammer toe(s) (acquired), left foot (M20.42) Active confirmed Problem Joint contracture of the ankle and/or foot (572909260) Flexion 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) Active confirmed Problem Joint contracture of the ankle and/or foot (718797465) Flexion contracture of joint of right foot (M24.574) Active confirmed Problem Acquired deformity of right foot (71381344522565227) PlantarFlexion of metatarsal of right foot (M21.6X1) Active confirmed Problem Joint contracture of the ankle and/or foot (828997353) Flexion contracture of joint of right foot (M24.574) Active confirmed Problem 2503145255888201 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) Active confirmed Problem 465477725 Ulcer of right foot, limited to breakdown of skin (L97.511) Active confirmed Problem 069259274 Gouty arthritis (M10.9) Active confirmed Problem 029936503 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) Active confirmed Vital Signs Blood pressure diastolic 77 mm Hg 12/16/2024 Height 5 ft 7 in in 12/16/2024 Blood pressure systolic 130 mm Hg 12/16/2024 Weight 207 lbs 12/16/2024 BMI 32.42 kg/m2 12/16/2024 Procedures Procedure Date Ordered Date Performed Result Body Sit e 13595-GUUIMAA NAIL, 6 OR MORE 04/01/2024 N/A 90942, J0702- INJECT or DRAI N, JOINT/BURSA 04/13/2024 N/A 04082-GENZYTZ NAIL, 6 OR MORE 07/08/2024 N/A 70291-XMCUICD NAIL, 6 OR MORE 10/07/2024 N/A 55821- Debride <25 sq cm 10/07/2024 N/A 53950-VXTOIRR NAIL, 6 OR MORE 12/16/2024 N/A Encounters Encounter Location Date Provider Diagnosis [address] [place] [address] 04/01/2024 Eva Black Onychomycosis B35.1 ; Pain in right toe(s) M79.674 and Pain in left toe(s) M79.[address] [address] 04/13/2024 Keshawn Sepulveda Pain in right foot M79.671 ; Gouty arthritis M10.9 and Arthritis of right ankle M19.[address] [address] 05/12/2024 Keshawn Sepulveda Pain in right foot M79.671 ; Arthritis of right ankle M19.071 and 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.[address] [place] [address] 07/08/2024 Eva Black Pain in right foot M79.671 ; Arthritis of right ankle M19.071 ; 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.771 ; Onychomycosis B35.1 ; Pain in right toe(s) M79.674 and Pain in left toe(s) M79.[address] [place] [address] 10/07/2024 Eva Black Pain in right foot M79.671 ; Arthritis of right ankle M19.071 ; 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.771 ; Onychomycosis B35.1 ; Pain in right toe(s) M79.674 ; Pain in left toe(s) M79.675 and Ulcer of right foot, limited to breakdown of skin L97.[address] [facility] [address] [place] [address] 12/16/2024 Eva Black Onychomycosis B35.1 ; Ingrown nail L60.0 ; Pain in right toe(s) M79.674 and Pain in left toe(s) M79.675 [facility] [address] [facility] [address] [place] [address] 04/13/2024 Eva Black [facility] [address] [address] 05/12/2024 [facility] [address] [address] 05/12/2024 Eva Black Assessments Encounter Date Diagnosis [...] Date *Uric Acid, Serum 04/13/2024 *Sedimentation Rate-Westergren 18724-DZNCZOP NAIL, 6 OR MORE 12/29/2023 11691-AJDZXDZ NAIL, 6 OR MORE 04/01/2024 01271-GENPCHV NAIL, 6 OR MORE 04/29/2023 16453-LKASETE NAIL, 6 OR MORE 07/08/2023 79647-ZGHDKNE NAIL, 6 OR MORE 09/22/2023 16646-WRQHHOU NAIL, 6 OR MORE 02/13/2023 62763-ZECVQAD NAIL, 6 OR MORE 07/08/2024 30261-JMVUAQK NAIL, 6 OR MORE 10/07/2024 57596-QXAQRBM NAIL, 6 OR MORE 12/16/2024 23273-UXAFOOQ NAIL, 1-5 12/10/2021 84074-Tdbduofx Plate 12/29/2023 86981-Kylzwsxd Plate 04/29/2023 95056-Jqytgryn Plate 07/22/2021 18140- Debride <25 sq cm 10/07/2024 67552, J0702- INJECT or DRAIN, JOINT/BUR SA 04/13/2024 06188, R7539-SRLQV/INJECT, JOINT/BURSA 0 08/17/2017 99380,A8074-NIX TENDON SHEATH/LIGAMENT 0 08/15/2019 30426,X8715-MSM TENDON SHEATH/LIGAMENT 1 84479, J0702- Neuroma/Injection 09/14/20 17 X ray : Ankle, right 3V 04/13/2024 50298 - Tenotomy, open flexor 08/07/2021 Next Appt Details Provider Name:Eva Giles Bishop , 02/24/2025 09:00:00 AM, [address] [facility], [place], [address], Insurance Providers Payer Name Payer Address Payer Phone Subscriber Number Group Number Insured Name Patient Relationship to Insured Coverage Start Date Coverage End Date Medicare National [facility] [address] [place] [address] [id number] Melissa De La Garza Self - patient is the insured [employer] [address] [place] [address] [id number] Melissa De La Garza Self - patient [...]
== END 2025-01-23 14:40 | disposition home or self-care (01) ==
PROVIDERS: PCP Internal Medicine; Visit Provider Internal Medicine Cardiovascular Disease
DX: I48.19 Other persistent atrial fibrillation (principal); I42.9 Cardiomyopathy, unspecified; Z95.2 Presence of prosthetic heart valve
CPT/HCPCS: 99214; G2211

== ENCOUNTER → 2025-01-23 13:44 | Outpatient (BNVA) | payer MEDICARE, SELFPAY | PROVIDERS: PCP Internal Medicine; Visit Provider Internal Medicine Cardiovascular Disease | DX: I48.19 Other persistent atrial fibrillation (principal); I42.9 Cardiomyopathy, unspecified; Z95.2 Presence of prosthetic heart valve | CPT/HCPCS: 99212 ==

== ENCOUNTER 2025-03-13 12:46 | Outpatient (REF) | payer MEDICARE, SELFPAY ==
[2025-03-13 16:28] LABS: Appearance Urine Cloudy; Color Urine BROWN; Glucose Urine UA Negative (Negative); Leukocyte Esterase Urine Small (1+) (Negative); PH 6.5 (5.0-9.0); Specific Gravity - Urine >= 1.030 (1.005-1.025); UMIC TRIGGER UA YES; Urine Blood Large (3+) (Negative); Urine Ketones Trace mg/dL (Negative); Urine Protein 300 (3+) mg/dL (Neg-Trace)
[2025-03-13 17:10] LABS: Bacteria Urine 2+ (None Seen); Hyaline Casts Urine 0-2 /LPF (0-2); Nitrite Urine Positive (Negative); Squamous Epithelial Cell Urine 0-2 /HPF (0-2)
== END 2025-03-13 12:47 | disposition home or self-care (01) ==
LOC: HO.HMGCLDS 12:46
PROVIDERS: PCP Internal Medicine; Visit Provider Internal Medicine
DX: R30.0 Dysuria (principal)
CPT/HCPCS: 81001; 87086; 87088; 87186

== ENCOUNTER 2025-03-20 10:28 | Outpatient (AMB) | payer MEDICARE, SELFPAY ==
--- NOTE | 2025-03-20 10:45 | A.OFFVIS_ITS ---
Intake Visit Reasons: 3m follow up Intake Note: Patient presents today for follow up on: recurrent uti and hematuria Urology Medication: Oxybutynin, Estrace Cream, Bactrim Antibiotic Allergy:NONE Blood Thinner:NONE PVR: 0ml's Granite Polisher Required: No Accompanied by: Self / Same As Patient Allergies benzonatate Adverse Reaction (Mild, Verified 03/20/25 11:00) Hallucinations HPI Comments Details: Ian is a very pleasant 80-year-old female patient of Dr. Garcia. She has a past medical history of cardiac arrhythmia, restrictive lung disease, hard of hearing, osteoarthritis, osteopenia, hypercholesteremia, osteoarthritis, hypertension, and rheumatoid arthritis. She presents to the office today for follow-up. In discussion with the patient today she reports having called her PCP approximately a week ago for UTI like symptoms she had been experiencing at which time a urine culture was ordered and performed and the patient was started on Bactrim. She reports she is currently on Bactrim and is feeling significantly better. She reports she had been experiencing foul-smelling urine as well as dysuria. In review of patient's chart it appears urine cultures are as follows: 12/15, 04/14, 06/14, 06/15: E coli 08/16 Hafnia alvei 10/16 Proteus mirabilis 03/17 Klebsiella pneumoniae When asked she reports compliance with Estrace cream as prescribed. During last office visit approximately 3 months ago patient underwent an office cystoscopy for hematuria she had been experiencing that noted Grade 2 trabeculations noted otherwise NAD. We discussed potential causes of recurrent urinary tract infections. We discussed trial of methenamine and vitamin-C for suppression as patient has been compliant with Estrace cream and continues to experience urinary tract infections. She does report a longstanding history of constipation. She also reports noting episodes of nocturia up to 3 times per night. Previous workup has included a retroperitoneal ultrasound 09/15 noting bilateral kidneys are normal in size, contour, and echogenicity. No hydronephrosis, lesions, and or renal calculi noted bilaterally. The bladder is well distended and normal. Pre void bladder volume is approximately 350 mL. Postvoid bladder volume is approximately 50 mL. In office urinalysis results reviewed with the patient today 3+ microscopic hematuria as well as proteinuria however patient currently on antibiotic therapy will reassess in 1 month. When asked she denies dysuria, foul smelling urine, changes to urinary stream, flank pain, fever, and or chills. Plan The patient's current course of sulfamethoxazole-trimethoprim for a urinary tract infection should be completed. Due to the side effects associated with oxybutynin, Mirabegron has been recommended for overactive bladder management. It is imperative she completes her antibiotic regime and reports any continued or recurring symptoms. I also suggested maintaining her current usage of vaginal estrogen cream and addressing constipation management, advising an increase in her stool softener dosage if needed. Regular follow-ups for nocturia are planned following the introduction of Mirabegron. Patient was informed and verbally consented to the use of an ambient scribe for clinic note documentation during this visit. Discussion Notes I discussed with the patient the completion of her current antibiotic therapy and the change to Mirabegron due to adverse effects from oxybutynin. The potential benefits of Mirabegron in managing overactive bladder symptoms while minimizing side effects were explained. We discussed the recurrence risk of UTIs related to constipation, and I provided guidance on continuing vaginal cream usage and adjusting bowel regimen to prevent UTIs. The patient understood the plan and agreed to contact the nurse's line for any emergent symptoms and or seeking medical treatment. Advised on monitoring her condition following antibiotic completion and considered the effectiveness of Mirabegron in her nocturia management. The importance of addressing symptomatic changes and scheduling subsequent appointments for further assessment and management was recognized. [facility] Medical History Cardiac arrhythmia Restrictive lung disease Cough Ear infection Hard of hearing COVID-19 vaccine series completed Osteoarthritis of right knee Dry mouth Osteopenia Postnasal drip Hypercholesteremia Osteoarthritis Hypertension Rheumatoid arthritis H/O bone density study Lumbago Surgical History History of total left knee replacement H/O colonoscopy Status post herniorrhaphy H/O mitral valve replacement History of splenectomy Hx of cholecystectomy Family History Father Cerebral hemorrhage Parkinsonism Mother COPD (chronic obstructive pulmonary disease) Lung cancer Brother Lung cancer Son No problems noted. Daughter No problems noted. Daughter No problems noted. Daughter No problems noted. Social History Housing: House Are you a primary pharmacist critical care to a significant other at home: No Do you presently have visiting nurse or other home services: No Patient Tobacco Use Status: Never used Tobacco e-Cigarette/Vaping Use: Never Used Second Hand Smoke Exposure: Yes service: No Current occupational status: retired Current occupational exposures/hazards: No Cognitive needs: No Hearing needs: Yes Vision needs: Yes Review of Systems Eyes Reports no additional complaints ENT Reports as per HPI Card Reports as per HPI Resp Reports as per HPI GI Reports no additional complaints Reports as per HPI Musc Reports as per HPI Physical Exam Const General: cooperative, healthy appearing, comfortable, no acute distress, well developed, alert and awake Nutritional Appearance: overweight Orientation/consciousness: patient oriented x3 Limitations: no limitations HEENT Head: Yes normal to inspection, Yes normocephalic and Yes atraumatic Ears: hearing grossly normal bilaterally Eyes General: appearance normal, both eyes and all related structures Neck Neck: Yes normal visual inspection and Yes trachea midline Chest Chest palpation & inspection: normal inspection of the chest Resp Effort & Inspection: normal respiratory effort and able to speak in complete sentences Cardio Rate: regular rate GI Inspection: Yes normal to inspection General: Yes no CVA tenderness External Female Exam: normal external appearance and normal appearance of the urethra (Mild irritation of urethra) Speculum Exam - Vagina: normal appearance of the vagina Back/Spine/Pelvis Back: no CVA tenderness Skin General skin exam: no rashes or lesions noted Neuro General: patient oriented x3 Extrem General: Yes normal to inspection Psych Appearance: grossly normal and well kempt Mental Status: mental status grossly normal Speech and movement: Normal speech and movement present and Clear speech present Affect: normal affect Attitude: cooperative Thought process: Normal thought process present Thought content: Normal thought content present Insight: Fair insight present (Psych) Judgement: Fair judgement present (Psych) Office Procedures Post Void Residual Post Residual Void Post Void Residual (PVR): 0 44354-Qgpm Void Residual by ultrasound Results AMB Urinalysis, Automated UA Leukoctes 70 Calista/uL Last Edit by Luis Fernando Ortiz on 03/20/25 11:04 UA Nitrite Last Edit by Luis Fernando Ortiz on 03/20/25 11:04 UA Urobilinogen 0.2 mg/dL Last Edit by Luis Fernando Ortiz on 03/20/25 11:04 UA Protein 100 mg/dL Last Edit by Luis Fernando Ortiz on 03/20/25 11:04 UA pH 6.0 Last Edit by Luis Fernando Ortiz on 03/20/25 11:04 UA Blood 200 Sky/uL Last Edit by Luis Fernando Ortiz on 03/20/25 11:04 UA Specific [facility] 1.030 Last Edit by Luis Fernando Ortiz on 03/20/25 11:04 UA Ketone Last Edit by Luis Fernando Ortiz on 03/20/25 11:04 UA Bilirubin 0 mg/dL Last Edit by Luis Fernando Ortiz on 03/20/25 11:04 UA Glucose 0 mg/dL Last Edit by Luis Fernando Ortiz on 03/20/25 11:04 Results Reviewed Results Reviewed: Laboratory Last Values Urine pH (Auto) 6.0 03/20/25 11:03 Specific [facility] (Auto) 1.030 03/20/25 11:03 Urine Protein (Auto) 100 mg/dL 03/20/25 11:03 Glucose (UA)(Auto) 0 mg/dL 03/20/25 11:03 Urine Blood (Auto) 200 Sky/uL 03/20/25 11:03 Urine Bilirubin (Auto) 0 mg/dL 03/20/25 11:03 Urine Urobilinogen (Auto) 0.2 mg/dL 03/20/25 11:03 Leukocyte Esterase (Auto) 70 Calista/uL 03/20/25 11:03 Assessment & Plan Assessment & Plan (1) Renal cyst: Code(s): N28.1 - Cyst of kidney, acquired Category: Medical (2) Recurrent UTI: Code(s): N39.0 - Urinary tract infection, site not specified Category: Medical (3) Hematuria: Code(s): R31.9 - Hematuria, unspecified Category: Medical (4) UTI (urinary tract infection): Code(s): N39.0 - Urinary tract infection, site not specified Category: Medical (5) Nocturia: Code(s): R35.1 - Nocturia Category: Medical Plan In office urinalysis results reviewed with the patient today; as noted above. PVR 0 mL Discussed importance of completion of antibiotic therapy as prescribed by PCP. Stop oxybutynin. Start mirabegron as discussed and prescribed. We discussed importance of limiting fluids 2-3 hours prior to bed to decrease episodes of nocturia. We discussed correlation of recurrent urinary tract infections and constipation Continue Estrace cream. We also discussed further treatment options of recurrent urinary tract infections such as methenamine and vitamin-C. Discussed UTI prevention with D mannose supplement, vitamin-C, increasing fluid intake, behavioral therapy with timed voiding, perineal hygiene and postcoital voiding, and management of constipation with stool softeners and increased fiber intake. Follow-up in 1 month with PVR; or sooner with any issues, concerns, and or questions. Orders: Orders AMB Urinalysis Automated Today Z13.9 - Encounter for screening, unspecified AMB Post Void Residual by ultrasound Today N39.0 - Urinary tract infection, site not specified Medications: New mirabegron ER (Myrbetriq) 25 mg PO DAILY 30 tabs 3RF 30 days N32.81 - Overactive bladder, R35.1 - Nocturia, R39.15 - Urgency of urination Discontinued oxybutynin chloride ER Discontinued Reason: Doctor's Order 10 mg PO DAILY 90 tabs 3RF Patient Instructions: The patient had an opportunity to ask questions regarding the treatment plan. All questions were answered. Physical exam, labs, and imaging were discussed and reviewed in detail. As well as risks, benefits, and discussion of treatment choices. No major barriers to understanding were identified. The patient expressed understanding and agreement with the above treatment plan. The patient was made aware they should contact our office by phone for worsening of their current condition, the appearance of new symptoms, or with any questions or concerns. Compliance is encouraged with any medications and follow up testing that is ordered. It is a privilege to be allowed the opportunity to participate in? your urological care.? Again, if you have any questions or concerns If you have any questions or concerns please do not hesitate to contact me. The office is [phone]. This note is constructed using voice recognition software. While every effort has been made to ensure accuracy visual merchandising assistant errors may have been included. Yours sincerely, RAFAEL Mo- Coding Level of Care Code Est Pt Level 4 (49846) Complex EM visit Add On G2211 Diagnoses Renal cyst N28.1 Recurrent UTI N39.0 Hematuria R31.9 UTI (urinary tract infection) N39.0 Nocturia R35.1 CPT Codes Post Residual Void - PVR CPT Code: 52779-Sbem Void Residual by ultrasound ([id number])
--- OUTSIDE RECORDS SUMMARY | 2025-03-20 12:18 | XMS_ITS ---
Author Organization [facility] [place] Address [address] [facility] [place] [address] Care Team Providers Care Solar Business Developer Name Role Phone Ana Garcia MD Primary Care Provider Sabino Eva Brooks Unavailable [phone] Allergies No Known Allergies REASON FOR VISIT [...] Problem Status W/U Status Risk Notes Problem 749905004 Ulcer of right foot, limited to breakdown of skin (L97.511) Active confirmed Vital Signs Height 5 ft 7 in in 10/07/2024 Weight 207 lbs 10/07/2024 BMI 32.42 kg/m2 10/07/2024 Procedures Procedure Date Ordered Date Performed Result Body Sit e 46472-VOFKPED NAIL, 6 OR MORE 10/07/2024 N/A 24910- Debride <25 sq cm 10/07/2024 N/A Encounters Encounter Location Date Provider Diagnosis [facility] [address] 10/07/2024 Eva Black Pain in right foot [...] Treatment Pending Test Test Name Order Date 55756-IWOZVJN NAIL, 6 OR MORE 10/07/2024 03415- Debride <25 sq cm 10/07/2024 Next Appt Details Follow Up: 2 Months, Reason: Provider Name:Eva Alas , 05/10/2025 09:15:00 AM, [address] [facility], [place], [address], Procedure Notes * Category Sub-Category Detail Notes [...] use of a nail nipper and/or dremel-type regrinder, to a more viable healthy nail plate or bed tissue 6-10. Silver nitrate used for any petechial bleeding as necessary. Definitive antifungal treatment options have been reviewed and discussed with the patient. The patient chooses, no pharmaceutical tx - 14533 Debride skin< 25 sq cm Open wound [...] of the wound post debridement is stable (86081) Progress Notes * Melissa NAPIERHilarioOB:[birth year] (79 yo F)Acc No.[id number]:10/07/2024 Progress Note Patient:?Melissa NAPIER Provider:?Eva Alas DPM :1945???Age:79 Y???Sex:Female D ate:10/07/2024 [facility] Pcp:Ana Garcia MD Subjective: * Chief Complaints: [...] foot, limi luke to breakdown of skin?Procedure: 13254- Debride <25 sq cm * Procedures:?Debride Nail [...] use of a nail nipper and/or dremel-type regrinder, to a more viable healthy nail plate or bed tissue 6-10. Silver nitrate used for any petechial bleeding as necessary. Definitive antifungal treatment options have been reviewed and discussed with the patient. The patient chooses, no pharmaceutical tx - 49601.?Debride skin< 25 sq cm:?Open wound?: Physician of [...] of the wound post debridement is stable (54428).? * Procedure Codes:?06711 DEBRI DE NAIL, 6 OR MORE, Modifiers: XS 34389 ACTIVE WOUND CARE/20 CM OR <, Modifiers: [...] Alas DPM Date:?2023 Generated for Jed pabon/Nimisha/eTdmitrysmitting on:?03/20/2025 12:18 PM EDT History and Physical Notes * HPI (History of Present Illness) Category Sub-Category Detail Notes Category Not es Painful Nails Pt States Last PCP Visit: Date:: 06/16/2024 Foot Pain Aggrevated: any pressure, st anding, walking Onset/Cause: unknown, denies sonya afrmer, sudden--onset 04/08/24 Course: improved ,, at 90 [...]
--- OUTSIDE RECORDS SUMMARY | 2025-03-20 12:18 | XMS_ITS | Patient Health Record ---
[facility] Organization [facility] [place] Address [address] [facility] [place] [address] Care Team Providers Care Print Line Feeder Name Role Phone Ana Garcia MD Primary Care Provider Sabino Alas Eva Unavailable [phone] Keshawn Sepulveda Unavailable [phone] Allergies No Known Allergies Reason For Referral No Information Medications Medication SIG (Take, Route, Frequency, Duration) Notes Start Date End Date Status sulfaSALAzine Not-Ta PriLOSEC Active Folic Acid Active ASO Ankle/Foot Stablizing AFO As directed Wear Daily for as needed 05/12/2024 Not-Taking Metoprolol Tartrate Active Omeprazole 20 MG 1 capsule 1/2 to 1 h our before morning meal Orally Once a day Active Night Splint AFO - L1930 as directed 08/15/2019 Not-Taking Celecoxib Active Colcrys 0.6 MG 1 tablet Orally once a day for 10 days 04/13/2024 Not-Taking Atorvastatin Calcium 20 MG 1 tablet Orally Once a day Active Vitamin D Not-Taking oxyBUTYnin Chloride ER 10 MG 1 tablet Orally Once a day Active Vitamin B 12 Not-Jose ing Entresto Active Voltaren Arthritis Pain 1 % as directed Externally 07/08/2024 Activ e Famotidine 40 MG 1 tablet Orally Once a day Active Aspirin 81 MG Orally Not-Ta reji Methotrexate 2.5 MG Orally Active Eliquis Active Humira 40 MG/0.8ML Subcutaneous Active Immunizations Vaccine Route Administration Date Status Comme [...] Status Risk Notes Problem Plantar nerve lesion (163066701) Lesion of plantar nerve, 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 Problem Acquired hammer toe of right foot (9531208332639053) Other hammer toe(s) (acquired), right foot (M20.41) Active confirmed Problem Acquired hammer toe of left foot (5149244390993198) Other hammer toe(s) (acquired), left foot (M20.42) Active confirmed Problem Acquired hammer toe of right foot (4165658074126764) Other hammer toe(s) (acquired), right foot (M20.41) Active confirmed Problem Acquired hammer toe of left foot (8032379394527800) Other hammer toe(s) (acquired), left foot (M20.42) Active confirmed Problem 77532530 Lower limb lengt h difference (M21.70) Active confirmed Problem Joint contracture of the ankle and/or foot (441893577) Flexion 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) Active confirmed Problem Joint contracture of the ankle and/or foot (466069601) Flexion contracture of joint of right foot (M24.574) Active confirmed Problem Acquired deformity of right foot (42395676480295659) PlantarFlexion of metatarsal of right foot (M21.6X1) Active confirmed Problem Joint contracture of the ankle and/or foot (502768783) Flexion contracture of joint of right foot (M24.574) Active confirmed Problem 8174827789061250 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) Active confirmed Problem 681440259 Ulcer of right foot, limited to breakdown of skin (L97.511) Active confirmed Problem 596081645 Gouty arthritis (M10.9) Active confirmed Problem 224979530 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) Active confirmed Vital Signs Blood pressure diastolic 80 mm Hg 02/24/2025 Height 5 ft 7 in in 02/24/2025 Blood pressure systolic 127 mm Hg 02/24/2025 Weight 209 lbs 02/24/2025 BMI 32.73 kg/m2 02/24/2025 Procedures Procedure Date Ordered Date Performed Result Body Sit e 24800-XUVILNX NAIL, 6 OR MORE 04/01/2024 N/A 39687, J0702- INJECT or DRAI N, JOINT/BURSA 04/13/2024 N/A 43512-IJXWOGQ NAIL, 6 OR MORE 07/08/2024 N/A 30307-OYESIFU NAIL, 6 OR MORE 10/07/2024 N/A 15120- Debride <25 sq cm 10/07/2024 N/A 68297-CYZOMGD NAIL, 6 OR MORE 12/16/2024 N/A 61400-PULQNGG NAIL, 6 OR MORE 02/24/2025 N/A Encounters Encounter Location Date Provider Diagnosis [address] [place] [address] 04/01/2024 Eva Black Onychomycosis B35.1 ; Pain in right toe(s) M79.674 and Pain in left toe(s) M79.[address] [facility] [address] 04/13/2024 Keshawn Sepulveda Pain in right foot M79.671 ; Gouty arthritis M10.9 and Arthritis of right ankle M19.[address] [address] 05/12/2024 Keshawn Sepulveda Pain in right foot M79.671 ; Arthritis of right ankle M19.071 and 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.[address] [place] [address] 07/08/2024 Eva Black Pain in right foot M79.671 ; Arthritis of right ankle M19.071 ; 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.771 ; Onychomycosis B35.1 ; Pain in right toe(s) M79.674 and Pain in left toe(s) M79.[address] [address] 10/07/2024 Eva Black Pain in right foot M79.671 ; Arthritis of right ankle M19.071 ; 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.771 ; Onychomycosis B35.1 ; Pain in right toe(s) M79.674 ; Pain in left toe(s) M79.675 and Ulcer of right foot, limited to breakdown of skin L97.[address] [address] 12/16/2024 Eva Black Onychomycosis B35.1 ; Ingrown nail L60.0 ; Pain in right toe(s) M79.674 and Pain in left toe(s) M79.[address] [address] 02/24/2025 Eva Black Onychomycosis B35.1 ; Lower limb length difference M21.70 ; Pain in right toe(s) M79.674 and Pain in left toe(s) M79.675 [facility] [address] [address] 04/13/2024 Eva Black [facility] [address] 05/12/2024 [facility] [address] 05/12/2024 Eva Black Assessments Encounter Date Diagnosis [...] - L60.0) 12/16/2024 Onychomycosis (ICD-10 - B35.1) 02/24/2025 Lower limb length difference (ICD-10 - M21.70) 02/24/2025 Onychomycosis (ICD-10 - B35.1) 10/07/2024 Rheumatoid arthritis involving right ankle with positive rheumatoid factor (ICD-10 - M05.771) 12/16/2024 Pain in right toe(s) (ICD-10 - M79.674) 02/24/2025 Pain in right toe(s) (ICD-10 - M79.674) [...] - B35.1) 10/07/2024 Onychomycosis (ICD-10 - B35.1) 02/24/2025 Pain in left toe(s) (ICD-10 - M79.675) 12/16/2024 Pain in left toe(s) (ICD-10 - [...] Date *Uric Acid, Serum 04/13/2024 *Sedimentation Rate-Westergren 43480-OGNNCEN NAIL, 6 OR MORE 12/29/2023 11706-NYIYXIB NAIL, 6 OR MORE 04/01/2024 62885-QEFCAXM NAIL, 6 OR MORE 04/29/2023 86666-LDAJJIK NAIL, 6 OR MORE 07/08/2023 04174-APDABSO NAIL, 6 OR MORE 09/22/2023 29275-VFDLYXU NAIL, 6 OR MORE 02/13/2023 80815-IHGJINB NAIL, 6 OR MORE 07/08/2024 26081-QVBUJCW NAIL, 6 OR MORE 10/07/2024 34831-YBORABF NAIL, 6 OR MORE 12/16/2024 92988-MOHMZJR NAIL, 6 OR MORE 02/24/2025 11811-IOANFZP NAIL, 1-5 12/10/2021 92336-Tjrddqmi Plate 12/29/2023 85431-Iucgsswg Plate 04/29/2023 86206-Rxvwdyti Plate 07/22/2021 23238- Debride <25 sq cm 10/07/2024 47134, J0702- INJECT or DRAIN, JOINT/BUR SA 04/13/2024 94770, U8755-RTKAB/INJECT, JOINT/BURSA 0 08/17/2017 35519,E8212-ACA TENDON SHEATH/LIGAMENT 0 08/15/2019 61706,Z7196-TGI TENDON SHEATH/LIGAMENT 1 12039, J0702- Neuroma/Injection 09/14/20 17 X ray : Ankle, right 3V 04/13/2024 86698 - Tenotomy, open flexor 08/07/2021 Next Appt Details Provider Name:Eva Alas , 05/10/2025 09:15:00 AM, [address] , [place], [address], Insurance Providers Payer Name Payer Address Payer Phone Subscriber Number Group Number Insured Name Patient Relationship to Insured Coverage Start Date Coverage End Date Medicare [employer] [address] [place] [address] [id number] Melissa De La Garza Self - patient [facility] the [facility] [address] [place] [address] [phone] [id number] Melissa De La Garza Ellen Self - patient is the insured Medical (General) History Medical History History ICD Code Arthritis Back,Hip,and Knee pain Cataracts Heart disease Osteoporosis Chicken pox Measles Joint implants/screws Replacement Heart Valves Transfusions A Fib Surgical History Surgery Date(Month/Year) splenectomy 1960 heart surgery unspecified 2005 hernia 2006 hysterectomy 2006 cyst removal 2003 right knee replacement 05/13/2022
--- OUTSIDE RECORDS SUMMARY | 2025-03-20 12:18 | XMS_ITS | Data Portability ---
Author Organization [place] [facility], Allergy Address [address] [address] Assessment Encounter Date Assessment Date Assessment LastModified by Organization Details LastModified Time 12/19/2024 12/19/2024 Resolution: Schedule an appointment for cerumen management. 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 00885199828 70376 Active 2021 Central perforat ion of tympanic membrane , right ear; Note: Date Diagnose d: 2 10:31 AM (H72.91) Not Available [facility] 4 02:47:14 Sensorin eural hearing loss in left ear 95121055494 109 Active 2016 Sensorin eural hearing loss, unilater al, left ear, with restrict ed hearing on the contrala teral side; Note: Date Diagnose d: 7 11:42 AM (H90.A22 ) Not Available [facility] 4 02:47:11 Otorrhea of right ear [id number] 04969 Completed 202106/24/2024 Otorrhea , right ear; Note: Date Diagnose d: 2 9:32 AM (H92.11) Not Available [facility] 4 02:47:09 Acute non-supp urative otitis media of right ear 37382766461 27340 Active 2021 Other acute nonsuppu rative otitis media, right ear; Note: Date Diagnose d: 2 10:32 AM (H65.191 ) Not Available [facility] 4 02:47:13 Mixed conducti ve and sensorin eural hearing loss of right ear 22400471910 105 Active 2016 Mixed conducti ve and sensorin eural hearing loss, unilater al, right ear with restrict ed hearing on the contrala teral side; Note: Date Diagnose d: 7 11:42 AM (H90.A31 ) Not Available [facility] 4 02:47:11 Posterio r rhinorrh ea 21526915 Active 2021 Postnasa l drip; Note: Date Diagnose d: 11/14/20 4:46 PM (R09.82) Not Available [facility] 4 02:47:12 Gastroes ophageal reflux disease without esophagi tis 463608843 Active 2022 Gastro-e sophagea l reflux disease without esophagi tis; Note: Date Diagnose d: 10/20/20 11:01 AM (K21.9) Not Available [facility] 4 02:47:10 Somatofo rm disorder 23537630 Active 2022 Psychoge sumaya dysphagi a, includin g 'globus hysteric us'; Note: Date Diagnose d: 10/20/20 11:07 AM (F45.8) Not Available [facility] 4 02:47:10 Allergic rhinitis 33967326 Active 2022 Allergic rhinitis , unspecif ied; Note: Date Diagnose d: 07/31/2023 10:04 AM (J30.9) Not Available [facility] 4 02:47:13 Problem Notes None recorded. Medical Equipment None Reported. Medications Name Sig Start Date Stop Date Status Note LastModified by Organization Details LastModified Time Prescript ion - Prior Authoriza tion Request active Script Copy/Juanita or Auth^Scr ipt Copy/Juanita or Auth_ [id number] Not Available Not Available Not Available celecoxib 200 mg capsule TAKE 1 CAPSULE BY MOUTH TWICE A DAY active Not Available Not Available No t Available atorvasta tin 20 mg tablet TAKE 1 TABLET BY MOUTH EVERY DAY active Not Available Not Available No t Available sulfasala zine 500 mg tablet 04/11 completed Medicati on ID: [id number] D uration Value: 90 Brand Name: sulfasal [...] 325 mg tablet active Medicati on ID: 151600 B rand Name: aspirin Send Method: E-Prescr [...] affected area 2021 active Medicati on ID: [id number] D uration Value: 14 Prescri bed By [...] capsule,d elayed release active Medicati on ID: 352108 B rand Name: omeprazo le Send Method: E-Prescr ibed Sub s Allowed: subs OK Medic ationGen ericName : omeprazo le Not Available Not Available Not Available folic acid 1 mg tablet TAKE 1 TABLET BY MOUTH EVERY DAY active Not Available Not Available No t Available azelastin e 137 mcg (0.1 %) nasal spray [place] 2 spray into both nostrils twice a day as directed 2022 active Medicati on ID: [id number] D uration Value: 30 Prescri bed By [...] bromide 42 mcg (0.06 %) nasal spray [place] 2 spray into both nostrils three times a day 2022 active Medicati on ID: [id number] D uration Value: 30 Prescri bed By [...] a day 2022 active Medicati on ID: [id number] D uration Value: 21 Brand Name: cefdinir Send Method: E-Prescr ibed Sub s Allowed: subs OK Medic ationGen ericName : cefdinir Not Available Not Available Not Available ipratropi um bromide 21 mcg (0.03 %) nasal spray [place] 2 spray into both nostrils twice a day as directed 2021 active Medicati on ID: 796748 D uration Value: 30 Brand Name: ipratrop [...] with meals 10/01 completed Medicati on ID: 291662 D uration Value: 14 Brand Name: amoxicil yamila-pot clavulan ate Send Method: E-Prescr ibed Sub s Allowed: subs OK Medic ationGen ericName : amoxicil yamila-pot clavulan ate Not Available Not Available Not Available TobraDex 0.3 %-0.1 % eye drops,han pension 06/11 completed Medicati on ID: [id number] P rescribe d By Name: SIMEON Rm nd Name: TobraDex Send Method: E-Prescr ibed Sub s Allowed: subs OK Speci al Instruct ion: Instill 3 drops in the affect ear BID for 14 days Med icationG enericNa me: TobraDex Not Available Not Available Not Available Ciprodex 0.3 %-0.1 % ear drops,han pension 4 drop into right ear 2021 active Medicati on ID: [id number] D uration Value: 14 Prescri bed By Name: SIMEON Rm nd Name: Ciprodex Send Method: E-Prescr ibed Sub s Allowed: subs OK Speci al Instruct ion: x 14 days Med icationG enericNa me: Ciprodex Not Available Not Available Not Available metoprolo l tartrate 25 mg tablet 06/11 completed Medicati on ID: [id number] D uration Value: 90 Brand Name: metoprol [...] inhalatio n 06/11 completed Medicati on ID: [id number] B rand Name: Breo Ellipta Send Method: E-Prescr ibed Sub s Allowed: subs OK Medic ationGen ericName : Breo Ellipta Not Available Not Available Not Available Entresto 24 mg-26 mg tablet TAKE 1 TABLET BY MOUTH TWICE A DAY active Not Available Not Available No t Available aspirin 81 mg capsule active Medicati on ID: 960161 B rand Name: aspirin Send Method: E-Prescr [...] SNOMED-CT Code Diagnosis ICD10 Code Diagnosis Note [id number] Carol PALMA RAMOS [place] [address] [facility] [address] [facility] [address] 12/19/2024 11:04:37 12/20/2024 07:24:19 Mixed conductive and sensorineural hearing loss of right ear [id number] 9105 H90.A31 Health Concerns Section Related Observation LastModified by Organization Detai ls LastModified Time None Recorded Concern Status LastModified by Organization Details LastModified Time None Recorded Advance Directives Directive None Recorded Payers Encounter Date Sequence Insurance Name Policy Number Policy Hines Covered Member ID Hines Member ID Guarantor Name 12/19/2024 2 [facility] Melissa De La Garza [id number] Melissa De La Garza 12/19/2024 1 MEDICARE B-[place]: [employer] Melissa Keylexi [id number] Melissa De La Garza Notes Date Note Type Note Provider Name and Address Organization Details Recorded Time 12/19/2024 text/html Hearing Aid ProblemReported bypatient.Visit typein office repair Hearing Aidhearing device is functioning well Hearing Aidfeedback LANDEN NDIAYE, [address], [address], [facility] - [facility] 12/19/2024 11:27:32 OBGyn Episode No OBEpisode recorded.
--- OUTSIDE RECORDS SUMMARY | 2025-03-20 12:18 | XMS_ITS ---
Author Organization [facility] belinda Portis Address [address] [place] [address] Care Team Providers Care Groundhand Name Role Phone Ana Garcia MD Primary Care Provider Sabino Eva Brooks Unavailable [phone] Allergies No Known Allergies REASON FOR VISIT [...] Ordered Date Performed Result Body Sit e 96741-AFPOWRN NAIL, 6 OR MORE 12/16/2024 N/A Encounters Encounter Location Date Provider Diagnosis [facility] [place] [address] [place] [address] 12/16/2024 Eva Alas Onychomycosis B35.1 ; Ingrown [...] Treatment Pending Test Test Name Order Date [id number] NAIL, 6 OR MORE 12/16/2024 Next Appt Details Follow Up: 2 Weeks, Reason: Provider Name:Eva Alas , 05/10/2025 09:15:00 AM, [address] [facility], [place], [address], Procedure Notes * Category Sub-Category Detail Notes [...] Motrin was recommended for pain or discomfort (00858), Pt DEFERS matricectomy Anesthesia , was accomplished [...] use of a nail nipper and/or dremel-type chisel grinder, to a more viable healthy nail [...] to maintain effectiveness in symptomatic relief - 72569 Progress Notes * Melissa NAPIEROB:01/20 (79 yo F)Acc No.[id number]:12/16/2024 Progress Note Patient:?Melissa NAPIER Provider:?Eva Alas DPM :1945???Age:79 Y???Sex:Female D ate:12/16/2024 Address: [address], [id number] Pcp:Ana Garcia MD Subjective: * Chief Complaints: [...] use of a nail nipper and/or dremel-type chisel grinder, to a more viable healthy nail [...] to maintain effectiveness in symptomatic relief - 58199.?Nail Avulsion:?Location?, Lateral nail border, TA.?Anesthesia?, was accomplished [...] Motrin was recommended for pain or discomfort (34782), Pt DEFERS matricectomy.? * Procedure Codes:?76073 DEBRI DE NAIL, 6 OR MORE, Modifiers: XS 05150 Avulsion Plate, Modifiers: TA * Follow Up:?2 Weeks * Images: * Sign off status: Completed true * Provider:?Eva Alas DPM Date:?2024 Generated for Jed pabon/Nimisha/eTransmitting on:?03/20/2025 12:18 PM EDT History and Physical [...] PULSES (B): 1/4, B/L PT PULSES (B): 11/26, B/L Nails NAILS are: elongated,overgr own,dystrophic,greater than 3mm thick,discolored and friable with crumbly malodorous subungual debris, with pain on palpation, T5, T6, T7, T8, T9, T1
--- OUTSIDE RECORDS SUMMARY | 2025-03-20 12:19 | XMS_ITS ---
Author Organization [facility] belinda Franco Address [address] [facility] [place] [address] Care Team Providers Care Energy Professional Name Role Phone Ana Garcia MD Primary Care Provider Sabino Eva Brooks Unavailable [phone] Allergies No Known Allergies REASON FOR VISIT Painful Nail(s) aggrevated by shoes and causing difficulty standing/walking., unsteady gait Medications Medication SIG (Take, Route, Frequency, Duration) Notes Start Date End Date Status Atorvastatin Calcium 20 MG 1 tablet Orally Once a day Active oxyBUTYnin Chloride ER 10 MG 1 tablet Orally Once a day Active Entresto Active Famotidine 40 MG 1 tablet Orally Once a day Active Eliquis Active sulfaSALAzine Not-Ta ASO Ankle/Foot Stablizing AFO As directed Wear Daily for as needed 05/12/2024 Not-Taking Night Splint AFO - L1930 as directed 08/15/2019 Not-Taking Colcrys 0.6 MG 1 tablet Orally once a day for 10 days 04/13/2024 Not-Taking Vitamin B 12 Not-Jose ing Vitamin D Not-Taking Voltaren Arthritis Pain 1 % as directed Externally 07/08/2024 Activ e Aspirin 81 MG Orally Not-Gregory mendoza Methotrexate 2.5 MG Orally Active Humira 40 MG/0.8ML Subcutaneous Active PriLOSEC Active Folic Acid Active Metoprolol Tartrate Active Omeprazole 20 MG 1 capsule 1/2 to 1 h our before morning meal Orally Once a day Active Celecoxib Active Social History Tobacco Use: Social History Observation Description Date Details (start date - stop date) Never Smoker NA - NA Tobacco use other than smoking: Question Answer Notes Are you an other tobacco user? No Tobacco Control (Standard) Question Answer Notes Tobacco use: Nonsmoker Additional Findings: Tobacco non-user Current no nsmoker Problems Problem Type SNOMED Code ICD Code Onset Dates Problem Status W/U Status Risk Notes Problem 72449972 Lower limb length difference (M21.70) Active confirmed Vital Signs Height 5 ft 7 in in 02/24/2025 Weight 209 lbs 02/24/2025 BMI 32.73 kg/m2 02/24/2025 Blood pressure systolic 127 mm Hg 02/25/20 25 Blood pressure diastolic 80 mm Hg 025 Procedures Procedure Date Ordered Date Performed Result Body Sit e 27318-KEIJRQW NAIL, 6 OR MORE 02/24/2025 N/A Encounters Encounter Location Date Provider Diagnosis [facility] [place] [address] [place] [address] 02/24/2025 Eva Alas Onychomycosis B35.1 ; Lower limb length difference M21.70 ; Pain in right toe(s) M79.674 and Pain in left toe(s) M79.675 Assessments Encounter Date Diagnosis (ICD Code) Assessment Notes Treatment Notes Treatment Clinical Notes Section Notes 02/24/2025 Onychomycosis (ICD-10 - B35.1) 02/24/2025 Lower limb length difference (ICD-10 - M21.70) 02/24/2025 Pain in right toe(s) (ICD-10 - M79.674) 02/24/2025 Pain in left toe(s) (ICD-10 - M79.675) Plan Of Treatment Pending Test Test Name Order Date 11672-[id number] NAIL, 6 OR MORE 02/24/2025 Next Appt Details Follow Up: prn, Reason: Provider Name:Eva Alas , 05/10/2025 09:15:00 AM, [address] [facility], [place], [address], Procedure Notes * Category Sub-Category Detail Notes Debride Nail 6-10 Nail debridement Due to [...] use of a nail nipper and/or dremel-type pocket grinder operator, to a more viable healthy [...] to maintain effectiveness in symptomatic relief - 17738 Progress Notes * Melissa NAPIEROB:[birth year]20 (80 yo F)Acc No.[id number]:02/24/2025 Progress Note Patient:?Melissa NAPIER Provider:?Eva Alas DPM :1945???Age:80 Y???Sex:Female D ate:02/24/2025 Address: [facility] Pcp:Ana Garcia MD Subjective: * Chief Complaints: * ???Painful Nail(s) aggrevate d by shoes and causing difficulty standing/walking.Unsteady gait * HPI: ???Painful Nails:?Pt States Last PCP Visit:?Date:?09/13/2024 ???Functional Status:?Unsteady Gait?hx of LLD.? present left hip pain. * ROS:?General/Constitutional:?Nausea?denies.?Vomiting?denies.?Hunger Thirst?denies.?Loss appetite?denies.?Chills?denies.?Fatigue?denies.?Fever?denies.?Night Sweats?denies.?Unexplained weight loss?denies.?Unexplained [...] no. ?Marital status: . ?Occupation: Retired. * Medications:?TakingEliquis E ntresto Famotidine 40 MG Tablet 1 tablet Orally [...] 1 % Gel as directed Externally Taking Eliquis Taking Entresto Taking Famotidine 40 MG Tablet 1 tablet [...] Ankle/Foot Stablizing AFO As directed Wear Daily Not- Taking/PRN sulfaSALAzine Medication List reviewed and reconciled with the patient * Allergies:?N.K.D.A.yes[Aller gies Verified] Objective: * Vitals:?Ht: 5 ft 7 in, Wt: 2 09, BMI: 32.73, Shoe size: 10, BP: 127/80 mm Hg, Wt- k.8 kg. * Examination: ???General Examination: ?GENERAL APPEARANCE:?pleasant, [...] tarsal tunnel, selena pedis, and medial calcaneal nerves.?Vascular: ?DP PULSES (B):? 11/26, B/L.?PT PULSES (B):? 11/26, B/L.?CAPILLARY FILL TIME:?delayed, all digits, B/L.?TROPHIC CONDITION-TEXTURE/ELASTICITY/TURGOR/HAIR GROWTH (B):?with sparse to absent hair growth, B/L.?Dermatologic: ?SKIN FINDINGS:?Skin exam reveals normal texture, elasticity, and tugor. There are no masses. The interspaces are clear, B/L .?Nails: ?NAILS are:?elongated,overgrown,dystrophic,greater than 3mm thick,discolored and friable with crumbly malodorous subungual debris, with pain on palpation, T5, T6, T7, T8, T9, T1.?Orthopedic: ?MUSCLE STRENGTH:?5/5 all groups in a symmetrical fashion, B/L.?GAIT ABNORMALITY:?Pronated, Left >R.?LIMB LENGTH DISCREPANCY:?R > L.?DIGITAL DEFORMITIES:?Digital contracture, PIPJ, 2-5 B/L, incompl-reducible with WB, or to push-up test, no over, nor underlapping.?FOOTWEAR EVALUATION:?worn, non-supportive, fair condition, OT were inspected and noted to be worn , in fair condition but giving proper support at the present time.? Assessment: * Assessment: 1.?Lower limb length differe nce - M21.70 (Primary)???2.?Onychomycosis - B35.1???3.?Pain in right toe(s) - M79.674???4.?Pain [...] use of a nail nipper and/or dremel-type pocket grinder operator, to a more viable healthy [...] to maintain effectiveness in symptomatic relief - 96879.? * Procedure Codes:?02268 DEBRI DE NAIL, 6 OR MORE, Modifiers: [...] have encouraged the patient to call the office.?BioMech.:?I discussed the Pts foot biomechanics with them and how it relates to their problem, The patient and I reviewed the types of shoes they should be wearing; my recommendation includes obtaining a shoe with a good firm sole, plenty of toe room, and proper arch support. additional lift is added to her left shoe. Pt ambulated and related she felt a difference already. Pt will conintue with left and supportive shoes. If hip pain continues recomm. Ortho.? ??Screening/Special Tests:?Fall Risk?Screening:?No falls in the past year ?FALLS: Screening for Future Fall Risk?Have you had any falls with injury in the past year??No * Follow Up:?prn * Images: * Sign off status: Completed true * Provider:?Eva Alas DPM Date:?2024 Generated for Jed pabon/Nimisha/Angely on:?03/20/2025 12:18 PM EDT History and Physical Notes * HPI (History of Present Illness) Category Sub-Category Detail Notes Category Not es Painful Nails Pt States Last PCP Visit: Date:: 09/13/2024 Functional Status Unsteady Gait hx of LLD present l eft hip pain Examination Category Sub-Category Detail Notes Category Not es Ingrown Nail INSPECTION: Neurological SENSORY: Neurological exa m is normal, pain sensation normal, vibration sensation intact, pinprick sensation is normal in the lower extremities, denies, tingling, burning, anesthesia, paresthesia, hyperesthesia, B/L, Neurological exam demonstrates pop medial right ankle lig's TINEL'S COMPRESSION: Negative tarsal ebony dione, selena pedis, and medial calcaneal nerves Dermatologic SKIN FINDINGS: Skin exam reveal s normal texture, elasticity, and tugor. There are no masses. The interspaces are clear, B/L Orthopedic GAIT ABNORMALITY: Pronated, Left >R LIMB LENGTH DISCREPANCY: R > L FOOTWEAR EVALUATION: worn, non-supportiv e, fair condition, OT were inspected and noted to be worn , in fair condition but giving proper support at the present time DIGITAL DEFORMITIES: Digital contracture , PIPJ, 2-5 B/L, incompl-reducible with WB, or to push-up test, no over, nor underlapping MUSCLE STRENGTH: 5/5 all groups in a symmetrical fashion, B/L General Examination GENERAL APPEARANCE: pleasant , alert, well nourished, well developed, well hydrated, with good attention to hygene/body habitus, and in no acute distress ORIENTED: person,place, and ti me Vascular DP PULSES (B): 1/4, B/L PT PULSES (B): 1/4, B/L CAPILLARY FILL TIME: delayed, all digits , B/L TROPHIC CONDITION-TEXTURE/ELASTICITY/TURGOR/HAIR GROWTH (B): with sparse to absent hair growth, B/L Nails NAILS are: elongated,overgr own,dystrophic,greater than 3mm thick,discolored and friable with crumbly malodorous subungual debris, with pain on palpation, T5, T6, T7, T8, T9, T1
== END 2025-03-20 11:22 | disposition home or self-care (01) ==
LOC: HO.HUSH 10:29
PROVIDERS: PCP Internal Medicine; Visit Provider Nurse Practitioner Family
DX: N28.1 Cyst of kidney, acquired (principal); N39.0 Urinary tract infection, site not specified; R31.9 Hematuria, unspecified; R35.1 Nocturia; Z13.9 Encounter for screening, unspecified
CPT/HCPCS: 99214; G2211

== ENCOUNTER → 2025-03-20 10:28 | Outpatient (BNVA) | payer MEDICARE, SELFPAY | PROVIDERS: PCP Internal Medicine; Visit Provider Nurse Practitioner Family | DX: N28.1 Cyst of kidney, acquired (principal); N39.0 Urinary tract infection, site not specified; R31.9 Hematuria, unspecified; R35.1 Nocturia | CPT/HCPCS: 51798; 81003; 99212 ==

== ENCOUNTER 2025-03-24 08:07 | Outpatient (AMB) | payer MEDICARE, SELFPAY ==
--- OUTSIDE RECORDS SUMMARY | 2025-03-24 08:14 | XMS_ITS | Data Portability ---
Author Organization [facility], [facility] [address] [place] [address] Care Team Providers Care Putty Worker Name Role Phone DODIE GALVAN Primary Care Provider CIRO REED Brilliandeer Looper Assessment No assessment recorded. Plan of Treatment Reminders Order Date Submit Date Provider Last Modified By Organization Details Last Modified Time Details Appointments None recorded. Lab CMP, serum or plasma 2018 019 [facility] ([facility]), [address], [place], [address], 9 11:10:40 C reactive protein, QN, serum or plasma 2018 019 [facility] ([facility]), [address], [place], [address], 9 11:10:37 CBC w/ diff 2018 019 [facility] ([facility]), [address], [place], [address], 9 11:01:30 CBC w/ diff 2018 020 [facility] ([facility]), [address], [place], [address], 0 03:16:16 C reactive protein, QN, serum or plasma 2018 020 [facility] ([facility]), [address] [place], [address], 0 03:16:16 CMP, serum or plasma 2018 020 [facility] ([facility]), [address], [place], [address], 0 03:16:16 Referral None recorded. Procedures None recorded. Surgeries None recorded. Imaging None recorded. Medication Orders methotrexa te sodium 2.5 mg tablet 2018 019 [id number], [address], [place], [address], 9 10:03:37 Patient TargetsNo targets recorded. Patient Instructions Encounter Date Encounter Id Patient Instructions Last Modified By Organization Details Last Modified Time 11/02/2019 [id number] osteoporosis: care instructions [email or web address] Not available 11/02/2019 10:03:35 Reason for Referral None Reported. Results Created Date Observation Date Name Description Value Unit Range Abnormal Flag Note LastModifiedBy Organization Detail LastModifiedTime 11/08/20 19 11/08/2019 CBC w/ diff WBC 5.47 10*/3 uL 3.90-1 1.20 Not Available [facility] ([facility]) [address], [place], [address], 11/08/2019 11:01:29 11/08/20 19 11/08/2019 CBC w/ diff RBC 4.01 10*6/ uL 3.40-5 .40 Not Available [facility] ([facility]) [address], [place], [address], 11/08/2019 11:01:29 11/08/20 19 11/08/2019 CBC w/ diff hemoglobin 13.9 g/dL 10.8-1 5.5 Not Available [facility] ([facility]) [address], [place], [address], 11/08/2019 11:01:29 11/08/20 19 11/08/2019 CBC w/ diff hematocrit 41.1 % 33.0-4 5.0 Not Available [facility] ([facility]) [address], [place], [address], 11/08/2019 11:01:29 11/08/20 19 11/08/2019 CBC w/ diff MCV 102.5 fL 82.0-1 00.0 high Not Available [facility] ([facility]) [address], [place], [address], 11/08/2019 11:01:29 11/08/20 19 11/08/2019 CBC w/ diff MCH 34.7 pg 26.0-3 4.0 high Not Available [facility] ([facility]) [address], [place], [address], 11/08/2019 11:01:29 11/08/20 19 11/08/2019 CBC w/ diff MCHC 33.8 g/dL 32.0-3 6.0 Not Available [facility] ([facility]) [address], [place], [address], 11/08/2019 11:01:29 11/08/20 19 11/08/2019 CBC w/ diff RDW-SD 54.7 fL 35.1-4 6.8 high Not Available [facility] ([facility]) [address], [place], [address], 11/08/2019 11:01:29 11/08/20 19 11/08/2019 CBC w/ diff plt 215 10*3/ uL 140-44 0 Not Available [facility] ([facility]) [address] [place], [address], 11/08/2019 11:01:29 11/08/20 19 11/08/2019 CBC w/ diff MPV 11.5 fL 9.7-12 .8 Not Available [facility] ([facility]) [address] [place], [address], 11/08/2019 11:01:29 11/08/20 19 11/08/2019 CBC w/ diff neut% 49.30 % 40.00- 77.00 Not Available [facility] ([facility]) [address] , [place], [address], 11/08/2019 11:01:29 11/08/20 19 11/08/2019 CBC w/ diff lymph% 31.30 % 14.00- 47.00 Not Available [facility] ([facility]) [address] , [place], [address], 11/08/2019 11:01:29 11/08/20 19 11/08/2019 CBC w/ diff mono% 12.20 % <13.00 Not Available [facility] ([facility]) [address], [place], [address], 11/08/2019 11:01:29 11/08/20 19 11/08/2019 CBC w/ diff eo% 5.50 % <7.00 Not Available [facility] ([facility]) [address], [place], [address], 11/08/2019 11:01:29 11/08/20 19 11/08/2019 CBC w/ diff baso% 1.50 % <2.00 Not Available [facility] ([facility]) [address], [place], [address], 11/08/2019 11:01:29 11/08/20 19 11/08/2019 CBC w/ diff Ig% 0.20 % <0.50 Not Available [facility] ([facility]) [address], [place], [address], 11/08/2019 11:01:29 11/08/20 19 11/08/2019 CBC w/ diff NRBC% 0.00 % <0.20 Not Available [facility] ([facility]) [address] [place], [address], 11/08/2019 11:01:29 11/08/20 19 11/08/2019 CBC w/ diff neut# 2.70 10*3/ uL 2.00-6 .80 Not Available [facility] ([facility]) [address] , [place], [address], 11/08/2019 11:01:29 11/08/20 19 11/08/2019 CBC w/ diff lymph# 1.71 10*3/ uL 0.90-3 .00 Not Available [facility] ([facility]) [address] , [place], [address], 11/08/2019 11:01:29 11/08/20 19 11/08/2019 CBC w/ diff mono# 0.67 10*3/ 3uL 0.20-0 .80 Not Available [facility] ([facility]) [address], [place], [address], 11/08/2019 11:01:29 11/08/20 19 11/08/2019 CBC w/ diff eo# 0.30 10*3/ uL <0.81 Not Available [facility] ([facility]) [address] , [place], [address], 11/08/2019 11:01:29 11/08/20 19 11/08/2019 CBC w/ diff baso# 0.08 10*3/ uL 0.00-0 .10 Not Available [facility] ([facility]) [address], [place], [address], 11/08/2019 11:01:29 11/08/20 19 11/08/2019 CBC w/ diff Ig# 0.01 10*3/ uL <0.40 Not Available [facility] ([facility]) [address], [place], [address], 11/08/2019 11:01:29 11/08/20 19 11/08/2019 CBC w/ diff NRBC# <0.01 10*3/ uL <0.01 Not Available [facility] ([facility]) [address] [place], [address], 11/08/2019 11:01:29 11/08/20 19 11/08/2019 C react nunu prote in, QN, serum or plasm a CRP 0.09 mg/dL 0.00-0 .88 Not Available [facility] ([facility]) [address] [place], [address], 11/08/2019 11:10:37 11/08/20 19 11/08/2019 CMP, serum or plasm a glucose 103 mg/dL 74-100 high Not Available [facility] ([facility]) [address] [place], [address], 11/08/2019 11:10:40 11/08/20 19 11/08/2019 CMP, serum or plasm a BUN 17.9 mg/dL 8.0-23 .0 Not Available [facility] ([facility]) [address] [place], [address], 11/08/2019 11:10:40 11/08/20 19 11/08/2019 CMP, serum or plasm a creat 0.69 mg/dL 0.40-1 .10 Not Available [facility] ([facility]) [address] [place], [address], 11/08/2019 11:10:40 11/08/20 19 11/08/2019 CMP, serum or plasm a GFR estimated 83 mL/mi n/1.7 3m2 >60 IDMS trace able MDRD study equat ion. If patie nt is Afric an-Am marcela n, multi ply repor luke resul t by 1.21 Not Available [facility] ([facility]) [address] [place], [address], 11/08/2019 11:10:40 11/08/20 19 11/08/2019 CMP, serum or plasm a BUN/creat 26 % Not Available [facility] ([facility]) [address] [place], [address], 11/08/2019 11:10:40 11/08/20 19 11/08/2019 CMP, serum or plasm a Na+ 139 mmol/ L 136-14 5 Not Available [facility] ([facility]) [address], [place], [address], 11/08/2019 11:10:40 11/08/20 19 11/08/2019 CMP, serum or plasm a K+ 4.4 mmol/ L 3.5-5. 2 Not Available [facility] ([facility]) [address], [place], [address], 11/08/2019 11:10:40 11/08/20 19 11/08/2019 CMP, serum or plasm a cL- 104 mmol/ L 98-107 Not Available [facility] ([facility]) [address] [place], [address], 11/08/2019 11:10:40 11/08/20 19 11/08/2019 CMP, serum or plasm a CO2 23 mmol/ L 22-29 Not Available [facility] ([facility]) [address] [place], [address], 11/08/2019 11:10:40 11/08/20 19 11/08/2019 CMP, serum or plasm a anion gap 12 7-17 Not Available [facility] ([facility]) [address] [place], [address], 11/08/2019 11:10:40 11/08/20 19 11/08/2019 CMP, serum or plasm a calcium 9.2 mg/dL 8.6-10 .5 Not Available [facility] ([facility]) [address] [place], [address], 11/08/2019 11:10:40 11/08/20 19 11/08/2019 CMP, serum or plasm a tl prot 6.8 g/dL 6.4-8. 3 Not Available [facility] ([facility]) [address] [place], [address], 11/08/2019 11:10:40 12/17/20 19 11/08/2019 CMP, serum or plasm a alb 3.9 g/dL 3.5-5. 2 Not Available [facility] ([facility]) [address] [place], [address], 11/08/2019 11:10:40 11/08/20 19 11/08/2019 CMP, serum or plasm a A/G ratio 1.0 Not Available [facility] ([facility]) [address] [place], [address], 11/08/2019 11:10:40 11/08/20 19 11/08/2019 CMP, serum or plasm a tbil 0.8 mg/dL 0.0-1. 2 Not Available [facility] ([facility]) [address] [place], [address], 11/08/2019 11:10:40 11/08/20 19 11/08/2019 CMP, serum or plasm a alk phos 50 U/L 22-126 Not Available [facility] ([facility]) [address] [place], [address], 11/08/2019 11:10:40 11/08/20 19 11/08/2019 CMP, serum or plasm a SGOT/AST 26 IU/L 0-32 Not Available [facility] ([facility]) [address] [place], [address], 11/08/2019 11:10:40 11/08/20 19 11/08/2019 CMP, serum or plasm a SGPT/ALT 26 IU/L 0-40 Not Available [facility] ([facility]) [address] [place], [address], 11/08/2019 11:10:40 11/08/20 19 11/08/2019 CMP, serum or plasm a osmol cory 280 mOsm/ kg 270-32 0 Not Available [facility] ([facility]) [address] [place], [address], 11/08/2019 11:10:40 Result Notes None recorded. Problems Name Problem SNOMED Code Status Onset Date Resolution Date Notes Provider Name and Address Organization Details Recorded Time jail methotrex ate user 66602848010 0 Active 2017 [employer] METHOTREX ATE THERAPY; Original code:Z79. 899 Enter ed By: Odalis Sun MA; Signed By: Angelica García MD Not Available [facility] 9 01:04:58 Osteoarth ritis of knee 161181718 Active 2012 OSTEOARTH RITIS, KNEE; Original code:M17. 9 Entered By: RICK Joe; Signed By: RICK Joe Not Available [facility] 9 01:04:58 Osteopeni a 591447981 Active 2017 OSTEOPENI A; Original code:M85. 80 Entere d By: Odalis Sun MA; Signed By: Angelica García MD Not Available [facility] 9 01:04:58 History of total knee arthropla sty 30319743263 05 Active 2016 TOTAL KNEE REPLACEME NT, LEFT; Original code:Z96. 652 Enter ed By: Odalis uSn MA; Signed By: Angelica García MD Not Available [facility] 9 01:04:58 History of chemother apy 069623929 Active 2014 PERSONAL HISTORY OF MONOCLONA L DRUG THERAPY; Original code:Z92. 22 Entere d By: Angelica García MD; Signed By: Angelica García MD Not Available [facility] 9 01:04:58 History of drug therapy 279847908 Active 2015 PERSONAL HISTORY OF OTHER DRUG THERAPY; Original code:Z92. 29 Entere d By: Angelica García MD; Signed By: Angelica García MD Not Available [facility] 9 01:04:58 Seroposit nunu rheumatoi d arthritis 598150491 Active 2008 OTHER RHEUMATOI D ARTHRITIS WITH RHEUMATOI D FACTOR OF MULTIPLE SITES; Original code:M05. 89 Entere d By: Angelica García MD; Signed By: Angelica García MD Not Available [facility] 9 01:04:58 Rupture of anterior cruciate ligament 715096429 Active 2012 ACL TEAR, RIGHT KNEE; Original code:S83. 511 Enter ed By: Wilmer Al CMA ([facility]); Signed By: Wilmer Al CMA ([facility]) Not Available [facility] 9 01:04:58 Osteoporo sis 20632332 Active 2018 Odalis Sun ([employer]) null, [facility] 9 09:13:34 Problem Notes None recorded. Procedures Surgical History Date Name Laterality Status Provider Name and Address Organization Details Recorded Time 09/20/20 13 Most Recent Bone Density completed Odalis Sun ([employer] [facility]) [facility] 11/02/2019 09:08:42 Cholecystectomy (Gallbladder) completed Odalisjanis Sun ([facility]) [facility] 11/02/2019 09:09:40 Hernia Repair completed Odalis Sun ([employer] [facility]) [facility] 11/02/2019 09:10:44 operation on heart completed Michell rosas Sun ([facility]) [facility] 11/02/2019 09:10:21 repair of mitral valve completed Odalisjanis Sun ([facility]) [facility] 11/02/2019 09:10:34 Hysterectomy - Total completed Odalisjanis Sun ([facility]) [facility] 11/02/2019 09:10:59 splenectomy completed Odalis Sun ([facility]) [facility] 11/02/2019 09:11:35 Orthopedic - Knee Replacement completed Angelica García MD [address], [place], [address] 11/02/2019 10:02:41 Imaging Results None recorded. Procedure [...] 2018 active Enter By: Claudia Rodriguez CMA ([facility]); Signed By: Claudia Rodriguez CMA ([facility]); Date: 018; Authoriz ed by: Angelica [...] Updated DateTime 9 170.18 cm 33.5 kg/m2 38061.7 7 g 54 /min 97 % 97 % 116 mm[Hg] 74 mm[Hg] Odalis Sun ([facility]) [facility] 9 09:27:02 Social History Question Answer Notes LastModified by Organizat ion Details LastModified Time Tobacco Smoking Status Never Smoker Odalis Sun ([facility]) [facility], [facility] 11/02/2019 09:09:26 Do You Or Have You Ever Used E-cigarettes Or Vape? Never Used Electronic Cigarettes [email or web address] Information not available 11/02/2019 Do You Or Have You Ever Used Smokeless Tobacco? Never Used Smokeless Tobacco [email or web address] Information not available 11/02/2019 Sex: Unknown Functional Status None recorded. Mental Status None recorded. Family History Relationship Description Onset Age of this Age Resolved Age Notes LastModified by Organization Details LastModified Time Father Hypertensive disorder [email or web address] Not available 11/02 09:09:09 Medical History No medical history recorded. Gynecological History Statement/Question Response Most Recent Bone Density 09/20/2013 Obstetrics History GPAL:G 0 P 0 0 0 0 Immunizations Vaccine Type Date Status Note Provider Nam e and Address Organization Details Recorded Time influenza, unspecified formulation 9 completed Not Available [facility] 06/12/2019 14:13:11 Past Encounters Encounter ID Performer Location Encounter Start Date Encounter Closed Date Diagnosis/Indication Diagnosis SNOMED-CT Code Diagnosis ICD10 Code Diagnosis Note [id number] Angelica García MD [facility] [address] [place] [address] 11/02/2019 09:06:10 11/02/2019 10:49:49 Seropositive rheumatoid arthritis 287523696 M05.9 keep methotrexa te /Humira taper, labs q3mo Osteoporosis 14790636 M8 1.0 bisphospho annika holiday, calcium and vitamin D. DXA q2y ( per rheum up [place]) History of drug therapy 482027887 Z92.22 Generally Tb screen recommende d q2y and hep BC screen q5 years ( unless more frequent testing indicated) meterman methotrexate user 5001845965 00 Z79.899 Health Concerns Section Related Observation LastModified by Organization Detai ls LastModified Time None Recorded Concern Status LastModified by Organization Details LastModified Time None Recorded Advance Directives Directive None Recorded Payers Encounter Date Sequence Insurance Name Policy Number Policy Hines Covered Member ID Hines Member ID Guarantor Name 11/02/2019 2 [facility] LISA MARTINEZ [id number] Melissa De La Garza [id number] Melissa De La Garza 11/02/2019 1 [place] Melissa De La Garza [id number] Melissa De La Garza Notes Date [...] per pt normal Dr. Ciro Reed, Rheumatology [address] [place] [address] [phone] Angelica García MD [address], [place], [address], [facility] 11/02/2019 13:14:59 OBGyn Episode No OBEpisode recorded.
--- OUTSIDE RECORDS SUMMARY | 2025-03-24 08:15 | XMS_ITS ---
Author Organization [facility] belinda Hal[place] Address [address] [place] [address] Care Team Providers Care Bean Sorter Name Role Phone Ana Garcia MD Primary Care Provider Sabino Eva Brooks Unavailable [phone] Allergies No Known Allergies REASON FOR VISIT [...] Problem Status W/U Status Risk Notes Problem 749433988 Ulcer of right foot, limited to breakdown of skin (L97.511) Active confirmed Vital Signs Height 5 ft 7 in in 10/07/2024 Weight 207 lbs 10/07/2024 BMI 32.42 kg/m2 10/07/2024 Procedures Procedure Date Ordered Date Performed Result Body Sit e 00754-VUFUJDL NAIL, 6 OR MORE 10/07/2024 N/A 99038- Debride <25 sq cm 10/07/2024 N/A Encounters Encounter Location Date Provider Diagnosis [facility] [address] 10/07/2024 Eva Black Pain in right foot [...] Treatment Pending Test Test Name Order Date 76465-HDLHBAT NAIL, 6 OR MORE 10/07/2024 80988- Debride <25 sq cm 10/07/2024 Next Appt Details Follow Up: 2 Months, Reason: Provider Name:Eva Alas , 05/10/2025 09:15:00 AM, [address] [facility] [facility], [place], [address], Procedure Notes * Category Sub-Category Detail Notes [...] use of a nail nipper and/or dremel-type knife setter grinder machine, to a more viable healthy nail plate or bed tissue 6-10. Silver nitrate used for any petechial bleeding as necessary. Definitive antifungal treatment options have been reviewed and discussed with the patient. The patient chooses, no pharmaceutical tx - 47790 Debride skin< 25 sq cm Open wound [...] of the wound post debridement is stable (42559) Progress Notes * Melissa NAPIERHilarioOB:[birth year] (79 yo F)Acc No.[id number]:10/07/2024 Progress Note Patient:?Melissa NAPIER Provider:?Eva Alas DPM :1945???Age:79 Y???Sex:Female D ate:10/07/2024 [facility] Pcp:Ana Garcia MD Subjective: * Chief Complaints: [...] foot, limi luke to breakdown of skin?Procedure: 61854- Debride <25 sq cm * Procedures:?Debride Nail [...] use of a nail nipper and/or dremel-type knife setter grinder machine, to a more viable healthy nail plate or bed tissue 6-10. Silver nitrate used for any petechial bleeding as necessary. Definitive antifungal treatment options have been reviewed and discussed with the patient. The patient chooses, no pharmaceutical tx - 06074.?Debride skin< 25 sq cm:?Open wound?: Physician of [...] of the wound post debridement is stable (36242).? * Procedure Codes:?77937 DEBRI DE NAIL, 6 OR MORE, Modifiers: XS 18910 ACTIVE WOUND CARE/20 CM OR <, Modifiers: [...] Alas DPM Date:?2023 Generated for Jed pabon/Nimisha/eTransmitting on:?03/24/2025 08:15 AM EDT History and Physical Notes * HPI [...]
--- OUTSIDE RECORDS SUMMARY | 2025-03-24 08:15 | XMS_ITS | Data Portability ---
Author Organization [place] - [facility], Allergy Address [address] [address] Assessment Encounter Date Assessment Date Assessment LastModified by Organization Details LastModified Time 12/19/2024 12/19/2024 Resolution: Schedule an appointment for cerumen management. [email or web address] Not available 12/19/2024 11:27:01 Plan of Treatment [...] Address Organization Details Recorded Time Dysphagi a 71249991 Active 2022 Dysphagi a, unspecif ied; Note: Date Diagnose d: 3 1:15 PM (R13.10) Not Available [facility] 4 02:47:13 Central perforat ion of right tympanic membrane 64091604529 91817 Active 2021 Central perforat ion of tympanic membrane , right ear; Note: Date Diagnose d: 2 10:31 AM (H72.91) Not Available [facility] 4 02:47:14 Sensorin eural hearing loss in left ear 26006979336 109 Active 2016 Sensorin eural hearing loss, unilater al, left ear, with restrict ed hearing on the contrala teral side; Note: Date Diagnose d: 7 11:42 AM (H90.A22 ) Not Available [facility] 4 02:47:11 Otorrhea of right ear 71840733244 55298 Completed 202106/24/2024 Otorrhea , right ear; Note: Date Diagnose d: 2 9:32 AM (H92.11) Not Available [facility] 4 02:47:09 Acute non-supp urative otitis media of right ear 84466714548 71735 Active 2021 Other acute nonsuppu rative otitis media, right ear; Note: Date Diagnose d: 2 10:32 AM (H65.191 ) Not Available [facility] 4 02:47:13 Mixed conducti ve and sensorin eural hearing loss of right ear 80236749113 105 Active 2016 Mixed conducti ve and sensorin eural hearing loss, unilater al, right ear with restrict ed hearing on the contrala teral side; Note: Date Diagnose d: 7 11:42 AM (H90.A31 ) Not Available [facility] 4 02:47:11 Posterio r rhinorrh ea 00440618 Active 2021 Postnasa l drip; Note: Date Diagnose d: 11/14/20 4:46 PM (R09.82) Not Available [facility] 4 02:47:12 Gastroes ophageal reflux disease without esophagi tis 238829663 Active 2022 Gastro-e sophagea l reflux disease without esophagi tis; Note: Date Diagnose d: 10/20/20 11:01 AM (K21.9) Not Available [facility] 4 02:47:10 Somatofo rm disorder 65371628 Active 2022 Psychoge sumaya dysphagi a, includin g 'globus hysteric us'; Note: Date Diagnose d: 10/20/20 11:07 AM (F45.8) Not Available [facility] 4 02:47:10 Allergic rhinitis 75296298 Active 2022 Allergic rhinitis , unspecif ied; Note: Date Diagnose d: 07/31/2023 10:04 AM (J30.9) Not Available [facility] 4 02:47:13 Problem Notes None recorded. Medical Equipment None Reported. Medications Name Sig Start Date Stop Date Status Note LastModified by Organization Details LastModified Time Prescript ion - Prior Authoriza tion Request active Script Copy/Juanita or Auth^Scr ipt Copy/Juanita or Auth_ [id number] Not Available Not Available Not Available celecoxib 200 mg capsule TAKE 1 CAPSULE BY MOUTH TWICE A DAY active Not Available Not Available No t Available atorvasta tin 20 mg tablet TAKE 1 TABLET BY MOUTH EVERY DAY active Not Available Not Available No t Available sulfasala zine 500 mg tablet 04/11 completed Medicati on ID: 766022 D uration Value: 90 Brand Name: sulfasal [...] 325 mg tablet active Medicati on ID: 158642 B rand Name: aspirin Send Method: E-Prescr [...] affected area 2021 active Medicati on ID: 760381 D uration Value: 14 Prescri bed By [...] capsule,d elayed release active Medicati on ID: 910184 B rand Name: omeprazo le Send Method: E-Prescr ibed Sub s Allowed: subs OK Medic ationGen ericName : omeprazo le Not Available Not Available Not Available folic acid 1 mg tablet TAKE 1 TABLET BY MOUTH EVERY DAY active Not Available Not Available No t Available azelastin e 137 mcg (0.1 %) nasal spray Sandgap 2 spray into both nostrils twice a day as directed 2022 active Medicati on ID: 089889 D uration Value: 30 Prescri bed By [...] bromide 42 mcg (0.06 %) nasal spray Sandgap 2 spray into both nostrils three times a day 2022 active Medicati on ID: 947360 D uration Value: 30 Prescri bed By [...] a day 2022 active Medicati on ID: 024224 D uration Value: 21 Brand Name: cefdinir Send Method: E-Prescr ibed Sub s Allowed: subs OK Medic ationGen ericName : cefdinir Not Available Not Available Not Available ipratropi um bromide 21 mcg (0.03 %) nasal spray Sandgap 2 spray into both nostrils twice a day as directed 2021 active Medicati on ID: 887234 D uration Value: 30 Brand Name: ipratrop [...] with meals 10/01 completed Medicati on ID: 735307 D uration Value: 14 Brand Name: amoxicil yamila-pot clavulan ate Send Method: E-Prescr ibed Sub s Allowed: subs OK Medic ationGen ericName : amoxicil yamila-pot clavulan ate Not Available Not Available Not Available TobraDex 0.3 %-0.1 % eye drops,han pension 06/11 completed Medicati on ID: 237883 P rescribe d By Name: SIMEON Rm nd Name: TobraDex Send Method: E-Prescr ibed Sub s Allowed: subs OK Speci al Instruct ion: Instill 3 drops in the affect ear BID for 14 days Med icationG enericNa me: TobraDex Not Available Not Available Not Available Ciprodex 0.3 %-0.1 % ear drops,han pension 4 drop into right ear 2021 active Medicati on ID: 879804 D uration Value: 14 Prescri bed By Name: SIMEON Rm nd Name: Ciprodex Send Method: E-Prescr ibed Sub s Allowed: subs OK Speci al Instruct ion: x 14 days Med icationG enericNa me: Ciprodex Not Available Not Available Not Available metoprolo l tartrate 25 mg tablet 06/11 completed Medicati on ID: 288149 D uration Value: 90 Brand Name: metoprol [...] inhalatio n 06/11 completed Medicati on ID: 168614 B rand Name: Breo Ellipta Send Method: E-Prescr ibed Sub s Allowed: subs OK Medic ationGen ericName : Breo Ellipta Not Available Not Available Not Available Entresto 24 mg-26 mg tablet TAKE 1 TABLET BY MOUTH TWICE A DAY active Not Available Not Available No t Available aspirin 81 mg capsule active Medicati on ID: 255425 B rand Name: aspirin Send Method: E-Prescr [...] SNOMED-CT Code Diagnosis ICD10 Code Diagnosis Note [id number] Carol PALMA RAMOS [place] 100 [facility] [address] 12/19/2024 11:04:37 12/20/2024 07:24:19 Mixed conductive and sensorineural hearing loss of right ear 0430981800 9105 H90.A31 Health Concerns Section Related Observation LastModified by Organization Detai ls LastModified Time None Recorded Concern Status LastModified by Organization Details LastModified Time None Recorded Advance Directives Directive None Recorded Payers Encounter Date Sequence Insurance Name Policy Number Policy Hines Covered Member ID Hines Member ID Guarantor Name 12/19/2024 2 [facility] Melissa De La Garza [id number] Melissa De La Garza 12/19/2024 1 MEDICARE B-[place]: [employer] ([employer] Melissa Keylexi [id number] Melissa De La Garza Notes Date Note Type Note Provider Name and Address Organization Details Recorded Time 12/19/2024 text/html Hearing Aid ProblemReported bypatient.Visit typein office repair Hearing Aidhearing device is functioning well Hearing Aidfeedback LANDEN NDIAYE, [address], [address], [facility] - [facility] 12/19/2024 11:27:32 OBGyn Episode No OBEpisode recorded.
--- OUTSIDE RECORDS SUMMARY | 2025-03-24 08:15 | XMS_ITS ---
Author Organization [facility] [place] Address [address] [facility] [place] [address] Care Team Providers Care Rn Pain Management Name Role Phone Ana Garcia MD Primary Care Provider Sabino Eva Brooks Unavailable [phone] Allergies No Known Allergies REASON FOR VISIT [...] Ordered Date Performed Result Body Sit e 45554-EKLWLBK NAIL, 6 OR MORE 12/16/2024 N/A Encounters Encounter Location Date Provider Diagnosis [facility] [place] [address] [place] [address] 12/16/2024 Eva Alas Onychomycosis B35.1 ; Ingrown [...] Treatment Pending Test Test Name Order Date 33738-SVCFIFC NAIL, 6 OR MORE 12/16/2024 Next Appt Details Follow Up: 2 Weeks, Reason: Provider Name:Eva Alas , 05/10/2025 09:15:00 AM, [address] [facility], [place], [address], Procedure Notes * Category Sub-Category Detail Notes [...] Motrin was recommended for pain or discomfort (91187), Pt DEFERS matricectomy Anesthesia , was accomplished [...] use of a nail nipper and/or dremel-type card grinder helper, to a more viable healthy nail plate [...] to maintain effectiveness in symptomatic relief - 88698 Progress Notes * Melissa NAPIEROB:01[birth year]20 (79 yo F)Acc No.[id number]:12/16/2024 Progress Note Patient:?Melissa NAPIER Provider:?Eva Alas DPM :1945???Age:79 Y???Sex:Female D ate:12/16/2024 Address: [address], [id number] Pcp:Ana Garcia MD Subjective: * Chief Complaints: [...] use of a nail nipper and/or dremel-type card grinder helper, to a more viable healthy nail plate [...] to maintain effectiveness in symptomatic relief - 34713.?Nail Avulsion:?Location?, Lateral nail border, TA.?Anesthesia?, was accomplished [...] Motrin was recommended for pain or discomfort (11350), Pt DEFERS matricectomy.? * Procedure Codes:?95435 DEBRI DE NAIL, 6 OR MORE, Modifiers: XS 73490 Avulsion Plate, Modifiers: TA * Follow Up:?2 Weeks * Images: * Sign off status: Completed true * Provider:?Eva Alas DPM Date:?2024 Generated for Jed pabon/Nimisha/eTransmitting on:?03/24/2025 08:15 AM [...]
--- OUTSIDE RECORDS SUMMARY | 2025-03-24 08:16 | XMS_ITS | Patient Health Record ---
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 Problem Acquired hammer toe of right foot (4855150341067461) Other hammer toe(s) (acquired), right foot (M20.41) Active confirmed Problem Acquired hammer toe of left foot (8835002033358695) Other hammer toe(s) (acquired), left foot (M20.42) Active confirmed Problem Acquired hammer toe of right foot (5820065018827615) Other hammer toe(s) (acquired), right foot (M20.41) Active confirmed Problem Acquired hammer toe of left foot (2617127183427370) Other hammer toe(s) (acquired), left foot (M20.42) Active confirmed Problem 38675429 Lower limb lengt h difference (M21.70) Active confirmed Problem Joint contracture of the ankle and/or foot (191275298) Flexion 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) Active confirmed Problem Joint contracture of the ankle and/or foot (933157361) Flexion contracture of joint of right foot (M24.574) Active confirmed Problem Acquired deformity of right foot (62504637455089486) PlantarFlexion of metatarsal of right foot (M21.6X1) Active confirmed Problem Joint contracture of the ankle and/or foot (116318721) Flexion contracture of joint of right foot (M24.574) Active confirmed Problem 9235723771676759 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) Active confirmed Problem 842351443 Ulcer of right foot, limited to breakdown of skin (L97.511) Active confirmed Problem 639140711 Gouty arthritis (M10.9) Active confirmed Problem 365658584 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) Active confirmed Vital Signs Blood pressure diastolic 80 mm Hg 02/24/2025 Height 5 ft 7 in in 02/24/2025 Blood pressure systolic 127 mm Hg 02/24/2025 Weight 209 lbs 02/24/2025 BMI 32.73 kg/m2 02/24/2025 Procedures Procedure Date Ordered Date Performed Result Body Sit e 03444-VTFLMAW NAIL, 6 OR MORE 04/01/2024 N/A 14385, J0702- INJECT or DRAI N, JOINT/BURSA 04/13/2024 N/A 29331-CKMZWHV NAIL, 6 OR MORE 07/08/2024 N/A 11164-SCXRNWO NAIL, 6 OR MORE 10/07/2024 N/A 18653- Debride <25 sq cm 10/07/2024 N/A 07623-XYNZOOK NAIL, 6 OR MORE 12/16/2024 N/A 74403-XTMFHZB NAIL, 6 OR MORE 02/24/2025 N/A Encounters Encounter Location Date Provider Diagnosis [address] [place] [address] 04/01/2024 Eva Black Onychomycosis B35.1 ; Pain in right toe(s) M79.674 and Pain in left toe(s) M79.675 [facility] [address] 04/13/2024 Keshawn Sepulveda Pain in right foot M79.671 ; Gouty arthritis M10.9 and Arthritis of right ankle M19.[address] [address] 05/12/2024 Keshawn Sepulveda Pain in right foot M79.671 ; Arthritis of right ankle M19.071 and 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.[address] [place] [address] 07/08/2024 Eva Black Pain in right foot M79.671 ; Arthritis of right ankle M19.071 ; 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.771 ; Onychomycosis B35.1 ; Pain in right toe(s) M79.674 and Pain in left toe(s) M79.[address] [address] 10/07/2024 Eva Black Pain in right foot M79.671 ; Arthritis of right ankle M19.071 ; 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.771 ; Onychomycosis B35.1 ; Pain in right toe(s) M79.674 ; Pain in left toe(s) M79.675 and Ulcer of right foot, limited to breakdown of skin L97.[address] [address] 12/16/2024 Eva Black Onychomycosis B35.1 ; Ingrown nail L60.0 ; Pain in right toe(s) M79.674 and Pain in left toe(s) M79.[address] [address] 02/24/2025 Eva Black Onychomycosis B35.1 ; Lower limb length difference M21.70 ; Pain in right toe(s) M79.674 and Pain in left toe(s) M79.675 [facility] [address] [address] 04/13/2024 Eva Black [facility] [address] 05/12/2024 [facility] [address] 05/12/2024 Eva Black Assessments Encounter Date Diagnosis [...] Date *Uric Acid, Serum 04/13/2024 *Sedimentation Rate-[place]gren 15731-QAINBXY NAIL, 6 OR MORE 12/29/2023 71589-REIDYDA NAIL, 6 OR MORE 04/01/2024 21057-FLHPMJC NAIL, 6 OR MORE 04/29/2023 49414-XRJGRXR NAIL, 6 OR MORE 07/08/2023 13180-QUOSRGA NAIL, 6 OR MORE 09/22/2023 35557-IECFTEZ NAIL, 6 OR MORE 02/13/2023 63360-KOKQDQO NAIL, 6 OR MORE 07/08/2024 50760-IRBXWEY NAIL, 6 OR MORE 10/07/2024 06556-IAHNFFB NAIL, 6 OR MORE 12/16/2024 89536-ACIRLGZ NAIL, 6 OR MORE 02/24/2025 42883-UZRKRSJ NAIL, 1-5 12/10/2021 27720-Tvkwtguz Plate 12/29/2023 82909-Ipjcpboa Plate 04/29/2023 23261-Wljmuoov Plate 07/22/2021 28247- Debride <25 sq cm 10/07/2024 56682, J0702- INJECT or DRAIN, JOINT/BUR SA 04/13/2024 51053, J5924-GKZLJ/INJECT, JOINT/BURSA 0 08/17/2017 97272,J8686-TPB TENDON SHEATH/LIGAMENT 0 08/15/2019 58552,Z1037-YNC TENDON SHEATH/LIGAMENT 1 14714, J0702- Neuroma/Injection 09/14/20 17 X ray : Ankle, right 3V 04/13/2024 49099 - Tenotomy, open flexor 08/07/2021 Next Appt Details Provider Name:Eva Alas , 05/10/2025 09:15:00 AM, [address] , [place], [address], Insurance Providers Payer Name Payer Address Payer Phone Subscriber Number Group Number Insured Name Patient Relationship to Insured Coverage Start Date Coverage End Date Medicare National [employer] [address] [place] [address] [id number] Melissa De La Garza Self - patient is the insured [facility] [address] [place] [address] [id number] Melissa De La Garza Ellen Self - [...]
--- OUTSIDE RECORDS SUMMARY | 2025-03-24 08:16 | XMS_ITS ---
Author Organization [facility] [place] Address [address] [facility] [place] [address] Care Team Providers Care Solid Plasterer Name Role Phone Ana Garcia MD Primary Care Provider Sabino Eva Brooks Unavailable [phone] Allergies No Known Allergies REASON FOR VISIT [...] Problem Status W/U Status Risk Notes Problem 07758554 Lower limb length difference (M21.70) Active confirmed Vital Signs Height 5 ft 7 in in 02/24/2025 Weight 209 lbs 02/24/2025 BMI 32.73 kg/m2 02/24/2025 Blood pressure systolic 127 mm Hg 02/25/20 25 Blood pressure diastolic 80 mm Hg 025 Procedures Procedure Date Ordered Date Performed Result Body Sit e 41867-GABZMNL NAIL, 6 OR MORE 02/24/2025 N/A Encounters Encounter Location Date Provider Diagnosis [facility] [place] [address] [place] [address] 02/24/2025 Eva Alas Onychomycosis B35.1 ; Lower [...] Treatment Pending Test Test Name Order Date 36411-SABSFHK NAIL, 6 OR MORE 02/24/2025 Next Appt Details Follow Up: prn, Reason: Provider Name:Eva Alas , 05/10/2025 09:15:00 AM, [address] [facility], [place], [address], Procedure Notes * Category Sub-Category Detail Notes [...] use of a nail nipper and/or dremel-type ice grinder, to a more viable healthy nail [...] to maintain effectiveness in symptomatic relief - 21903 Progress Notes * Melissa NAPIEROB:[birth year] (80 yo F)Acc No.[id number]:02/24/2025 Progress Note Patient:?Melissa NAPIER Provider:?Eva Alas DPM :1945???Age:80 Y???Sex:Female D ate:02/24/2025 Address: [address] [facility] Pcp:Ana Garcia MD Subjective: * Chief Complaints: [...] use of a nail nipper and/or dremel-type ice grinder, to a more viable healthy nail [...] to maintain effectiveness in symptomatic relief - 34420.? * Procedure Codes:?74563 DEBRI DE NAIL, 6 OR MORE, Modifiers: [...] Alas DPM Date:?2024 Generated for Jed pabon/Nimisha/Angely on:?03/24/2025 08:15 AM EDT History and Physical [...]
--- NOTE | 2025-03-24 08:23 | A.OFFVIS_ITS ---
Vital Signs 03/24/25 08:24 Height 5 ft 7 in Weight 206 lb 5.643 oz BMI 32.3 BP 114/72 Blood Pressure Location Lt brachial Position Sitting Pulse 62 Pulse Source Monitor Intake Visit Reasons: c/o fatigue with ekg Intake Note: fatigue w/ ekg Dynamiter Required: No Accompanied by: Self / Same As Patient Allergies benzonatate Adverse Reaction (Mild, Verified 03/20/25 11:00) Hallucinations Medication List - Last Reconciled 03/24/25 by Debbie Bazzi NP-C acetaminophen 650 mg (2 x 325 mg) PO Q6H PRN 30 days adalimumab (Humira Pen) mg subcut albuterol sulfate 90 mcg/actuation 2 puffs inhalation Q6H PRN atorvastatin 20 mg PO DAILY celecoxib 200 mg PO BID diclofenac sodium 1% 4 grams topical QID docusate sodium 100 mg PO BID estradiol 0.01%(0.1mg/gram) pea sized amount vaginally 3 times a week; Apply pea-sized amount to urethra 3 times per week 90 days famotidine 40 mg PO BEDTIME folic acid 1 mg PO DAILY methotrexate sodium 17.5 mg PO TH metoprolol tartrate 50 mg PO BID mirabegron ER (Myrbetriq) 25 mg PO DAILY 30 days omeprazole 20 mg PO DAILY sacubitril-valsartan 24-26 mg (Entresto) 1 tab PO BID HPI HPI c/o fatigue with ekg: Details: Melissa Willingham is a 80-year-old female with past medical history of hypertension, hyperlipidemia, persistent atrial fibrillation, mitral valve repair who presents with report of new fatigue. Today she reports that last week she was symptoms of UTI and was started on antibiotic therapy. Now in the last week she has noticed significant fatigue that is affecting her ability to do her normal ADLs. She says she feels exhausted even with the slightest activity. She has completed her antibiotics but still reports some burning upon urination. She has not been febrile. She has no other symptoms including chest discomfort, shortness of breath, cough, abdominal discomfort. She recalls having some slight nausea but none today. She is concerned the symptoms may be from her heart. [facility] Medical History Cardiac arrhythmia Restrictive lung disease Cough Ear infection Hard of hearing COVID-19 vaccine series completed Osteoarthritis of right knee Dry mouth Osteopenia Postnasal drip Hypercholesteremia Osteoarthritis Hypertension Rheumatoid arthritis H/O bone density study Lumbago Surgical History History of total left knee replacement H/O colonoscopy Status post herniorrhaphy H/O mitral valve replacement History of splenectomy Hx of cholecystectomy Family History Father Cerebral hemorrhage Parkinsonism Mother COPD (chronic obstructive pulmonary disease) Lung cancer Brother Lung cancer Son No problems noted. Daughter No problems noted. Daughter No problems noted. Daughter No problems noted. Social History Housing: House Are you a primary personal care assistant to a significant other at home: No Do you presently have visiting nurse or other home services: No Patient Tobacco Use Status: Never used Tobacco e-Cigarette/Vaping Use: Never Used Second Hand Smoke Exposure: Yes service: No Current occupational status: retired Current occupational exposures/hazards: No Cognitive needs: No Hearing needs: Yes Vision needs: Yes Review of Systems Const All systems reviewed & are unremarkable except as noted in HPI and below Denies chills, Reports fatigue, Denies fever(s), Denies frequent falls, Reports weakness, Denies weight gain and Denies weight loss ENT Denies dizziness Card Denies chest pain, Denies leg edema, Denies lightheadedness, Denies palpitations, Reports dyspnea, Reports dyspnea on exertion and Denies orthopnea Resp Denies cough, Reports dyspnea and Reports dyspnea on exertion GI Denies hematochezia Musc Denies abnormal gait, Denies muscle weakness, Denies numbness, Denies radiating pain into limb and Denies tingling Neuro Denies abnormal gait, Denies dizziness, Denies frequent falls, Denies numbness, Denies tingling and Reports weakness Endo Reports fatigue and Denies palpitations Physical Exam Vital Signs: Last Vital Signs Pulse 62 03/24/25 08:24 BP 114/72 03/24/25 08:24 BMI result Body Mass Index 32.3 Const General: cooperative, healthy appearing, comfortable and no acute distress Orientation/consciousness: patient oriented x3 Neck Neck: Yes normal visual inspection Resp Effort & Inspection: normal respiratory effort Auscultation: clear to auscultation bilaterally, no rales, no rhonchi and no wheezes Cardio Rate: regular rate Rhythm: regular rhythm Heart sounds: S1 normal heart sound present, S2 normal heart sound present, no murmurs and no rubs Neuro General: patient oriented x3 Extrem General: Yes normal to inspection, No no pedal edema and No calf tenderness Psych Appearance: grossly normal Mental Status: mental status grossly normal Speech and movement: Normal speech and movement present Office Procedures EKG Details: Today, read by me, atrial fibrillation, rate 62, Qtc 418ms [id number], Complete Assessment & Plan Assessment & Plan (1) Fatigue: Code(s): R53.83 - Other fatigue Category: Medical Plan: New onset, significant fatigue in the last week, in the setting of UTI and antibiotic use. EKG done today shows atrial fibrillation with rate 62. Atrial fibrillation is chronic, heart rate seems controlled and not likely contributing to her symptom. She has mild cardiomyopathy with recent echo showing EF 44% which is not new for her. She had no reports of chest discomfort or shortness of breath so less likely to be anginal in nature. Her fatigue is most likely related to systemic symptom from recent UTI, antibiotic use. For completeness will check labs today including CMP, CBC, TSH. Plan to call her with results. She is still having burning with urination. She will contact her urologist to report. (2) Persistent atrial fibrillation: Code(s): I48.19 - Other persistent atrial fibrillation Category: Medical Plan: History of persistent atrial fibrillation. Holter monitor 07/18/2024 for 3 days shows atrial fibrillation, average heart rate 73 beats per minute, PVCs 2.8% of the time, rare couplets and triplets. She is on metoprolol for heart rate control. She is on Eliquis for anticoagulation. She has had some hematuria in the past with UTI -none at present. (3) Cardiomyopathy: Code(s): I42.9 - Cardiomyopathy, unspecified Category: Medical Plan: History of mild nonischemic cardiomyopathy. Last echocardiogram 01/10/2025 showed EF 44%, status post mitral valve repair with normal function, moderate tricuspid regurgitation, [id number] pulmonary hypertension. Nuclear stress test 01/02/2025 showed no evidence of ischemia or infarct, reversible lateral defect that improves with CT correction suggesting artifact. No heart failure signs on examination. Continue metoprolol XL and Entresto for neurohormonal modulation. (4) H/O mitral valve replacement: Comment: repair 2005 (ring on mitral valve)- ECHO 04/13 nl EF, NORMAL BIOPROSTHETIC MITRAL VALVE, mild to moderate TR Code(s): Z95.2 - Presence of prosthetic heart valve Category: Surgical Plan: History of mitral valve ring. Functioning normally on most recent echocardiogram. Plan Time spent on chart review, documentation, interview and assessment Patient was informed and verbally consented to the use of an ambient scribe for clinic note documentation during this visit. In discussing with the patient, I conveyed the plan to obtain further blood work to understand the underpinning cause of her new fatigue and evaluate for any issues like anemia or lingering infection. This includes ensuring her urological symptoms are re-addressed by her specialist for possibly extending treatment. I emphasized the absence of any immediate cardiac-based cause for her fatigue, referencing the nuclear stress test results, echocardiogram and EKG findings. We discussed post-laboratory work follow-up with her primary care and urologist. She seemed relieved that no acute heart condition was apparent, understanding the need for careful monitoring of her overall health status. Orders: Orders Complete Blood Count Auto Diff Today R53.83 - Other fatigue TSH reflex Free T4 Today R53.83 - Other fatigue Comprehensive Met. Panel Today R53.83 - Other fatigue Patient Instructions: - Obtain lab work promptly for further analysis. - Notify your urologist regarding persistent discomfort when urinating. - Monitor for changes in fatigue and report significant worsening. - Maintain hydration, rest as needed, and avoid overexertion until symptoms improve. - Follow up with your scheduled appointment in May or sooner if conditions change. Coding Level of Care Code Est Pt Level 4 (92914) Complex EM visit Add On G2211 Diagnoses Fatigue R53.83 Persistent atrial fibrillation I48.19 Cardiomyopathy I42.9 H/O mitral valve replacement Z95.2 CPT Codes EKG - CPT: [id number], Complete ([id number]) Time Spent (min) 32
[2025-03-24 08:24] VITALS: BP 114/72; PULSE 62; BMI 32.3
== END 2025-03-24 08:59 | disposition home or self-care (01) ==
LOC: HO.HCS 08:08
PROVIDERS: PCP Internal Medicine; Visit Provider Nurse Practitioner Family
DX: R53.83 Other fatigue (principal); I48.19 Other persistent atrial fibrillation; I42.9 Cardiomyopathy, unspecified; Z95.2 Presence of prosthetic heart valve
CPT/HCPCS: 93010; 99214; G2211

== ENCOUNTER 2025-03-24 08:07 | Outpatient (REF) | payer MEDICARE, SELFPAY ==
[2025-03-24 13:36] LABS: Appearance Urine Cloudy; Color Urine Yellow; Glucose Urine UA Negative (Negative); Leukocyte Esterase Urine Small (1+) (Negative); Nitrite Urine Negative (Negative); PH 5.5 (5.0-9.0); UMIC TRIGGER UA YES; Urine Blood Large (3+) (Negative); Urine Ketones Negative (Negative); Urine Protein 30 (1+) mg/dL (Neg-Trace)
[2025-03-24 13:54] LABS: Bacteria Urine None Seen (None Seen); Hyaline Casts Urine 0-2 /LPF (0-2); Other Crystals Urine Present; WBC Urine 0-5 /HPF (0-5)
== END 2025-03-24 08:08 | disposition home or self-care (01) ==
LOC: HO.HMGCLDS 08:07
PROVIDERS: PCP Internal Medicine; Referring Provider Nurse Practitioner Family; Visit Provider Nurse Practitioner Family
DX: N39.0 Urinary tract infection, site not specified (principal); I48.19 Other persistent atrial fibrillation; I42.9 Cardiomyopathy, unspecified; R53.83 Other fatigue; Z95.2 Presence of prosthetic heart valve
CPT/HCPCS: 81001; 87086; 93005; 99212

== ENCOUNTER 2025-03-27 11:08 | Outpatient (REF) | payer MEDICARE, SELFPAY ==
--- OUTSIDE RECORDS SUMMARY | 2025-03-27 12:53 | XMS_ITS | Data Portability ---
Author Organization [facility], L_[facility] [address] [place] [address] Care Team Providers Care Beer Brewer Name Role Phone DODIE GALVAN Primary Care Provider CIRO REED Compounding Pharmacy Technician Assessment No assessment recorded. Plan of Treatment Reminders Order Date Submit Date Provider Last Modified By Organization Details Last Modified Time Details Appointments None recorded. Lab CMP, serum or plasma 2018 019 [facility] ([facility] [address], [place], [address], 9 11:10:40 C reactive protein, QN, serum or plasma 2018 019 [facility] ([facility]), [address], [place], [address], 9 11:10:37 CBC w/ diff 2018 019 [facility] ([facility]), [address], [place], [address], 9 11:01:30 CBC w/ diff 2018 020 [facility] ([facility]), [address], [place], [address], 0 03:16:16 C reactive protein, QN, serum or plasma 2018 020 [facility] ([facility]), [address] [place], [address], 0 03:16:16 CMP, serum or plasma 2018 020 [facility] ([facility]), [address], [place], [address], 0 03:16:16 Referral None recorded. Procedures None recorded. Surgeries None recorded. Imaging None recorded. Medication Orders methotrexa te sodium 2.5 mg tablet 2018 019 INTERFACE [id number], [address], [place], [address], 9 10:03:37 Patient TargetsNo targets recorded. Patient Instructions Encounter Date Encounter Id Patient Instructions Last Modified By Organization Details Last Modified Time 11/02/2019 [id number] osteoporosis: care instructions Not available 11/02/2019 10:03:35 Reason for Referral None Reported. Results Created Date Observation Date Name Description Value Unit Range Abnormal Flag Note LastModifiedBy Organization Detail LastModifiedTime 11/08/20 19 11/08/2019 CBC w/ diff WBC 5.47 10*/3 uL 3.90-1 1.20 Not Available [facility] ([facility]) [address], [place], [address], 11/08/2019 11:01:29 11/08/20 19 11/08/2019 CBC w/ diff RBC 4.01 10*6/ uL 3.40-5 .40 Not Available [facility] ([facility]) [address], [place], [address], 11/08/2019 11:01:29 11/08/20 19 11/08/2019 CBC w/ diff hemoglobin 13.9 g/dL 10.8-1 5.5 Not Available [facility] ([facility]) [address], [place], [address], 11/08/2019 11:01:29 11/08/20 19 11/08/2019 CBC w/ diff hematocrit 41.1 % 33.0-4 5.0 Not Available [facility] ([facility]) [address], [place], [address], 11/08/2019 11:01:29 11/08/20 19 11/08/2019 CBC w/ diff MCV 102.5 fL 82.0-1 00.0 high Not Available [facility] ([facility]) [address], [place], [address], 11/08/2019 11:01:29 11/08/20 19 11/08/2019 CBC w/ diff MCH 34.7 pg 26.0-3 4.0 high Not Available [facility] ([facility]) [address], [place], [address], 11/08/2019 11:01:29 11/08/20 19 11/08/2019 CBC w/ diff MCHC 33.8 g/dL 32.0-3 6.0 Not Available [facility] ([facility]) [address], [place], [address], 11/08/2019 11:01:29 11/08/20 19 11/08/2019 CBC w/ diff RDW-SD 54.7 fL 35.1-4 6.8 high Not Available [facility] ([facility]) [address], [place], [address], 11/08/2019 11:01:29 11/08/20 19 11/08/2019 CBC w/ diff plt 215 10*3/ uL 140-44 0 Not Available [facility] ([facility]) [address] [place], [address], 11/08/2019 11:01:29 11/08/20 19 11/08/2019 CBC w/ diff MPV 11.5 fL 9.7-12 .8 Not Available [facility] ([facility]) [address] [place], [address], 11/08/2019 11:01:29 11/08/20 19 11/08/2019 CBC w/ diff neut% 49.30 % 40.00- 77.00 Not Available [facility] ([facility]) [address] , [place], [address], 11/08/2019 11:01:29 11/08/20 19 11/08/2019 CBC w/ diff lymph% 31.30 % 14.00- 47.00 Not Available [facility] ([facility]) [address] , [place], [address], 11/08/2019 11:01:29 11/08/20 19 11/08/2019 CBC w/ diff mono% 12.20 % <13.00 Not Available [facility] ([facility]) [address], [place], [address], 11/08/2019 11:01:29 11/08/20 19 11/08/2019 CBC w/ diff eo% 5.50 % <7.[address] Not Available [facility] ([facility]) [address], [place], [address], 11/08/2019 11:01:29 11/08/20 19 11/08/2019 CBC w/ diff baso% 1.50 % <2.[address] Not [address] [facility] ([facility]) [address], [place], [address], 11/08/2019 11:01:29 11/08/20 19 11/08/2019 CBC w/ diff Ig% 0.20 % <0.50 Not Available [facility] ([facility]) [address], [place], [address], 11/08/2019 11:01:29 11/08/20 19 11/08/2019 CBC w/ diff NRBC% 0.00 % <0.20 Not Available [facility] ([facility]) [address] [place], [address], 11/08/2019 11:01:29 11/08/20 19 11/08/2019 CBC w/ diff neut# 2.70 10*3/ uL 2.00-6 .80 Not Available [facility] ([facility]) [address] , [place], [address], 11/08/2019 11:01:29 11/08/20 19 11/08/2019 CBC w/ diff lymph# 1.71 10*3/ uL 0.90-3 .00 Not Available [facility] ([facility]) [address] , [place], [address], 11/08/2019 11:01:29 11/08/20 19 11/08/2019 CBC w/ diff mono# 0.67 10*3/ 3uL 0.20-0 .80 Not Available [facility] ([facility]) [address], [place], [address], 11/08/2019 11:01:29 11/08/20 19 11/08/2019 CBC w/ diff eo# 0.30 10*3/ uL <0.81 Not Available [facility] ([facility]) [address] , [place], [address], 11/08/2019 11:01:29 11/08/20 19 11/08/2019 CBC w/ diff baso# 0.08 10*3/ uL 0.00-0 .10 Not Available [facility] ([facility]) [address], [place], [address], 11/08/2019 11:01:29 11/08/20 19 11/08/2019 CBC w/ diff Ig# 0.01 10*3/ uL <0.40 Not Available [facility] ([facility]) [address], [place], [address], 11/08/2019 11:01:29 11/08/20 19 11/08/2019 CBC w/ diff NRBC# <0.01 10*3/ uL <0.01 Not Available [facility] ([facility]) [address] [place], [address], 11/08/2019 11:01:29 11/08/20 19 11/08/2019 C react nunu prote in, QN, serum or plasm a CRP 0.09 mg/dL 0.00-0 .88 Not Available [facility] ([facility]) [address] [place], [address], 11/08/2019 11:10:37 11/08/20 19 11/08/2019 CMP, serum or plasm a glucose 103 mg/dL 74-100 high Not Available [facility] ([facility]) [address] [place], [address], 11/08/2019 11:10:40 11/08/20 19 11/08/2019 CMP, serum or plasm a BUN 17.9 mg/dL 8.0-23 .0 Not Available [facility] ([facility]) [address] [place], [address], 11/08/2019 11:10:40 11/08/20 19 11/08/2019 CMP, serum or plasm a creat 0.69 mg/dL 0.40-1 .10 Not Available [facility] ([facility]) [address] [place], [address], 11/08/2019 11:10:40 11/08/20 19 11/08/2019 CMP, serum or plasm a GFR estimated 83 mL/mi n/1.7 3m2 >60 IDMS trace able MDRD study equat ion. If patie nt is Afric an-Am marcela n, multi ply repor luke resul t by 1.21 Not Available [facility] ([facility]) [address] [place], [address], 11/08/2019 11:10:40 11/08/20 19 11/08/2019 CMP, serum or plasm a BUN/creat 26 % Not Available [facility] ([facility]) [address] [place], [address], 11/08/2019 11:10:40 11/08/20 19 11/08/2019 CMP, serum or plasm a Na+ 139 mmol/ L 136-14 5 Not Available [facility] ([facility]) [address], [place], [address], 11/08/2019 11:10:40 11/08/20 19 11/08/2019 CMP, serum or plasm a K+ 4.4 mmol/ L 3.5-5. 2 Not Available [facility] ([facility]) [address], [place], [address], 11/08/2019 11:10:40 11/08/20 19 11/08/2019 CMP, serum or plasm a cL- 104 mmol/ L 98-107 Not Available [facility] ([facility]) [address] [place], [address], 11/08/2019 11:10:40 11/08/20 19 11/08/2019 CMP, serum or plasm a CO2 23 mmol/ L 22-29 Not Available [facility] ([facility]) [address] [place], [address], 11/08/2019 11:10:40 11/08/20 19 11/08/2019 CMP, serum or plasm a anion gap 12 7-17 Not Available [facility] ([facility]) [address] [place], [address], 11/08/2019 11:10:40 11/08/20 19 11/08/2019 CMP, serum or plasm a calcium 9.2 mg/dL 8.6-10 .5 Not Available [facility] ([facility]) [address] [place], [address], 11/08/2019 11:10:40 11/08/20 19 11/08/2019 CMP, serum or plasm a tl prot 6.8 g/dL 6.4-8. 3 Not Available [facility] ([facility]) [address] [place], [address], 11/08/2019 11:10:40 12/17/20 19 11/08/2019 CMP, serum or plasm a alb 3.9 g/dL 3.5-5. 2 Not Available [facility] ([facility]) [address] [place], [address], 11/08/2019 11:10:40 11/08/20 19 11/08/2019 CMP, serum or plasm a A/G ratio 1.0 Not Available [facility] ([facility]) [address] [place], [address], 11/08/2019 11:10:40 11/08/20 19 11/08/2019 CMP, serum or plasm a tbil 0.8 mg/dL 0.0-1. 2 Not Available [facility] ([facility]) [address] [place], [address], 11/08/2019 11:10:40 11/08/20 19 11/08/2019 CMP, serum or plasm a alk phos 50 U/L 22-126 Not Available [facility] ([facility]) [address] [place], [address], 11/08/2019 11:10:40 11/08/20 19 11/08/2019 CMP, serum or plasm a SGOT/AST 26 IU/L 0-32 Not Available [facility] ([facility]) [address] [place], [address], 11/08/2019 11:10:40 11/08/20 19 11/08/2019 CMP, serum or plasm a SGPT/ALT 26 IU/L 0-[address] [facility] ([facility]) [address] [place], [address], 11/08/2019 11:10:40 11/08/20 19 11/08/2019 CMP, serum or plasm a osmol cory 280 mOsm/ kg 270-32 0 Not Available [facility] ([facility]) [address] [place], [address], 11/08/2019 11:10:40 Result Notes None recorded. 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 899 Enter ed By: Odalis Sun MA; Signed By: Angelica García MD Not Available [facility] 9 01:04:58 Osteoarth ritis of knee 427636038 Active 2012 OSTEOARTH RITIS, KNEE; Original code:M17. 9 Entered By: RICK Joe; Signed By: RICK Joe Not Available [facility] 9 01:04:58 Osteopeni a 704780703 Active 2017 OSTEOPENI A; Original code:M85. 80 Entere d By: Odlais Sun MA; Signed By: Angelica García MD Not Available [facility] 9 01:04:58 History of total knee arthropla sty 98383652982 05 Active 2016 TOTAL KNEE REPLACEME NT, LEFT; Original code:Z96. 652 Enter ed By: Odalis Sun MA; Signed By: Angelica García MD Not Available [facility] 9 01:04:58 History of chemother apy 895276381 Active 2014 PERSONAL HISTORY OF MONOCLONA L DRUG THERAPY; Original code:Z92. 22 Entere d By: Angelica García MD; Signed By: Angelica García MD Not Available [facility] 9 01:04:58 History of drug therapy 362933889 Active 2015 PERSONAL HISTORY OF OTHER DRUG THERAPY; Original code:Z92. 29 Entere d By: Angelica García MD; Signed By: Angelica García MD Not Available [facility] 9 01:04:58 Seroposit nunu rheumatoi d arthritis 439520569 Active 2008 OTHER RHEUMATOI D ARTHRITIS WITH RHEUMATOI D FACTOR OF MULTIPLE SITES; Original code:M05. 89 Entere d By: Angelica García MD; Signed By: Angelica García MD Not Available [facility] 9 01:04:58 Rupture of anterior cruciate ligament 126471956 Active 2012 ACL TEAR, RIGHT KNEE; Original code:S83. 511 Enter ed By: Wilmer Al CMA ([facility]); Signed By: Wilmer Al CMA ([facility]) Not Available [facility] 9 01:04:58 Osteoporo sis 90824725 Active 2018 Odalis Sun ([employer]) null, [facility] 9 09:13:34 Problem Notes None recorded. Procedures Surgical History Date Name Laterality Status Provider Name and Address Organization Details Recorded Time 09/20/20 13 Most Recent Bone Density completed Oadlis Sun ([employer] [facility]) [facility] 11/02/2019 09:08:42 Cholecystectomy (Gallbladder) completed Odalisjanis Sun ([facility]) [facility] 11/02/2019 09:09:40 Hernia Repair completed Odalis Sun ([employer] [facility]) [facility] 11/02/2019 09:10:44 operation on heart completed Michell rosas Sun ([facility]) [facility] 11/02/2019 09:10:21 repair of mitral valve completed Odalisjanis Sun ([facility]) [facility] 11/02/2019 09:10:34 Hysterectomy - Total completed Odalisjanis Sun ([facility]) [facility] 11/02/2019 09:10:59 splenectomy completed Odalis Sun ([facility]) [facility] 11/02/2019 09:11:35 Orthopedic - Knee Replacement completed Angelica García MD [address], [place], [address] 11/02/2019 10:02:41 Imaging Results None recorded. 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 Never Used Electronic Cigarettes [email or web address] Information not available 11/02/2019 Do You Or Have You Ever Used Smokeless Tobacco? Never Used Smokeless Tobacco [email or web address] Information not available 11/02/2019 Sex: Unknown Functional Status None recorded. Mental Status None recorded. Family History Relationship Description Onset Age of this Age Resolved Age Notes LastModified by Organization Details LastModified Time Father Hypertensive disorder [email or web address] Not available 11/02 09:09:09 Medical History No medical history recorded. Gynecological History Statement/Question Response Most Recent Bone Density 09/20/2013 Obstetrics History GPAL:G 0 P 0 0 0 0 Immunizations Vaccine Type Date Status Note Provider Nam e and Address Organization Details Recorded Time influenza, unspecified formulation 9 completed Not Available [facility] 06/12/2019 14:13:11 Past Encounters Encounter ID Performer Location Encounter Start Date Encounter Closed Date Diagnosis/Indication Diagnosis SNOMED-CT Code Diagnosis ICD10 Code Diagnosis Note [id number] Angelica García MD [facility] [address] [place] [address] 11/02/2019 09:06:10 11/02/2019 10:49:49 Seropositive rheumatoid arthritis 973990461 M05.9 keep methotrexa te /Humira taper, labs q3mo Osteoporosis 67741120 M8 1.0 bisphospho annika holiday, calcium and vitamin D. DXA q2y ( per rheum up [place]) History of drug therapy 717239172 Z92.22 Generally Tb screen recommende d q2y and hep BC screen q5 years ( unless more frequent testing indicated) longterm methotrexate user 9965461896 00 Z79.899 Health Concerns Section Related Observation LastModified by Organization Detai ls LastModified Time None Recorded Concern Status LastModified by Organization Details LastModified Time None Recorded Advance Directives Directive None Recorded Payers Encounter Date Sequence Insurance Name Policy Number Policy Hines Covered Member ID Hines Member ID Guarantor Name 11/02/2019 1 [place] Melissa De La Garza [id number] Melissa De La Garza 11/02/2019 2 [place] LISA MARTINEZ [id number] Melissa De La Garza [id number] Melissa De La Garza Notes Date Note [...] per pt normal Dr. Ciro Reed, Rheumatology [address] [place] [address] 11927 [phone] Angelica García MD [address], [place], [address], [facility] 11/02/2019 13:14:59 OBGyn Episode No OBEpisode recorded.
--- OUTSIDE RECORDS SUMMARY | 2025-03-27 12:54 | XMS_ITS ---
Author Organization [facility] belinda Deweese Address [address] [place] [address] Care Team Providers Care Prime Minister Name Role Phone Ana Garcia MD Primary Care Provider Sabino Eva Brooks Unavailable [phone] Allergies No Known Allergies REASON FOR VISIT [...] Ordered Date Performed Result Body Sit e 51525-YUIXVIU NAIL, 6 OR MORE 12/16/2024 N/A Encounters Encounter Location Date Provider Diagnosis [facility] [address] [place] [address] 12/16/2024 Eva Alas Onychomycosis B35.1 ; Ingrown [...] Treatment Pending Test Test Name Order Date [id number] NAIL, 6 OR MORE 12/16/2024 Next Appt Details Follow Up: 2 Weeks, Reason: Provider Name:Eva Alas , 05/10/2025 09:15:00 AM, [address] [facility], [place], [address], Procedure Notes * Category Sub-Category Detail Notes [...] Motrin was recommended for pain or discomfort (21557), Pt DEFERS matricectomy Anesthesia , was accomplished [...] use of a nail nipper and/or dremel-type cutter grinder, to a more viable healthy nail [...] to maintain effectiveness in symptomatic relief - 76604 Progress Notes * Melissa NAPIEROB:[birth year] (79 yo F)Acc No.[id number]:12/16/2024 Progress Note Patient:?Melissa NAPIER Provider:?Eva Alas DPM :1945???Age:79 Y???Sex:Female D ate:12/16/2024 Address: [address] [place], [id number] Pcp:Ana Garcia MD Subjective: * Chief Complaints: [...] use of a nail nipper and/or dremel-type cutter grinder, to a more viable healthy nail [...] to maintain effectiveness in symptomatic relief - 20617.?Nail Avulsion:?Location?, Lateral nail border, TA.?Anesthesia?, was accomplished [...] Motrin was recommended for pain or discomfort (67534), Pt DEFERS matricectomy.? * Procedure Codes:?75723 DEBRI DE NAIL, 6 OR MORE, Modifiers: XS 33760 Avulsion Plate, Modifiers: TA * Follow Up:?2 Weeks * Images: * Sign off status: Completed true * Provider:?Eva Alas DPM Date:?2024 Generated for Jed pabon/Nimisha/eTransmitting on:?03/27/2025 12:53 PM EDT History and Physical Notes * [...]
--- OUTSIDE RECORDS SUMMARY | 2025-03-27 12:54 | XMS_ITS | Data Portability ---
Author Organization [place] - [facility], Allergy Address [address] [address] Assessment Encounter Date Assessment Date Assessment LastModified by Organization Details LastModified Time 12/19/2024 12/19/2024 Resolution: Schedule an appointment for cerumen management. [email or web address] Not available 12/19/2024 11:27:01 Plan of Treatment [...] Address Organization Details Recorded Time Dysphagi a 05237855 Active 2022 Dysphagi a, unspecif ied; Note: Date Diagnose d: 3 1:15 PM (R13.10) Not Available [facility] 4 02:47:13 Central perforat ion of right tympanic membrane 08043225083 10006 Active 2021 Central perforat ion of tympanic membrane , right ear; Note: Date Diagnose d: 2 10:31 AM (H72.91) Not Available [facility] 4 02:47:14 Sensorin eural hearing loss in left ear 95373782425 109 Active 2016 Sensorin eural hearing loss, unilater al, left ear, with restrict ed hearing on the contrala teral side; Note: Date Diagnose d: 7 11:42 AM (H90.A22 ) Not Available [facility] 4 02:47:11 Otorrhea of right ear 95281316524 72272 Completed 202106/24/2024 Otorrhea , right ear; Note: Date Diagnose d: 2 9:32 AM (H92.11) Not Available [facility] 4 02:47:09 Acute non-supp urative otitis media of right ear 37437076539 95276 Active 2021 Other acute nonsuppu rative otitis media, right ear; Note: Date Diagnose d: 2 10:32 AM (H65.191 ) Not Available [facility] 4 02:47:13 Mixed conducti ve and sensorin eural hearing loss of right ear 04520176857 105 Active 2016 Mixed conducti ve and sensorin eural hearing loss, unilater al, right ear with restrict ed hearing on the contrala teral side; Note: Date Diagnose d: 7 11:42 AM (H90.A31 ) Not Available [facility] 4 02:47:11 Posterio r rhinorrh ea 47044381 Active 2021 Postnasa l drip; Note: Date Diagnose d: 11/14/20 4:46 PM (R09.82) Not Available [facility] 4 02:47:12 Gastroes ophageal reflux disease without esophagi tis 300914638 Active 2022 Gastro-e sophagea l reflux disease without esophagi tis; Note: Date Diagnose d: 10/20/20 11:01 AM (K21.9) Not Available [facility] 4 02:47:10 Somatofo rm disorder 99905049 Active 2022 Psychoge sumaya dysphagi a, includin g 'globus hysteric us'; Note: Date Diagnose d: 10/20/20 11:07 AM (F45.8) Not Available [facility] 4 02:47:10 Allergic rhinitis 41485123 Active 2022 Allergic rhinitis , unspecif ied; Note: Date Diagnose d: 07/31/2023 10:04 AM (J30.9) Not Available [facility] 4 02:47:13 Problem Notes None recorded. Medical Equipment None Reported. Medications Name Sig Start Date Stop Date Status Note LastModified by Organization Details LastModified Time Prescript ion - Prior Authoriza tion Request active Script Copy/Juanita or Auth^Scr ipt Copy/Juanita or Auth_ [id number] Not Available Not Available Not Available celecoxib 200 mg capsule TAKE 1 CAPSULE BY MOUTH TWICE A DAY active Not Available Not Available No t Available atorvasta tin 20 mg tablet TAKE 1 TABLET BY MOUTH EVERY DAY active Not Available Not Available No t Available sulfasala zine 500 mg tablet 04/11 completed Medicati on ID: [id number] D uration Value: 90 Brand Name: sulfasal [...] 325 mg tablet active Medicati on ID: [id number] B rand Name: aspirin Send Method: E-Prescr [...] affected area 2021 active Medicati on ID: [id number] D uration Value: 14 Prescri bed By [...] capsule,d elayed release active Medicati on ID: 761075 B rand Name: omeprazo le Send Method: E-Prescr ibed Sub s Allowed: subs OK Medic ationGen ericName : omeprazo le Not Available Not Available Not Available folic acid 1 mg tablet TAKE 1 TABLET BY MOUTH EVERY DAY active Not Available Not Available No t Available azelastin e 137 mcg (0.1 %) nasal spray [place] 2 spray into both nostrils twice a day as directed 2022 active Medicati on ID: [id number] D uration Value: 30 Prescri bed By [...] bromide 42 mcg (0.06 %) nasal spray [place] 2 spray into both nostrils three times a day 2022 active Medicati on ID: [id number] D uration Value: 30 Prescri bed By [...] a day 2022 active Medicati on ID: [id number] D uration Value: 21 Brand Name: cefdinir Send Method: E-Prescr ibed Sub s Allowed: subs OK Medic ationGen ericName : cefdinir Not Available Not Available Not Available ipratropi um bromide 21 mcg (0.03 %) nasal spray [place] 2 spray into both nostrils twice a day as directed 2021 active Medicati on ID: [id number] D uration Value: 30 Brand Name: ipratrop [...] with meals 10/01 completed Medicati on ID: [id number] D uration Value: 14 Brand Name: amoxicil yamila-pot clavulan ate Send Method: E-Prescr ibed Sub s Allowed: subs OK Medic ationGen ericName : amoxicil yamila-pot clavulan ate Not Available Not Available Not Available TobraDex 0.3 %-0.1 % eye drops,han pension 06/11 completed Medicati on ID: [id number] P rescribe d By Name: SIMEON Rm nd Name: TobraDex Send Method: E-Prescr ibed Sub s Allowed: subs OK Speci al Instruct ion: Instill 3 drops in the affect ear BID for 14 days Med icationG enericNa me: TobraDex Not Available Not Available Not Available Ciprodex 0.3 %-0.1 % ear drops,han pension 4 drop into right ear 2021 active Medicati on ID: [id number] D uration Value: 14 Prescri bed By Name: SIMEON Rm nd Name: Ciprodex Send Method: E-Prescr ibed Sub s Allowed: subs OK Speci al Instruct ion: x 14 days Med icationG enericNa me: Ciprodex Not Available Not Available Not Available metoprolo l tartrate 25 mg tablet 06/11 completed Medicati on ID: [id number] D uration Value: 90 Brand Name: metoprol [...] inhalatio n 06/11 completed Medicati on ID: [id number] B rand Name: Breo Ellipta Send Method: E-Prescr ibed Sub s Allowed: subs OK Medic ationGen ericName : Breo Ellipta Not Available Not Available Not Available Entresto 24 mg-26 mg tablet TAKE 1 TABLET BY MOUTH TWICE A DAY active Not Available Not Available No t Available aspirin 81 mg capsule active Medicati on ID: 158802 B rand Name: aspirin Send Method: E-Prescr [...] SNOMED-CT Code Diagnosis ICD10 Code Diagnosis Note [id number] Carol PALMA RAMOS [place] 100 [facility] [address] 12/19/2024 11:04:37 12/20/2024 07:24:19 Mixed conductive and sensorineural hearing loss of right ear [id number] 9105 H90.A31 Health Concerns Section Related Observation LastModified by Organization Detai ls LastModified Time None Recorded Concern Status LastModified by Organization Details LastModified Time None Recorded Advance Directives Directive None Recorded Payers Encounter Date Sequence Insurance Name Policy Number Policy Hines Covered Member ID Hines Member ID Guarantor Name 12/19/2024 2 [facility] Melissa De La Garza [id number] Melissa De La Garza 12/19/2024 1 MEDICARE B-[place]: [employer] Melissa Keylexi [id number] Melissa De La Garza Notes Date Note Type Note Provider Name and Address Organization Details Recorded Time 12/19/2024 text/html Hearing Aid ProblemReported bypatient.Visit typein office repair Hearing Aidhearing device is functioning well Hearing Aidfeedback LANDEN NDIAYE, [address], [address], [facility] - [facility] 12/19/2024 11:27:32 OBGyn Episode No OBEpisode recorded.
--- OUTSIDE RECORDS SUMMARY | 2025-03-27 12:54 | XMS_ITS | Patient Health Record ---
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 Problem Acquired hammer toe of right foot (5853712408334912) Other hammer toe(s) (acquired), right foot (M20.41) Active confirmed Problem Acquired hammer toe of left foot (0382357498787808) Other hammer toe(s) (acquired), left foot (M20.42) Active confirmed Problem Acquired hammer toe of right foot (2127788545899543) Other hammer toe(s) (acquired), right foot (M20.41) Active confirmed Problem Acquired hammer toe of left foot (2192559814535127) Other hammer toe(s) (acquired), left foot (M20.42) Active confirmed Problem 87811292 Lower limb lengt h difference (M21.70) Active confirmed Problem Joint contracture of the ankle and/or foot (650583284) Flexion 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) Active confirmed Problem Joint contracture of the ankle and/or foot (958792718) Flexion contracture of joint of right foot (M24.574) Active confirmed Problem Acquired deformity of right foot (29569188089133354) PlantarFlexion of metatarsal of right foot (M21.6X1) Active confirmed Problem Joint contracture of the ankle and/or foot (820689079) Flexion contracture of joint of right foot (M24.574) Active confirmed Problem 2271043561977204 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) Active confirmed Problem 810095871 Ulcer of right foot, limited to breakdown of skin (L97.511) Active confirmed Problem 318892634 Gouty arthritis (M10.9) Active confirmed Problem 691850021 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) Active confirmed Vital Signs Blood pressure diastolic 80 mm Hg 02/24/2025 Height 5 ft 7 in in 02/24/2025 Blood pressure systolic 127 mm Hg 02/24/2025 Weight 209 lbs 02/24/2025 BMI 32.73 kg/m2 02/24/2025 Procedures Procedure Date Ordered Date Performed Result Body Sit e 82351-INGCIRL NAIL, 6 OR MORE 04/01/2024 N/A 54831, J0702- INJECT or DRAI N, JOINT/BURSA 04/13/2024 N/A 72272-NMAMUDJ NAIL, 6 OR MORE 07/08/2024 N/A 96598-EGUOUHI NAIL, 6 OR MORE 10/07/2024 N/A 03558- Debride <25 sq cm 10/07/2024 N/A 10890-GJZUCMC NAIL, 6 OR MORE 12/16/2024 N/A 75250-INGCNEU NAIL, 6 OR MORE 02/24/2025 N/A Encounters Encounter Location Date Provider Diagnosis [address] [place] [address] 04/01/2024 Eva Black Onychomycosis B35.1 ; Pain in right toe(s) M79.674 and Pain in left toe(s) M79.675 [facility] [address] 04/13/2024 Keshawn Sepulveda Pain in right foot M79.671 ; Gouty arthritis M10.9 and Arthritis of right ankle M19.[address] [address] 05/12/2024 Keshawn Sepulveda Pain in right foot M79.671 ; Arthritis of right ankle M19.071 and 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.[address] [place] [address] 07/08/2024 Eva Black Pain in right foot M79.671 ; Arthritis of right ankle M19.071 ; 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.771 ; Onychomycosis B35.1 ; Pain in right toe(s) M79.674 and Pain in left toe(s) M79.[address] [address] 10/07/2024 Eva Black Pain in right foot M79.671 ; Arthritis of right ankle M19.071 ; 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.771 ; Onychomycosis B35.1 ; Pain in right toe(s) M79.674 ; Pain in left toe(s) M79.675 and Ulcer of right foot, limited to breakdown of skin L97.[address] [address] 12/16/2024 Eva Black Onychomycosis B35.1 ; Ingrown nail L60.0 ; Pain in right toe(s) M79.674 and Pain in left toe(s) M79.[address] [address] 02/24/2025 Eva Black Onychomycosis B35.1 ; Lower limb length difference M21.70 ; Pain in right toe(s) M79.674 and Pain in left toe(s) M79.675 [facility] [address] [address] 04/13/2024 Eva Black [facility] [address] 05/12/2024 [facility] [address] 05/12/2024 Eva Black Assessments Encounter Date Diagnosis [...] Date *Uric Acid, Serum 04/13/2024 *Sedimentation Rate-Westergren 68230-LCVTNHB NAIL, 6 OR MORE 12/29/2023 60201-EOFDXYO NAIL, 6 OR MORE 04/01/2024 72137-NNNSUCU NAIL, 6 OR MORE 04/29/2023 92402-NAILUDT NAIL, 6 OR MORE 07/08/2023 58748-RZQKQET NAIL, 6 OR MORE 09/22/2023 50329-WHDXVED NAIL, 6 OR MORE 02/13/2023 01456-IYXMBSU NAIL, 6 OR MORE 07/08/2024 35982-UDHQMYK NAIL, 6 OR MORE 10/07/2024 57988-NBWHKXE NAIL, 6 OR MORE 12/16/2024 97406-GXNDXSU NAIL, 6 OR MORE 02/24/2025 67793-STAPBFE NAIL, 1-5 12/10/2021 02577-Qaezhiss Plate 12/29/2023 76949-Smiawvuc Plate 04/29/2023 51118-Kposnvre Plate 07/22/2021 06015- Debride <25 sq cm 10/07/2024 81546, J0702- INJECT or DRAIN, JOINT/BUR SA 04/13/2024 72316, F1511-CMXKB/INJECT, JOINT/BURSA 0 08/17/2017 75470,U6445-TJJ TENDON SHEATH/LIGAMENT 0 08/15/2019 17579,C0363-ZFD TENDON SHEATH/LIGAMENT 1 82701, J0702- Neuroma/Injection 09/14/20 17 X ray : Ankle, right 3V 04/13/2024 88527 - Tenotomy, open flexor 08/07/2021 Next Appt Details Provider Name:Eva Alas , 05/10/2025 09:15:00 AM, [address] , [place], [address], Insurance Providers Payer Name Payer Address Payer Phone Subscriber Number Group Number Insured Name Patient Relationship to Insured Coverage Start Date Coverage End Date Medicare National [employer] [address] [place] [address] [id number] Melissa De La Garza Self - patient [facility] the [facility] [address] [place] [address] [id number] Melissa De La Garza Ellen Self - [...]
[2025-03-27 13:17] LABS: MANUAL DIFF FLAG NO
[2025-03-27 13:29] LABS: Basophils Absolute Auto 0.1 X10*3/uL (0.0-0.2); Basophils Percent Auto 1.3 % (0-2); Eosinophils Absolute Auto 0.3 X10*3/uL (0.0-0.4); Eosinophils Percent Auto 4.8 % (0-4); Hematocrit 35.9 % (37.0-47.0); Imm Gran Abs Auto 0.03 X10*3/uL (0.00-0.03); Imm Gran Pct Auto 0.6 % (0.0-0.4); Lymphocytes Absolute Auto 1.1 X10*3/uL (1.2-4.9); Lymphocytes Percent Auto 21.6 % (20-40); Mean Corpuscular HGB Conc 33.4 g/dl (31.0-35.0); Mean Corpuscular Hemoglobin 36.6 pg (27.0-33.0); Mean Corpuscular Volume 109.5 fL (80.0-98.0); Mean Platelet Volume 10.8 fL (9.4-12.3); Monocytes Absolute Auto 0.4 X10*3/uL (0.1-1.2); Monocytes Percent Auto 7.8 % (2-11); Neutrophils Absolute Auto 3.3 x10*3/uL (2.0-8.3); Neutrophils Percent Auto 63.9 % (45-73); Platelet Count 184 X10*3/uL (160-400); Red Blood Count 3.28 X10*6/uL (4.20-5.50); White Blood Count 5.2 X10*3/uL (4.8-10.8)
[2025-03-27 13:50] LABS: Alanine Aminotransferase 29 U/L (0-31); Albumin Level 3.8 g/dL (3.5-5.0); Alkaline Phosphatase 39 U/L (39-117); Anion Gap 10 (12-20); Aspartate Amino Transferase 36 U/L (5-31); Bilirubin Total 1.3 mg/dL (0.0-1.0); Blood Urea Nitrogen 33 mg/dL (9-16); Calcium 8.8 mg/dL (8.4-10.2); Carbon Dioxide 23 mmol/L (22-29); Chloride 110 mmol/L (96-108); Estimated Glomerular Filt Rate 50; Glucose Random 85 mg/dL (60-115); Potassium 4.1 mmol/L (3.3-5.1); Sodium 139 mmol/L (135-145); Total Protein 6.4 g/dL (6.5-8.0)
[2025-03-27 14:07] LABS: TSH reflex Free T4 2.37 uIU/mL (0.32-4.0)
== END 2025-03-27 11:09 | disposition home or self-care (01) ==
LOC: HO.HMGCLDS 11:08
PROVIDERS: PCP Internal Medicine; Visit Provider Nurse Practitioner Family
DX: N39.0 Urinary tract infection, site not specified (principal); R53.83 Other fatigue; I48.19 Other persistent atrial fibrillation; I42.9 Cardiomyopathy, unspecified; Z79.899 Other long term (current) drug therapy
CPT/HCPCS: 36415; 80053; 84443; 85025

== ENCOUNTER 2025-04-12 09:41 | Outpatient (REF) | payer MEDICARE, SELFPAY ==
--- OUTSIDE RECORDS SUMMARY | 2025-04-12 11:54 | XMS_ITS | Data Portability ---
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 Plan of Treatment Reminders Order Date Submit Date Provider Last Modified By Organization Details Last Modified Time Details Appointments None recorded. Lab CMP, serum or plasma 2018 019 [facility] ([facility]), [address], [place], [address], 9 11:10:40 C reactive protein, QN, serum or plasma 2018 019 [facility] ([facility]), [address], [place], [address], 9 11:10:37 CBC w/ diff 2018 019 [facility] ([facility]), [address], [place], [address], 9 11:01:30 CBC w/ diff 2018 020 [facility] ([facility]), [address], [place], [address], 0 03:16:16 C reactive protein, QN, serum or plasma 2018 020 [facility] ([facility]), [address] [place], [address], 0 03:16:16 CMP, serum or plasma 2018 020 [facility] ([facility]), [address], [place], [address], 0 03:16:16 Referral None recorded. Procedures None recorded. Surgeries None recorded. Imaging None recorded. Medication Orders methotrexa te sodium 2.5 mg tablet 2018 019 INTERFACE [id number], [address], [place], [address], 9 10:03:37 Patient TargetsNo targets recorded. Patient Instructions Encounter Date Encounter Id Patient Instructions Last Modified By Organization Details Last Modified Time 11/02/2019 [id number] osteoporosis: care instructions Not available 11/02/2019 10:03:35 Reason for Referral None Reported. Results Created Date Observation Date Name Description Value Unit Range Abnormal Flag Note LastModifiedBy Organization Detail LastModifiedTime 11/08/20 19 11/08/2019 CBC w/ diff WBC 5.47 10*/3 uL 3.90-1 1.20 Not Available [facility] ([facility]) [address], [place], [address], 11/08/2019 11:01:29 11/08/20 19 11/08/2019 CBC w/ diff RBC 4.01 10*6/ uL 3.40-5 .40 Not Available [facility] ([facility]) [address], [place], [address], 11/08/2019 11:01:29 11/08/20 19 11/08/2019 CBC w/ diff hemoglobin 13.9 g/dL 10.8-1 5.5 Not Available [facility] ([facility]) [address], [place], [address], 11/08/2019 11:01:29 11/08/20 19 11/08/2019 CBC w/ diff hematocrit 41.1 % 33.0-4 5.0 Not Available [facility] ([facility]) [address], [place], [address], 11/08/2019 11:01:29 11/08/20 19 11/08/2019 CBC w/ diff MCV 102.5 fL 82.0-1 00.0 high Not Available [facility] ([facility]) [address], [place], [address], 11/08/2019 11:01:29 11/08/20 19 11/08/2019 CBC w/ diff MCH 34.7 pg 26.0-3 4.0 high Not Available [facility] ([facility]) [address], [place], [address], 11/08/2019 11:01:29 11/08/20 19 11/08/2019 CBC w/ diff MCHC 33.8 g/dL 32.0-3 6.0 Not Available [facility] ([facility]) [address], [place], [address], 11/08/2019 11:01:29 11/08/20 19 11/08/2019 CBC w/ diff RDW-SD 54.7 fL 35.1-4 6.8 high Not Available [facility] ([facility]) [address], [place], [address], 11/08/2019 11:01:29 11/08/20 19 11/08/2019 CBC w/ diff plt 215 10*3/ uL 140-44 0 Not Available [facility] ([facility]) [address] [place], [address], 11/08/2019 11:01:29 11/08/20 19 11/08/2019 CBC w/ diff MPV 11.5 fL 9.7-12 .8 Not Available [facility] ([facility]) [address] [place], [address], 11/08/2019 11:01:29 11/08/20 19 11/08/2019 CBC w/ diff neut% 49.30 % 40.00- 77.00 Not Available [facility] ([facility]) [address] , [place], [address], 11/08/2019 11:01:29 11/08/20 19 11/08/2019 CBC w/ diff lymph% 31.30 % 14.00- 47.00 Not Available [facility] ([facility]) [address] , [place], [address], 11/08/2019 11:01:29 11/08/20 19 11/08/2019 CBC w/ diff mono% 12.20 % <13.00 Not Available [facility] ([facility]) [address], [place], [address], 11/08/2019 11:01:29 11/08/20 19 11/08/2019 CBC w/ diff eo% 5.50 % <7.00 Not Available [facility] ([facility]) [address], [place], [address], 11/08/2019 11:01:29 11/08/20 19 11/08/2019 CBC w/ diff baso% 1.50 % <2.00 Not Available [facility] ([facility]) [address], [place], [address], 11/08/2019 11:01:29 11/08/20 19 11/08/2019 CBC w/ diff Ig% 0.20 % <0.50 Not Available [facility] ([facility]) [address], [place], [address], 11/08/2019 11:01:29 11/08/20 19 11/08/2019 CBC w/ diff NRBC% 0.00 % <0.20 Not Available [facility] ([facility]) [address] [place], [address], 11/08/2019 11:01:29 11/08/20 19 11/08/2019 CBC w/ diff neut# 2.70 10*3/ uL 2.00-6 .80 Not Available [facility] ([facility]) [address] , [place], [address], 11/08/2019 11:01:29 11/08/20 19 11/08/2019 CBC w/ diff lymph# 1.71 10*3/ uL 0.90-3 .00 Not Available [facility] ([facility]) [address] , [place], [address], 11/08/2019 11:01:29 11/08/20 19 11/08/2019 CBC w/ diff mono# 0.67 10*3/ 3uL 0.20-0 .80 Not Available [facility] ([facility]) [address], [place], [address], 11/08/2019 11:01:29 11/08/20 19 11/08/2019 CBC w/ diff eo# 0.30 10*3/ uL <0.81 Not Available [facility] ([facility]) [address] , [place], [address], 11/08/2019 11:01:29 11/08/20 19 11/08/2019 CBC w/ diff baso# 0.08 10*3/ uL 0.00-0 .10 Not Available [facility] ([facility]) [address], [place], [address], 11/08/2019 11:01:29 11/08/20 19 11/08/2019 CBC w/ diff Ig# 0.01 10*3/ uL <0.40 Not Available [facility] ([facility]) [address], [place], [address], 11/08/2019 11:01:29 11/08/20 19 11/08/2019 CBC w/ diff NRBC# <0.01 10*3/ uL <0.01 Not Available [facility] ([facility]) [address] [place], [address], 11/08/2019 11:01:29 11/08/20 19 11/08/2019 C react nunu prote in, QN, serum or plasm a CRP 0.09 mg/dL 0.00-0 .88 Not Available [facility] ([facility]) [address] [place], [address], 11/08/2019 11:10:37 11/08/20 19 11/08/2019 CMP, serum or plasm a glucose 103 mg/dL 74-100 high Not Available [facility] ([facility]) [address] [place], [address], 11/08/2019 11:10:40 11/08/20 19 11/08/2019 CMP, serum or plasm a BUN 17.9 mg/dL 8.0-23 .0 Not Available [facility] ([facility]) [address] [place], [address], 11/08/2019 11:10:40 11/08/20 19 11/08/2019 CMP, serum or plasm a creat 0.69 mg/dL 0.40-1 .10 Not Available [facility] ([facility]) [address] [place], [address], 11/08/2019 11:10:40 11/08/20 19 11/08/2019 CMP, serum or plasm a GFR estimated 83 mL/mi n/1.7 3m2 >60 IDMS trace able MDRD study equat ion. If patie nt is Afric an-Am marcela n, multi ply repor luke resul t by 1.21 Not Available [facility] ([facility]) [address] [place], [address], 11/08/2019 11:10:40 11/08/20 19 11/08/2019 CMP, serum or plasm a BUN/creat 26 % Not Available [facility] ([facility]) [address] [place], [address], 11/08/2019 11:10:40 11/08/20 19 11/08/2019 CMP, serum or plasm a Na+ 139 mmol/ L 136-14 5 Not Available [facility] ([facility]) [address], [place], [address], 11/08/2019 11:10:40 11/08/20 19 11/08/2019 CMP, serum or plasm a K+ 4.4 mmol/ L 3.5-5. 2 Not Available [facility] ([facility]) [address], [place], [address], 11/08/2019 11:10:40 11/08/20 19 11/08/2019 CMP, serum or plasm a cL- 104 mmol/ L 98-107 Not Available [facility] ([facility]) [address] [place], [address], 11/08/2019 11:10:40 11/08/20 19 11/08/2019 CMP, serum or plasm a CO2 23 mmol/ L 22-29 Not Available [facility] ([facility]) [address] [place], [address], 11/08/2019 11:10:40 11/08/20 19 11/08/2019 CMP, serum or plasm a anion gap 12 7-17 Not Available [facility] ([facility]) [address] [place], [address], 11/08/2019 11:10:40 11/08/20 19 11/08/2019 CMP, serum or plasm a calcium 9.2 mg/dL 8.6-10 .5 Not Available [facility] ([facility]) [address] [place], [address], 11/08/2019 11:10:40 11/08/20 19 11/08/2019 CMP, serum or plasm a tl prot 6.8 g/dL 6.4-8. 3 Not Available [facility] ([facility]) [address] [place], [address], 11/08/2019 11:10:40 12/17/20 19 11/08/2019 CMP, serum or plasm a alb 3.9 g/dL 3.5-5. 2 Not Available [facility] ([facility]) [address] [place], [address], 11/08/2019 11:10:40 11/08/20 19 11/08/2019 CMP, serum or plasm a A/G ratio 1.0 Not Available [facility] ([facility]) [address] [place], [address], 11/08/2019 11:10:40 11/08/20 19 11/08/2019 CMP, serum or plasm a tbil 0.8 mg/dL 0.0-1. 2 Not Available [facility] ([facility]) [address] [place], [address], 11/08/2019 11:10:40 11/08/20 19 11/08/2019 CMP, serum or plasm a alk phos 50 U/L 22-126 Not Available [facility] ([facility]) [address] [place], [address], 11/08/2019 11:10:40 11/08/20 19 11/08/2019 CMP, serum or plasm a SGOT/AST 26 IU/L 0-32 Not Available [facility] ([facility]) [address] [place], [address], 11/08/2019 11:10:40 11/08/20 19 11/08/2019 CMP, serum or plasm a SGPT/ALT 26 IU/L 0-40 Not Available [facility] ([facility]) [address] [place], [address], 11/08/2019 11:10:40 11/08/20 19 11/08/2019 CMP, serum or plasm a osmol cory 280 mOsm/ kg 270-32 0 Not Available [facility] ([facility]) [address] [place], [address], 11/08/2019 11:10:40 Result Notes None recorded. 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 899 Enter ed By: Odalis Sun MA; Signed By: Angelica García MD Not Available [facility] 9 01:04:58 Osteoarth ritis of knee 914779452 Active 2012 OSTEOARTH RITIS, KNEE; Original code:M17. 9 Entered By: RICK Joe; Signed By: RICK Joe Not Available [facility] 9 01:04:58 Osteopeni a 052976938 Active 2017 OSTEOPENI A; Original code:M85. 80 Entere d By: Odalis Sun MA; Signed By: Angelica García MD Not Available [facility] 9 01:04:58 History of total knee arthropla sty 66616167004 05 Active 2016 TOTAL KNEE REPLACEME NT, LEFT; Original code:Z96. 652 Enter ed By: Odalis Sun MA; Signed By: Angelica García MD Not Available [facility] 9 01:04:58 History of chemother apy 266412971 Active 2014 PERSONAL HISTORY OF MONOCLONA L DRUG THERAPY; Original code:Z92. 22 Entere d By: Angelica García MD; Signed By: Angelica García MD Not Available [facility] 9 01:04:58 History of drug therapy 980176139 Active 2015 PERSONAL HISTORY OF OTHER DRUG THERAPY; Original code:Z92. 29 Entere d By: Angelica García MD; Signed By: Angelica García MD Not Available [facility] 9 01:04:58 Seroposit nunu rheumatoi d arthritis 015646170 Active 2008 OTHER RHEUMATOI D ARTHRITIS WITH RHEUMATOI D FACTOR OF MULTIPLE SITES; Original code:M05. 89 Entere d By: Angelica García MD; Signed By: Angelica García MD Not Available [facility] 9 01:04:58 Rupture of anterior cruciate ligament 143230915 Active 2012 ACL TEAR, RIGHT KNEE; Original code:S83. 511 Enter ed By: Wilmer Al CMA ([facility]); Signed By: Wilmer Al CMA ([facility]) Not Available [facility] 9 01:04:58 Osteoporo sis 82698877 Active 2018 Odalis Sun ([employer]) null, [facility] 9 09:13:34 Problem Notes None recorded. Procedures Surgical History Date Name Laterality Status Provider Name and Address Organization Details Recorded Time 09/20/20 13 Most Recent Bone Density completed Odalis Sun ([employer] [facility]) [facility] 11/02/2019 09:08:42 Cholecystectomy (Gallbladder) completed Odalisjanis Sun ([facility]) [facility] 11/02/2019 09:09:40 Hernia Repair completed Odalis Sun ([employer] [facility]) [facility] 11/02/2019 09:10:44 operation on heart completed Michell rosas Sun ([facility]) [facility] 11/02/2019 09:10:21 repair of mitral valve completed Odalisjanis Sun ([facility]) [facility] 11/02/2019 09:10:34 Hysterectomy - Total completed Odalisjanis Sun ([facility]) [facility] 11/02/2019 09:10:59 splenectomy completed Odalis Sun ([facility]) [facility] 11/02/2019 09:11:35 Orthopedic - Knee Replacement completed Angelica García MD [address], [place], [address] 11/02/2019 10:02:41 Imaging Results None [...] 2018 active Enter By: Claudia Rodriguez CMA ([facility]); Signed By: Claudia Rodriguez CMA ([facility]); Date: 018; Authoriz ed by: [...] Updated DateTime 9 170.18 cm 33.5 kg/m2 46441.7 7 g 54 /min 97 % 97 % 116 mm[Hg] 74 mm[Hg] Odalis Sun ([facility]) [facility] 9 09:27:02 Social History None recorded. Functional Status Question Answer Note LastModified by Organizat ion Details LastModified Time Do you or have you ever used smokeless tobacco? Never used smokeless tobacco [id number] Information not available 11/02/2019 Do you or have you ever used e-cigarettes or vape? Never used electronic cigarettes [id number] Information not available 11/02/2019 Mental Status None recorded. Family History Relationship Description Onset Age of this Age Resolved Age Notes LastModified by Organization Details LastModified Time Father Hypertensive disorder [id number] Not available 11/02 09:09:09 Medical History No medical history recorded. Gynecological History Statement/Question Response Most Recent Bone Density 09/20/2013 Obstetrics History GPAL:G 0 P 0 0 0 0 Immunizations Vaccine Type Date Status Note Provider Nam e and Address Organization Details Recorded Time influenza, unspecified formulation 9 completed Not Available [facility] 06/12/2019 14:13:11 Past Encounters Encounter ID Performer Location Encounter Start Date Encounter Closed Date Diagnosis/Indication Diagnosis SNOMED-CT Code Diagnosis ICD10 Code Diagnosis Note [id number] Angelica aGrcía MD [facility] [address] [place] [address] 11/02/2019 09:06:10 11/02/2019 10:49:49 Seropositive rheumatoid arthritis 594560841 M05.9 keep methotrexa te /Humira taper, labs q3mo Osteoporosis 97144267 M8 1.0 bisphospho annika holiday, calcium and vitamin D. DXA q2y ( per rheum 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 methotrexate user 2432423565 00 Z79.899 Health Concerns Section Related Observation LastModified by Organization Detai ls LastModified Time None Recorded Concern Status LastModified by Organization Details LastModified Time None Recorded Advance Directives Directive None Recorded Payers Insurance Date Sequence Insurance Name Policy Number Policy Hines Covered Member ID Hines Member ID Guarantor Name 11/10/2019 2 [place] [id number] Melissa De La Garza [id number] Melissa De La Garza 11/08/2019 1 [place] Melissa De La Garza [id number] Melissa De La Garza Notes Date [...] per pt normal Dr. Ciro Reed, Rheumatology [address] [place] [address] [phone] Angelica García MD [address], [place], [address], [facility] [employer] (formerly known as [employer]) [facility] 11/02/2019 13:14:59 OBGyn Episode No OBEpisode recorded.
== END 2025-04-12 09:42 | disposition home or self-care (01) ==
LOC: HO.LNP 09:41
PROVIDERS: PCP Internal Medicine; Visit Provider Nurse Practitioner Family
DX: R35.1 Nocturia (principal); N39.0 Urinary tract infection, site not specified; R31.9 Hematuria, unspecified; R30.0 Dysuria; Z13.9 Encounter for screening, unspecified
CPT/HCPCS: 51798; 81003; 87086; 99212

== ENCOUNTER 2025-04-12 09:41 | Outpatient (AMB) | payer MEDICARE, SELFPAY ==
--- NOTE | 2025-04-12 09:51 | A.OFFVIS_ITS ---
Intake Visit Reasons: 1m/PVR Intake Note: Patient presents today for follow up on: recurrent uti and hematuria Urology Medication: Myrbetriq, Estrace Cream Antibiotic Allergy:NONE Blood Thinner:NONE PVR: 82ml's Sodder Required: No Accompanied by: Self / Same As Patient Allergies benzonatate Adverse Reaction (Mild, Verified 04/12/25 10:33) Hallucinations Medication List - Last Reconciled 04/12/25 by OANH Mo acetaminophen 650 mg (2 x 325 mg) PO Q6H PRN 30 days adalimumab (Humira Pen) mg subcut atorvastatin 20 mg PO DAILY celecoxib 200 mg PO BID diclofenac sodium 1% 4 grams topical QID docusate sodium 100 mg PO BID estradiol 0.01%(0.1mg/gram) pea sized amount vaginally 3 times a week; Apply pea-sized amount to urethra 3 times per week 90 days famotidine 40 mg PO BEDTIME folic acid 1 mg PO DAILY methotrexate sodium 17.5 mg PO TH metoprolol tartrate 50 mg PO BID omeprazole 20 mg PO DAILY sacubitril-valsartan 24-26 mg (Entresto) 1 tab PO BID HPI Comments Details: Ian is a very pleasant 80-year-old female patient of Dr. Garcia. She has a past medical history of cardiac arrhythmia, restrictive lung disease, hard of hearing, osteoarthritis, osteopenia, hypercholesteremia, osteoarthritis, hypertension, and rheumatoid arthritis. She presents to the office today for follow-up of her lower urinary tract symptoms. Of note, patient was last seen approximately 1 month ago at which time she had been reporting UTI like symptoms and urine was sent for urine culture as noted and trended below. Shortly after she finished antibiotic treatment she continues to feel lower urinary tract symptoms of foul-smelling urine and dysuria at which time her urine was sent for microgen. Microgen 04/16 noted E coli, lactobacillus gasseri, Campylobacter ureolyticus, prevotella timonensis, anaerococcus mediterraneensis, prevotella bivis, and proveoteela bergensis. She was also noted to have Kimberly glabrata. She has since finished treatment with Flagyl,, Augmentin, and a dose of fluconazole. In discussion with the patient today she reports having completed treatment yesterday and does feel improvement in lower urinary tract symptoms however feels Myrbetriq is causing insomnia. In office urinalysis results reviewed with the patient today 1+ leukocytes negative nitrates proteinuria and microscopic hematuria noted. She also reports noncompliance with Estrace cream we discussed importance in doing so. We discussed restart of Estrace cream and discontinuation of Myrbetriq. In review of patient's chart it appears urine cultures are as follows: 12/15, 04/14, 06/14, 06/15: E coli 08/16 Hafnia alvei 10/16 Proteus mirabilis 03/17 Klebsiella pneumoniae Previous workup has also included an in office cystoscopy as patient had been experiencing gross hematuria that noted grade 2 trabeculations otherwise NAD. We discussed potential causes of recurrent urinary tract infections. We discussed trial of methenamine and vitamin-C for suppression. She does report a longstanding history of constipation. She also reports noting episodes of nocturia up to 3 times per night. Previous workup has included a retroperitoneal ultrasound 09/15 noting bilateral kidneys are normal in size, contour, and echogenicity. No hydronephrosis, lesions, and or renal calculi noted bilaterally. The bladder is well distended and normal. Pre void bladder volume is approximately 350 mL. Postvoid bladder volume is approximately 50 mL. In office urinalysis results reviewed with the patient today 3+ microscopic hematuria as well as proteinuria however patient recently finished antibiotic therapy. When asked she denies dysuria, foul smelling urine, changes to urinary stream, flank pain, fever, and or chills. [facility] Medical History Cardiac arrhythmia Restrictive lung disease Cough Ear infection Hard of hearing COVID-19 vaccine series completed Osteoarthritis of right knee Dry mouth Osteopenia Postnasal drip Hypercholesteremia Osteoarthritis Hypertension Rheumatoid arthritis H/O bone density study Lumbago Surgical History History of total left knee replacement H/O colonoscopy Status post herniorrhaphy H/O mitral valve replacement History of splenectomy Hx of cholecystectomy Family History Father Cerebral hemorrhage Parkinsonism Mother COPD (chronic obstructive pulmonary disease) Lung cancer Brother Lung cancer Son No problems noted. Daughter No problems noted. Daughter No problems noted. Daughter No problems noted. Social History Housing: House Are you a primary intensive care medicine specialist to a significant other at home: No Do you presently have visiting nurse or other home services: No Patient Tobacco Use Status: Never used Tobacco e-Cigarette/Vaping Use: Never Used Second Hand Smoke Exposure: Yes service: No Current occupational status: retired Current occupational exposures/hazards: No Cognitive needs: No Hearing needs: Yes Vision needs: Yes Review of Systems Eyes Reports no additional complaints ENT Reports as per HPI Card Reports as per HPI Resp Reports as per HPI GI Reports no additional complaints Reports as per HPI Musc Reports as per HPI Physical Exam Const General: cooperative, comfortable, no acute distress, well developed, alert and awake Orientation/consciousness: patient oriented x3 HEENT Head: Yes normal to inspection, Yes normocephalic and Yes atraumatic Ears: hearing grossly normal bilaterally Eyes General: appearance normal, both eyes and all related structures Neck Neck: Yes normal visual inspection and Yes trachea midline Chest Chest palpation & inspection: normal inspection of the chest Resp Effort & Inspection: normal respiratory effort and able to speak in complete sentences Cardio Rate: regular rate GI Inspection: Yes normal to inspection General: Yes no CVA tenderness Back/Spine/Pelvis Back: no CVA tenderness Skin General skin exam: no rashes or lesions noted Neuro General: patient oriented x3 Extrem General: Yes normal to inspection Psych Appearance: grossly normal and well kempt Mental Status: mental status grossly normal Speech and movement: Normal speech and movement present and Clear speech present Affect: normal affect Attitude: cooperative Thought process: Normal thought process present Thought content: Normal thought content present Insight: Fair insight present (Psych) Judgement: Fair judgement present (Psych) Office Procedures Post Void Residual Post Residual Void Post Void Residual (PVR): 82 03605-Nmcb Void Residual by ultrasound Results AMB Urinalysis, Automated UA Leukoctes 70 Calista/uL Last Edit by Luis Fernando Ortiz on 04/12/25 10:28 UA Nitrite Last Edit by Luis Fernando Ortiz on 04/12/25 10:28 UA Urobilinogen 0.2 mg/dL Last Edit by Luis Fernando Ortiz on 04/12/25 10:28 UA Protein 300 mg/dL Last Edit by Luis Fernando Ortiz on 04/12/25 10:28 UA pH 6.0 Last Edit by Luis Fernando Ortiz on 04/12/25 10:28 UA Blood 200 Sky/uL Last Edit by Luis Fernando Ortiz on 04/12/25 10:28 UA Specific Elton 1.025 Last Edit by Luis Fernando Ortiz on 04/12/25 10:28 UA Ketone Last Edit by Luis Fernando Ortiz on 04/12/25 10:28 UA Bilirubin 1 mg/dL Last Edit by Luis Fernando Ortiz on 04/12/25 10:28 UA Glucose 0 mg/dL Last Edit by Luis Fernando Ortiz on 04/12/25 10:28 Results Reviewed Results Reviewed: Laboratory Last Values Urine pH (Auto) 6.0 04/12/25 10:24 Specific Elton (Auto) 1.025 04/12/25 10:24 Urine Protein (Auto) 300 mg/dL 04/12/25 10:24 Glucose (UA)(Auto) 0 mg/dL 04/12/25 10:24 Urine Blood (Auto) 200 Sky/uL 04/12/25 10:24 Urine Bilirubin (Auto) 1 mg/dL 04/12/25 10:24 Urine Urobilinogen (Auto) 0.2 mg/dL 04/12/25 10:24 Leukocyte Esterase (Auto) 70 Calista/uL 04/12/25 10:24 Assessment & Plan Assessment & Plan (1) Nocturia: Code(s): R35.1 - Nocturia Category: Medical (2) Recurrent UTI: Code(s): N39.0 - Urinary tract infection, site not specified Category: Medical (3) Hematuria: Code(s): R31.9 - Hematuria, unspecified Category: Medical (4) UTI (urinary tract infection): Code(s): N39.0 - Urinary tract infection, site not specified Category: Medical (5) Dysuria: Code(s): R30.0 - Dysuria Category: Medical Plan In office urinalysis results reviewed with the patient today; as noted above; will send for urine culture. PVR 82ml's Recent microgen results reviewed with the patient today; as noted above. Stop Myrbetriq. Restart Estrace cream as discussed and prescribed. Discussed UTI prevention with D mannose supplement, vitamin-C, increasing fluid intake, behavioral therapy with timed voiding, perineal hygiene and postcoital voiding, and management of constipation with stool softeners and increased fiber intake. Will reassess urinary symptoms in 1 month Follow-up in 1 month with PVR; or sooner with any issues, concerns, and or questions. Orders: Orders AMB Urinalysis Automated Today Z13.9 - Encounter for screening, unspecified AMB Post Void Residual by ultrasound Today N39.0 - Urinary tract infection, site not specified Urine Culture Today N39.0 - Urinary tract infection, site not specified Patient Instructions: The patient had an opportunity to ask questions regarding the treatment plan. All questions were answered. Physical exam, labs, and imaging were discussed and reviewed in detail. As well as risks, benefits, and discussion of treatment choices. No major barriers to understanding were identified. The patient expres sed understanding and agreement with the above treatment plan. The patient was made aware they should contact our office by phone for worsening of their current condition, the appearance of new symptoms, or with any questions or concerns. Compliance is encouraged with any medications and follow up testing that is ordered. It is a privilege to be allowed the opportunity to participate in? your urological care.? Again, if you have any questions or concerns If you have any questions or concerns please do not hesitate to contact me. The office is [phone]. This note is constructed using voice recognition software. While every effort has been made to ensure accuracy stave log cut off saw operator errors may have been included. Yours sincerely, OANH Mo Coding Level of Care Code Est Pt Level 3 (36872) Complex EM visit Add On G2211 Diagnoses Nocturia R35.1 Recurrent UTI N39.0 Hematuria R31.9 UTI (urinary tract infection) N39.0 Dysuria R30.0 CPT Codes Post Residual Void - PVR CPT Code: 61479-Abnh Void Residual by ultrasound ([id number])
--- OUTSIDE RECORDS SUMMARY | 2025-04-12 10:59 | XMS_ITS ---
Author Organization [facility] [place] Address [address] [facility] [place] [address] Care Team Providers Care Tumbler Machine Operator Helper Name Role Phone Ana Garcia MD Primary Care Provider Sabino Eva Brooks Unavailable [phone] Allergies No Known Allergies REASON FOR VISIT [...] Ordered Date Performed Result Body Sit e 61786-FGCIZTM NAIL, 6 OR MORE 12/16/2024 N/A Encounters Encounter Location Date Provider Diagnosis [facility] [place] [address] [place] [address] 12/16/2024 Eva Alas Onychomycosis B35.1 ; Ingrown [...] Treatment Pending Test Test Name Order Date 45322-QSJDSJG NAIL, 6 OR MORE 12/16/2024 Next Appt Details Follow Up: 2 Weeks, Reason: Provider Name:Eva Alas , 05/10/2025 09:15:00 AM, [address] [facility], [place], [address], Procedure Notes * Category Sub-Category Detail Notes [...] Motrin was recommended for pain or discomfort (83381), Pt DEFERS matricectomy Anesthesia , was accomplished [...] use of a nail nipper and/or dremel-type od grinder operator, to a more viable healthy [...] to maintain effectiveness in symptomatic relief - 72805 Progress Notes * Melissa NAPIEROB:[birth year] (79 yo F)Acc No.[id number]:12/16/2024 Progress Note Patient:?Melissa NAPIER Provider:?Eva Alas DPM :1945???Age:79 Y???Sex:Female D ate:12/16/2024 Address: [address] [place], [place] Pcp:Ana Garcia MD Subjective: * Chief Complaints: [...] use of a nail nipper and/or dremel-type od grinder operator, to a more viable healthy [...] to maintain effectiveness in symptomatic relief - 02191.?Nail Avulsion:?Location?, Lateral nail border, TA.?Anesthesia?, was accomplished [...] Motrin was recommended for pain or discomfort (48158), Pt DEFERS matricectomy.? * Procedure Codes:?23922 DEBRI DE NAIL, 6 OR MORE, Modifiers: XS 08481 Avulsion Plate, Modifiers: TA * Follow Up:?2 Weeks * Images: * Sign off status: Completed true * Provider:?Eva Alas DPM Date:?2024 Generated for Jed pabon/Nimisha/eTransmitting on:?04/12/2025 10:58 AM EDT History and Physical Notes * [...]
--- OUTSIDE RECORDS SUMMARY | 2025-04-12 10:59 | XMS_ITS ---
Author Organization [facility] [place] Address [address] [facility] [place] [address] Care Team Providers Care Clam Dredge Boat Captain Name Role Phone Ana Garcia MD Primary Care Provider Sabino Eva Brooks Unavailable [phone] Allergies No Known Allergies REASON FOR VISIT [...] Problem Status W/U Status Risk Notes Problem 305967003 Ulcer of right foot, limited to breakdown of skin (L97.511) Active confirmed Vital Signs Height 5 ft 7 in in 10/07/2024 Weight 207 lbs 10/07/2024 BMI 32.42 kg/m2 10/07/2024 Procedures Procedure Date Ordered Date Performed Result Body Sit e 70351-BSTNGIZ NAIL, 6 OR MORE 10/07/2024 N/A 06282- Debride <25 sq cm 10/07/2024 N/A Encounters Encounter Location Date Provider Diagnosis [facility] [address] 10/07/2024 Eva Black Pain in right foot [...] Treatment Pending Test Test Name Order Date 01819-CCJFQRO NAIL, 6 OR MORE 10/07/2024 30651- Debride <25 sq cm 10/07/2024 Next Appt Details Follow Up: 2 Months, Reason: Provider Name:Eva Alas , 05/10/2025 09:15:00 AM, [address] [facility], [place], [address], Procedure Notes * Category Sub-Category Detail Notes [...] use of a nail nipper and/or dremel-type level vial inside grinder, to a more viable healthy nail plate or bed tissue 6-10. Silver nitrate used for any petechial bleeding as necessary. Definitive antifungal treatment options have been reviewed and discussed with the patient. The patient chooses, no pharmaceutical tx - 77386 Debride skin< 25 sq cm Open wound [...] of the wound post debridement is stable (76606) Progress Notes * Melissa NAPIERHilarioOB:[birth year] (79 yo F)Acc No.[id number]:10/07/2024 Progress Note Patient:?Melissa NAPIER Provider:?Eva Alas DPM :1945???Age:79 Y???Sex:Female D ate:10/07/2024 [address] Pcp:Ana Garcia MD Subjective: * Chief Complaints: [...] foot, limi luke to breakdown of skin?Procedure: 29027- Debride <25 sq cm * Procedures:?Debride Nail [...] use of a nail nipper and/or dremel-type level vial inside grinder, to a more viable healthy nail plate or bed tissue 6-10. Silver nitrate used for any petechial bleeding as necessary. Definitive antifungal treatment options have been reviewed and discussed with the patient. The patient chooses, no pharmaceutical tx - 67330.?Debride skin< 25 sq cm:?Open wound?: Physician of [...] of the wound post debridement is stable (18163).? * Procedure Codes:?00530 DEBRI DE NAIL, 6 OR MORE, Modifiers: XS 99371 ACTIVE WOUND CARE/20 CM OR <, Modifiers: [...] Alas DPM Date:?2023 Generated for Jed pabon/Nimisha/eTransmitting on:?04/12/2025 10:59 AM EDT History and Physical Notes * [...]
--- OUTSIDE RECORDS SUMMARY | 2025-04-12 10:59 | XMS_ITS | Data Portability ---
Author Organization [facility], Allergy Address [address] [address] Assessment Encounter Date Assessment Date Assessment LastModified by Organization Details LastModified Time 12/19/2024 12/19/2024 Resolution: Schedule an appointment for cerumen management. 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 33853283118 44028 Active 2021 Central perforat ion of tympanic membrane , right ear; Note: Date Diagnose d: 2 10:31 AM (H72.91) Not Available [facility] 4 02:47:14 Sensorin eural hearing loss in left ear 10075270666 109 Active 2016 Sensorin eural hearing loss, unilater al, left ear, with restrict ed hearing on the contrala teral side; Note: Date Diagnose d: 7 11:42 AM (H90.A22 ) Not Available [facility] 4 02:47:11 Otorrhea of right ear 13116988614 61263 Completed 202106/24/2024 Otorrhea , right ear; Note: Date Diagnose d: 2 9:32 AM (H92.11) Not Available [facility] 4 02:47:09 Acute non-supp urative otitis media of right ear 60367015910 46718 Active 2021 Other acute nonsuppu rative otitis media, right ear; Note: Date Diagnose d: 2 10:32 AM (H65.191 ) Not Available [facility] 4 02:47:13 Mixed conducti ve and sensorin eural hearing loss of right ear 21263187214 105 Active 2016 Mixed conducti ve and sensorin eural hearing loss, unilater al, right ear with restrict ed hearing on the contrala teral side; Note: Date Diagnose d: 7 11:42 AM (H90.A31 ) Not Available [facility] 4 02:47:11 Posterio r rhinorrh ea 08361745 Active 2021 Postnasa l drip; Note: Date Diagnose d: 11/14/20 4:46 PM (R09.82) Not Available [facility] 4 02:47:12 Gastroes ophageal reflux disease without esophagi tis 618339758 Active 2022 Gastro-e sophagea l reflux disease without esophagi tis; Note: Date Diagnose d: 10/20/20 11:01 AM (K21.9) Not Available [facility] 4 02:47:10 Somatofo rm disorder 88456334 Active 2022 Psychoge sumaya dysphagi a, includin g 'globus hysteric us'; Note: Date Diagnose d: 10/20/20 11:07 AM (F45.8) Not Available [facility] 4 02:47:10 Allergic rhinitis 26610519 Active 2022 Allergic rhinitis , unspecif ied; Note: Date Diagnose d: 07/31/2023 10:04 AM (J30.9) Not Available [facility] 4 02:47:13 Problem Notes None recorded. Medical Equipment None Reported. Medications Name Sig Start Date Stop Date Status Note LastModified by Organization Details LastModified Time Prescript ion - Prior Authoriza tion Request active Script Copy/Juanita or Auth^Scr ipt Copy/Juainta or Auth_ 02346 Not Available Not Available Not Available celecoxib 200 mg capsule TAKE 1 CAPSULE BY MOUTH TWICE A DAY active Not Available Not Available No t Available atorvasta tin 20 mg tablet TAKE 1 TABLET BY MOUTH EVERY DAY active Not Available Not Available No t Available sulfasala zine 500 mg tablet 04/11 completed Medicati on ID: 866842 D uration Value: 90 Brand Name: sulfasal [...] 325 mg tablet active Medicati on ID: 752682 B rand Name: aspirin Send Method: E-Prescr [...] affected area 2021 active Medicati on ID: 902851 D uration Value: 14 Prescri bed By [...] capsule,d elayed release active Medicati on ID: 523423 B rand Name: omeprazo le Send Method: E-Prescr ibed Sub s Allowed: subs OK Medic ationGen ericName : omeprazo le Not Available Not Available Not Available folic acid 1 mg tablet TAKE 1 TABLET BY MOUTH EVERY DAY active Not Available Not Available No t Available azelastin e 137 mcg (0.1 %) nasal spray [place] 2 spray into both nostrils twice a day as directed 2022 active Medicati on ID: 947871 D uration Value: 30 Prescri bed By [...] bromide 42 mcg (0.06 %) nasal spray [place]f 2 spray into both nostrils three times a day 2022 active Medicati on ID: 164179 D uration Value: 30 Prescri bed By [...] a day 2022 active Medicati on ID: 669438 D uration Value: 21 Brand Name: cefdinir Send Method: E-Prescr ibed Sub s Allowed: subs OK Medic ationGen ericName : cefdinir Not Available Not Available Not Available ipratropi um bromide 21 mcg (0.03 %) nasal spray [place]f 2 spray into both nostrils twice a day as directed 2021 active Medicati on ID: 877371 D uration Value: 30 Brand Name: ipratrop [...] with meals 10/01 completed Medicati on ID: 950489 D uration Value: 14 Brand Name: amoxicil yamila-pot clavulan ate Send Method: E-Prescr ibed Sub s Allowed: subs OK Medic ationGen ericName : amoxicil yamila-pot clavulan ate Not Available Not Available Not Available TobraDex 0.3 %-0.1 % eye drops,han pension 06/11 completed Medicati on ID: 191310 P rescribe d By Name: SIMEON Rm nd Name: TobraDex Send Method: E-Prescr ibed Sub s Allowed: subs OK Speci al Instruct ion: Instill 3 drops in the affect ear BID for 14 days Med icationG enericNa me: TobraDex Not Available Not Available Not Available Ciprodex 0.3 %-0.1 % ear drops,han pension 4 drop into right ear 2021 active Medicati on ID: 843200 D uration Value: 14 Prescri bed By Name: SIMEON Rm nd Name: Ciprodex Send Method: E-Prescr ibed Sub s Allowed: subs OK Speci al Instruct ion: x 14 days Med icationG enericNa me: Ciprodex Not Available Not Available Not Available metoprolo l tartrate 25 mg tablet 06/11 completed Medicati on ID: 428717 D uration Value: 90 Brand Name: metoprol [...] inhalatio n 06/11 completed Medicati on ID: 394896 B rand Name: Breo Ellipta Send Method: E-Prescr ibed Sub s Allowed: subs OK Medic ationGen ericName : Breo Ellipta Not Available Not Available Not Available Entresto 24 mg-26 mg tablet TAKE 1 TABLET BY MOUTH TWICE A DAY active Not Available Not Available No t Available aspirin 81 mg capsule active Medicati on ID: 938599 B rand Name: aspirin Send Method: E-Prescr [...] SNOMED-CT Code Diagnosis ICD10 Code Diagnosis Note [id number] Carol PALMA RAMOS [place] [address] [facility] [address] [facility] [address] 12/19/2024 11:04:37 12/20/2024 07:24:19 Mixed conductive and sensorineural hearing loss of right ear 7665796632 9105 H90.A31 Health Concerns Section Related Observation LastModified by Organization Detai ls LastModified Time None Recorded Concern Status LastModified by Organization Details LastModified Time None Recorded Advance Directives Directive None Recorded Payers Insurance Date Sequence Insurance Name Policy Number Policy Hines Covered Member ID Hines Member ID Guarantor Name 12/19/2024 2 [facility] Melissa De La Garza [id number] Melissa De La Garza 12/19/2024 1 MEDICARE B-[place]: [employer] Melissa Keylexi [id number] Melissa De La Garza Notes Date Note Type Note Provider Name and Address Organization Details Recorded Time 12/19/2024 text/html Hearing Aid ProblemReported bypatient.Visit typein office repair Hearing Aidhearing device is functioning well Hearing Aidfeedback LANDEN NDIAYE, [address], [address], [facility] 12/19/2024 11:27:32 OBGyn Episode No OBEpisode recorded.
--- OUTSIDE RECORDS SUMMARY | 2025-04-12 10:59 | XMS_ITS | Patient Health Record ---
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 Problem Acquired hammer toe of right foot (8475294294247700) Other hammer toe(s) (acquired), right foot (M20.41) Active confirmed Problem Acquired hammer toe of left foot (9312890651251314) Other hammer toe(s) (acquired), left foot (M20.42) Active confirmed Problem Acquired hammer toe of right foot (6626879453030682) Other hammer toe(s) (acquired), right foot (M20.41) Active confirmed Problem Acquired hammer toe of left foot (5203959058007034) Other hammer toe(s) (acquired), left foot (M20.42) Active confirmed Problem 56002055 Lower limb lengt h difference (M21.70) Active confirmed Problem Joint contracture of the ankle and/or foot (362145798) Flexion 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) Active confirmed Problem Joint contracture of the ankle and/or foot (782083023) Flexion contracture of joint of right foot (M24.574) Active confirmed Problem Acquired deformity of right foot (04229649021469263) PlantarFlexion of metatarsal of right foot (M21.6X1) Active confirmed Problem Joint contracture of the ankle and/or foot (041868138) Flexion contracture of joint of right foot (M24.574) Active confirmed Problem 5332665205187522 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) Active confirmed Problem 888482242 Ulcer of right foot, limited to breakdown of skin (L97.511) Active confirmed Problem 645371127 Gouty arthritis (M10.9) Active confirmed Problem 048882025 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) Active confirmed Vital Signs Blood pressure diastolic 80 mm Hg 02/24/2025 Height 5 ft 7 in in 02/24/2025 Blood pressure systolic 127 mm Hg 02/24/2025 Weight 209 lbs 02/24/2025 BMI 32.73 kg/m2 02/24/2025 Procedures Procedure Date Ordered Date Performed Result Body Sit e , J0702- INJECT or DRAI N, JOINT/BURSA 04/13/2024 N/A 15259-VZQWIVQ NAIL, 6 OR MORE 07/08/2024 N/A 71977-LICHWLF NAIL, 6 OR MORE 10/07/2024 N/A 36894- Debride <25 sq cm 10/07/2024 N/A 46140-GBNAZQB NAIL, 6 OR MORE 12/16/2024 N/A 02082-MXJLRFW NAIL, 6 OR MORE 02/24/2025 N/A Encounters Encounter Location Date Provider Diagnosis [address] [address] 04/13/2024 Keshawn Sepulveda Pain in right foot M79.671 ; Gouty arthritis M10.9 and Arthritis of right ankle M19.[address] [address] 05/12/2024 Keshawn Sepulveda Pain in right foot M79.671 ; Arthritis of right ankle M19.071 and 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.[address] [address] 07/08/2024 Eva Black Pain in right foot M79.671 ; Arthritis of right ankle M19.071 ; 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.771 ; Onychomycosis B35.1 ; Pain in right toe(s) M79.674 and Pain in left toe(s) M79.[address] [address] 10/07/2024 Eva Black Pain in right foot M79.671 ; Arthritis of right ankle M19.071 ; 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.771 ; Onychomycosis B35.1 ; Pain in right toe(s) M79.674 ; Pain in left toe(s) M79.675 and Ulcer of right foot, limited to breakdown of skin L97.[address] [address] 12/16/2024 Eva Black Onychomycosis B35.1 ; Ingrown nail L60.0 ; Pain in right toe(s) M79.674 and Pain in left toe(s) M79.[address] [address] 02/24/2025 Eva Black Onychomycosis B35.1 ; Lower limb length difference M21.70 ; Pain in right toe(s) M79.674 and Pain in left toe(s) M79.675 [facility] [address] [facility] [address] [place] [address] 04/13/2024 [facility] [address] [place] [address] 05/12/2024 Eva Bishop [facility] [address] 05/12/2024 Eva Black Assessments Encounter Date Diagnosis (ICD Code) Assessment Notes Treatment Notes Treatment Clinical Notes Section Notes 04/13/2024 Gouty arthritis (ICD-10 - M10.9) 05/12/2024 Pain in right foot (ICD-10 - M79.671) 05/12/2024 Arthritis of right ankle (ICD-10 - M19.071) 04/13/2024 Pain in right foot (ICD-10 - [...] - M05.771) 07/08/2024 Onychomycosis (ICD-10 - B35.1) 10/07/2024 Onychomycosis [...] Date *Uric Acid, Serum 04/13/2024 *Sedimentation Rate-Westergren 11338-SPQTPYL NAIL, 6 OR MORE 12/29/2023 75505-OHVPTHJ NAIL, 6 OR MORE 04/01/2024 55931-EGSWLRL NAIL, 6 OR MORE 04/29/2023 38728-GKBBSGT NAIL, 6 OR MORE 07/08/2023 23598-OKJFDGW NAIL, 6 OR MORE 09/22/2023 61396-VMFRZAQ NAIL, 6 OR MORE 02/13/2023 45703-FVSMLXV NAIL, 6 OR MORE 07/08/2024 86563-PMPKGWF NAIL, 6 OR MORE 10/07/2024 10992-XTSSNII NAIL, 6 OR MORE 12/16/2024 63738-DZMITOU NAIL, 6 OR MORE 02/24/2025 67004-HMBCMJN NAIL, 1-5 12/10/2021 14302-Guyrnvth Plate 12/29/2023 94977-Wndzswik Plate 04/29/2023 37998-Jfpdszla Plate 07/22/2021 82348- Debride <25 sq cm 10/07/2024 59043, J0702- INJECT or DRAIN, JOINT/BUR SA 04/13/202424412, R7243-ECPTT/INJECT, JOINT/BURSA 0 08/17/2017 17882,J6780-EQL TENDON SHEATH/LIGAMENT 0 08/15/2019 94293,U2015-OAW TENDON SHEATH/LIGAMENT 1 53885, J0702- Neuroma/Injection 09/14/20 17 X ray : Ankle, right 3V 04/13/2024 39778 - Tenotomy, open flexor 08/07/2021 Next Appt Details Provider Name:Eva Alas , 05/10/2025 09:15:00 AM, [address] [facility], [place], [address], Insurance Providers Payer Name Payer Address Payer Phone Subscriber Number Group Number Insured Name Patient Relationship to Insured Coverage Start Date Coverage End Date Medicare National [employer] [address] [facility] [place] [address] [id number] Melissa De La Garza Self - patient is the insured [employer] [facility] [address] [place] [address] [phone] [id number] Melissa De La Garza Self - patient [...]
--- OUTSIDE RECORDS SUMMARY | 2025-04-12 11:00 | XMS_ITS ---
Author Organization [facility] [place] Address [address] [facility] [place] [address] Care Team Providers Care Engineering And Scientific Programmer Name Role Phone Ana Garcia MD Primary Care Provider Sabino Eva Brooks Unavailable [phone] Allergies No Known Allergies REASON FOR VISIT [...] Problem Status W/U Status Risk Notes Problem 19927842 Lower limb length difference (M21.70) Active confirmed Vital Signs Height 5 ft 7 in in 02/24/2025 Weight 209 lbs 02/24/2025 BMI 32.73 kg/m2 02/24/2025 Blood pressure systolic 127 mm Hg 02/25/20 25 Blood pressure diastolic 80 mm Hg 025 Procedures Procedure Date Ordered Date Performed Result Body Sit e 03246-NTWNPNK NAIL, 6 OR MORE 02/24/2025 N/A Encounters Encounter Location Date Provider Diagnosis [facility] [address] [place] [address] 02/24/2025 Eva Alas Onychomycosis B35.1 ; Lower [...] Treatment Pending Test Test Name Order Date 92646-FKTCHIF NAIL, 6 OR MORE 02/24/2025 Next Appt Details Follow Up: prn, Reason: Provider Name:Eva Alas , 05/10/2025 09:15:00 AM, [address] [facility], [place], [address], Procedure Notes * Category Sub-Category Detail Notes [...] use of a nail nipper and/or dremel-type almond grinder, to a more viable healthy nail [...] to maintain effectiveness in symptomatic relief - 02925 Progress Notes * Melisas NAPIEROB:[birth year] (80 yo F)Acc No.[id number]:02/24/2025 Progress Note Patient:?Melissa NAPIER Provider:?Eva Alas DPM :1945???Age:80 Y???Sex:Female D ate:02/24/2025 Address: [address] [facility] Pcp:Ana Garcia MD Subjective: * Chief Complaints: [...] use of a nail nipper and/or dremel-type almond grinder, to a more viable healthy nail [...] to maintain effectiveness in symptomatic relief - 71254.? * Procedure Codes:?66164 DEBRI DE NAIL, 6 OR MORE, Modifiers: [...] Alas DPM Date:?2024 Generated for Jed pabon/Nimisha/Angely on:?04/12/2025 10:59 AM EDT History and Physical [...]
== END 2025-04-12 10:32 | disposition home or self-care (01) ==
LOC: HO.HUSH 09:42
PROVIDERS: PCP Internal Medicine; Visit Provider Nurse Practitioner Family
DX: R35.1 Nocturia (principal); N39.0 Urinary tract infection, site not specified; R31.9 Hematuria, unspecified; R30.0 Dysuria; Z13.9 Encounter for screening, unspecified
CPT/HCPCS: 99213; G2211

== ENCOUNTER 2025-05-09 09:32 | Outpatient (AMB) | payer MEDICARE, SELFPAY ==
[2025-05-09 09:39] VITALS: BP 120/70; PULSE 70; BMI 33.5
--- NOTE | 2025-05-09 09:39 | A.OFFVIS_ITS ---
Vital Signs 05/09/25 09:39 Height 5 ft 7 in Weight 213 lb 13.574 oz BMI 33.5 BP 120/70 Blood Pressure Location Lt brachial Position Sitting Pulse 70 Intake Visit Reasons: 3m follow up Intake Note: 3 month follow-up c/o fatigue Sensor Operator Required: No Allergies benzonatate Adverse Reaction (Mild, Verified 04/12/25 10:33) Hallucinations Medication List - Last Reconciled 05/09/25 by Fahad Toussaint MD acetaminophen 650 mg (2 x 325 mg) PO Q6H PRN 30 days adalimumab (Humira Pen) mg subcut apixaban (Eliquis) 5 mg PO BID atorvastatin 20 mg PO DAILY celecoxib 200 mg PO BID diclofenac sodium 1% 4 grams topical QID docusate sodium 100 mg PO BID estradiol 0.01%(0.1mg/gram) pea sized amount vaginally 3 times a week; Apply pea-sized amount to urethra 3 times per week 90 days famotidine 40 mg PO BEDTIME folic acid 1 mg PO DAILY methotrexate sodium 17.5 mg PO TH metoprolol tartrate 50 mg PO BID omeprazole 20 mg PO DAILY sacubitril-valsartan 24-26 mg (Entresto) 1 tab PO BID HPI Comments Details: Melissa comes for follow-up. Continues to have symptoms of fatigue but these have improved. She was diagnose with a fungal UTI and was treated with antibiotics. 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 She also has till poor sleep pattern and does not have complete sleep at nighttime. She denies any orthopnea, PND, leg edema. No worsening shortness of breath, leg edema. Takes all her medications. [facility] Medical History Cardiac arrhythmia Restrictive lung disease Cough Ear infection Hard of hearing COVID-19 vaccine series completed Osteoarthritis of right knee Dry mouth Osteopenia Postnasal drip Hypercholesteremia Osteoarthritis Hypertension Rheumatoid arthritis H/O bone density study Lumbago Surgical History History of total left knee replacement H/O colonoscopy Status post herniorrhaphy H/O mitral valve replacement History of splenectomy Hx of cholecystectomy Family History Father Cerebral hemorrhage Parkinsonism Mother COPD (chronic obstructive pulmonary disease) Lung cancer Brother Lung cancer Son No problems noted. Daughter No problems noted. Daughter No problems noted. Daughter No problems noted. Social History Housing: House Are you a primary residential care facility manager to a significant other at home: No Do you presently have visiting nurse or other home services: No Patient Tobacco Use Status: Never used Tobacco e-Cigarette/Vaping Use: Never Used Second Hand Smoke Exposure: Yes service: No Current occupational status: retired Current occupational exposures/hazards: No Cognitive needs: No Hearing needs: Yes Vision needs: Yes Review of Systems Const Denies chills, Denies fatigue, Denies fever(s), Denies frequent falls, Denies weakness, Denies weight gain and Denies weight loss ENT Denies dizziness Card Denies chest pain, Denies leg edema, Denies lightheadedness, Denies palpitations, Denies dyspnea, Denies dyspnea on exertion, Denies orthopnea and Denies other (loss of consciousness) Resp Denies cough, Denies dyspnea and Denies dyspnea on exertion GI Denies hematochezia and Denies change in stool character Musc Denies abnormal gait, Denies muscle weakness, Denies numbness, Denies radiating pain into limb and Denies tingling Neuro Denies Abnormal speech present, Denies abnormal gait, Denies dizziness, Denies frequent falls, Denies numbness, Denies tingling and Denies weakness Endo Denies fatigue and Denies palpitations Physical Exam Vital Signs: Last Vital Signs Pulse 70 05/09/25 09:39 BP 120/70 05/09/25 09:39 BMI result Body Mass Index 33.5 Const General: cooperative, comfortable, no acute distress, alert and awake Nutritional Appearance: obese Orientation/consciousness: patient oriented x3 Limitations: no limitations Neck Neck: Yes trachea midline, Yes supple and Yes no JVD Chest Chest palpation & inspection: normal inspection of the chest and other (Well- healed sternotomy scar) Resp Effort & Inspection: normal respiratory effort Auscultation: clear to auscultation bilaterally Cardio Jugular venous distension: no JVD Palpation: normal PMI Rhythm: abnormal rhythm irregularly irregular Heart sounds: S1 normal heart sound present, S2 normal heart sound present, no click, no gallops, no murmurs and no rubs GI Inspection: Yes obesity Auscultation: normal bowel sounds Neuro General: patient oriented x3 and no focal motor deficits Speech: No Abnormal speech present Extrem General: Yes no clubbing, cyanosis or edema Assessment & Plan Assessment & Plan (1) Persistent atrial fibrillation: Code(s): I48.19 - Other persistent atrial fibrillation Category: Medical Plan: Persistent rate control atrial fibrillation has failed rhythm control approach including amiodarone therapy. Likelihood pursuing rhythm control is extremely low. This was discussed with her. Persistent atrial fibrillation can contribute to her symptoms of fatigue with lack of atrial kick and underlying cardiomyopathy process could also contribute. However she has no signs of clinical congestive heart failure. Continue rate control approach. Continue full oral anticoagulation, currently on Eliquis 5 mg b.i.d. which she is tolerating well. She has had no recurrent bleeding issues and no significant anemia that would potentially be causing her fatigue. Management was discussed. (2) Cardiomyopathy: Code(s): I42.9 - Cardiomyopathy, unspecified Category: Medical Plan: Cardiomyopathy process which has remained stable. [id number] LV systolic dysfunction. She is currently on metoprolol and Entresto therapy for neurohormonal modulation. She has no clinical signs of congestive heart failure. Can not further uptitrate due to blood pressure I had the low end of normal. Signs and symptoms of heart failure were discussed. She is at risk for developing the same. She understands agrees. Encouraged to maintain activity level as tolerated. (3) H/O mitral valve replacement: Comment: repair 2005 (ring on mitral valve)- ECHO 04/13 nl EF, NORMAL BIOPROSTHETIC MITRAL VALVE, mild to moderate TR Code(s): Z95.2 - Presence of prosthetic heart valve Category: Surgical Plan: Prior history of mitral valve repair with mitral valve ring. Clinically working well. No signs of any significant mitral regurgitation contributing to her symptoms. Continue SBE prophylaxis as per ACC/[facility] guidelines. Continue Eliquis therapy. Will follow up in the clinic in 6 months time, sooner p.r.n.. Thank you for allowing me to partake in her care Coding Level of Care Code Est Pt Level 4 (92020) Complex EM visit Add On G2211 Diagnoses Persistent atrial fibrillation I48.19 Cardiomyopathy I42.9 H/O mitral valve replacement Z95.2
--- OUTSIDE RECORDS SUMMARY | 2025-05-09 10:19 | XMS_ITS | Data Portability ---
Author Organization [facility], [facility] [address] [place] [address] Care Team Providers Care Hse Manager Name Role Phone DODIE GALVAN Primary Care Provider CIRO REED [employer] Assessment No assessment recorded. Plan of Treatment Reminders Order Date Submit Date Provider Last Modified By Organization Details Last Modified Time Details Appointments None recorded. Lab CMP, serum or plasma 2018 019 [facility] ([facility]), [address], [place], [address], 9 11:10:40 C reactive protein, QN, serum or plasma 2018 019 [facility] ([facility]), [address], [place], [address], 9 11:10:37 CBC w/ diff 2018 019 [facility] ([facility]), [address], [place], [address], 9 11:01:30 CBC w/ diff 2018 020 [facility] ([facility]), [address], [place], [address], 0 03:16:16 C reactive protein, QN, serum or plasma 2018 020 [facility] ([facility]), [address] [place], [address], 0 03:16:16 CMP, serum or plasma 2018 020 [facility] ([facility]), [address], [place], [address], 0 03:16:16 Referral None recorded. Procedures None recorded. Surgeries None recorded. Imaging None recorded. Medication Orders methotrexa te sodium 2.5 mg tablet 2018 019 INTERFACE [id number], [address], [place], [address], 9 10:03:37 Patient TargetsNo targets recorded. Patient Instructions Encounter Date Encounter Id Patient Instructions Last Modified By Organization Details Last Modified Time 11/02/2019 [id number] osteoporosis: care instructions [email or web address] Not available 11/02/2019 10:03:35 Reason for Referral None Reported. Results Created Date Observation Date Name Description Value Unit Range Abnormal Flag Note LastModifiedBy Organization Detail LastModifiedTime 11/08/20 19 11/08/2019 CBC w/ diff WBC 5.47 10*/3 uL 3.90-1 1.20 Not Available [facility] ([facility]) [address], [place], [address], 11/08/2019 11:01:29 11/08/20 19 11/08/2019 CBC w/ diff RBC 4.01 10*6/ uL 3.40-5 .40 Not Available [facility] ([facility]) [address], [place], [address], 11/08/2019 11:01:29 11/08/20 19 11/08/2019 CBC w/ diff hemoglobin 13.9 g/dL 10.8-1 5.5 Not Available [facility] ([facility]) [address], [place], [address], 11/08/2019 11:01:29 11/08/20 19 11/08/2019 CBC w/ diff hematocrit 41.1 % 33.0-4 5.0 Not Available [facility] ([facility]) [address], [place], [address], 11/08/2019 11:01:29 11/08/20 19 11/08/2019 CBC w/ diff MCV 102.5 fL 82.0-1 00.0 high Not Available [facility] ([facility]) [address], [place], [address], 11/08/2019 11:01:29 11/08/20 19 11/08/2019 CBC w/ diff MCH 34.7 pg 26.0-3 4.0 high Not Available [facility] ([facility]) [address], [place], [address], 11/08/2019 11:01:29 11/08/20 19 11/08/2019 CBC w/ diff MCHC 33.8 g/dL 32.0-3 6.0 Not Available [facility] ([facility]) [address], [place], [address], 11/08/2019 11:01:29 11/08/20 19 11/08/2019 CBC w/ diff RDW-SD 54.7 fL 35.1-4 6.8 high Not Available [facility] ([facility]) [address], [place], [address], 11/08/2019 11:01:29 11/08/20 19 11/08/2019 CBC w/ diff plt 215 10*3/ uL 140-44 0 Not Available [facility] ([facility]) [address] [place], [address], 11/08/2019 11:01:29 11/08/20 19 11/08/2019 CBC w/ diff MPV 11.5 fL 9.7-12 .8 Not Available [facility] ([facility]) [address] [place] [place], [address], 11/08/2019 11:01:29 11/08/20 19 11/08/2019 CBC w/ diff neut% 49.30 % 40.00- 77.00 Not Available [facility] ([facility]) [address] , [place], [address], 11/08/2019 11:01:29 11/08/20 19 11/08/2019 CBC w/ diff lymph% 31.30 % 14.00- 47.00 Not Available [facility] ([facility]) [address] , [place], [address], 11/08/2019 11:01:29 11/08/20 19 11/08/2019 CBC w/ diff mono% 12.20 % <13.00 Not Available [facility] ([facility]) [address], [place], [address], 11/08/2019 11:01:29 11/08/20 19 11/08/2019 CBC w/ diff eo% 5.50 % <7.00 Not Available [facility] ([facility]) [address], [place], [address], 11/08/2019 11:01:29 11/08/20 19 11/08/2019 CBC w/ diff baso% 1.50 % <2.00 Not Available [facility] ([facility]) [address], [place], [address], 11/08/2019 11:01:29 11/08/20 19 11/08/2019 CBC w/ diff Ig% 0.20 % <0.50 Not Available [facility] ([facility]) [address], [place], [address], 11/08/2019 11:01:29 11/08/20 19 11/08/2019 CBC w/ diff NRBC% 0.00 % <0.20 Not Available [facility] ([facility]) [address] [place], [address], 11/08/2019 11:01:29 11/08/20 19 11/08/2019 CBC w/ diff neut# 2.70 10*3/ uL 2.00-6 .80 Not Available [facility] ([facility]) [address] , [place], [address], 11/08/2019 11:01:29 11/08/20 19 11/08/2019 CBC w/ diff lymph# 1.71 10*3/ uL 0.90-3 .00 Not Available [facility] ([facility]) [address] , [place], [address], 11/08/2019 11:01:29 11/08/20 19 11/08/2019 CBC w/ diff mono# 0.67 10*3/ 3uL 0.20-0 .80 Not Available [facility] ([facility]) [address], [place], [address], 11/08/2019 11:01:29 11/08/20 19 11/08/2019 CBC w/ diff eo# 0.30 10*3/ uL <0.81 Not Available [facility] ([facility]) [address] , [place], [address], 11/08/2019 11:01:29 11/08/20 19 11/08/2019 CBC w/ diff baso# 0.08 10*3/ uL 0.00-0 .10 Not Available [facility] ([facility]) [address], [place], [address], 11/08/2019 11:01:29 11/08/20 19 11/08/2019 CBC w/ diff Ig# 0.01 10*3/ uL <0.40 Not Available [facility] ([facility]) [address], [place], [address], 11/08/2019 11:01:29 11/08/20 19 11/08/2019 CBC w/ diff NRBC# <0.01 10*3/ uL <0.01 Not Available [facility] ([facility]) [address] [place], [address], 11/08/2019 11:01:29 11/08/20 19 11/08/2019 C react nunu prote in, QN, serum or plasm a CRP 0.09 mg/dL 0.00-0 .88 Not Available [facility] ([facility]) [address] [place], [address], 11/08/2019 11:10:37 11/08/20 19 11/08/2019 CMP, serum or plasm a glucose 103 mg/dL 74-100 high Not Available [facility] ([facility]) [address] [place], [address], 11/08/2019 11:10:40 11/08/20 19 11/08/2019 CMP, serum or plasm a BUN 17.9 mg/dL 8.0-23 .0 Not Available [facility] ([facility]) [address] [place], [address], 11/08/2019 11:10:40 11/08/20 19 11/08/2019 CMP, serum or plasm a creat 0.69 mg/dL 0.40-1 .10 Not Available [facility] ([facility]) [address] [place], [address], 11/08/2019 11:10:40 11/08/20 19 11/08/2019 CMP, serum or plasm a GFR estimated 83 mL/mi n/1.7 3m2 >60 IDMS trace able MDRD study equat ion. If patie nt is Afric an-Am marcela n, multi ply repor luke resul t by 1.21 Not Available [facility] ([facility]) [address] [place], [address], 11/08/2019 11:10:40 11/08/20 19 11/08/2019 CMP, serum or plasm a BUN/creat 26 % Not Available [facility] ([facility]) [address] [place], [address], 11/08/2019 11:10:40 11/08/20 19 11/08/2019 CMP, serum or plasm a Na+ 139 mmol/ L 136-14 5 Not Available [facility] ([facility]) [address], [place], [address], 11/08/2019 11:10:40 11/08/20 19 11/08/2019 CMP, serum or plasm a K+ 4.4 mmol/ L 3.5-5. 2 Not Available [facility] ([facility]) [address], [place], [address], 11/08/2019 11:10:40 11/08/20 19 11/08/2019 CMP, serum or plasm a cL- 104 mmol/ L 98-107 Not Available [facility] ([facility]) [address] [place], [address], 11/08/2019 11:10:40 11/08/20 19 11/08/2019 CMP, serum or plasm a CO2 23 mmol/ L 22-29 Not Available [facility] ([facility]) [address] [place], [address], 11/08/2019 11:10:40 11/08/20 19 11/08/2019 CMP, serum or plasm a anion gap 12 7-17 Not Available [facility] ([facility]) [address] [place], [address], 11/08/2019 11:10:40 11/08/20 19 11/08/2019 CMP, serum or plasm a calcium 9.2 mg/dL 8.6-10 .5 Not Available [facility] ([facility]) [address] [place], [address], 11/08/2019 11:10:40 11/08/20 19 11/08/2019 CMP, serum or plasm a tl prot 6.8 g/dL 6.4-8. 3 Not Available [facility] ([facility]) [address] [place], [address], 11/08/2019 11:10:40 12/17/20 19 11/08/2019 CMP, serum or plasm a alb 3.9 g/dL 3.5-5. 2 Not Available [facility] ([facility]) [address] [place], [address], 11/08/2019 11:10:40 11/08/20 19 11/08/2019 CMP, serum or plasm a A/G ratio 1.0 Not Available [facility] ([facility]) [address] [place], [address], 11/08/2019 11:10:40 11/08/20 19 11/08/2019 CMP, serum or plasm a tbil 0.8 mg/dL 0.0-1. 2 Not Available [facility] ([facility]) [address] [place], [address], 11/08/2019 11:10:40 11/08/20 19 11/08/2019 CMP, serum or plasm a alk phos 50 U/L 22-126 Not Available [facility] ([facility]) [address] [place], [address], 11/08/2019 11:10:40 11/08/20 19 11/08/2019 CMP, serum or plasm a SGOT/AST 26 IU/L 0-32 Not Available [facility] ([facility]) [address] [place], [address], 11/08/2019 11:10:40 11/08/20 19 11/08/2019 CMP, serum or plasm a SGPT/ALT 26 IU/L 0-40 Not Available [facility] ([facility]) [address] [place], [address], 11/08/2019 11:10:40 11/08/20 19 11/08/2019 CMP, serum or plasm a osmol cory 280 mOsm/ kg 270-32 0 Not Available [facility] ([facility]) [address] [place], [address], 11/08/2019 11:10:40 Result Notes None recorded. 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 899 Enter ed By: Odalis Sun MA; Signed By: Angelica García MD Not Available [facility] 9 01:04:58 Osteoarth ritis of knee 955976143 Active 2012 OSTEOARTH RITIS, KNEE; Original code:M17. 9 Entered By: IRCK Joe; Signed By: RICK Joe Not Available [facility] 9 01:04:58 Osteopeni a 276083977 Active 2017 OSTEOPENI A; Original code:M85. 80 Entere d By: Odalis Sun MA; Signed By: Angelica García MD Not Available [facility] 9 01:04:58 History of total knee arthropla sty 63216315567 05 Active 2016 TOTAL KNEE REPLACEME NT, LEFT; Original code:Z96. 652 Enter ed By: Odalis Sun MA; Signed By: Angelica García MD Not Available [facility] 9 01:04:58 History of chemother apy 951787296 Active 2014 PERSONAL HISTORY OF MONOCLONA L DRUG THERAPY; Original code:Z92. 22 Entere d By: Angelica García MD; Signed By: Angelica García MD Not Available [facility] 9 01:04:58 History of drug therapy 413409258 Active 2015 PERSONAL HISTORY OF OTHER DRUG THERAPY; Original code:Z92. 29 Entere d By: Angelica García MD; Signed By: Angelica García MD Not Available [facility] 9 01:04:58 Seroposit nunu rheumatoi d arthritis 507024706 Active 2008 OTHER RHEUMATOI D ARTHRITIS WITH RHEUMATOI D FACTOR OF MULTIPLE SITES; Original code:M05. 89 Entere d By: Angelica García MD; Signed By: Angelica García MD Not Available [facility] 9 01:04:58 Rupture of anterior cruciate ligament 046257935 Active 2012 ACL TEAR, RIGHT KNEE; Original code:S83. 511 Enter ed By: Wilmer Al CMA ([facility]); Signed By: Wilmer Al CMA ([facility]) Not Available [facility] 9 01:04:58 Osteoporo sis 06982869 Active 2018 Odalis Sun ([email or web address]) null, [facility] 9 09:13:34 Problem Notes None recorded. Procedures Surgical History Date Name Laterality Status Provider Name and Address Organization Details Recorded Time 09/20/20 13 Most Recent Bone Density completed Odalis Sun ([employer] [facility]) [facility] 11/02/2019 09:08:42 Cholecystectomy (Gallbladder) completed Odalisjanis Sun ([facility]) [facility] 11/02/2019 09:09:40 Hernia Repair completed Odalis Sun ([employer] [facility]) [facility] 11/02/2019 09:10:44 operation on heart completed Michell rosas Sun ([facility]) [facility] 11/02/2019 09:10:21 repair of mitral valve completed Odalisjanis Sun ([facility]) [facility] 11/02/2019 09:10:34 Hysterectomy - Total completed Odalisjanis Sun ([facility]) [facility] 11/02/2019 09:10:59 splenectomy completed Odalis Sun ([facility]) [facility] 11/02/2019 09:11:35 Orthopedic - Knee Replacement completed Angelica García MD [address], [place], [address] 11/02/2019 10:02:41 Imaging Results None recorded. Procedure [...] 2018 active Enter By: Claudia Rodriguez CMA ([facility]); Signed By: Claudia Rodriguez CMA ([facility]); Date: 018; Authoriz ed by: [...] Updated DateTime 9 170.18 cm 33.5 kg/m2 12252.7 7 g 54 /min 97 % 97 % 116 mm[Hg] 74 mm[Hg] Odalis Sun ([facility]) [facility] 9 09:27:02 Social History None recorded. Functional Status Question Answer Note LastModified by Organizat ion Details LastModified Time Do you or have you ever used smokeless tobacco? Never used smokeless tobacco [email or web address] Information not available 11/02/2019 Do you or have you ever used e-cigarettes or vape? Never used electronic cigarettes [email or web address] Information not available 11/02/2019 Mental Status None recorded. Family History Relationship Description Onset Age of this Age Resolved Age Notes LastModified by Organization Details LastModified Time Father Hypertensive disorder [email or web address] Not available 11/02 09:09:09 Medical History No [...] SNOMED-CT Code Diagnosis ICD10 Code Diagnosis Note [id number] Angelica García MD CFL_[facility]_ [facility] [address] [place] [address] 11/02/2019 09:06:10 11/02/2019 10:49:49 Seropositive rheumatoid arthritis 785853051 M05.9 keep methotrexa te /Humira taper, labs q3mo Osteoporosis 53268143 M8 1.0 bisphospho annika holiday, calcium and vitamin D. 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 Ciro Reed, Rheumatology [address] [place] [address] [phone] Angelica García MD [address], [place], [address], [facility] [employer] [facility] 11/02/2019 13:14:59 OBGyn Episode No OBEpisode recorded.
== END 2025-05-09 10:09 | disposition home or self-care (01) ==
LOC: HO.HCS 09:33
PROVIDERS: PCP Internal Medicine; Visit Provider Internal Medicine Cardiovascular Disease
DX: I48.19 Other persistent atrial fibrillation (principal); I42.9 Cardiomyopathy, unspecified; Z95.2 Presence of prosthetic heart valve
CPT/HCPCS: 99214; G2211

== ENCOUNTER → 2025-05-09 09:32 | Outpatient (BNVA) | payer MEDICARE, SELFPAY | PROVIDERS: PCP Internal Medicine; Visit Provider Internal Medicine Cardiovascular Disease | DX: I48.19 Other persistent atrial fibrillation (principal); I42.9 Cardiomyopathy, unspecified; Z95.2 Presence of prosthetic heart valve | CPT/HCPCS: 99212 ==

== ENCOUNTER 2025-05-10 14:50 | Outpatient (AMB) | payer MEDICARE, SELFPAY ==
--- NOTE | 2025-05-10 14:59 | A.OFFVIS_ITS ---
Intake Visit Reasons: 1 month Intake Note: Patient presents today for follow up on: recurrent uti and hematuria Urology Medication: Myrbetriq, Estrace Cream Antibiotic Allergy:NONE Blood Thinner:NONE PVR: 54ml's Surgical Services Assistant Required: No Accompanied by: Self / Same As Patient Allergies benzonatate Adverse Reaction (Mild, Verified 05/10/25 20:03) Hallucinations Medication List - Last Reconciled 05/10/25 by OANH Mo acetaminophen 650 mg (2 x 325 mg) PO Q6H PRN 30 days adalimumab (Humira Pen) mg subcut amoxicillin 2,000 mg orally 1 hour before procedure.; Pt will hold methotrexate till after procedure. apixaban (Eliquis) 5 mg PO BID atorvastatin 20 mg PO DAILY celecoxib 200 mg PO BID diclofenac sodium 1% 4 grams topical QID docusate sodium 100 mg PO BID estradiol 0.01%(0.1mg/gram) pea sized amount vaginally 3 times a week; Apply pea-sized amount to urethra 3 times per week 90 days famotidine 40 mg PO BEDTIME folic acid 1 mg PO DAILY methotrexate sodium 17.5 mg PO TH metoprolol tartrate 50 mg PO BID omeprazole 20 mg PO DAILY sacubitril-valsartan 24-26 mg (Entresto) 1 tab PO BID solifenacin (Vesicare) 5 mg PO DAILY 30 days HPI Comments Details: Melissa Willingham a very pleasant 80-year-old female patient of Dr. Garcia. She has a past medical history of cardiac arrhythmia, restrictive lung disease, hard of hearing, osteoarthritis, osteopenia, hypercholesteremia, osteoarthritis, hypertension, and rheumatoid arthritis. She presents to the office today for follow-up of her lower urinary tract symptoms. In discussion with the patient today she reports she continues with episodes of urinary urgency and frequency as well as nocturia. She does feel episodes of urinary urgency and frequency throughout the day are tolerable however her most bothersome urinary issue is nocturia. 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 In office urinalysis results reviewed with the patient today. PVR 54 mL. She has previously trialed Myrbetriq and oxybutynin without improvement in lower urinary tract symptoms and felt Myrbetriq caused her insomnia. She does have a history of recurrent urinary tract infections workup has included Microgen 04/16 that noted E coli, lactobacillus gasseri, Campylobacter ureolyticus, prevotella timonensis, anaerococcus mediterraneensis, prevotella bivis, and proveoteela bergensis. She was also noted to have Kimberly glabrata. She finished treatment with Flagyl, Augmentin, and a dose of fluconazole. She reports compliance with Estrace cream as prescribed. She currently denies any UTI like symptoms. In review of patient's chart it appears urine cultures are as follows: 12/15, 04/14, 06/14, 06/15: E coli 08/16 Hafnia alvei 10/16 Proteus mirabilis 03/17 Klebsiella pneumoniae Previous workup has also included an in office cystoscopy as patient had been experiencing gross hematuria that noted grade 2 trabeculations otherwise NAD. We discussed potential causes of recurrent urinary tract infections. She does report a longstanding history of constipation. Previous workup has also included a retroperitoneal ultrasound 09/15 noting bilateral kidneys are normal in size, contour, and echogenicity. No hydronephrosis, lesions, and or renal calculi noted bilaterally. The bladder is well distended and normal. Pre void bladder volume is approximately 350 mL. Postvoid bladder volume is approximately 50 mL. When asked she denies dysuria, foul smelling urine, changes to urinary stream, flank pain, fever, and or chills. [facility] Medical History Cardiac arrhythmia Restrictive lung disease Cough Ear infection Hard of hearing COVID-19 vaccine series completed Osteoarthritis of right knee Dry mouth Osteopenia Postnasal drip Hypercholesteremia Osteoarthritis Hypertension Rheumatoid arthritis H/O bone density study Lumbago Surgical History History of total left knee replacement H/O colonoscopy Status post herniorrhaphy H/O mitral valve replacement History of splenectomy Hx of cholecystectomy Family History Father Cerebral hemorrhage Parkinsonism Mother COPD (chronic obstructive pulmonary disease) Lung cancer Brother Lung cancer Son No problems noted. Daughter No problems noted. Daughter No problems noted. Daughter No problems noted. Social History Housing: House Are you a primary nursing care attendant to a significant other at home: No Do you presently have visiting nurse or other home services: No Patient Tobacco Use Status: Never used Tobacco e-Cigarette/Vaping Use: Never Used Second Hand Smoke Exposure: Yes service: No Current occupational status: retired Current occupational exposures/hazards: No Cognitive needs: No Hearing needs: Yes Vision needs: Yes Review of Systems Const Reports no additional complaints Eyes Reports no additional complaints ENT Reports as per HPI Card Reports as per HPI Resp Reports as per HPI GI Reports no additional complaints Reports as per HPI Musc Reports as per HPI Physical Exam Const General: cooperative, healthy appearing, comfortable, no acute distress, well developed, alert and awake Nutritional Appearance: overweight Orientation/consciousness: patient oriented x3 Limitations: ambulation with cane HEENT Head: Yes normal to inspection, Yes normocephalic and Yes atraumatic Ears: hearing grossly normal bilaterally Eyes General: appearance normal, both eyes and all related structures Neck Neck: Yes normal visual inspection and Yes trachea midline Chest Chest palpation & inspection: normal inspection of the chest Resp Effort & Inspection: normal respiratory effort and able to speak in complete sentences Cardio Rate: regular rate GI Inspection: Yes normal to inspection General: Yes no CVA tenderness Back/Spine/Pelvis Back: no CVA tenderness Skin General skin exam: no rashes or lesions noted Neuro General: patient oriented x3 Extrem General: Yes normal to inspection Psych Appearance: grossly normal and well kempt Mental Status: mental status grossly normal Speech and movement: Normal speech and movement present and Clear speech present Affect: normal affect Attitude: cooperative Thought process: Normal thought process present Thought content: Normal thought content present Insight: Fair insight present (Psych) Judgement: Fair judgement present (Psych) Office Procedures Post Void Residual Post Residual Void Post Void Residual (PVR): 54 [id number] Void Residual by ultrasound Results AMB Urinalysis, Automated UA Leukoctes 15 Calista/uL Last Edit by Jenni Colon, MA on 05/10/25 15:12 UA Nitrite Negative Last Edit by Jenni Cumberland, MA on 05/10/25 15:12 UA Urobilinogen 3.5 mg/dL Last Edit by Jenni Cumberland, MA on 05/10/25 15:12 UA Protein 0.3 mg/dL Last Edit by Jenni Cumberland, MA on 05/10/25 15:12 UA pH 6.0 Last Edit by Jenni Cumberland, MA on 05/10/25 15:12 UA Blood 0 Sky/uL Last Edit by Jenni Cumberland, MA on 05/10/25 15:12 UA Specific Troup 1.025 Last Edit by Jenni Cumberland, MA on 05/10/25 15:12 UA Ketone Negative Last Edit by Jenni Cumberland, MA on 05/10/25 15:12 UA Bilirubin 0 mg/dL Last Edit by Jenni Cumberland, MA on 05/10/25 15:12 UA Glucose 0 mg/dL Last Edit by Jenni Cumberland, MA on 05/10/25 15:12 Results Reviewed Results Reviewed: Laboratory Last Values Urine pH (Auto) 6.0 05/10/25 15:03 Specific Troup (Auto) 1.025 05/10/25 15:03 Urine Protein (Auto) 0.3 mg/dL 05/10/25 15:03 Glucose (UA)(Auto) 0 mg/dL 05/10/25 15:03 Urine Ketones (Auto) Negative 05/10/25 15:03 Urine Blood (Auto) 0 Sky/uL 05/10/25 15:03 Urine Nitrite (Auto) Negative 05/10/25 15:03 Urine Bilirubin (Auto) 0 mg/dL 05/10/25 15:03 Urine Urobilinogen (Auto) 3.5 mg/dL 05/10/25 15:03 Leukocyte Esterase (Auto) 15 Calista/uL 05/10/25 15:03 Assessment & Plan Assessment & Plan (1) Renal cyst: Code(s): N28.1 - Cyst of kidney, acquired Category: Medical (2) Hematuria: Code(s): R31.9 - Hematuria, unspecified Category: Medical (3) Dysuria: Code(s): R30.0 - Dysuria Category: Medical (4) Nocturia: Code(s): R35.1 - Nocturia Category: Medical (5) Recurrent UTI: Code(s): N39.0 - Urinary tract infection, site not specified Category: Medical Plan In office urinalysis results with the patient today; as noted above. PVR 54 mL. Start VESIcare as discussed and prescribed. We discussed importance of limiting fluids 2-3 hours prior to bed. We discussed bladder triggers/irritants. She denies any UTI like symptoms. Follow-up in 1-3 months with PVR; or sooner with any issues, concerns, and or questions. Orders: Orders AMB Urinalysis Automated Today Z13.9 - Encounter for screening, unspecified AMB Post Void Residual by ultrasound Today N39.0 - Urinary tract infection, site not specified Medications: New solifenacin (Vesicare) 5 mg PO DAILY 30 tabs 3RF 30 days Patient Instructions: The patient had an opportunity to ask questions regarding the treatment plan. All questions were answered. Physical exam, labs, and imaging were discussed and reviewed in detail. As well as risks, benefits, and discussion of treatment choices. No major barriers to understanding were identified. The patient expressed understanding and agreement with the above treatment plan. The patient was made aware they should contact our office by phone for worsening of their current condition, the appearance of new symptoms, or with any questions or concerns. Compliance is encouraged with any medications and follow up testing that is ordered. It is a privilege to be allowed the opportunity to participate in? your urological care.? Again, if you have any questions or concerns If you have any questions or concerns please do not hesitate to contact me. The office is [phone]. This note is constructed using voice recognition software. While every effort has been made to ensure accuracy mimeograph operator errors may have been included. Yours sincerely, OANH Mo Coding Level of Care Code Est Pt Level 4 (36676) Complex EM visit Add On G2211 Diagnoses Renal cyst N28.1 Hematuria R31.9 Dysuria R30.0 Nocturia R35.1 Recurrent UTI N39.0 CPT Codes Post Residual Void - PVR CPT Code: 31716-Drtw Void Residual by ultrasound ([id number])
--- OUTSIDE RECORDS SUMMARY | 2025-05-10 17:07 | XMS_ITS | Data Portability ---
Author Organization 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 Plan of Treatment Reminders Order Date Submit Date Provider Last Modified By Organization Details Last Modified Time Details Appointments None recorded. Lab CMP, serum or plasma 2018 019 [facility] (All [facility] Sites), [address], [place], [address], 9 11:10:40 C reactive protein, QN, serum or plasma 2018 019 [facility] (All [facility] Sites), [address], [place], [address], 9 11:10:37 CBC w/ diff 2018 019 [facility] (All [facility] Sites), [address], [place], [address], 9 11:01:30 CBC w/ diff 2018 020 [facility] (All [facility] Sites), [address], [place], [address], 0 03:16:16 C reactive protein, QN, serum or plasma 2018 020 [facility] (All [facility]), [address] [place], [address], 0 03:16:16 CMP, serum or plasma 2018 020 [facility] (All [facility]), [address], [place], [address], 0 03:16:16 Referral None recorded. Procedures None recorded. Surgeries None recorded. Imaging None recorded. Medication Orders methotrexa te sodium 2.5 mg tablet 2018 019 INTERFACE [id number], [address], [place], [address], 9 10:03:37 Patient TargetsNo targets recorded. Patient Instructions Encounter Date Encounter Id Patient Instructions Last Modified By Organization Details Last Modified Time 11/02/2019 [id number] osteoporosis: care instructions [email or web address] Not available 11/02/2019 10:03:35 Reason for Referral None Reported. Results Created Date Observation Date Name Description Value Unit Range Abnormal Flag Note LastModifiedBy Organization Detail LastModifiedTime 11/08/20 19 11/08/2019 CBC w/ diff WBC 5.47 10*/3 uL 3.90-1 1.20 Not Available [facility] (All [facility]) [address], [place], [address], 11/08/2019 11:01:29 11/08/20 19 11/08/2019 CBC w/ diff RBC 4.01 10*6/ uL 3.40-5 .40 Not Available [facility] (All [facility]) [address], [place], [address], 11/08/2019 11:01:29 11/08/20 19 11/08/2019 CBC w/ diff hemoglobin 13.9 g/dL 10.8-1 5.5 Not Available [facility] (All [facility]) [address], [place], [address], 11/08/2019 11:01:29 11/08/20 19 11/08/2019 CBC w/ diff hematocrit 41.1 % 33.0-4 5.0 Not Available [facility] (All [facility]) [address], [place], [address], 11/08/2019 11:01:29 11/08/20 19 11/08/2019 CBC w/ diff MCV 102.5 fL 82.0-1 00.0 high Not Available [facility] (All [facility]) [address], [place], [address], 11/08/2019 11:01:29 11/08/20 19 11/08/2019 CBC w/ diff MCH 34.7 pg 26.0-3 4.0 high Not Available [facility] ([facility]) [address], [place], [address], 11/08/2019 11:01:29 11/08/20 19 11/08/2019 CBC w/ diff MCHC 33.8 g/dL 32.0-3 6.0 Not Available [facility] (All [facility]) [address], [place], [address], 11/08/2019 11:01:29 11/08/20 19 11/08/2019 CBC w/ diff RDW-SD 54.7 fL 35.1-4 6.8 high Not Available [facility] ([facility]) [address], [place], [address], 11/08/2019 11:01:29 11/08/20 19 11/08/2019 CBC w/ diff plt 215 10*3/ uL 140-44 0 Not Available [facility] ([facility]) [address] [place], [address], 11/08/2019 11:01:29 11/08/20 19 11/08/2019 CBC w/ diff MPV 11.5 fL 9.7-12 .8 Not Available [facility] ([facility]) [address] [place], [address], 11/08/2019 11:01:29 11/08/20 19 11/08/2019 CBC w/ diff neut% 49.30 % 40.00- 77.00 Not Available [facility] (All [facility]) [address] , [place], [address], 11/08/2019 11:01:29 11/08/20 19 11/08/2019 CBC w/ diff lymph% 31.30 % 14.00- 47.00 Not Available [facility] (All [facility]) [address] , [place], [address], 11/08/2019 11:01:29 11/08/20 19 11/08/2019 CBC w/ diff mono% 12.20 % <13.00 Not Available [facility] ([facility]) [address], [place], [address], 11/08/2019 11:01:29 11/08/20 19 11/08/2019 CBC w/ diff eo% 5.50 % <7.00 Not Available [facility] ([facility]) [address], [place], [address], 11/08/2019 11:01:29 11/08/20 19 11/08/2019 CBC w/ diff baso% 1.50 % <2.00 Not Available [facility] ([facility]) [address], [place], [address], 11/08/2019 11:01:29 11/08/20 19 11/08/2019 CBC w/ diff Ig% 0.20 % <0.50 Not Available [facility] ([facility]) [address], [place], [address], 11/08/2019 11:01:29 11/08/20 19 11/08/2019 CBC w/ diff NRBC% 0.00 % <0.20 Not Available [facility] ([facility]) [address] [place], [address], 11/08/2019 11:01:29 11/08/20 19 11/08/2019 CBC w/ diff neut# 2.70 10*3/ uL 2.00-6 .80 Not Available [facility] ([facility]) [address] , [place], [address], 11/08/2019 11:01:29 11/08/20 19 11/08/2019 CBC w/ diff lymph# 1.71 10*3/ uL 0.90-3 .00 Not Available [facility] ([facility]) [address] , [place], [address], 11/08/2019 11:01:29 11/08/20 19 11/08/2019 CBC w/ diff mono# 0.67 10*3/ 3uL 0.20-0 .80 Not Available [facility] ([facility]) [address], [place], [address], 11/08/2019 11:01:29 11/08/20 19 11/08/2019 CBC w/ diff eo# 0.30 10*3/ uL <0.81 Not Available [facility] ([facility]) [address] , [place], [address], 11/08/2019 11:01:29 11/08/20 19 11/08/2019 CBC w/ diff baso# 0.08 10*3/ uL 0.00-0 .10 Not Available [facility] ([facility]) [address], [place], [address], 11/08/2019 11:01:29 11/08/20 19 11/08/2019 CBC w/ diff Ig# 0.01 10*3/ uL <0.40 Not Available [facility] ([facility]) [address], [place], [address], 11/08/2019 11:01:29 11/08/20 19 11/08/2019 CBC w/ diff NRBC# <0.01 10*3/ uL <0.01 Not Available [facility] ([facility]) [address] [place], [address], 11/08/2019 11:01:29 11/08/20 19 11/08/2019 C react nunu prote in, QN, serum or plasm a CRP 0.09 mg/dL 0.00-0 .88 Not Available [facility] (All [facility]) [address] [place], [address], 11/08/2019 11:10:37 11/08/20 19 11/08/2019 CMP, serum or plasm a glucose 103 mg/dL 74-100 high Not Available [facility] ([facility]) [address] [place], [address], 11/08/2019 11:10:40 11/08/20 19 11/08/2019 CMP, serum or plasm a BUN 17.9 mg/dL 8.0-23 .0 Not Available [facility] (All [facility]) [address] [place], [address], 11/08/2019 11:10:40 11/08/20 19 11/08/2019 CMP, serum or plasm a creat 0.69 mg/dL 0.40-1 .10 Not Available [facility] ([facility]) [address] [place], [address], 11/08/2019 11:10:40 11/08/20 19 11/08/2019 CMP, serum or plasm a GFR estimated 83 mL/mi n/1.7 3m2 >60 IDMS trace able MDRD study equat ion. If patie nt is Afric an-Am marcela n, multi ply repor luke resul t by 1.21 Not Available [facility] (All [facility]) [address] [place], [address], 11/08/2019 11:10:40 11/08/20 19 11/08/2019 CMP, serum or plasm a BUN/creat 26 % Not Available [facility] ([facility]) [address] [place], [address], 11/08/2019 11:10:40 11/08/20 19 11/08/2019 CMP, serum or plasm a Na+ 139 mmol/ L 136-14 5 Not Available [facility] ([facility]) [address], [place], [address], 11/08/2019 11:10:40 11/08/20 19 11/08/2019 CMP, serum or plasm a K+ 4.4 mmol/ L 3.5-5. 2 Not Available [facility] ([facility]) [address], [place], [address], 11/08/2019 11:10:40 11/08/20 19 11/08/2019 CMP, serum or plasm a cL- 104 mmol/ L 98-107 Not Available [facility] ([facility]) [address] [place], [address], 11/08/2019 11:10:40 11/08/20 19 11/08/2019 CMP, serum or plasm a CO2 23 mmol/ L 22-29 Not Available [facility] ([facility]) [address] [place], [address], 11/08/2019 11:10:40 11/08/20 19 11/08/2019 CMP, serum or plasm a anion gap 12 7-17 Not Available [facility] ([facility]) [address] [place], [address], 11/08/2019 11:10:40 11/08/20 19 11/08/2019 CMP, serum or plasm a calcium 9.2 mg/dL 8.6-10 .5 Not Available [facility] ([facility]) [address] [place], [address], 11/08/2019 11:10:40 11/08/20 19 11/08/2019 CMP, serum or plasm a tl prot 6.8 g/dL 6.4-8. 3 Not Available [facility] ([facility]) [address] [place], [address], 11/08/2019 11:10:40 12/17/20 19 11/08/2019 CMP, serum or plasm a alb 3.9 g/dL 3.5-5. 2 Not Available [facility] (All [facility]) [address] [place], [address], 11/08/2019 11:10:40 11/08/20 19 11/08/2019 CMP, serum or plasm a A/G ratio 1.0 Not Available [facility] ([facility]) [address] [place], [address], 11/08/2019 11:10:40 11/08/20 19 11/08/2019 CMP, serum or plasm a tbil 0.8 mg/dL 0.0-1. 2 Not Available [facility] ([facility]) [address] [place], [address], 11/08/2019 11:10:40 11/08/20 19 11/08/2019 CMP, serum or plasm a alk phos 50 U/L 22-126 Not Available [facility] ([facility]) [address] [place], [address], 11/08/2019 11:10:40 11/08/20 19 11/08/2019 CMP, serum or plasm a SGOT/AST 26 IU/L 0-32 Not Available [facility] ([facility]) [address] [place], [address], 11/08/2019 11:10:40 11/08/20 19 11/08/2019 CMP, serum or plasm a SGPT/ALT 26 IU/L 0-40 Not Available [facility] (All [facility]) [address] [place], [address], 11/08/2019 11:10:40 11/08/20 19 11/08/2019 CMP, serum or plasm a osmol cory 280 mOsm/ kg 270-32 0 Not Available [facility] ([facility]) [address] [place], [address], 11/08/2019 11:10:40 Result Notes None recorded. 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 899 Enter ed By: Odalis Sun MA; Signed By: Angelica García MD Not Available [facility] 9 01:04:58 Osteoarth ritis of knee 082317232 Active 2012 OSTEOARTH RITIS, KNEE; Original code:M17. 9 Entered By: RICK Joe; Signed By: RICK Joe Not Available [facility] 9 01:04:58 Osteopeni a 548748302 Active 2017 OSTEOPENI A; Original code:M85. 80 Entere d By: Odalis Sun MA; Signed By: Angelica García MD Not Available [facility] 9 01:04:58 History of total knee arthropla sty 28170815267 05 Active 2016 TOTAL KNEE REPLACEME NT, LEFT; Original code:Z96. 652 Enter ed By: Odalis Sun MA; Signed By: Angelica García MD Not Available [facility] 9 01:04:58 History of chemother apy 621508143 Active 2014 PERSONAL HISTORY OF MONOCLONA L DRUG THERAPY; Original code:Z92. 22 Entere d By: Angelica García MD; Signed By: Angelica García MD Not Available [facility] 9 01:04:58 History of drug therapy 034282620 Active 2015 PERSONAL HISTORY OF OTHER DRUG THERAPY; Original code:Z92. 29 Entere d By: Angelica García MD; Signed By: Angelica García MD Not Available [facility] 9 01:04:58 Seroposit nunu rheumatoi d arthritis 750059299 Active 2008 OTHER RHEUMATOI D ARTHRITIS WITH RHEUMATOI D FACTOR OF MULTIPLE SITES; Original code:M05. 89 Entere d By: Angelica García MD; Signed By: Angelica García MD Not Available [facility] 9 01:04:58 Rupture of anterior cruciate ligament 465178059 Active 2012 ACL TEAR, RIGHT KNEE; Original code:S83. 511 Enter ed By: Wilmer Al CMA ([facility]); Signed By: Wilmer Al CMA ([facility]) Not Available [facility] 9 01:04:58 Osteoporo sis 63924137 Active 2018 Odalis Sun ([place]) null, [facility] 9 09:13:34 Problem Notes None recorded. Procedures Surgical History Date Name Laterality Status Provider Name and Address Organization Details Recorded Time 09/20/20 13 Most Recent Bone Density completed Odalis Sun ([facility]) [facility] 11/02/2019 09:08:42 Cholecystectomy (Gallbladder) completed Odalisjanis Sun ([facility]) [facility] 11/02/2019 09:09:40 Hernia Repair completed Odalis Sun ([facility]) [facility] 11/02/2019 09:10:44 operation on heart completed Michell rosas Sun ([facility]) [facility] 11/02/2019 09:10:21 repair of mitral valve completed Odalisjanis Sun ([facility]) [facility] 11/02/2019 09:10:34 Hysterectomy - Total completed Odalisjanis Sun ([facility]) [facility] 11/02/2019 09:10:59 splenectomy completed Odalis Sun ([facility]) [facility] 11/02/2019 09:11:35 Orthopedic - Knee Replacement completed Angelica García MD [address], [place], [address] 11/02/2019 10:02:41 Imaging Results None recorded. Procedure [...] 2018 active Enter By: Claudia Rodriguez CMA ([facility]); Signed By: Claudia Rodriguez CMA ([facility]); Date: 018; Authoriz ed by: Angelica [...] Updated DateTime 9 170.18 cm 33.5 kg/m2 86934.7 7 g 54 /min 97 % 97 % 116 mm[Hg] 74 mm[Hg] Odalis Sun ([facility] 9 09:27:02 Social History None recorded. Functional Status Question Answer Note LastModified by Organizat ion Details LastModified Time Do you or have you ever used smokeless tobacco? Never used smokeless tobacco [email or web address] Information not available 11/02/2019 Do you or have you ever used e-cigarettes or vape? Never used electronic cigarettes [email or web address] Information not available 11/02/2019 Mental Status None recorded. Family History Relationship Description Onset Age of this Age Resolved Age Notes LastModified by Organization Details LastModified Time Father Hypertensive disorder [email or web address] Not available 11/02 09:09:09 Medical History No medical history recorded. Gynecological History Statement/Question Response Most Recent Bone Density 09/20/2013 Obstetrics History GPAL:G 0 P 0 0 0 0 Immunizations Vaccine Type Date Status Note Provider Nam e and Address Organization Details Recorded Time influenza, unspecified formulation 9 completed Not Available [facility] 06/12/2019 14:13:11 Past Encounters Encounter ID Performer Location Encounter Start Date Encounter Closed Date Diagnosis/Indication Diagnosis SNOMED-CT Code Diagnosis ICD10 Code Diagnosis Note [id number] Angelica García MD [facility] [address] [place] [address] 11/02/2019 09:06:10 11/02/2019 10:49:49 Seropositive rheumatoid arthritis 359489945 M05.9 keep methotrexa te /Humira taper, labs q3mo Osteoporosis 15511695 M8 1.0 bisphospho annika holiday, calcium and vitamin D. 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 Ciro Reed, Rheumatology [address] [place] [address] [phone] Angelica García MD [address], [place], [address], [facility] [facility] 11/02/2019 13:14:59 OBGyn Episode No OBEpisode recorded.
== END 2025-05-10 15:48 | disposition home or self-care (01) ==
LOC: HO.HUSH 14:51
PROVIDERS: PCP Internal Medicine; Visit Provider Nurse Practitioner Family
DX: N28.1 Cyst of kidney, acquired (principal); R31.9 Hematuria, unspecified; R30.0 Dysuria; R35.1 Nocturia; N39.0 Urinary tract infection, site not specified; Z13.9 Encounter for screening, unspecified
CPT/HCPCS: 99214; G2211

== ENCOUNTER → 2025-05-10 14:50 | Outpatient (BNVA) | payer MEDICARE, SELFPAY | PROVIDERS: PCP Internal Medicine; Visit Provider Nurse Practitioner Family | DX: N28.1 Cyst of kidney, acquired (principal); N39.0 Urinary tract infection, site not specified; R31.9 Hematuria, unspecified; R30.0 Dysuria; R35.1 Nocturia | CPT/HCPCS: 51798; 81003; 99212 ==

== ENCOUNTER 2025-05-23 07:51 | Outpatient (REF) | payer MEDICARE, SELFPAY ==
--- OUTSIDE RECORDS SUMMARY | 2025-05-23 07:53 | XMS_ITS | Patient Health Record ---
[facility] [place] Address [address] [facility] [place] [address] Care Team Providers Care Neuropsychology Service Director Name Role Phone Ana Garcia MD Primary Care Provider Eva Benjamin Unavailable [phone] Allergies No Known Allergies Reason For Referral No Information Medications Medication SIG (Take, Route, Frequency, Duration) Notes Start Date End Date Status PriLOSEC Active Methotrexate 2.5 MG Orally Active Eliquis Active Humira 40 MG/0.8ML Subcutaneous Active Entresto Active Voltaren Arthritis Pain 1 % as directed Externally 07/08/2024 Activ e Famotidine 40 MG 1 tablet Orally Once a day Active Aspirin 81 MG Orally Not-Gregory mendoza Atorvastatin Calcium 20 MG 1 tablet Orally Once a day Active Vitamin D Not-Taking oxyBUTYnin Chloride ER 10 MG 1 tablet Orally Once a day Not-Taking Vitamin B 12 Not-Jose tresa Omeprazole 20 MG 1 capsule 1/2 to 1 h our before morning meal Orally Once a day Active Night Splint AFO - L1930 as directed 08/15/2019 Not-Taking sulfaSALAzine Not-Gregory mendoza Celecoxib Active Colcrys 0.6 MG 1 tablet Orally once a day; Duration: 10 days 04/13/2024 Not-[place]barak g Folic Acid Active ASO Ankle/Foot Stablizing AFO As directed Wear Daily; Duration: as needed 05/12/2024 Not-Taking Metoprolol Tartrate Active Immunizations Vaccine Route Administration Date Status Comme nts COVID-19 Moderna Vaccine Unknown 02/22/2021 Administered First Dose: 0 04/12 Influenza Unknown 09/13/2024 Administered Social History Tobacco Use: Social History Observation [...] Problem Status W/U Status Risk Notes Problem Lower limb length difference (M21.70) Active confirmed Vital Signs Blood pressure diastolic 80 mm Hg 05/10/2025 Height 5 ft 7 in in 05/10/2025 Blood pressure systolic 127 mm Hg 05/10/2025 Weight 209 lbs 05/10/2025 BMI 32.73 kg/m2 05/10/2025 Procedures Procedure Date Ordered Date Performed Result Body Sit e 19836-TFDSYEK NAIL, 6 OR MORE 10/07/2024 N/A 29246- Debride <25 sq cm 10/07/2024 N/A 63227-FOUGUGY NAIL, 6 OR MORE 12/16/2024 N/A 57746-YESJEVP NAIL, 6 OR MORE 02/24/2025 N/A 66470-MCQAQDT NAIL, 6 OR MORE 07/08/2024 N/A Encounters Encounter Location Date Provider Diagnosis [address] [address] 07/08/2024 Eva Black Pain in right foot M79.671 ; Arthritis of right ankle M19.071 ; 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.771 ; Onychomycosis B35.1 ; Pain in right toe(s) M79.674 and Pain in left toe(s) M79.[address] [address] 10/07/2024 Eva Black Pain in right foot M79.671 ; Arthritis of right ankle M19.071 ; 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.771 ; Onychomycosis B35.1 ; Pain in right toe(s) M79.674 ; Pain in left toe(s) M79.675 and Ulcer of right foot, limited to breakdown of skin L97.[address] [place] [address] 12/16/2024 Eva Black Onychomycosis B35.1 ; Ingrown nail L60.0 ; Pain in right toe(s) M79.674 and Pain in left toe(s) M79.[address] [address] 02/24/2025 Eva Black Onychomycosis B35.1 ; Lower limb length difference M21.70 ; Pain in right toe(s) M79.674 and Pain in left toe(s) M79.[address] [address] 05/10/2025 Eva Black Onychomycosis B35.1 ; Pain in [...] - M21.70) 02/24/2025 Onychomycosis (ICD-10 - B35.1) 05/10/2025 Pain in right toe(s) (ICD-10 - M79.674) 05/10/2025 Onychomycosis (ICD-10 - B35.1) 10/07/2024 Rheumatoid arthritis involving right ankle with positive rheumatoid factor (ICD-10 - M05.771) 12/16/2024 Pain in right toe(s) (ICD-10 - M79.674) 05/10/2025 Pain in left toe(s) (ICD-10 - M79.675) 02/24/2025 Pain in right toe(s) (ICD-10 - [...] Date *Uric Acid, Serum 04/13/2024 *Sedimentation Rate-Westergren 03956-TRMPWLP NAIL, 6 OR MORE 12/29/2023 81423-FYQOXGE NAIL, 6 OR MORE 04/01/2024 98058-WCQKQJT NAIL, 6 OR MORE 04/29/2023 71361-YFWJXZP NAIL, 6 OR MORE 07/08/2023 19979-NQWSJWE NAIL, 6 OR MORE 09/22/2023 00363-IOGHXFM NAIL, 6 OR MORE 02/13/2023 02110-ZAQNCCZ NAIL, 6 OR MORE 07/08/2024 09050-LYZPBFQ NAIL, 6 OR MORE 10/07/2024 59344-FCEGZAX NAIL, 6 OR MORE 12/16/2024 66092-EBUUHLB NAIL, 6 OR MORE 02/24/2025 29215-BZVQLWK NAIL, 1-5 12/10/2021 92098-Nyisobob Plate 12/29/2023 13968-Xpbiktkw Plate 04/29/2023 50319-Nhxpdvtv Plate 07/22/2021 72029- Debride <25 sq cm 10/07/202472849, J0702- INJECT or DRAIN, JOINT/BUR SA 04/13/202423047, U6649-YVGLK/INJECT, JOINT/BURSA 0 08/17/2017 20900,V7921-QSF TENDON SHEATH/LIGAMENT 0 08/15/2019 32957,G9242-KIZ TENDON SHEATH/LIGAMENT 1 13228, J0702- Neuroma/Injection 09/14/20 17 X ray : Ankle, right 3V 04/13/2024 46880 - Tenotomy, open flexor 08/07/2021 Next Appt Details Provider Name:Eva Alas , 07/19/2025 11:00:00 AM, [address] [facility], [place], [address], Insurance Providers Payer Name Payer Address Payer Phone Subscriber Number Group Number Insured Name Patient Relationship to Insured Coverage Start Date Coverage End Date Medicare National Govt [employer] [address] [place] [address] [id number] Melissa De La Garza Self - patient is the insured [employer] [address] [place] [address] [id number] Melissa De La Garza Self - patient is the insured Medical (General) History Medical History History ICD Code Arthritis Back,Hip,and Knee pain Cataracts Heart disease Osteoporosis Chicken pox Measles Joint implants/screws Replacement Heart Valves Transfusions A Fib Rheumatoid arthritis involving right ank le with positive rheumatoid factor M05.771 Other hammer toe(s) (acquired), right fo ot M20.41 Other hammer toe(s) (acquired), left johnathan t M20.42 Surgical History Surgery Date(Month/Year) splenectomy 196 heart surgery unspecified 2006 hernia 2006 hysterectomy 2006 cyst removal 2004 right knee replacement 05/13/2022
[2025-05-23 10:09] LABS: MANUAL DIFF FLAG NO
[2025-05-23 10:16] LABS: Hematocrit 35.4 % (37.0-47.0); Hemoglobin 11.8 g/dl (12.0-16.0); Imm Gran Abs Auto 0.01 X10*3/uL (0.00-0.03); Imm Gran Pct Auto 0.2 % (0.0-0.4); Lymphocytes Absolute Auto 1.4 X10*3/uL (1.2-4.9); Mean Corpuscular HGB Conc 33.3 g/dl (31.0-35.0); Mean Corpuscular Hemoglobin 36.0 pg (27.0-33.0); Mean Corpuscular Volume 107.9 fL (80.0-98.0); NRBC Abs Auto 0.020 X10*3/uL (0.0-0.012); NRBC Pct Auto 0.5 /100WBC (0.0-0.2); Platelet Count 196 X10*3/uL (160-400); Red Blood Count 3.28 X10*6/uL (4.20-5.50); White Blood Count 4.3 X10*3/uL (4.8-10.8)
[2025-05-23 10:38] LABS: Alanine Aminotransferase 13 U/L (0-31); Albumin Level 3.9 g/dL (3.5-5.0); Alkaline Phosphatase 48 U/L (39-117); Anion Gap 12 (12-20); Aspartate Amino Transferase 26 U/L (5-31); Blood Urea Nitrogen 18 mg/dL (9-16); Calcium 9.0 mg/dL (8.4-10.2); Carbon Dioxide 24 mmol/L (22-29); Chloride 111 mmol/L (96-108); Cholesterol 134 mg/dL (<200); Estimated Glomerular Filt Rate 58; HDL Cholesterol 57 mg/dL (>40); Potassium 4.0 mmol/L (3.3-5.1); Sodium 143 mmol/L (135-145); Total Protein 6.5 g/dL (6.5-8.0); Triglycerides 105 mg/dL (<150)
[2025-05-23 11:15] LABS: Folate 10.0 ng/mL (> or = 4.0); Vitamin B12 396 pg/mL (200-900)
== END 2025-05-23 07:52 | disposition home or self-care (01) ==
LOC: HO.HMGCLDS 07:51
PROVIDERS: PCP Internal Medicine; Visit Provider Internal Medicine
DX: Z00.00 Encounter for general adult medical examination without abnormal findings (principal); E53.8 Deficiency of other specified B group vitamins; E55.9 Vitamin D deficiency, unspecified; M06.9 Rheumatoid arthritis, unspecified; E78.00 Pure hypercholesterolemia, unspecified
CPT/HCPCS: 36415; 80053; 80061; 82306; 82607; 82746; 84443; 85025

== ENCOUNTER 2025-06-05 09:37 | Outpatient (AMB) | payer MEDICARE, SELFPAY ==
--- NOTE | 2025-06-05 09:40 | A.OFFVIS_ITS ---
Intake Vital Signs 06/05/25 09:42 Height 5 ft 7 in Weight 214 lb BMI 33.5 BP 110/66 Blood Pressure Location Lt brachial Position Sitting Respiration 20 Pulse 70 Pulse Source Pulse Oximeter Temp 97.8 F Temp Source Oral Pulse Oximetry (%) 95 Oxygen Delivery Method Room Air Intake Visit Reasons: SWV G0439 Intake Note: Pt is here today for AWV. Allergies benzonatate Adverse Reaction (Mild, Verified 06/05/25 09:42) Hallucinations Medication List - Last Reconciled 06/05/25 by Ana Garcia MD acetaminophen 650 mg (2 x 325 mg) PO Q6H PRN 30 days adalimumab (Humira Pen) mg subcut amoxicillin 2,000 mg orally 1 hour before procedure.; Pt will hold methotrexate till after procedure. apixaban (Eliquis) 5 mg PO BID atorvastatin 20 mg PO DAILY celecoxib 200 mg PO BID diclofenac sodium 1% 4 grams topical QID docusate sodium 100 mg PO BID estradiol 0.01%(0.1mg/gram) pea sized amount vaginally 3 times a week; Apply pea-sized amount to urethra 3 times per week 90 days famotidine 40 mg PO BEDTIME folic acid 1 mg PO DAILY methotrexate sodium 17.5 mg PO TH metoprolol tartrate 50 mg PO BID omeprazole 20 mg PO DAILY sacubitril-valsartan 24-26 mg (Entresto) 1 tab PO BID solifenacin (Vesicare) 5 mg PO DAILY 30 days HPI SWV G0439 HPI Details Initiated the conversation about Advanced Directives. Advanced Directives help? patients prepare for current and future decisions about their medical treatment? and place of care. Discussed with patient that it is a process where a patients? current condition and prognosis are reviewed, their wishes for information? regarding their illness are elicited, and likely medical dilemmas are presented? and options discussed. The form can be amended as needed, reviewed yearly and? make changes as needed IPPE/AWV ? year old presents? for her ? Annual? Wellness Visit, initial visit.? Medical / Social History Reviewed? Past Medical History ?Yes? . ? Enterprise? of Care / Care Team list updated ?Yes . ? Surgical/Hospitalization? History ?Yes . ? Current Medications? (including OTC and supplements) ?Yes . ? Family History ?Yes? . ? Tobacco? Control form ?Yes . ? AUDIT-C (Alcohol use) form? ?Yes . ? Illicit drug use in Social? History ?Yes . ? Current diagnosis of? depression? ?No ? Appropriate PHQ2/PHQ9? completed ?Yes . ? Data entered by ?Medical? [employer] and reviewed by provider ? Fall Risk ? Fall? History? Have you had any falls with? injury in the past year? ?No . ? Have you had two or more? falls in the past year? ?No . ? Fall Risk Assessment: ?No? falls in the past year . ? HRA filled out by? the patient, reviewed by Provider and scanned. ? IPPE/AWV ? Balance? Romberg? ?Yes . ? Tandem? walk ?Yes . ? Walk and? Turn ?Yes . ? Rise from? sit to stand ?Yes . ?Vision? Corrective? lens ?Yes ? Vision? screen ? Up-to-date, has an appointment [] for vision? screening and glaucoma screening ?Hearing? Whisper? test ?pass .? Initiated the conversation about Advanced Directives. Advanced Directives help? patients prepare for current and future decisions about their medical treatment? and place of care. Discussed with patient that it is a process where a patients? current condition and prognosis are reviewed, their wishes for information? regarding their illness are elicited, and likely medical dilemmas are presented? and options discussed. The form can be amended as needed, reviewed yearly and? make changes as needed Written? Plan?Completed. See Patient? Documents. [facility] Medical History (Updated 06/05/25 @ 10:49 by Ana Garcia MD) Cardiomyopathy Persistent atrial fibrillation Cardiac arrhythmia Restrictive lung disease Cough Ear infection Hard of hearing COVID-19 vaccine series completed Osteoarthritis of right knee Dry mouth Osteopenia Postnasal drip Hypercholesteremia Osteoarthritis Hypertension Rheumatoid arthritis H/O bone density study Lumbago Surgical History History of total left knee replacement H/O colonoscopy Status post herniorrhaphy H/O mitral valve replacement History of splenectomy Hx of cholecystectomy Family History Father Cerebral hemorrhage Parkinsonism Mother COPD (chronic obstructive pulmonary disease) Lung cancer Brother Lung cancer Son No problems noted. Daughter No problems noted. Daughter No problems noted. Daughter No problems noted. Social History Housing: House Are you a primary director of healthcare systems to a significant other at home: No Do you presently have visiting nurse or other home services: No Patient Tobacco Use Status: Never used Tobacco e-Cigarette/Vaping Use: Never Used Second Hand Smoke Exposure: Yes service: No Current occupational status: retired Current occupational exposures/hazards: No Cognitive needs: No Hearing needs: Yes Vision needs: Yes Questionnaire Medicare Wellness Checkup [age] What gender do you identify with?: female During the past 4 weeks, how much have you been bothered by emotional problems such as feeling anxious, depressed, irritable, sad or downhearted, and blue?: quite a bit During the past 4 weeks, has your physical & emotional health limited your social activities with family, friends, neighbors, or groups?: slightly During the past 4 weeks, how much bodily pain have you generally had?: moderate pain During the past 4 weeks, was someone available to help you if you needed & w anted help?: yes, quite a bit During the past 4 weeks, what was the hardest physical activity you could do for at least 2 minutes?: moderate Can you get to places out of walking distance without help? (For eg., can you travel alone on buses, taxis or drive your car?): Yes Can you go shopping for groceries or clothes without someone's help?: Yes Can you prepare your own meals?: Yes Can you do your housework without help?: Yes Because of any health problems, do you need the help of another person with your personal care needs such as eating, bathing, dressing or getting around the house?: No Can you handle your own money without help?: Yes During the past 4 weeks, how would you rate your health in general?: good During the past 4 weeks how have things been going for you?: good & bad parts about equal Are you having difficulties driving your car?: no Do you always fasten your seat belt when you are in a car?: yes, usually During past 4 weeks, have you been bothered by the following: never: Falling or dizzy when standing up, Sexual problems?, Trouble eating well?, Teeth or denture problems? and Problems using the telephone? and often: Tiredness or fatigue? Have you fallen 2 or more times in the past year?: No Are you afraid of falling?: Yes Are you a smoker?: no During the past 4 weeks, how many drinks of wine, beer, or other alcoholic beverages did you have?: no alcohol at all Do you exercise for about 20 minutes 3 or more times a week?: no, I usually do not exercise this much Have you been given information to help with the following?: yes: Keeping track of your medications? and no: Hazards in your house that might hurt you? How often do you have trouble taking medicines the way you have been told to take them?: I always take medicine as prescribed How confident are you that you can control & manage most of your health problems?: very confident What is your race?: White Mini Mental State Exam (MMSE) Orientation What is the (year) (season) (date) (day) (month)?: year, season, date, day and month Where are we (state) (county) (town or city) (hospital) (floor)?: state, county, town or city, hospital/clinic and floor Registration Name of 3 unrelated objects clearly and slowly, then ask patient to repeat all 3 of them. (1st repeat determines score. Make sure they can repeat all three): object 1, object 2 and object 3 Attention & Calculation (CHOOSE ONE) Ask pt to begin with 100 & count backward by 7. Stop after 5 repeats. If pt cannot ask them to spell the word WORLD backward.: 93 Spell WORLD backwards (DLROW): 5 letters Recall Ask patient to repeat the 3 items from question #3.: object 1, object 2 and object 3 Language Show patient a wristwatch & ask what it is. Repeat for pencil.: watch and pencil Ask the patient to repeat the phrase 'No ifs, ands, or buts' after you.: correct Ask the patient to 'take a piece of paper with their right hand' 'fold paper in half' 'place paper on floor': take paper in right hand, fold paper in half and place paper on floor Print the sentence 'CLOSE YOUR EYES' on a piece. If patient actually closes eyes then score.: followed written direction Give patient a blank piece of paper & ask to write a sentence. Score if it contains a noun & verb.: sentence contains subject and verb Score Score: 30 Activity of Daily Living Bathing - sponge bath, tub bath or shower: receives no assistance (gets in/out by self, if usual bathing means Dressing - getting clothes from closets & drawers, including inner/outer garments & fasteners.: gets clothes & gets completely dressed without help Toileting - going to the 'toilet room' for urine/bowel elimination & cleaning self/arranging clothes: goes to toilet room, cleans self, arranges clothes without help Transfer: moves in & out of bed and chair without help (may use support object) Continence: controls urination/bowel movements completely by self Feeding: feeds self without help Total Score: 0 Information obtained from: patient Using telephone: independent Traveling: independent Shopping: independent Preparing meals: independent Housework: independent Taking medicine: independent Managing money: independent PHQ-9 Over the last 2 weeks, how often have you been bothered by any of the following problems? 1. Little interest or pleasure in doing things: not at all 2. Feeling down, depressed, or hopeless: several days 3. Trouble falling or staying asleep, or sleeping too much: more than half the days 4. Feeling tired or having little energy: nearly every day 5. Poor appetite or overeating: not at all 6. Feeling bad about yourself - or that you are a failure or have let yourself or your family down: not at all 7. Trouble concentrating on things, such as reading the newspaper or watching television: not at all 8. Moving or speaking so slowly that other people could have noticed. Or the opposite - being so fidgety or restless that you have been moving around a lot more than usual: not at all 9. Thoughts that you would be better off or of hurting yourself in some way: not at all Total score: 6 Depression Screening Interpretation: Negative Depression Screening Done: Yes 51430 - PHQ-9 Billing: Yes Source: Developed by Drs. Peterson Torres, Sangeetha Avelar, Jorge Alberto Bradshaw and colleagues, with an educational lauren from [address] [employer]. Review of Systems Const All systems reviewed & are unremarkable except as noted in HPI and below Eyes Reports no additional complaints ENT Reports no additional complaints Card Reports no additional complaints Resp Reports no additional complaints GI Reports no additional complaints Reports no additional complaints Musc Reports no additional complaints Physical Exam Vital Signs: Last Vital Signs Temp 97.8 F 06/05/25 09:42 Pulse 70 06/05/25 09:42 Resp 20 06/05/25 09:42 BP 110/66 06/05/25 09:42 Pulse Ox 95 06/05/25 09:42 Oxygen Delivery Method Room Air 06/05/25 09:42 BMI result Body Mass Index 33.5 Const General: no acute distress HEENT Head: Yes normal to inspection Ears: TM's normal bilaterally Eyes General: appearance normal, both eyes and all related structures Neck Neck: Yes no lymphadenopathy and Yes supple Resp Effort & Inspection: normal respiratory effort Auscultation: clear to auscultation bilaterally Cardio Rhythm: regular rhythm Heart sounds: S1 normal heart sound present and S2 normal heart sound present GI Inspection: Yes normal to inspection Palpation (GI): Soft to palpation Percussion: Yes normal to percussion Auscultation: normal bowel sounds Extrem General: Yes no clubbing, cyanosis or edema Immunizations pneumoc 20-everton conj-dip cr(PF) 0.5 mL IM syringe Performing Provider: Ana Garcia MD Performing Location: [facility] Administered by: RICK Angela on 06/05/25 10:17 Dose Route Admin Location Dispensed Lot Number Expiration Date [place] [employer] 0.5 mL IM Right Deltoid 0.5 mL [id number] 05/22/26 0549-7429-51 [employer] Total Dispensed Waste 0.5 mL 0 % VIS Given Date VIS Provided VIS Publication Date 06/05/25 Single Vaccine 25 Eligibility Eligibility Date Funding Source Not [facility] Eligible 06/05/25 Private Assessment & Plan Assessment & Plan (1) Hypertension: Code(s): I10 - Essential (primary) hypertension Plan: Continue current medications (2) Cardiomyopathy: Comment: Echo 12/2024 LVEF 44%, s/p MV repair, mild global hypokinesis low normal right ventricular systolic function moderate TR, mild to moderate pulmonary hypertension, 12/2024 Stress test with Lexiscan myocardial perfusion without ischemia or infarct, gated left ventricular ejection fraction 46% during stress and 60% during rest Code(s): I42.9 - Cardiomyopathy, unspecified Plan: Continue Entresto and beta evi (3) Persistent atrial fibrillation: Comment: On beta evi and Eliquis Code(s): I48.19 - Other persistent atrial fibrillation Plan: Continue beta evi and Eliquis (4) Rheumatoid arthritis: Comment: f/u Code(s): M06.9 - Rheumatoid arthritis, unspecified Plan: Follow-up with rheumatology (5) Annual physical exam: Code(s): Z00.00 - Encounter for general adult medical examination without abnormal findings Plan: Well-balanced diet regular physical activity discussed with the patient follow- up in 6 months with a fasting labs before Orders: Orders Lipid Panel 6 Months E78.00 - Pure hypercholesterolemia, unspecified, I10 - Essential (primary) hypertension, I48.19 - Other persistent atrial fibrillation IRON PROFILE 6 Months E78.00 - Pure hypercholesterolemia, unspecified, I10 - Essential (primary) hypertension, I48.19 - Other persistent atrial fibrillation Pneumococcal 20 Immunization Today Z23 - Encounter for immunization Comprehensive [place]. Panel Fast 6 Months E78.00 - Pure hypercholesterolemia, unspecified, I10 - Essential (primary) hypertension, I48.19 - Other persistent atrial fibrillation Complete Blood Count Auto Diff 6 Months E78.00 - Pure hypercholesterolemia, unspecified, I10 - Essential (primary) hypertension, I48.19 - Other persistent atrial fibrillation Quality Reporting (2019) Depression/Bipolar (159/160/161/177) PHQ-9: Total score: 6 Coding Level of Care Code Medicare Subsequent (G0439) Diagnoses Hypertension I10 Cardiomyopathy I42.9 Persistent atrial fibrillation I48.19 Rheumatoid arthritis M06.9 Annual physical exam Z00.00 CPT Codes Advance Care Planning - Advance Care Planning discussion: On file, no changes ([id number]) Advance Care Planning - Time spent: 1-15 minutes, on File ([id number]) Additional Codes PHQ-9 - 61095 - PHQ-9 Billing: Yes ([id number]) Advance Care Planning Advance Care Planning discussion: On file, no changes Forms completed: Health Care Proxy Time spent: 1-15 minutes, on File Did not discuss due to Cultural/Spiritual beliefs: Yes
[2025-06-05 09:42] VITALS: BP 110/66; PULSE 70; RESP 20; TEMP 36.6; O2SAT 95; BMI 33.5
--- OUTSIDE RECORDS SUMMARY | 2025-06-05 10:07 | XMS_ITS | Data Portability ---
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 Plan of Treatment Reminders Order Date Submit Date Provider Last Modified By Organization Details Last Modified Time Details Appointments None recorded. Lab CMP, serum or plasma 2018 019 [facility] ([facility]), [address], [place], [address], 9 11:10:40 C reactive protein, QN, serum or plasma 2018 019 [facility] ([facility]), [address], [place], [address], 9 11:10:37 CBC w/ diff 2018 019 [facility] ([facility]), [address], [place], [address], 9 11:01:30 CBC w/ diff 2018 020 [facility] ([facility]), [address], [place], [address], 0 03:16:16 C reactive protein, QN, serum or plasma 2018 020 [facility] ([facility]), [address], [place], [address], 0 03:16:16 CMP, serum or plasma 2018 020 [facility] ([facility]), [address], [place], [address], 0 03:16:16 Referral None recorded. Procedures None recorded. Surgeries None recorded. Imaging None recorded. Medication Orders methotrexa te sodium 2.5 mg tablet 2018 019 INTERFACE [id number], [address], [place], [address], 9 10:03:37 Patient TargetsNo targets recorded. Patient Instructions Encounter Date Encounter Id Patient Instructions Last Modified By Organization Details Last Modified Time 11/02/2019 [id number] osteoporosis: care instructions [email or web address] Not available 11/02/2019 10:03:35 Reason for Referral None Reported. Results Created Date Observation Date Name Description Value Unit Range Abnormal Flag Note LastModifiedBy Organization Detail LastModifiedTime 11/08/20 19 11/08/2019 CBC w/ diff WBC 5.47 10*/3 uL 3.90-1 1.20 Not Available [facility] ([facility]) [address], [place], [address], 11/08/2019 11:01:29 11/08/20 19 11/08/2019 CBC w/ diff RBC 4.01 10*6/ uL 3.40-5 .40 Not Available [facility] ([facility]) [address], [place], [address], 11/08/2019 11:01:29 11/08/20 19 11/08/2019 CBC w/ diff hemoglobin 13.9 g/dL 10.8-1 5.5 Not Available [facility] ([facility]) [address], [place], [address], 11/08/2019 11:01:29 11/08/20 19 11/08/2019 CBC w/ diff hematocrit 41.1 % 33.0-4 5.0 Not Available [facility] ([facility]) [address], [place], [address], 11/08/2019 11:01:29 11/08/20 19 11/08/2019 CBC w/ diff MCV 102.5 fL 82.0-1 00.0 high Not Available [facility] ([facility]) [address], [place], [address], 11/08/2019 11:01:29 11/08/20 19 11/08/2019 CBC w/ diff MCH 34.7 pg 26.0-3 4.0 high Not Available [facility] ([facility]) [address], [place], [address], 11/08/2019 11:01:29 11/08/20 19 11/08/2019 CBC w/ diff MCHC 33.8 g/dL 32.0-3 6.0 Not Available [facility] ([facility]) [address] [place], [address], 11/08/2019 11:01:29 11/08/20 19 11/08/2019 CBC w/ diff RDW-SD 54.7 fL 35.1-4 6.8 high Not Available [facility] ([facility]) [address] [place], [address], 11/08/2019 11:01:29 11/08/20 19 11/08/2019 CBC w/ diff plt 215 10*3/ uL 140-44 0 Not Available [facility] ([facility]) [address] [place], [address], 11/08/2019 11:01:29 11/08/20 19 11/08/2019 CBC w/ diff MPV 11.5 fL 9.7-12 .8 Not Available [facility] ([facility]) [address] [place], [address], 11/08/2019 11:01:29 11/08/20 19 11/08/2019 CBC w/ diff neut% 49.30 % 40.00- 77.00 Not Available [facility] ([facility]) [address] , [place], [address], 11/08/2019 11:01:29 11/08/20 19 11/08/2019 CBC w/ diff lymph% 31.30 % 14.00- 47.00 Not Available [facility] ([facility]) [address], [place], [address], 11/08/2019 11:01:29 11/08/20 19 11/08/2019 CBC w/ diff mono% 12.20 % <13.00 Not Available [facility] ([facility]) [address], [place], [address], 11/08/2019 11:01:29 11/08/20 19 11/08/2019 CBC w/ diff eo% 5.50 % <7.00 Not Available [facility] ([facility]) [address], [place], [address], 11/08/2019 11:01:29 11/08/20 19 11/08/2019 CBC w/ diff baso% 1.50 % <2.00 Not Available [facility] ([facility]) [address], [place], [address], 11/08/2019 11:01:29 11/08/20 19 11/08/2019 CBC w/ diff Ig% 0.20 % <0.50 Not Available [facility] ([facility]) [address], [place], [address], 11/08/2019 11:01:29 11/08/20 19 11/08/2019 CBC w/ diff NRBC% 0.00 % <0.20 Not Available [facility] ([facility]) [address] [place], [address], 11/08/2019 11:01:29 11/08/20 19 11/08/2019 CBC w/ diff neut# 2.70 10*3/ uL 2.00-6 .80 Not Available [facility] ([facility]) [address], [place], [address], 11/08/2019 11:01:29 11/08/20 19 11/08/2019 CBC w/ diff lymph# 1.71 10*3/ uL 0.90-3 .00 Not Available [facility] ([facility]) [address], [place], [address], 11/08/2019 11:01:29 11/08/20 19 11/08/2019 CBC w/ diff mono# 0.67 10*3/ 3uL 0.20-0 .80 Not Available [facility] ([facility]) [address], [place], [address], 11/08/2019 11:01:29 11/08/20 19 11/08/2019 CBC w/ diff eo# 0.30 10*3/ uL <0.81 Not Available [facility] ([facility]) [address], [place], [address], 11/08/2019 11:01:29 11/08/20 19 11/08/2019 CBC w/ diff baso# 0.08 10*3/ uL 0.00-0 .10 Not Available [facility] ([facility]) [address], [place], [address], 11/08/2019 11:01:29 11/08/20 19 11/08/2019 CBC w/ diff Ig# 0.01 10*3/ uL <0.40 Not Available [facility] ([facility]) [address], [place], [address], 11/08/2019 11:01:29 11/08/20 19 11/08/2019 CBC w/ diff NRBC# <0.01 10*3/ uL <0.01 Not Available [facility] ([facility]) [address] [place], [address], 11/08/2019 11:01:29 11/08/20 19 11/08/2019 C react nunu prote in, QN, serum or plasm a CRP 0.09 mg/dL 0.00-0 .88 Not Available [facility] ([facility]) [address] [place], [address], 11/08/2019 11:10:37 11/08/20 19 11/08/2019 CMP, serum or plasm a glucose 103 mg/dL 74-100 high Not Available [facility] ([facility]) [address] [place], [address], 11/08/2019 11:10:40 11/08/20 19 11/08/2019 CMP, serum or plasm a BUN 17.9 mg/dL 8.0-23 .0 Not Available [facility] ([facility]) [address] [place], [address], 11/08/2019 11:10:40 11/08/20 19 11/08/2019 CMP, serum or plasm a creat 0.69 mg/dL 0.40-1 .10 Not Available [facility] ([facility]) [address] [place], [address], 11/08/2019 11:10:40 11/08/20 19 11/08/2019 CMP, serum or plasm a GFR estimated 83 mL/mi n/1.7 3m2 >60 IDMS trace able MDRD study equat ion. If patie nt is Afric an-Am marcela n, multi ply repor luke resul t by 1.21 Not Available [facility] ([facility]) [address] [place], [address], 11/08/2019 11:10:40 11/08/20 19 11/08/2019 CMP, serum or plasm a BUN/creat 26 % Not Available [facility] ([facility]) [address] [place], [address], 11/08/2019 11:10:40 11/08/20 19 11/08/2019 CMP, serum or plasm a Na+ 139 mmol/ L 136-14 5 Not Available [facility] ([facility]) [address], [place], [address], 11/08/2019 11:10:40 11/08/20 19 11/08/2019 CMP, serum or plasm a K+ 4.4 mmol/ L 3.5-5. 2 Not Available [facility] ([facility]) [address], [place], [address], 11/08/2019 11:10:40 11/08/20 19 11/08/2019 CMP, serum or plasm a cL- 104 mmol/ L 98-107 Not Available [facility] ([facility]) [address] [place], [address], 11/08/2019 11:10:40 11/08/20 19 11/08/2019 CMP, serum or plasm a CO2 23 mmol/ L 22-29 Not Available [facility] ([facility]) [address] [place], [address], 11/08/2019 11:10:40 11/08/20 19 11/08/2019 CMP, serum or plasm a anion gap 12 7-17 Not Available [facility] ([facility]) [address] [place], [address], 11/08/2019 11:10:40 11/08/20 19 11/08/2019 CMP, serum or plasm a calcium 9.2 mg/dL 8.6-10 .5 Not Available [facility] ([facility]) [address] [place], [address], 11/08/2019 11:10:40 11/08/20 19 11/08/2019 CMP, serum or plasm a tl prot 6.8 g/dL 6.4-8. 3 Not Available [facility] ([facility]) [address] [place], [address], 11/08/2019 11:10:40 11/08/20 19 11/08/2019 CMP, serum or plasm a alb 3.9 g/dL 3.5-5. 2 Not Available [facility] ([facility]) [address], [place], [address], 11/08/2019 11:10:40 11/08/20 19 11/08/2019 CMP, serum or plasm a A/G ratio 1.0 Not Available [facility] ([facility]) [address] [place], [address], 11/08/2019 11:10:40 11/08/20 19 11/08/2019 CMP, serum or plasm a tbil 0.8 mg/dL 0.0-1. 2 Not Available [facility] ([facility]) [address] [place], [address], 11/08/2019 11:10:40 11/08/20 19 11/08/2019 CMP, serum or plasm a alk phos 50 U/L 22-126 Not Available [facility] ([facility]) [address] [place], [address], 11/08/2019 11:10:40 11/08/20 19 11/08/2019 CMP, serum or plasm a SGOT/AST 26 IU/L 0-32 Not Available [facility] ([facility]) [address] [place], [address], 11/08/2019 11:10:40 11/08/20 19 11/08/2019 CMP, serum or plasm a SGPT/ALT 26 IU/L 0-40 Not Available [facility] ([facility]) [address] [place], [address], 11/08/2019 11:10:40 11/08/20 19 11/08/2019 CMP, serum or plasm a osmol cory 280 mOsm/ kg 270-32 0 Not Available [facility] ([facility]) [address] [place], [address], 11/08/2019 11:10:40 Result Notes None recorded. Problems Name Problem SNOMED Code Status Onset Date Resolution Date Notes Provider Name and Address Organization Details Recorded Time [facility] methotrex ate user 10261919034 0 Active 2017 [facility] METHOTREX ATE THERAPY; Original code:Z79. 899 Enter ed By: Odalis Sun MA; Signed By: Angelica García MD Not Available [facility] 9 01:04:58 Osteoarth ritis of knee 502491594 Active 2012 OSTEOARTH RITIS, KNEE; Original code:M17. 9 Entered By: RICK Joe; Signed By: RICK Joe Not Available [facility] 9 01:04:58 Osteopeni a 575404440 Active 2017 OSTEOPENI A; Original code:M85. 80 Entere d By: Odalis Sun MA; Signed By: Angelica García MD Not Available [facility] 9 01:04:58 History of total knee arthropla sty 51076284982 05 Active 2016 TOTAL KNEE REPLACEME NT, LEFT; Original code:Z96. 652 Enter ed By: Odalis Sun MA; Signed By: Angelica García MD Not Available [facility] 9 01:04:58 History of chemother apy 523197792 Active 2014 PERSONAL HISTORY OF MONOCLONA L DRUG THERAPY; Original code:Z92. 22 Entere d By: Angelica García MD; Signed By: Angelica García MD Not Available [facility] 9 01:04:58 History of drug therapy 894591330 Active 2015 PERSONAL HISTORY OF OTHER DRUG THERAPY; Original code:Z92. 29 Entere d By: Angelica García MD; Signed By: Angelica García MD Not Available [facility] 9 01:04:58 Seroposit nunu rheumatoi d arthritis 616801636 Active 2008 OTHER RHEUMATOI D ARTHRITIS WITH RHEUMATOI D FACTOR OF MULTIPLE SITES; Original code:M05. 89 Entere d By: Angelica García MD; Signed By: Angelica García MD Not Available [facility] 9 01:04:58 Rupture of anterior cruciate ligament 941313459 Active 2012 ACL TEAR, RIGHT KNEE; Original code:S83. 511 Enter ed By: Wilmer Al CMA ([facility]); Signed By: Wilmer Al CMA ([facility]) Not Available [facility] hospital 9 01:04:58 Osteoporo sis 11094781 Active 2018 Odalis Smith ([employer]) null, [facility] 9 09:13:34 Problem Notes None recorded. Procedures Surgical History Date Name Laterality Status Provider Name and Address Organization Details Recorded Time 09/20/20 13 Most Recent Bone Density completed Odalis Sun ([facility]) [facility] 11/02/2019 09:08:42 Cholecystectomy (Gallbladder) completed [facility] 11/02/2019 09:09:40 Hernia Repair completed Odalis Sun ([facility]) [facility] 11/02/2019 09:10:44 operation on heart completed Michell Sun ([facility]) [facility] 11/02/2019 09:10:21 repair of mitral valve completed Odalis Sun ([facility]) [facility] 11/02/2019 09:10:34 Hysterectomy - Total completed Odalis Sun ([facility]) [facility] 11/02/2019 09:10:59 splenectomy completed Odalis Sun ([facility]) [facility] 11/02/2019 09:11:35 Orthopedic - Knee Replacement completed Angelica García MD [address] , [place], [address], [facility] 11/02/2019 10:02:41 Imaging Results None recorded. Procedure [...] 2018 active Enter By: Claudia Rodriguez CMA ([facility]); Signed By: Claudia Rodriguez CMA ([facility]); Date: 018; Authoriz ed by: Angelica [...] in Arterial blood by Pulse oximetry Systolic And Diastolic Provider Name and Address Organization Details Last Updated DateTime 9 170.18 cm 33.5 kg/m2 10354.7 7 g 54 /min 97 % 97 % 116/74 mm[Hg] [facility] 9 09:27:02 Social History None recorded. Functional Status Question Answer Note LastModified by Organizat ion Details LastModified Time Do you or have you ever used smokeless tobacco? Never used smokeless tobacco [id number] Information not available 11/02/2019 Do you or have you ever used e-cigarettes or vape? Never used electronic cigarettes [id number] Information not available 11/02/2019 Mental Status None recorded. Family History Relationship Description Onset Age of this Age Resolved Age Notes LastModified by Organization Details LastModified Time Father Hypertensive disorder [email or web address] Not available 11/02 09:09:09 Medical History No medical history recorded. Gynecological History Statement/Question Response Most Recent Bone Density 09/20/2013 Obstetrics History GPAL:G 0 P 0 0 0 0 Immunizations Vaccine Type Date Status Note Provider Nam e and Address Organization Details Recorded Time influenza, unspecified formulation 9 completed Not Available [facility] 06/12/2019 14:13:11 Past Encounters Encounter ID Performer Location Encounter Start Date Encounter Closed Date Diagnosis/Indication Diagnosis SNOMED-CT Code Diagnosis ICD10 Code Diagnosis Note [id number] Angelica García MD [facility] [address] [place] [address] 11/02/2019 09:06:10 11/02/2019 10:49:49 Seropositive rheumatoid arthritis 673174129 M05.9 keep methotrexa te /Humira taper, labs q3mo Osteoporosis 36885965 M8 1.0 bisphospho annika holiday, calcium and vitamin D. DXA q2y ( per rheum up [place]) History of drug therapy 942041443 Z92.22 Generally Tb screen recommende d q2y and hep BC screen q5 years ( unless more frequent testing indicated) [facility] methotrexate user 6280849533 00 Z79.899 Health Concerns Section Related Observation LastModified by Organization Detai ls LastModified Time None Recorded Concern Status LastModified by Organization Details LastModified Time None Recorded Advance Directives Directive None Recorded Payers Insurance Date Sequence Insurance Name Policy Number Policy Hines Covered Member ID Hines Member ID Guarantor Name 11/10/2019 2 [place] [id number] Melissa De La Garza [id number] Melissa De La Garza 11/08/2019 1 [place] Melissa De La Garza [id number] Melissa De La Garza Notes Date Note Type Note Provider Name and Address Organization Details Recorded Time 11/02/2019 text/html 74 yo w PMH Of rheumatoid arthritis ( 2005), knee osteoarthritis, osteoporosis, asthma , intermittent leukopenia, [...] per pt normal Dr. Ciro Reed, Rheumatology [address] [place] [address] [phone] Angelica García MD [address], [place], [address], [facility] [employer] [facility] 11/02/2019 13:14:59 OBGyn Episode No OBEpisode recorded.
== END 2025-06-05 10:18 | disposition home or self-care (01) ==
LOC: HO.HMCC 09:38
PROVIDERS: PCP Internal Medicine; Visit Provider Internal Medicine
DX: Z00.00 Encounter for general adult medical examination without abnormal findings (principal); I42.9 Cardiomyopathy, unspecified; I48.19 Other persistent atrial fibrillation; M06.9 Rheumatoid arthritis, unspecified; I10 Essential (primary) hypertension; Z23 Encounter for immunization

== ENCOUNTER → 2025-06-05 09:37 | Outpatient (BNVA) | payer MEDICARE, SELFPAY | PROVIDERS: PCP Internal Medicine; Visit Provider Internal Medicine | DX: Z00.00 Encounter for general adult medical examination without abnormal findings (principal); Z23 Encounter for immunization; I10 Essential (primary) hypertension; I42.9 Cardiomyopathy, unspecified; I48.19 Other persistent atrial fibrillation; M06.9 Rheumatoid arthritis, unspecified | CPT/HCPCS: 90471; 90677; 96127 ==

== ENCOUNTER 2025-06-30 09:44 | Outpatient (AMB) | payer MEDICARE, SELFPAY ==
--- OUTSIDE RECORDS SUMMARY | 2025-06-30 09:47 | XMS_ITS | Patient Health Record ---
Author Organization [facility] [place] Address [address] [place] [address] Care Team Providers Care Alignment Technician Name Role Phone Ana Garcia MD Primary Care Provider Eva Benjamin Unavailable [phone] Allergies No Known Allergies Reason For Referral [...] Vaccine Route Administration Date Status Comme nts Influenza Unknown 09/13/2024 Administered COVID-19 Moderna Vaccine Unknown 02/22/2021 Administered First [...] Risk Notes Problem Lower limb length difference (53453515) Lower limb length difference (M21.70) Active confirmed Vital Signs Blood pressure diastolic 80 mm Hg 05/10/2025 Height 5 ft 7 in in 05/10/2025 Blood pressure systolic 127 mm Hg 05/10/2025 Weight 209 lbs 05/10/2025 BMI 32.73 kg/m2 05/10/2025 Procedures Procedure Date Ordered Date Performed Result Body Sit e 02583-YAUZXOS NAIL, 6 OR MORE 07/08/2024 N/A 72966-MGRWSIJ NAIL, 6 OR MORE 10/07/2024 N/A 16038- Debride <25 sq cm 10/07/2024 N/A 39157-SPEGYDH NAIL, 6 OR MORE 12/16/2024 N/A 55233-ICTXAEP NAIL, 6 OR MORE 02/24/2025 N/A Encounters Encounter Location Date Provider Diagnosis [address] [address] 07/08/2024 Eva Black Pain in right foot M79.671 ; Arthritis of right ankle M19.071 ; 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.771 ; Onychomycosis B35.1 ; Pain in right toe(s) M79.674 and Pain in left toe(s) M79.[address] [address] 10/07/2024 Eva Black Pain in right foot M79.671 ; Arthritis of right ankle M19.071 ; 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.771 ; Onychomycosis B35.1 ; Pain in right toe(s) M79.674 ; Pain in left toe(s) M79.675 and Ulcer of right foot, limited to breakdown of skin L97.[address] [address] 12/16/2024 Eva Black Onychomycosis B35.1 ; Ingrown nail L60.0 ; Pain in right toe(s) M79.674 and Pain in left toe(s) M79.[address] [address] 02/24/2025 Eva Black Onychomycosis B35.1 ; Lower limb length difference M21.70 ; Pain in right toe(s) M79.674 and Pain in left toe(s) M79.[address] [address] 05/10/2025 Eva Black Onychomycosis B35.1 ; Pain [...] Date *Uric Acid, Serum 04/13/2024 *Sedimentation Rate-Westergren 26377-MGGKIBL NAIL, 6 OR MORE 12/29/2023 89365-KFURANW NAIL, 6 OR MORE 04/01/2024 35636-TUXKLQP NAIL, 6 OR MORE 04/29/2023 06025-SXPUGGZ NAIL, 6 OR MORE 07/08/2023 59282-ACOSKKI NAIL, 6 OR MORE 09/22/2023 41169-JKJPFZH NAIL, 6 OR MORE 02/13/2023 66064-QJTUUFQ NAIL, 6 OR MORE 07/08/2024 82635-PEKGUON NAIL, 6 OR MORE 10/07/2024 15376-ILSBXDW NAIL, 6 OR MORE 12/16/2024 31297-WUCUGKI NAIL, 6 OR MORE 02/24/2025 17479-XAUOSZN NAIL, 1-5 12/10/2021 69961-Clkqqflw Plate 12/29/2023 08553-Qazbymgv Plate 04/29/2023 55640-Udsgkzae Plate 07/22/2021 76040- Debride <25 sq cm 10/07/202475689, J0702- INJECT or DRAIN, JOINT/BUR SA 04/13/2024 91871, C6690-DCLCQ/INJECT, JOINT/BURSA 0 08/17/2017 95780,V8436-OIK TENDON SHEATH/LIGAMENT 0 08/15/2019 72479,J5869-ZSR TENDON SHEATH/LIGAMENT 1 88159, J0702- Neuroma/Injection 09/14/20 17 X ray : Ankle, right 3V 04/13/2024 08679 - Tenotomy, open flexor 08/07/2021 Next Appt Details Provider Name:Eva Alas , 07/19/2025 11:00:00 AM, [address] [facility], [place], [address], Insurance Providers Payer Name Payer Address Payer Phone Subscriber Number Group Number Insured Name Patient Relationship to Insured Coverage Start Date Coverage End Date Medicare National [facility] [employer] [address] [place] [address] [id number] Melissa De La Garza Self - patient is the insured [employer] [address] [place] [address] [phone] [id number] Melissa De La Garza Self - patient [...]
[2025-06-30 10:43] VITALS: BP 120/84; PULSE 76; TEMP 36.8; O2SAT 96; BMI 33.7
--- NOTE | 2025-06-30 10:43 | MHC.OFFWIV ---
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: No Is last menstrual period known: No Post menopausal: Yes Patient : No Allergies benzonatate Adverse Reaction (Mild, Verified 06/30/25 10:47) Hallucinations Do you need a note to return to daycare/school/sports/work: No HPI HPI Comments History of Present Illness Details This is a 80-year-old female with a past medical history of atrial fibrillation currently maintained on Eliquis, cardiomyopathy, gastroesophageal reflux disease, hypertension, hyperlipidemia and arthritis currently maintained on Humira and Celebrex, presenting for evaluation of swelling in her right foot that has been ?on and off for 2 weeks?. Patient states that today she was unable to insert her orthotic into her right shoe due to the swelling. Patient denies having any fevers, chills, chest pain, cough, shortness of breath or redness in her right leg. Patient states that the swelling is much improved when she wakes up in the morning. [facility] Medical History (Updated 06/30/25 @ 11:04 by Mirela Frye PA-C) Cardiomyopathy Persistent atrial fibrillation Cardiac arrhythmia Restrictive lung disease Cough Ear infection Hard of hearing COVID-19 vaccine series completed Osteoarthritis of right knee Dry mouth Osteopenia Postnasal drip Hypercholesteremia Osteoarthritis Hypertension Rheumatoid arthritis H/O bone density study Lumbago Surgical History History of total left knee replacement H/O colonoscopy Status post herniorrhaphy H/O mitral valve replacement History of splenectomy Hx of cholecystectomy Family History Father Cerebral hemorrhage Parkinsonism Mother COPD (chronic obstructive pulmonary disease) Lung cancer Brother Lung cancer Son No problems noted. Daughter No problems noted. Daughter No problems noted. Daughter No problems noted. Social History Housing: House Are you a primary manager intensive care unit to a significant other at home: No Do you presently have visiting nurse or other home services: No Patient Tobacco Use Status: Never used Tobacco e-Cigarette/Vaping Use: Never Used Second Hand Smoke Exposure: Yes Patient : No service: No Current occupational status: retired Current occupational exposures/hazards: No Cognitive needs: No Hearing needs: Yes Vision needs: Yes Review of Systems Const All systems reviewed & are unremarkable except as noted in HPI and below Denies chills and Denies fever(s) Card Denies chest pain and Denies dyspnea Resp Denies cough and Denies dyspnea Musc Details: pain right ankle consistent with arthritis Skin/Breast Details: swelling right foot Neuro Reports no additional complaints Psych Reports no additional complaints Endo Reports no additional complaints Huang/Lymph Reports no additional complaints Physical Exam Vital Signs: Last Vital Signs Temp 98.3 F 06/30/25 10:43 Pulse 76 06/30/25 10:43 BP 120/84 06/30/25 10:43 Pulse Ox 96 06/30/25 10:43 Oxygen Delivery Method Room Air 06/30/25 10:43 BMI result Body Mass Index 33.7 Const General: cooperative, healthy appearing, comfortable, no acute distress, well developed, alert, awake and Physically active; No ill appearing Nutritional Appearance: overweight Orientation/consciousness: patient oriented x3 Limitations: no limitations Skin Other: There is no erythema of the right lower extremity, + nonpitting edema dorsal surface of the proximal right foot. Neuro General: patient oriented x3 Extrem Right lower extremity: ankle Details: normal ROM and achilles tendon exam abnormal (Nontender); no tenderness, no unusual warmth and no ecchymosis and foot Details: normal capillary refill, edema (proximal dorsal right foot, non.pitting) and vascular exam Details: dorsalis pedis pulse present, posterior tibial pulse present and normal capillary refill; not cool; no tenderness; abnormal to inspection (Mild nonpitting edema proximal right dorsal foot) Psych Appearance: grossly normal Mental Status: mental status grossly normal Insight: Good insight present (Psych) Judgement: Good judgement present (Psych) Assessment & Plan Assessment & Plan (1) Edema of right foot: Comment: Patient is well-appearing and in no acute distress. There is no evidence of a cellulitis or clinical evidence concerning for DVT, and patient is compliant with Eliquis daily. Edema is mild and non pitting in nature. Patient will be advised to keep her right lower extremity elevated while at rest and wear compression stockings daily. Code(s): R60.0 - Localized edema Plan: Patient will obtain OTC compression stockings to wear on both lower extremities daily and remove at night. Patient will follow up with PCP as needed. Coding Level of Care Code Est Pt Level 3 (86522) Diagnoses Edema of right foot R60.0 Time Spent (min) 20
== END 2025-06-30 11:08 | disposition home or self-care (01) ==
PROVIDERS: PCP Internal Medicine; Visit Provider Physician Assistant
DX: R60.0 Localized edema (principal)

== ENCOUNTER → 2025-06-30 09:44 | Outpatient (BNVA) | payer MEDICARE, SELFPAY | PROVIDERS: PCP Internal Medicine; Visit Provider Physician Assistant | DX: R60.0 Localized edema (principal) | CPT/HCPCS: 99212 ==

== ENCOUNTER 2025-07-21 10:21 | Outpatient (REF) | payer MEDICARE, SELFPAY ==
--- OUTSIDE RECORDS SUMMARY | 2025-07-19 07:00 | XMS_ITS ---
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 Name Role Phone Ana Garcia MD Primary Care Provider Sabino AlasAnnye Unavailable [phone] Allergies No Known Allergies REASON FOR VISIT Painful Nail(s) aggrevated by shoes and causing difficulty standing/walking., Ingrown Nail Medications Medication SIG (Take, Route, Frequency, Duration) Notes Start Date End Date Status Vitamin B 12 Not-Jose ing sulfaSALAzine Not-Ta reji ASO Ankle/Foot Stablizing AFO As directed Wear Daily; Duration: as needed 05/12/2024 Not-Taking Colcrys 0.6 MG 1 tablet Orally once a day; Duration: 10 days 04/13/2024 Not-Takin g Night Splint AFO - L1930 as directed 08/15/2019 Not-Taking oxyBUTYnin Chloride ER 10 MG 1 tablet Orally Once a day Not-Taking Voltaren Arthritis Pain 1 % as directed Externally 07/08/2024 Activ e Humira 40 MG/0.8ML Subcutaneous Active Vitamin D Not-Taking Aspirin 81 MG Orally Not-Ta reji PriLOSEC Active Metoprolol Tartrate Active Folic Acid Active Celecoxib Active Methotrexate 2.5 MG Orally Active Entresto Active Eliquis Active Omeprazole 20 MG 1 capsule 1/2 to 1 h our before morning meal Orally Once a day Active Atorvastatin Calcium 20 MG 1 tablet Orally Once a day Active Famotidine 40 MG 1 tablet Orally Once a day Active Social History Tobacco Use: Social History [...] Signs Height 5 ft 7 in in 07/19/2025 Weight 209 lbs 07/19/2025 BMI 32.73 kg/m2 07/19/2025 Blood pressure systolic 127 mm Hg 07/19/20 25 Blood pressure diastolic 80 mm Hg 025 Procedures Procedure Date Ordered Date Performed Result Body Sit e 44974-QNITUWW NAIL, 6 OR MORE 07/19/2025 N/A 19212-Wvkinmvs Plate 07/19/2025 N/A Encounters Encounter Location Date Provider Diagnosis [facility] [place] [address] [place] [address] 07/19/2025 Eva Alas Onychomycosis B35.1 ; Pain in right toe(s) M79.674 ; Pain in left toe(s) M79.675 and Ingrown nail L60.0 Assessments Encounter Date Diagnosis (ICD Code) Assessment Notes Treatment Notes Treatment Clinical Notes Section Notes 07/19/2025 Onychomycosis (ICD-10 - B35.1) 07/19/2025 Pain in right toe(s) (ICD-10 - M79.674) 07/19/2025 Pain in left toe(s) (ICD-10 - M79.675) 07/19/2025 Ingrown nail (ICD-10 - L60.0) Plan Of Treatment Pending Test Test Name Order Date 50189-PCXRLRK NAIL, 6 OR MORE 07/19/2025 97913-Ydmltyws Plate 07/19/2025 Next Appt Details Follow Up: 2 Weeks,prn, Reas on: Provider Name:Eva Alas , 10/03/2025 09:15:00 AM, [address] [facility] [place], [address], Procedure Notes * Category Sub-Category Detail Notes [...] Motrin was recommended for pain or discomfort - 81111, Pt DEFERS matricectomy Anesthesia , was accomplished T OPICALLY with Lidocaine Hydrochloride Jelly 2 percent Location , Medial nail border , TA Debride Nail 6-10 Nail debridement Due [...] to maintain effectiveness in symptomatic relief - 81163 , Due to the clinical pathology outlined in the [...] to maintain effectiveness in symptomatic relief - 13420 Progress Notes * Melissa NAPIEROB:[birth year] (80 yo F)Acc No.[id number]:07/19/2025 Progress Note Patient: Melissa HERRERA Provider: Kala Alas DPM :1945 A ge:80 Y S ex:Female Date:07/19/2025 Address:[address] [place] [address] [facility] Pcp:Ana Garcia MD Subjective: * Chief Complaints: * P ainful Nail(s) aggrevated by shoes and causing difficulty standing/walking.Ingrown Nail * HPI: P ainful Nails: Pt States Last PCP Visit: D ate: 0 05/30/2025 * ROS: G eneral/Constitutional: Nausea d enies. V omiting d enies. H ashlyn Thirst d enies. L oss appetite d enies. C hills d enies. F atigue d enies.?Fever d enies. N ight Sweats d enies. U nexplained weight loss d enies. U nexplained weight gain a dmits. H EENTM: Dentures d enies. D izziness d enies. G lasses/contacts a dmits. R etinopathy d enies. B lurred/double vision d enies. T MJ?denies. D ischarge/drainage d enies. I mplants d enies. S ore throat d enies. D ental implants d enies. H abdulaziz of hearing a dmits. D ifficulty chewing/swallowing/speaking d enies. N ose bleeds d enies. S ore mouth d enies. ? R espiratory: On Oxygen d enies. P neumonia/pleurisy d enies.?Bronchitis d enies. E mphysema d enies. C oughing d enies. C ough blood?denies. S hortness of breath d enies. W heezing d enies. C ardiovascular: Pacemaker d enies. M MENDER KNIT GOODS d enies. W PW d enies. C HF d enies. H eart attack d enies. S eptal defect d enies. R apid beat a dmits. C hest pain d enies. A trial Fib. d enies. M urmur/Palpitations d enies. G astrointestinal: Hemorrhoids d enies. S tomach/Abdominal pain d enies. D ark blood stool d enies. I rritable bowel d enies. C onstipation a dmits. D iarrhea d enies. H ematology: Swelling d enies. C lots d enies. V aricose Veins d enies. B ruising d enies. B leeding problem d enies. G enitourinary: Blood urine d enies. F requent/Painfu/urination/bladder control d enies. K idney stones d enies. I nfection (UTI) d enies. N ephropathy d enies. s ex trans dis (STD) d enies. P rostate d enies. M usculoskeletal: Hammertoes a dmits. B unions a dmits. B ack Pain d enies. M uscle Cramps/ Resting d enies. M uscle cramps / walking d enies.?Generalized aches and pains a dmits. W eakness d enies. I nteg.: Camp d enies. S cars d enies. C orns/calluses?denies. I ngrown nails d enies. P ainful nails a dmits. O pen Sores , admits. R ashes d enies. N eurologic: Difficulty sleeping d enies. B rain disorder d enies. N umbness d enies. B alance trouble d enies. C onfusion d enies. F ainting/blackouts d enies. T ingling d enies. T remors d enies. * Medical History: * Surgical History: s plenectomy 1960heart surgery unspecified 2006hernia 2006hysterectomy 2006cyst removal 2004right knee replacement 05/13/2022 * Hospitalization/Major Diagno stic Procedure: D enies Past Hospitalization * Family History: M other: , heart attack, diagnosed with Other malignant neoplasm of unspecified site, Unspecified essential hypertension. F ather: , foot problems, high blood pressure, poor circulation, diagnosed with Unspecified essential hypertension. S iblings: Brother, diagnosed with Other malignant neoplasm of unspecified site. S pouse: alive. * Social History: T obacco Use: T obacco use other than smoking A re you an other tobacco user? N o Tobacco Control (Standard) T obacco use: N onsmoker A dditional Findings: Tobacco non-user C urrent nonsmoker M iscellaneous: C affeine: yes, frequency:, 1-2 cups per day. Children: yes, 4. Exercise: no. Marital status: . Occupation: Retired. D rug/Alcohol: A GIBSON-C (Standard) D id you have a drink containing alcohol in the past year? N o P oints 0 I nterpretation N egative * Medications: T akingEliquis Entresto Famotidine 40 MG Tablet 1 tablet Orally Once a day Atorvastatin Calcium 20 MG Tablet 1 tablet Orally Once a day Omeprazole [...] Pain 1 % Gel as directed Externally Not-Taking/PRNoxyBUTYnin Chloride ER 10 MG Tablet Extended Release 24 Hour 1 tablet Orally Once a day Aspirin 81 MG Tablet Delayed Release Orally Vitamin D Vitamin B 12 Night Splint AFO - L1930 as directed Colcrys 0.6 MG Tablet 1 tablet Orally once a day ASO Ankle/Foot Stablizing AFO As directed Wear Daily sulfaSALAzine Medication List reviewed and reconciled with the patientNot-Taking/PRN oxyBUTYnin Chloride ER 10 MG Tablet Extended Release 24 Hour 1 tablet Orally Once a day Not-Taking/PRN Aspirin 81 MG Tablet Delayed Release Orally Not-Taking/PRN Vitamin D Not-Taking/PRN Vitamin B 12 Not-Taking/PRN Night Splint AFO - L1930 as directed Not-Taking/PRN Colcrys 0.6 MG Tablet 1 tablet Orally once a day Not-Taking/PRN ASO Ankle/Foot Stablizing AFO As directed Wear Daily Not- Taking/PRN sulfaSALAzine Medication List reviewed and reconciled with the patient * Allergies: N .K.D.A.yes[Allergies Verified] Objective: * Vitals: H t: 5 ft 7 in, Wt: 209, BMI: 32.73, Shoe size: 10, BP: 127/80 mm Hg, Wt-k.8 kg. * Examination: G eneral Examination: GENERAL APPEARANCE: p leasant, alert, well nourished, well developed, well hydrated, with good attention to hygene/body habitus, and in no acute distress . ORIENTED: p erson,place, and time. N eurological: SENSORY: N eurological exam is normal, pain sensation normal, vibration sensation intact, pinprick sensation is normal in the lower extremities, denies, tingling, burning, anesthesia, paresthesia, hyperesthesia, B/L,. TINEL'S COMPRESSION: N egative tarsal tunnel, selena pedis, and medial calcaneal nerves. V ascular: DP PULSES (B): 1/4, B/L ,. PT PULSES (B): 1/4, B/L. CAPILLARY FILL TIME: d elayed, all digits, B/L. TROPHIC CONDITION-TEXTURE/ELASTICITY/TURGOR/HAIR GROWTH (B):?with sparse to absent hair growth, B/L. D ermatologic: SKIN FINDINGS: S kin exam reveals normal texture, elasticity, and tugor. There are no masses. The interspaces are clear, B/L , . N ails: NAILS are: e longated,overgrown,dystrophic,greater than 3mm thick,discolored and friable with crumbly malodorous subungual debris, with pain on palpation, T5, T6, T7, T8, T9, T1, TA. I ngrown Nail: INSPECTION: R eveals nail incurvation, pain on palpation, groove hypertrophy, groove ischemia, Medial nail border, TA. Assessment: * Assessment: 1. O nychomycosis - B35.1 (Primary) 2 . P ain in right toe(s) - M79.674? 3. P ain in left toe(s) - M79.675 4 . I ngrown nail - L60.0? Plan: * Treatment: 2. I ngrown nail P rocedure: 46072-Olsxgivw Plate * Procedures: D ebride Nail 6-10: Nail debridement D ue to the clinical pathology outlined in the exam findings, performance of this nail treatment is medically necessary as its management by an unskilled/untrained nonprofessional would put this patients foot and overall health at risk. Therefore, debridement to affected nail(s), as described in exam ( T5, T6, T7, T8, T9, T 1 ) , was performed exclusively by the physician of [...] to maintain effectiveness in symptomatic relief - 05926,Due to the clinical pathology outlined in the exam findings, performance of this nail treatment is medically necessary as its management by an unskilled/untrained nonprofessional would put this patients foot and overall health at risk. Therefore, debridement to affected nail(s), as described in exam ( T5, T6, T7, T8, T9, T 1 ) , was performed exclusively by the physician of [...] to maintain effectiveness in symptomatic relief - 98180. N ail Avulsion: Location , Medial nail border, TA. Anesthesia , was accomplished TOPICALLY with Lidocaine Hydrochloride Jelly 2 percent. Procedure A fine sterile elevator was placed between the [...] Motrin was recommended for pain or discomfort - 87201, Pt DEFERS matricectomy. * Procedure Codes: 1 1721 DEBRIDE NAIL, 6 OR MORE, Modifiers: XS 68183 Avulsion Plate, Modifiers: TA * Follow Up: 2 Weeks,prn * Images: * Sign off status: Completed true * Provider: Kala Alas DPM Date: 07/19/2025 Generated for Jed pabon/Nimisha/Angely on: 07/21/2025 11:03 AM EDT History and Physical Notes * HPI (History of Present Illness) Category Sub-Category Detail Notes Category Not es Painful Nails Pt States Last PCP Visit: Date:: 05/30/2025 Examination Category Sub-Category Detail Notes Category Not es Ingrown Nail INSPECTION: Reveals nail inc urvation, pain on palpation, groove hypertrophy, groove ischemia, Medial nail border, TA Neurological SENSORY: Neurological exa m is normal, pain sensation normal, vibration sensation intact, pinprick sensation is normal in the lower extremities, denies, tingling, burning, anesthesia, paresthesia, hyperesthesia, B/L, BABINSKI REFLEX: TINEL'S COMPRESSION: Negative tarsal ebony dione, selena pedis, and medial calcaneal nerves DEEP TENDON REFLEXES: Dermatologic SKIN FINDINGS: Skin exam reveal s normal texture, elasticity, and tugor. There are no masses. The interspaces are clear, B/L , General Examination GENERAL APPEARANCE: pleasant , alert, well nourished, well developed, well hydrated, with good attention to hygene/body habitus, and in no acute distress ORIENTED: person,place, and ti me Vascular DP PULSES (B): 1/4, B/L , PT PULSES (B): 1/4, B/L CAPILLARY FILL TIME: delayed, all digits , B/L TROPHIC CONDITION-TEXTURE/ELASTICITY/TURGOR/HAIR GROWTH (B): with sparse to absent hair growth, B/L Nails NAILS are: elongated,overgr own,dystrophic,greater than 3mm thick,discolored and friable with crumbly malodorous subungual debris, with pain on palpation, T5, T6, T7, T8, T9, T1, TA
--- OUTSIDE RECORDS SUMMARY | 2025-07-21 11:03 | XMS_ITS | Patient Health Record ---
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 Name Role Phone Ana Garcia MD Primary Care Provider Sabino Eva Brooks Unavailable [phone] Allergies No Known Allergies Reason For Referral No Information Medications Medication SIG (Take, Route, Frequency, Duration) Notes Start Date End Date Status Vitamin B 12 Not-Jose tresa PriLOSEC Active sulfaSALAzine Not-Gregory mendoza Metoprolol Tartrate Active ASO Ankle/Foot Stablizing AFO As directed Wear Daily; Duration: as needed 05/12/2024 Not-Taking Folic Acid Active Colcrys 0.6 MG 1 tablet Orally once a day; Duration: 10 days 04/13/2024 Not-Takin g Celecoxib Active Night Splint AFO - L1930 as directed 08/15/2019 Not-Taking Entresto Active oxyBUTYnin Chloride ER 10 MG 1 tablet Orally Once a day Not-Taking Eliquis Active Voltaren Arthritis Pain 1 % as directed Externally 07/08/2024 Activ e Humira 40 MG/0.8ML Subcutaneous Active Methotrexate 2.5 MG Orally Active Omeprazole 20 MG 1 capsule 1/2 to 1 h our before morning meal Orally Once a day Active Atorvastatin Calcium 20 MG 1 tablet Orally Once a day Active Vitamin D Not-Taking Famotidine 40 MG 1 tablet Orally Once a day Active Aspirin 81 MG Orally Not-Ta Immunizations Vaccine Route Administration Date Status Comme [...] Risk Notes Problem Lower limb length difference (39463904) Lower limb length difference (M21.70) Active confirmed Vital Signs Blood pressure diastolic 80 mm Hg 07/19/2025 Height 5 ft 7 in in 07/19/2025 Blood pressure systolic 127 mm Hg 07/19/2025 Weight 209 lbs 07/19/2025 BMI 32.73 kg/m2 07/19/2025 Procedures Procedure Date Ordered Date Performed Result Body Sit e 11416-QQHRFBY NAIL, 6 OR MORE 10/07/2024 N/A 95586- Debride <25 sq cm 10/07/2024 N/A 51926-PIGHHDK NAIL, 6 OR MORE 12/16/2024 N/A 48749-OJVNUEF NAIL, 6 OR MORE 02/24/2025 N/A 61419-ADOLBWM NAIL, 6 OR MORE 07/19/2025 N/A 45117-Inolxijk Plate 07/19/2025 N/A Encounters Encounter Location Date Provider Diagnosis [address] [address] 10/07/2024 Eva Black Pain in right foot M79.671 ; Arthritis of right ankle M19.071 ; 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.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 ; Onychomycosis B35.1 ; Pain in right toe(s) M79.674 ; Pain in left toe(s) M79.675 and Ulcer of right foot, limited to breakdown of skin L97.[address] [address] 12/16/2024 Eva Black Onychomycosis B35.1 ; Ingrown nail L60.0 ; Pain in right toe(s) M79.674 and Pain in left toe(s) M79.[address] [address] 02/24/2025 Eva Black Onychomycosis B35.1 ; Lower limb length difference M21.70 ; Pain in right toe(s) M79.674 and Pain in left toe(s) M79.[address] [address] 05/10/2025 Eva Black Onychomycosis B35.1 ; Pain in right toe(s) M79.674 and Pain in left toe(s) M79.[address] [address] 07/19/2025 Eva Black Onychomycosis B35.1 ; Pain in right toe(s) M79.674 ; Pain in left toe(s) M79.675 and Ingrown nail L60.[address] [address] 07/19/2025 Eva Black Assessments Encounter Date Diagnosis (ICD Code) Assessment Notes Treatment Notes Treatment Clinical Notes Section Notes 10/07/2024 Pain in right foot (ICD-10 - M79.671) 12/16/2024 Ingrown nail (ICD-10 - L60.0) 12/16/2024 Onychomycosis (ICD-10 - B35.1) 02/24/2025 Lower limb length difference (ICD-10 - M21.70) 02/24/2025 Onychomycosis (ICD-10 - B35.1) 05/10/2025 Pain in right toe(s) (ICD-10 - M79.674) 05/10/2025 Onychomycosis (ICD-10 - B35.1) 07/19/2025 Onychomycosis (ICD-10 - B35.1) 10/07/2024 Rheumatoid arthritis involving right ankle with positive rheumatoid factor (ICD-10 - M05.771) 12/16/2024 Pain in right toe(s) (ICD-10 - M79.674) 07/19/2025 Pain in right toe(s) (ICD-10 - M79.674) 05/10/2025 Pain in left toe(s) (ICD-10 - M79.675) 02/24/2025 Pain in right toe(s) (ICD-10 - M79.674) 10/07/2024 Arthritis of right ankle (ICD-10 - M19.071) 10/07/2024 Onychomycosis (ICD-10 - B35.1) 02/24/2025 Pain in left toe(s) (ICD-10 - M79.675) 07/19/2025 Pain in left toe(s) (ICD-10 - M79.675) 12/16/2024 Pain in left toe(s) (ICD-10 - M79.675) 07/19/2025 Ingrown nail (ICD-10 - L60.0) 10/07/2024 Pain in right toe(s) (ICD-10 - M79.674) 10/07/2024 Pain in left toe(s) (ICD-10 - M79.675) 10/07/2024 Ulcer of right foot, limited to breakdown of skin (ICD-10 - L97.511) Plan Of Treatment Pending Test Test Name Order Date *Uric Acid, Serum 04/13/2024 *Sedimentation Rate-Westergren 11254-KCXRDHN NAIL, 6 OR MORE 12/29/2023 18024-UIVOEFF NAIL, 6 OR MORE 04/01/2024 09125-XIUJKOW NAIL, 6 OR MORE 04/29/2023 15496-HUJJMBJ NAIL, 6 OR MORE 07/08/2023 04422-LNBOQSM NAIL, 6 OR MORE 09/22/2023 03750-LLOTORO NAIL, 6 OR MORE 02/13/2023 94040-UXWDYCE NAIL, 6 OR MORE 07/08/2024 34055-KMSIBQC NAIL, 6 OR MORE 10/07/2024 52386-USWARSU NAIL, 6 OR MORE 12/16/2024 05902-VADHERX NAIL, 6 OR MORE 02/24/2025 20158-NIZPDUB NAIL, 6 OR MORE 07/19/2025 20222-XSQSLXJ NAIL, 1-5 12/10/2021 51115-Upctiugi Plate 12/29/2023 93542-Cciskzdh Plate 04/29/2023 42839-Qodibesj Plate 07/22/2021 99249-Pikjijxr Plate 07/19/2025 41720- Debride <25 sq cm 10/07/202474407, J0702- INJECT or DRAIN, JOINT/BUR SA 04/13/2024 82562, O3079-VKFJB/INJECT, JOINT/BURSA 0 08/17/2017 38571,A1769-LFL TENDON SHEATH/LIGAMENT 0 08/15/2019 51705,N6538-DJC TENDON SHEATH/LIGAMENT 1 31031, J0702- Neuroma/Injection 09/14/20 17 X ray : Ankle, right 3V 04/13/2024 01472 - Tenotomy, open flexor 08/07/2021 Next Appt Details Provider Name:Eva Alas , 10/03/2025 09:15:00 AM, [address] [facility], [place], [address], Insurance Providers Payer Name Payer Address Payer Phone Subscriber Number Group Number Insured Name Patient Relationship to Insured Coverage Start Date Coverage End Date Medicare National [employer] [address] [facility] [place] [address] [id number] HolliMelissaKassandra Self - patient is the insured [employer] [address] [place] [address] [id number] HolliMelissaKassandra Self - patient is the insured Medical [...]
[2025-07-21 13:53] LABS: Appearance Urine Turbid; Glucose Urine UA Negative (Negative); PH 5.5 (5.0-9.0); Specific Gravity - Urine 1.020 (1.005-1.025); UMIC TRIGGER UACC YES
[2025-07-21 14:05] LABS: UACC Culture Trigger YES
== END 2025-07-21 10:22 | disposition home or self-care (01) ==
LOC: HO.HMGCLDS 10:21
PROVIDERS: PCP Internal Medicine; Visit Provider Nurse Practitioner Family
DX: N39.0 Urinary tract infection, site not specified (principal)
CPT/HCPCS: 81001; 87086; 87088; 87186

== ENCOUNTER 2025-08-16 14:16 | Outpatient (AMB) | payer MEDICARE, SELFPAY ==
--- NOTE | 2025-08-16 14:24 | MHC.OFFVIS ---
Intake Visit Reasons: 3m/PVR Intake Note: Patient is present for 3M/PVR Urology Medication:ESTRADIOL,SOLIFENACIN Antibiotic Allergy:NONE Blood Thinner:APIXABAN Last PVR:54ML'S Todays PVR:0ML'S Revenue Stamp Clerk Required: No Allergies benzonatate Adverse Reaction (Mild, Verified 08/16/25 21:17) Hallucinations Medication List - Last Reconciled 08/16/25 by RAFAEL Mo-MONICA acetaminophen 650 mg (2 x 325 mg) PO Q6H PRN 30 days adalimumab (Humira Pen) mg subcut apixaban (Eliquis) 5 mg PO BID atorvastatin 20 mg PO DAILY celecoxib 200 mg PO BID diclofenac sodium 1% 4 grams topical QID docusate sodium 100 mg PO BID estradiol 0.01%(0.1mg/gram) pea sized amount vaginally 3 times a week; Apply pea-sized amount to urethra 3 times per week 90 days famotidine 40 mg PO BEDTIME folic acid 1 mg PO DAILY methotrexate sodium 17.5 mg PO TH metoprolol tartrate 50 mg PO BID omeprazole 20 mg PO DAILY sacubitril-valsartan 24-26 mg (Entresto) 1 tab PO BID HPI Comments Details: Melissa Willingham a very pleasant 80-year-old female patient of Dr. Garcia. She has a past medical history of cardiac arrhythmia, restrictive lung disease, hard of hearing, osteoarthritis, osteopenia, hypercholesteremia, osteoarthritis, hypertension, and rheumatoid arthritis. She presents to the office today for follow-up of her lower urinary tract symptoms, gross hematuria, and recurrent urinary tract infections. In discussion with the patient today she reports since her last office visit here approximately 3 months ago she did experience UTI like symptoms at which time a urine culture was ordered and patient was noted to have a urinary tract infection. She has since completed antibiotic therapy as prescribed. Urine cultures are as noted below. In office urinalysis results reviewed with the patient today 1+ leukocytes 2+ protein and 3+ microscopic hematuria. She currently denies any UTI like symptoms. PVR 0 mL. When asked she does report compliance with Estrace cream as prescribed. She has previously trialed VESIcare, Myrbetriq, and oxybutynin for urinary urgency however has not found these helpful. She reports she would like to continue with surveillance monitoring at this time as she does feel lower urinary tract symptoms have been manageable. She also does report episodes of nocturia however describes these episodes as infrequent and does feel they are manageable. 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 She does have a history of recurrent urinary tract infections workup has included Microgen 04/16 that noted E coli, lactobacillus gasseri, Campylobacter ureolyticus, prevotella timonensis, anaerococcus mediterraneensis, prevotella bivis, and proveoteela bergensis. She was also noted to have Kimberly glabrata. She finished treatment with Flagyl, Augmentin, and a dose of fluconazole. In review of patient's chart it appears urine cultures are as follows: 12/15, 04/14, 06/14, 06/15: E coli 08/16 Hafnia alvei 10/16 Proteus mirabilis 03/17 Klebsiella pneumoniae 07/17 Klebsiella pneumoniae Urine cytology: 11/15 Negative for high-grade urothelial carcinoma Previous workup has included an in office cystoscopy as patient had been experiencing gross hematuria that noted grade 2 trabeculations otherwise NAD. We discussed potential causes of recurrent urinary tract infections. She does report a longstanding history of constipation. Previous workup has also included a retroperitoneal ultrasound 09/15 noting bilateral kidneys are normal in size, contour, and echogenicity. No hydronephrosis, lesions, and or renal calculi noted bilaterally. The bladder is well distended and normal. Pre void bladder volume is approximately 350 mL. Postvoid bladder volume is approximately 50 mL. When asked she denies dysuria, foul smelling urine, changes to urinary stream, flank pain, fever, and or chills. [facility] Medical History Cardiomyopathy Persistent atrial fibrillation Cardiac arrhythmia Restrictive lung disease Cough Ear infection Hard of hearing COVID-19 vaccine series completed Osteoarthritis of right knee Dry mouth Osteopenia Postnasal drip Hypercholesteremia Osteoarthritis Hypertension Rheumatoid arthritis H/O bone density study Lumbago Surgical History History of total left knee replacement H/O colonoscopy Status post herniorrhaphy H/O mitral valve replacement History of splenectomy Hx of cholecystectomy Family History Father Cerebral hemorrhage Parkinsonism Mother COPD (chronic obstructive pulmonary disease) Lung cancer Brother Lung cancer Son No problems noted. Daughter No problems noted. Daughter No problems noted. Daughter No problems noted. Social History Housing: House Are you a primary medicare insurance specialist to a significant other at home: No Do you presently have visiting nurse or other home services: No Patient Tobacco Use Status: Never used Tobacco e-Cigarette/Vaping Use: Never Used Second Hand Smoke Exposure: Yes service: No Current occupational status: retired Current occupational exposures/hazards: No Cognitive needs: No Hearing needs: Yes Vision needs: Yes Review of Systems Const Reports no additional complaints Eyes Reports no additional complaints ENT Reports as per HPI Card Reports as per HPI Resp Reports as per HPI GI Reports no additional complaints Reports as per HPI Musc Reports as per HPI Physical Exam Const General: cooperative, healthy appearing, comfortable, no acute distress, well developed, alert and awake Nutritional Appearance: overweight Orientation/consciousness: patient oriented x3 Limitations: ambulation with cane HEENT Head: Yes normal to inspection, Yes normocephalic and Yes atraumatic Ears: hearing grossly normal bilaterally Eyes General: appearance normal, both eyes and all related structures Neck Neck: Yes normal visual inspection and Yes trachea midline Chest Chest palpation & inspection: normal inspection of the chest Resp Effort & Inspection: normal respiratory effort and able to speak in complete sentences Cardio Rate: regular rate GI Inspection: Yes normal to inspection General: Yes no CVA tenderness Back/Spine/Pelvis Back: no CVA tenderness Skin General skin exam: no rashes or lesions noted Neuro General: patient oriented x3 Extrem General: Yes normal to inspection Psych Appearance: grossly normal and well kempt Mental Status: mental status grossly normal Speech and movement: Normal speech and movement present and Clear speech present Affect: normal affect Attitude: cooperative Thought process: Normal thought process present Thought content: Normal thought content present Insight: Fair insight present (Psych) Judgement: Fair judgement present (Psych) Office Procedures Post Void Residual Post Residual Void Post Void Residual (PVR): 0 58966-Ihvc Void Residual by ultrasound Results AMB Urinalysis, Automated UA Leukoctes 70 Calista/uL Last Edit by JESSE Camargo on 08/16/25 14:42 UA Nitrite Negative Last Edit by JESSE Camargo on 08/16/25 14:42 UA Urobilinogen 0.2 mg/dL Last Edit by Omar Gonzalez, [facility] on 08/16/25 14:42 UA Protein 100 mg/dL Last Edit by Omar Gonzalez, [facility] [place] on 08/16/25 14:42 UA pH 6.0 Last Edit by Omar Gonzalez, [facility] [place] on 08/16/25 14:42 UA Blood 200 Sky/uL Last Edit by Omar Gonzalez, [facility] [place] on 08/16/25 14:42 UA Specific Leupp 1.020 Last Edit by Omar Gonzalez, [facility] [place] on 08/16/25 14:42 UA Ketone Negative Last Edit by Omar Gonzalez [facility] [place] on 08/16/25 14:42 UA Bilirubin 0 mg/dL Last Edit by Omar Gonzalez, [facility] [place] on 08/16/25 14:42 UA Glucose 0 mg/dL Last Edit by Omar Gonzalez [facility] [place] on 08/16/25 14:42 Results Reviewed Results Reviewed: Laboratory Last Values Urine pH (Auto) 6.0 08/16/25 14:29 Specific Leupp (Auto) 1.020 08/16/25 14:29 Urine Protein (Auto) 100 mg/dL 08/16/25 14:29 Glucose (UA)(Auto) 0 mg/dL 08/16/25 14:29 Urine Ketones (Auto) Negative 08/16/25 14:29 Urine Blood (Auto) 200 Sky/uL 08/16/25 14:29 Urine Nitrite (Auto) Negative 08/16/25 14:29 Urine Bilirubin (Auto) 0 mg/dL 08/16/25 14:29 Urine Urobilinogen (Auto) 0.2 mg/dL 08/16/25 14:29 Leukocyte Esterase (Auto) 70 Calista/uL 08/16/25 14:29 Assessment & Plan Assessment & Plan (1) Renal cyst: Code(s): N28.1 - Cyst of kidney, acquired Category: Medical (2) Hematuria: Code(s): R31.9 - Hematuria, unspecified Category: Medical (3) Nocturia: Code(s): R35.1 - Nocturia Category: Medical (4) Recurrent UTI: Code(s): N39.0 - Urinary tract infection, site not specified Category: Medical Plan In office urinalysis results with the patient today; as noted above; will send for urine cytology PVR 0mL. We discussed importance of limiting fluids 2-3 hours prior to bed. We discussed bladder triggers/irritants. She denies any UTI like symptoms. Continue Estrace cream as discussed and prescribed. We did discussed at length potential causes of lower urinary tract symptoms, nocturia, gross hematuria in the setting of anticoagulation, and recurrent urinary tract infections; we did discussed further treatment options of these urological conditions in risks and benefits of these treatment options. All questions were answered. We did discussed importance of management in constipation in relation to recurrent urinary tract infections. Discussed UTI prevention with D mannose supplement, vitamin-C, increasing fluid intake, behavioral therapy with timed voiding, perineal hygiene and postcoital voiding, and management of constipation with stool softeners and increased fiber intake. Follow-up in 3 months with PVR; or sooner with any issues, concerns, and or questions. Orders: Orders AMB Urinalysis Automated Today Z13.9 - Encounter for screening, unspecified Urine Culture Today R31.9 - Hematuria, unspecified Urine Cytology Today R31.9 - Hematuria, unspecified Patient Instructions: The patient had an opportunity to ask questions regarding the treatment plan. All questions were answered. Physical exam, labs, and imaging were discussed and reviewed in detail. As well as risks, benefits, and discussion of treatment choices. No major barriers to understanding were identified. The patient expressed understanding and agreement with the above treatment plan. The patient was made aware they should contact our office by phone for worsening of their current condition, the appearance of new symptoms, or with any questions or concerns. Compliance is encouraged with any medications and follow up testing that is ordered. It is a privilege to be allowed the opportunity to participate in? your urological care.? Again, if you have any questions or concerns If you have any questions or concerns please do not hesitate to contact me. The office is [phone]. This note is constructed using voice recognition software. While every effort has been made to ensure accuracy glaciologist errors may have been included. Yours sincerely, OANH Mo Coding Level of Care Code Est Pt Level 3 (41875) Complex EM visit Add On G2211 Diagnoses Renal cyst N28.1 Hematuria R31.9 Nocturia R35.1 Recurrent UTI N39.0 CPT Codes Post Residual Void - PVR CPT Code: 61791-Wojo Void Residual by ultrasound ([id number])
--- OUTSIDE RECORDS SUMMARY | 2025-08-16 17:02 | XMS_ITS | Patient Health Record ---
Author Organization [facility] Address [address] [place] [address] Care Team Providers Care Colorer Name Role Phone Ana Garcia MD Primary Care Provider Sabino Eva Brooks Unavailable [phone] Allergies No Known Allergies Reason For Referral [...] Risk Notes Problem Lower limb length difference (13929488) Lower limb length difference (M21.70) Active confirmed Vital Signs Blood pressure diastolic 80 mm Hg 07/19/2025 Height 5 ft 7 in in 07/19/2025 Blood pressure systolic 127 mm Hg 07/19/2025 Weight 209 lbs 07/19/2025 BMI 32.73 kg/m2 07/19/2025 Procedures Procedure Date Ordered Date Performed Result Body Sit e 76900-WWZOVRD NAIL, 6 OR MORE 10/07/2024 N/A 13327- Debride <25 sq cm 10/07/2024 N/A 54403-VHHIYKE NAIL, 6 OR MORE 12/16/2024 N/A 18061-BZIDEMX NAIL, 6 OR MORE 02/24/2025 N/A 01492-ANRWAMI NAIL, 6 OR MORE 07/19/2025 N/A 43676-Jrrgrpca Plate 07/19/2025 N/A Encounters Encounter Location Date Provider Diagnosis [address] [address] 10/07/2024 Eva Black Pain in right foot M79.671 ; Arthritis of right ankle M19.071 ; 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.771 ; Onychomycosis B35.1 ; Pain in right toe(s) M79.674 ; Pain in left toe(s) M79.675 and Ulcer of right foot, limited to breakdown of skin L97.[address] [address] 12/16/2024 Eva Black Onychomycosis B35.1 ; Ingrown nail L60.0 ; Pain in right toe(s) M79.674 and Pain in left toe(s) M79.[address] [address] 02/24/2025 Eva Black Onychomycosis B35.1 ; Lower limb length difference M21.70 ; Pain in right toe(s) M79.674 and Pain in left toe(s) M79.[address] [address] 05/10/2025 Eva Black Onychomycosis B35.1 ; Pain in right toe(s) M79.674 and Pain in left toe(s) M79.[address] [address] 07/19/2025 Eva Black Onychomycosis B35.1 ; Pain in right toe(s) M79.674 ; Pain in left toe(s) M79.675 and Ingrown nail L60.[address] [address] 07/19/2025 Eva Black Assessments Encounter Date Diagnosis [...] Date *Uric Acid, Serum 04/13/2024 *Sedimentation Rate-Westergren 74871-CAMQKWL NAIL, 6 OR MORE 12/29/2023 13636-JEOBHWM NAIL, 6 OR MORE 04/01/2024 89024-IUMXZIX NAIL, 6 OR MORE 04/29/2023 84994-KQWHMXS NAIL, 6 OR MORE 07/08/2023 00410-JJDDVPT NAIL, 6 OR MORE 09/22/2023 77838-CYDWBQG NAIL, 6 OR MORE 02/13/2023 54840-ALSNOIT NAIL, 6 OR MORE 07/08/2024 74062-FQLKPLL NAIL, 6 OR MORE 10/07/2024 15452-PJGSHRK NAIL, 6 OR MORE 12/16/2024 73357-NLKJFBY NAIL, 6 OR MORE 02/24/2025 30070-PQWUNLI NAIL, 6 OR MORE 07/19/2025 87490-GTDSGUP NAIL, 1-5 12/10/2021 85071-Axeztbcy Plate 12/29/2023 43449-Vlfqoeuy Plate 04/29/2023 34610-Ozzlkfjp Plate 07/22/2021 16175-Axkyvrtq Plate 07/19/2025 84017- Debride <25 sq cm 10/07/202405413, J0702- INJECT or DRAIN, JOINT/BUR SA 04/13/2024 14318, D4056-CQFWQ/INJECT, JOINT/BURSA 0 08/17/2017 49154,X0609-FTK TENDON SHEATH/LIGAMENT 0 08/15/2019 46477,A4495-FHV TENDON SHEATH/LIGAMENT 1 57498, J0702- Neuroma/Injection 09/14/20 17 X ray : Ankle, right 3V 04/13/2024 08394 - Tenotomy, open flexor 08/07/2021 Next Appt Details Provider Name:Eva Alas , 10/03/2025 09:15:00 AM, [address] [facility], [place], [address], Insurance Providers Payer Name Payer Address Payer Phone Subscriber Number Group Number Insured Name Patient Relationship to Insured Coverage Start Date Coverage End Date Medicare National Govt [employer] [address] [place] [address] [id number] HolliMelissaKassandra Self - patient is the insured [employer] [address] [place] [address] [id number] HolliMelissaKassandra Self - patient is the insured [...]
--- OUTSIDE RECORDS SUMMARY | 2025-08-16 17:02 | XMS_ITS | Data Portability ---
Author Organization [place] - [facility], Allergy Address [address] [address] Assessment Encounter Date Assessment Date Assessment LastModified by Organization Details LastModified Time 12/19/2024 12/19/2024 Resolution: Schedule an appointment for cerumen management. [email or web address] Not available 12/19/2024 11:27:01 08/10/2025 08/10/2025 Feedback eliminated by rerunning feedback calibration. Patient reported no negative effects to sound quality post programming. Discussed possible new mold if problem persists. [email or web address] Not available 08/10/2025 15:05:51 Plan of Treatment Reminders Order Date Submit [...] Name and Address Organization Details Recorded Time Sensorin eural hearing loss in left ear 15012904200 109 Active 2016 Sensorin eural hearing loss, unilater al, left ear, with restrict ed hearing on the contrala teral side; Note: Date Diagnose d: 7 11:42 AM (H90.A22 ) Not Available [facility] 4 02:47:11 Mixed conducti ve and sensorin eural hearing loss of right ear 96799214255 105 Active 2016 Mixed conducti ve and sensorin eural hearing loss, unilater al, right ear with restrict ed hearing on the contrala teral side; Note: Date Diagnose d: 7 11:42 AM (H90.A31 ) Not Available [facility] 4 02:47:11 Central perforat ion of right tympanic membrane 19400399725 Active 2021 Central perforat ion of tympanic membrane , right ear; Note: Date Diagnose d: 2 10:31 AM (H72.91) Not Available [facility] 4 02:47:14 Otorrhea of right ear 98416432957 Completed 202106/24/2024 Otorrhea , right ear; Note: Date Diagnose d: 2 9:32 AM (H92.11) Not Available [facility] 4 02:47:09 Acute non-supp urative otitis media of right ear 34553569730 Active 2021 Other acute nonsuppu rative otitis media, right ear; Note: Date Diagnose d: 2 10:32 AM (H65.191 ) Not Available [facility] 4 02:47:13 Posterio r rhinorrh ea 41354050 Active 2021 Postnasa l drip; Note: Date Diagnose d: 11/14/20 4:46 PM (R09.82) Not Available [facility] 4 02:47:12 Allergic rhinitis 32507570 Active 2022 Allergic rhinitis , unspecif ied; Note: Date Diagnose d: 07/31/2023 10:04 AM (J30.9) Not Available [facility] 4 02:47:13 Dysphagi a 55088990 Active 2022 Dysphagi a, unspecif ied; Note: Date Diagnose d: 3 1:15 PM (R13.10) Not Available [facility] 4 02:47:13 Gastroes ophageal reflux disease without esophagi tis 537113538 Active 2022 Gastro-e sophagea l reflux disease without esophagi tis; Note: Date Diagnose d: 10/20/20 23 11:01 AM (K21.9) Not Available [facility] 4 02:47:10 Somatofo rm disorder 59718508 Active 2022 Psychoge sumaya dysphagi a, includin g 'globus hysteric us'; Note: Date Diagnose d: 10/20/20 23 11:07 AM (F45.8) Not Available [facility] 4 02:47:10 Sensorin eural hearing loss of bilatera l ears 100679218 Active 2024 LANDEN NDIAYE, AuD [address] [facility],[address], [facility] [place], [address] , [facility] - [facility] 5 15:01:19 Problem Notes None recorded. Medical Equipment None Reported. Medications Name Sig Start Date Stop Date Status Note LastModified by Organization Details LastModified Time Prescript ion - Prior Authoriza tion Request active Script Copy/Juanita or Auth^Scr ipt Copy/Juanita or Auth_ [id number] Not Available Not Available Not Available celecoxib 200 mg capsule TAKE 1 CAPSULE BY MOUTH TWICE A DAY active Not Available Not Available No t Available atorvasta tin 20 mg tablet TAKE 1 TABLET BY MOUTH EVERY DAY active Not Available Not Available No t Available sulfasala zine 500 mg tablet 04/11 completed Medicati on ID: [id number] D uration Value: 90 Brand Name: sulfasal [...] 325 mg tablet active Medicati on ID: [id number] B rand Name: aspirin Send Method: E-Prescr [...] affected area 2021 active Medicati on ID: [id number] D uration Value: 14 Prescri bed By Name: SIMEON Rm nd Name: saurabh Cruz d Method: E-Prescr ibed Sub s Allowed: subs OK Speci al Instruct ion: 4 drops to right ear twice daily X 14 days Med icationG enericNa me: clotrima zole Not Available Not Available Not Available metoprolo l tartrate 50 mg tablet TAKE 1 TABLET BY MOUTH TWICE A DAY active Not Available Not Available No t Available omeprazol e 20 mg capsule,d elayed release active Medicati on ID: [id number] B rand Name: omeprazo le Send Method: E-Prescr ibed Sub s Allowed: subs OK Medic ationGen ericName : omeprazo le Not Available Not Available Not Available folic acid 1 mg tablet TAKE 1 TABLET BY MOUTH EVERY DAY active Not Available Not Available No t Available azelastin e 137 mcg (0.1 %) nasal spray [place] 2 spray into both nostrils twice a day as directed 2022 active Medicati on ID: [id number] D uration Value: 30 Prescri bed By Name: SIMEON Cramer nd Name: crystalstaditi jason Send Method: E-Prescr ibed Sub s Allowed: subs OK Medic ationGen ericName : azelasti ne Not Available Not Available Not Available estradiol 0.01% (0.1 mg/gram) vaginal cream USE 0.25 OF AN APPLICAT ORFULL VAGINALL Y 2 TIMES A WEEK active Not Available Not Available No t Available ipratropi um bromide 42 mcg (0.06 %) nasal spray [place] 2 spray into both nostrils three times a day 2022 active Medicati on ID: [id number] D uration Value: 30 Prescri bed By [...] a day 2022 active Medicati on ID: [id number] D uration Value: 21 Brand Name: cefdinir Send Method: E-Prescr ibed Sub s Allowed: subs OK Medic ationGen ericName : cefdinir Not Available Not Available Not Available ipratropi um bromide 21 mcg (0.03 %) nasal spray [place] 2 spray into both nostrils twice a day as directed 2021 active Medicati on ID: [id number] D uration Value: 30 Brand Name: ipratrop [...] with meals 10/01 completed Medicati on ID: [id number] D uration Value: 14 Brand Name: amoxicil yamila-pot clavulan ate Send Method: E-Prescr ibed Sub s Allowed: subs OK Medic ationGen ericName : amoxicil yamila-pot clavulan ate Not Available Not Available Not Available TobraDex 0.3 %-0.1 % eye drops[facility] 06/11 completed Medicati on ID: [id number] P rescribe d By Name: SIMEON Rm nd Name: TobraDex Send Method: E-Prescr ibed Sub s Allowed: subs OK Speci al Instruct ion: Instill 3 drops in the affect ear BID for 14 days Med icationG enericNa me: TobraDex Not Available Not Available Not Available Ciprodex 0.3 %-0.1 % ear drops,han pension 4 drop into right ear 2021 active Medicati on ID: [id number] D uration Value: 14 Prescri bed By Name: SIMEON Rm nd Name: Ciprodex Send Method: E-Prescr ibed Sub s Allowed: subs OK Speci al Instruct ion: x 14 days Med icationG enericNa me: Ciprodex Not Available Not Available Not Available metoprolo l tartrate 25 mg tablet 06/11 completed Medicati on ID: [id number] D uration Value: 90 Brand Name: metoprol [...] inhalatio n 06/11 completed Medicati on ID: [id number] B rand Name: Breo Ellipta Send Method: E-Prescr ibed Sub s Allowed: subs OK Medic ationGen ericName : Breo Ellipta Not Available Not Available Not Available Entresto 24 mg-26 mg tablet TAKE 1 TABLET BY MOUTH TWICE A DAY active Not Available Not Available No t Available aspirin 81 mg capsule active Medicati on ID: [id number] B rand Name: aspirin Send Method: E-Prescr [...] Diagnosis SNOMED-CT Code Diagnosis ICD10 Code Diagnosis IMO Codes Diagnosis Note [id number] Carol PALMA RAMOS - [place] [address] [facility],[address] [place] [address] 12/19/2024 11:04:37 12/20/2024 07:24:19 Mixed conductive and sensorineural hearing loss of right ear [id number] 9105 H90.A31 [id number] Carol PALMA RAMOS - [place] [address] [facility], [address] [place] [address] 08/10/2025 10:48:13 08/11/2025 15:20:39 Sensorineural hearing loss of bilateral ears 928614071 H90.3 Health Concerns Section Related Observation LastModified by Organization Detai ls LastModified Time None Recorded Concern Status LastModified by Organization Details LastModified Time None Recorded Advance Directives Directive None Recorded Payers Insurance Date Sequence Insurance Name Policy Number Policy Hines Covered Member ID Hines Member ID Guarantor Name 12/19/2024 2 [facility] Melissa De La Garza [id number] Melissa De La Garza 08/07/2025 1 MEDICARE [place]: [facility] Melissa De La Garza [id number] Melissa De La Garza Notes Date Note Type Note Provider Name and Address Organization Details Recorded Time 12/19/2024 text/html Hearing Aid Repa ir HPIReported by PatientVisit TypeFor visit type, patient reportsin office repair.Left Hearing AidFor reported condition, patient reportshearing device is functioning well.Right Hearing AidFor reported condition, patient reportsfeedback. Carol PALMA [address] [facility],[address], [place], [address], [facility] - [facility] 12/19/2024 11:27:32 08/10/2025 text/html Hearing Technolo gy HistoryReported by PatientReported status of current hearing technologyFor sound quality and programming settings, patient reportsthat the right hearing aid is not working as expected. For reported condition, patient reportsfeedback (__). LANDEN NDIAYE, [address],[place] [address], [place], [address], [facility] - [facility] 08/10/2025 15:24:56 OBGyn Episode No OBEpisode recorded.
== END 2025-08-16 14:58 | disposition home or self-care (01) ==
LOC: HO.HUSH 14:17
PROVIDERS: PCP Internal Medicine; Visit Provider Nurse Practitioner Family
DX: N28.1 Cyst of kidney, acquired (principal); R31.9 Hematuria, unspecified; R35.1 Nocturia; N39.0 Urinary tract infection, site not specified; Z13.9 Encounter for screening, unspecified
CPT/HCPCS: 99213; G2211

== ENCOUNTER 2025-08-16 14:16 | Outpatient (REF) | payer MEDICARE, SELFPAY | END 2025-08-16 14:17 | disposition home or self-care (01) | LOC: HO.LAB 14:16 | PROVIDERS: PCP Internal Medicine; Visit Provider Nurse Practitioner Family | DX: N28.1 Cyst of kidney, acquired (principal); N39.0 Urinary tract infection, site not specified; R35.1 Nocturia | CPT/HCPCS: 51798; 81003; 87086; 88112; 99212 ==

== ENCOUNTER 2025-11-07 08:55 | Outpatient (REF) | payer MEDICARE, SELFPAY ==
[2025-11-07 15:24] LABS: Anion Gap 9 (12-20); Blood Urea Nitrogen 22 mg/dL (9-16); Calcium 9.0 mg/dL (8.4-10.2); Carbon Dioxide 27 mmol/L (22-29); Chloride 108 mmol/L (96-108); Estimated Glomerular Filt Rate 54; Potassium 4.2 mmol/L (3.3-5.1); Sodium 140 mmol/L (135-145)
== END 2025-11-07 08:56 | disposition home or self-care (01) ==
LOC: HO.HMGCLDS 08:55
PROVIDERS: PCP Internal Medicine; Visit Provider Internal Medicine Cardiovascular Disease
DX: I48.19 Other persistent atrial fibrillation (principal); I43 Cardiomyopathy in diseases classified elsewhere; I27.20 Pulmonary hypertension, unspecified; Z95.2 Presence of prosthetic heart valve; Z79.01 Long term (current) use of anticoagulants; Z79.899 Other long term (current) drug therapy
CPT/HCPCS: 36415; 80048; 93005; 99212

== ENCOUNTER 2025-11-07 08:55 | Outpatient (AMB) | payer MEDICARE, SELFPAY ==
[2025-11-07 09:01] VITALS: BP 124/80; PULSE 82; BMI 33.3
--- NOTE | 2025-11-07 09:01 | MHC.OFFVIS ---
Vital Signs 11/07/25 09:01 Height 5 ft 7 in Weight 212 lb 8.41 oz BMI 33.3 BP 124/80 Blood Pressure Location Lt brachial Position Sitting Pulse 82 Pulse Source Monitor Intake Visit Reasons: 6 mth f/up Intake Note: 6m/ follow up Accompanied by: Self / Same As Patient Allergies benzonatate Adverse Reaction (Mild, Verified 11/07/25 09:04) Hallucinations Medication List - Last Reconciled 11/07/25 by Fahad Toussaint MD acetaminophen 650 mg (2 x 325 mg) PO Q6H PRN 30 days adalimumab (Humira Pen) mg subcut apixaban (Eliquis) 5 mg PO BID atorvastatin 20 mg PO DAILY celecoxib 200 mg PO BID diclofenac sodium 1% 4 grams topical QID docusate sodium 100 mg PO BID estradiol 0.01%(0.1mg/gram) pea sized amount vaginally 3 times a week; Apply pea-sized amount to urethra 3 times per week 90 days famotidine 40 mg PO BEDTIME folic acid 1 mg PO DAILY methotrexate sodium 17.5 mg PO TH metoprolol tartrate 50 mg PO BID omeprazole 20 mg PO DAILY sacubitril-valsartan 24-26 mg (Entresto) 1 tab PO BID HPI Comments Details: Melissa Willingham comes for follow-up. She says that she is doing well from cardiac perspective. She has no symptoms of palpitation prolonged fast heart rate. No orthopnea, PND, leg edema. Complains of overall fatigue does have exertional shortness of breath which is unchanged. No exertional chest pain. No lightheadedness, syncope. Taking all her medications. No bleeding issues or neurologic events. She does complain of bilateral lower extremity fatigue with walking. [facility] Medical History Cardiomyopathy Persistent atrial fibrillation Cardiac arrhythmia Restrictive lung disease Cough Ear infection Hard of hearing COVID-19 vaccine series completed Osteoarthritis of right knee Dry mouth Osteopenia Postnasal drip Hypercholesteremia Osteoarthritis Hypertension Rheumatoid arthritis H/O bone density study Lumbago Surgical History History of total left knee replacement H/O colonoscopy Status post herniorrhaphy H/O mitral valve replacement History of splenectomy Hx of cholecystectomy Family History Father Cerebral hemorrhage Parkinsonism Mother COPD (chronic obstructive pulmonary disease) Lung cancer Brother Lung cancer Son No problems noted. Daughter No problems noted. Daughter No problems noted. Daughter No problems noted. Social History Housing: House Are you a primary assurance services manager health care to a significant other at home: No Do you presently have visiting nurse or other home services: No Patient Tobacco Use Status: Never used Tobacco e-Cigarette/Vaping Use: Never Used Second Hand Smoke Exposure: Yes service: No Current occupational status: retired Current occupational exposures/hazards: No Cognitive needs: No Hearing needs: Yes Vision needs: Yes Review of Systems Const Denies daytime sleepiness, Denies difficulty sleeping, Denies snoring, Denies stops breathing during sleep and Denies weakness ENT Denies dizziness Card Denies chest pain, Denies rapid heart rate, Denies irregular heart rhythm, Denies claudication, Denies leg edema, Denies lightheadedness, Denies palpitations, Denies dyspnea, Reports dyspnea on exertion, Denies orthopnea, Denies paroxysmal nocturnal dyspnea and Denies slow heart rate Resp Denies cough, Denies dyspnea, Reports dyspnea on exertion and Denies snoring GI Reports no additional complaints, Denies hematochezia, Denies change in stool character and Denies dyspepsia Musc Denies abnormal gait, Denies muscle weakness and Denies numbness Neuro Denies abnormal gait, Denies dizziness, Denies numbness and Denies weakness Endo Denies palpitations Physical Exam Vital Signs: Last Vital Signs Pulse 82 11/07/25 09:01 BP 124/80 11/07/25 09:01 BMI result Body Mass Index 33.3 Office Procedures EKG Details: EKG shows atrial fibrillation with aberrantly conducted complexes nonspecific STT wave changes 21139-Fqgwibqzztjogmkom, Complete Assessment & Plan Assessment & Plan (1) Cardiomyopathy: Comment: Echo 12/2024 LVEF 44%, s/p MV repair, mild global hypokinesis low normal right ventricular systolic function moderate TR, mild to moderate pulmonary hypertension, 12/2024 Stress test with Lexiscan myocardial perfusion without ischemia or infarct, gated left ventricular ejection fraction 46% during stress and 60% during rest Code(s): I42.9 - Cardiomyopathy, unspecified Category: Medical Plan: Mjcs-qx-wuozksab cardiomyopathy process without signs of congestive heart failure related to persistent atrial fibrillation and probably prior mitral valve surgery. Currently no signs or symptoms of heart failure. Continue metoprolol and Entresto for neurohormonal modulation. Signs and symptoms of heart failure were discussed. Exertional shortness of breath appears to be multifactorial related to AFib, cardiomyopathy process but also probably related to decreased ventilatory reserve from obesity as well as deconditioning. This was discussed with her at gradually increasing physical activity. Will obtain lower extremity duplex for bilateral lower extremity discomfort and fatigue. (2) Persistent atrial fibrillation: Comment: On beta evi and Eliquis Code(s): I48.19 - Other persistent atrial fibrillation Category: Medical Plan: Persistent rate control atrial fibrillation has failed rhythm control approach. Continue rate control with metoprolol. Continue full oral anticoagulation, currently on Eliquis 5 mg b.i.d.. Semi annual renal function test should be pursued. (3) H/O mitral valve replacement: Comment: repair 2005 (ring on mitral valve)- ECHO 04/13 nl EF, NORMAL BIOPROSTHETIC MITRAL VALVE, mild to moderate TR Code(s): Z95.2 - Presence of prosthetic heart valve Category: Surgical Plan: Prior history of bioprosthetic mitral valve with no symptoms with good function of the valve. Continue oral anticoagulation as above. SBE prophylaxis as per ACC/aha guidelines. Follow up in the clinic in 6 months time after an echocardiogram. Thank you for allowing me to partake in her care Orders: Orders CA echo transthoracic complete 6 Months I42.9 - Cardiomyopathy, unspecified US arterial duplex LE BI Today M79.604 - Pain in right leg, M79.605 - Pain in left leg Basic Metabolic Panel Today I48.19 - Other persistent atrial fibrillation Coding Level of Care Code Est Pt Level 4 (77676) Diagnoses Cardiomyopathy I42.9 Persistent atrial fibrillation I48.19 H/O mitral valve replacement Z95.2 CPT Codes EKG - CPT: 95890-Turcokboezicjweda, Complete ([id number])
--- OUTSIDE RECORDS SUMMARY | 2025-11-07 09:52 | XMS_ITS | Patient Health Record ---
Author Organization [facility] [place] Address [address] [facility] [place] [address] Care Team Providers Care Tombstone Setter Name Role Phone Ana Garcia MD Primary Care Provider JohnnyEva Rosales Unavailable [phone] Allergies No Known Allergies Reason For Referral No Information Medications Medication SIG (Take, Route, Frequency, Duration) Notes Start Date End Date Status Humira 40 MG/0.8ML Subcutaneous Active Famotidine 40 MG 1 tablet Orally Once a day Active Aspirin 81 MG Orally Not-Gregory mendoza Atorvastatin Calcium 20 MG 1 tablet Orally Once a day Active Vitamin D Not-Taking Eliquis Active Voltaren Arthritis Pain 1 % as directed Externally 07/08/2024 Activ e Entresto Active oxyBUTYnin Chloride ER 10 MG 1 tablet Orally Once a day Not-Taking Folic Acid Active Colcrys 0.6 MG 1 tablet Orally once a day; Duration: 10 days 04/13/2024 Not-Takin g Metoprolol Tartrate Active ASO Ankle/Foot Stablizing AFO As directed Wear Daily; Duration: as needed 05/12/2024 Not-Taking Omeprazole 20 MG 1 capsule 1/2 to 1 h our before morning meal Orally Once a day Active Vitamin B 12 Not-Jose ing Celecoxib Active Night Splint AFO - L1930 as directed 08/15/2019 Not-Taking PriLOSEC Active sulfaSALAzine Not-Gregory mendoza Methotrexate 2.5 MG Orally Active Immunizations Vaccine Route Administration Date Status [...] Active confirmed Vital Signs Blood pressure diastolic 75 mm Hg 10/03/2025 Height 5 ft 7 in in 10/03/2025 Blood pressure systolic 127 mm Hg 10/03/2025 Weight 209 lbs 10/03/2025 BMI 32.73 kg/m2 10/03/2025 Procedures Procedure Date Ordered Date Performed Result Body Sit e 56781-LOIYNTZ NAIL, 6 OR MORE 12/16/2024 N/A 26228-YWABSZD NAIL, 6 OR MORE 02/24/2025 N/A 21425-NVQPJTE NAIL, OR MORE 07/19/2025 N/A 82707-Lrkdyxok Plate 07/19/2025 N/A 96706-HGACOFJ NAIL, 6 OR MORE 10/03/2025 N/A Encounters Encounter [facility] Date [facility] [place] [address] 12/16/2024 Eva Black Onychomycosis B35.1 ; Ingrown nail L60.0 ; Pain in right toe(s) M79.674 and Pain in left toe(s) M79.[address] [place] [address] 02/24/2025 Eva Black Onychomycosis B35.1 ; Lower limb length difference M21.70 ; Pain in right toe(s) M79.674 and Pain in left toe(s) M79.[address] [place] [address] 05/10/2025 Eva Black Onychomycosis B35.1 ; Pain in right toe(s) M79.674 and Pain in left toe(s) M79.[address] [place] [address] 07/19/2025 Eva Black Onychomycosis B35.1 ; Pain in right toe(s) M79.674 ; Pain in left toe(s) M79.675 and Ingrown nail L60.[address] [address] 10/03/2025 Eva Black Onychomycosis B35.1 ; Lower limb length difference M21.70 ; Pain in right toe(s) M79.674 and Pain in left toe(s) M79.[address] [address] 07/19/2025 Eva Black Assessments Encounter Date Diagnosis (ICD Code) Assessment Notes Treatment Notes Treatment Clinical Notes Section Notes 12/16/2024 Ingrown nail (ICD-10 - L60.0) 12/16/2024 Onychomycosis (ICD-10 - B35.1) 02/24/2025 Lower limb length difference (ICD-10 - M21.70) 02/24/2025 Onychomycosis (ICD-10 - B35.1) 05/10/2025 Pain in right toe(s) (ICD-10 - M79.674) 05/10/2025 Onychomycosis (ICD-10 - B35.1) 07/19/2025 Onychomycosis (ICD-10 - B35.1) 10/03/2025 Lower limb length difference (ICD-10 - M21.70) 10/03/2025 Onychomycosis (ICD-10 - B35.1) 10/03/2025 Pain in right toe(s) (ICD-10 - M79.674) 12/16/2024 Pain in right toe(s) (ICD-10 - M79.674) 07/19/2025 Pain in right toe(s) (ICD-10 - M79.674) 05/10/2025 Pain in left toe(s) (ICD-10 - M79.675) 02/24/2025 Pain in right toe(s) (ICD-10 - M79.674) 02/24/2025 Pain in left toe(s) (ICD-10 - M79.675) 07/19/2025 Pain in left toe(s) (ICD-10 - M79.675) 12/16/2024 Pain in left toe(s) (ICD-10 - M79.675) 10/03/2025 Pain in left toe(s) (ICD-10 - M79.675) 07/19/2025 Ingrown nail (ICD-10 - L60.0) Plan Of Treatment Pending Test Test Name Order Date *Uric Acid, Serum 04/13/2024 *Sedimentation Rate-Westergren 13543-AZAGTUZ NAIL, 6 OR MORE 12/29/2023 27996-GEWTYGM NAIL, 6 OR MORE 04/01/2024 26604-EEYICZV NAIL, 6 OR MORE 04/29/2023 24119-LAELBZY NAIL, 6 OR MORE 07/08/2023 96232-YLZLOCK NAIL, 6 OR MORE 09/22/2023 26028-WGIIQDF NAIL, 6 OR MORE 02/13/2023 01554-OSSJQCX NAIL, 6 OR MORE 07/08/2024 26573-BHAMCVZ NAIL, 6 OR MORE 10/07/2024 47514-EMHFFAE NAIL, 6 OR MORE 12/16/2024 76715-UUKZTMU NAIL, 6 OR MORE 02/24/2025 43282-IWHTDOE NAIL, 6 OR MORE 07/19/2025 49952-DDHYHAD NAIL, 6 OR MORE 10/03/2025 62302-UZCKQFE NAIL, 1-5 12/10/2021 19790-Lexurhtg Plate 12/29/2023 65326-Nhrlvdda Plate 04/29/2023 36210-Kxmrkybw Plate 07/22/2021 31972-Ruqftyom Plate 07/19/2025 23136- Debride <25 sq cm 10/07/2024, J0702- INJECT or DRAIN, JOINT/BUR SA 04/13/202462034, Q4389-ZZKTC/INJECT, JOINT/BURSA 0 08/17/2017 62560,R5184-VEH TENDON SHEATH/LIGAMENT 0 08/15/2019 98854,S2601-QUA TENDON SHEATH/LIGAMENT 1 93098, J0702- Neuroma/Injection 09/14/20 17 X ray : Ankle, right 3V 04/13/2024 52882 - Tenotomy, open flexor 08/07/2021 Next Appt Details Provider Name:Eva Alas , 12/29/2025 12:30:00 PM, [address], [place], [address], Insurance Providers Payer Name Payer Address Payer Phone Subscriber Number Group Number Insured Name Patient Relationship to Insured Coverage Start Date Coverage End Date Medicare National Govt [employer] [facility] [address] [place] [address] [id number] HolliMelissaKassandra Self - patient is the insured [employer] [address] [place] [address] [id number] Melissa De La Garza Self - patient [...]
== END 2025-11-07 09:20 | disposition home or self-care (01) ==
LOC: HO.HCS 08:56
PROVIDERS: PCP Internal Medicine; Visit Provider Internal Medicine Cardiovascular Disease
DX: I42.9 Cardiomyopathy, unspecified (principal); I48.19 Other persistent atrial fibrillation; Z95.2 Presence of prosthetic heart valve
CPT/HCPCS: 93010; 99214

== ENCOUNTER 2025-11-13 12:52 | Outpatient (AMB) | payer MEDICARE, SELFPAY ==
--- NOTE | 2025-11-13 13:01 | A.OFFVIS_ITS ---
Intake Visit Reasons: 3M/PVR/UA Intake Note: Patient is present for 3M/PVR Urology Medication:ESTRADIOL Antibiotic Allergy:NONE Blood Thinner:APIXABAN Last PVR:0ML'S PVR:0 MLS Implementation Engineer Required: No Accompanied by: Self / Same As Patient Allergies benzonatate Adverse Reaction (Mild, Verified 11/13/25 13:44) Hallucinations Medication List - Last Reconciled 11/13/25 by RAFAEL Mo-MONICA acetaminophen 650 mg (2 x 325 mg) PO Q6H PRN 30 days adalimumab (Humira Pen) mg subcut apixaban (Eliquis) 5 mg PO BID atorvastatin 20 mg PO DAILY celecoxib 200 mg PO BID diclofenac sodium 1% 4 grams topical QID docusate sodium 100 mg PO BID estradiol 0.01%(0.1mg/gram) pea sized amount vaginally 3 times a week; Apply pea-sized amount to urethra 3 times per week 90 days famotidine 40 mg PO BEDTIME folic acid 1 mg PO DAILY methotrexate sodium 17.5 mg PO TH metoprolol tartrate 50 mg PO BID omeprazole 20 mg PO DAILY sacubitril-valsartan 24-26 mg (Entresto) 1 tab PO BID HPI Comments Details: Melissa Willingham a very pleasant 80-year-old female patient of Dr. Garcia. She has a past medical history of cardiac arrhythmia, restrictive lung disease, hard of hearing, osteoarthritis, osteopenia, hypercholesteremia, osteoarthritis, hypertension, and rheumatoid arthritis. She presents to the office today for follow-up of her lower urinary tract symptoms, gross hematuria, and recurrent urinary tract infections. In discussion with the patient today she reports since her last office visit here approximately 3 months ago she has not had any bothersome urinary issues or concerns. She denies having had any other episodes of gross hematuria. In office urinalysis results reviewed with the patient today 2+ leukocytes negative nitrates negative microscopic hematuria. She reports compliance with Estrace cream as prescribed. PVR 0 mL. She has previously trialed VESIcare, Myrbetriq, and oxybutynin for urinary urgency however has not found these medications helpful and feels symptoms have improved independently. She also does report episodes of nocturia however describes these episodes as infrequent and does feel they are manageable. 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 She does have a history of recurrent urinary tract infections workup has included Microgen 04/16 that noted E coli, lactobacillus gasseri, Campylobacter ureolyticus, prevotella timonensis, anaerococcus mediterraneensis, prevotella bivis, and proveoteela bergensis. She was also noted to have Kimberly glabrata. She finished treatment with Flagyl, Augmentin, and a dose of fluconazole. In review of patient's chart it appears urine cultures are as follows: 12/15, 04/14, 06/14, 06/15: E coli 08/16 Hafnia alvei 10/16 Proteus mirabilis 03/17 Klebsiella pneumoniae 07/17 Klebsiella pneumoniae 08/17 50,000 to 100,000 cfu/ml Mixed bacterial dariel characteristic of urogenital contamination. Urine cytology: 11/15 & 08/17 Negative for high-grade urothelial carcinoma Previous workup has included an in office cystoscopy as patient had been experiencing gross hematuria that noted grade 2 trabeculations otherwise NAD. We discussed potential causes of recurrent urinary tract infections. She does report a longstanding history of constipation. Previous workup has also included a retroperitoneal ultrasound 09/15 noting bilateral kidneys are normal in size, contour, and echogenicity. No hydronephrosis, lesions, and or renal calculi noted bilaterally. The bladder is well distended and normal. Pre void bladder volume is approximately 350 mL. Postvoid bladder volume is approximately 50 mL. When asked she denies dysuria, foul smelling urine, changes to urinary stream, flank pain, fever, and or chills. She discusses having recently followed up with cardiology. All questions were answered. She otherwise offers no other issues or concerns at this time. [facility] Medical History Cardiomyopathy Persistent atrial fibrillation Cardiac arrhythmia Restrictive lung disease Cough Ear infection Hard of hearing COVID-19 vaccine series completed Osteoarthritis of right knee Dry mouth Osteopenia Postnasal drip Hypercholesteremia Osteoarthritis Hypertension Rheumatoid arthritis H/O bone density study Lumbago Surgical History History of total left knee replacement H/O colonoscopy Status post herniorrhaphy H/O mitral valve replacement History of splenectomy Hx of cholecystectomy Family History Father Cerebral hemorrhage Parkinsonism Mother COPD (chronic obstructive pulmonary disease) Lung cancer Brother Lung cancer Son No problems noted. Daughter No problems noted. Daughter No problems noted. Daughter No problems noted. Social History Housing: House Are you a primary healthcare associate to a significant other at home: No Do you presently have visiting nurse or other home services: No Patient Tobacco Use Status: Never used Tobacco e-Cigarette/Vaping Use: Never Used Second Hand Smoke Exposure: Yes service: No Current occupational status: retired Current occupational exposures/hazards: No Cognitive needs: No Hearing needs: Yes Vision needs: Yes Review of Systems Const Reports no additional complaints Eyes Reports no additional complaints ENT Reports as per HPI Card Reports as per HPI Resp Reports as per HPI GI Reports no additional complaints Reports as per HPI Musc Reports as per HPI Physical Exam Const General: cooperative, healthy appearing, comfortable, no acute distress, well developed, alert and awake Nutritional Appearance: overweight Orientation/consciousness: patient oriented x3 Limitations: ambulation with cane HEENT Head: Yes normal to inspection, Yes normocephalic and Yes atraumatic Ears: hearing grossly normal bilaterally Eyes General: appearance normal, both eyes and all related structures Neck Neck: Yes normal visual inspection and Yes trachea midline Chest Chest palpation & inspection: normal inspection of the chest Resp Effort & Inspection: normal respiratory effort and able to speak in complete sentences Cardio Rate: regular rate GI Inspection: Yes normal to inspection General: Yes no CVA tenderness Back/Spine/Pelvis Back: no CVA tenderness Skin General skin exam: no rashes or lesions noted Neuro General: patient oriented x3 Extrem General: Yes normal to inspection Psych Appearance: grossly normal and well kempt Mental Status: mental status grossly normal Speech and movement: Normal speech and movement present and Clear speech present Affect: normal affect Attitude: cooperative Thought process: Normal thought process present Thought content: Normal thought content present Insight: Fair insight present (Psych) Judgement: Fair judgement present (Psych) Office Procedures Post Void Residual Post Residual Void Post Void Residual (PVR): 0 31638-Raqc Void Residual by ultrasound Results AMB Urinalysis, Automated UA Leukoctes 125 Calista/uL Last Edit by JESSE Islas on 11/13/25 13:13 UA Nitrite Negative Last Edit by Jenni Colon, CCMA on 11/13/25 13:13 UA Urobilinogen 0.2 mg/dL Last Edit by Jenni Colon, CCMA on 11/13/25 13:13 UA Protein 30 mg/dL Last Edit by Jenni Colon, CCMA on 11/13/25 13:13 UA pH 6.0 Last Edit by Jenni Colon, CCMA on 11/13/25 13:13 UA Blood 0 Sky/uL Last Edit by Jenni Colon, CCMA on 11/13/25 13:13 UA Specific Cordova 1.015 Last Edit by Jenni Colon, CCMA on 11/13/25 13:1 3 UA Ketone Negative Last Edit by Jenni Colon, [facility] on 11/13/25 13:13 UA Bilirubin 0 mg/dL Last Edit by Jenni Colon, CCMA on 11/13/25 13:13 UA Glucose 0 mg/dL Last Edit by Jenni Colon, [facility] on 11/13/25 13:13 Results Reviewed Results Reviewed: Laboratory Last Values Urine pH (Auto) 6.0 11/13/25 13:12 Specific Cordova (Auto) 1.015 11/13/25 13:12 Urine Protein (Auto) 30 mg/dL 11/13/25 13:12 Glucose (UA)(Auto) 0 mg/dL 11/13/25 13:12 Urine Ketones (Auto) Negative 11/13/25 13:12 Urine Blood (Auto) 0 Sky/uL 11/13/25 13:12 Urine Nitrite (Auto) Negative 11/13/25 13:12 Urine Bilirubin (Auto) 0 mg/dL 11/13/25 13:12 Urine Urobilinogen (Auto) 0.2 mg/dL 11/13/25 13:12 Leukocyte Esterase (Auto) 125 Calista/uL 11/13/25 13:12 Assessment & Plan Assessment & Plan (1) Renal cyst: Code(s): N28.1 - Cyst of kidney, acquired Category: Medical (2) Hematuria: Code(s): R31.9 - Hematuria, unspecified Category: Medical (3) Recurrent UTI: Code(s): N39.0 - Urinary tract infection, site not specified Category: Medical Plan In office urinalysis results reviewed with the patient today; as noted above. PVR 0 mL. She currently denies any bothersome urinary issues or concerns. She reports be happy with current voiding parameters. Will continue with surveillance monitoring. Continue Estrace cream as discussed and prescribed. All questions were answered. Follow-up in 6 months with PVR; or sooner with any issues, concerns, and or questions. Orders: Orders AMB Post Void Residual by ultrasound Today N40.1 - Benign prostatic hyperplasia with lower urinary tract symptoms AMB Urinalysis Automated Today N13.8 - Other obstructive and reflux uropathy, N40.1 - Benign prostatic hyperplasia with lower urinary tract symptoms Patient Instructions: The patient had an opportunity to ask questions regarding the treatment plan. All questions were answered. Physical exam, labs, and imaging were discussed and reviewed in detail. As well as risks, benefits, and discussion of treatment choices. No major barriers to understanding were identified. The patient expressed understanding and agreement with the above treatment plan. The patient was made aware they should contact our office by phone for worsening of their current condition, the appearance of new symptoms, or with any questions or concerns. Compliance is encouraged with any medications and follow up testing that is ordered. It is a privilege to be allowed the opportunity to participate in? your urological care.? Again, if you have any questions or concerns If you have any questions or concerns please do not hesitate to contact me. The office is [phone]. This note is constructed using voice recognition software. While every effort has been made to ensure accuracy airport security screener errors may have been included. Yours sincerely, OANH Mo Coding Level of Care Code Est Pt Level 3 (03403) Add On Problem Visit Only Diagnoses Renal cyst N28.1 Hematuria R31.9 Recurrent UTI N39.0 CPT Codes Post Residual Void - PVR CPT Code: 91699-Jzzn Void Residual by ultrasound ([id number])
--- OUTSIDE RECORDS SUMMARY | 2025-11-13 16:05 | XMS_ITS | Patient Health Record ---
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 [employer] Name Role Phone Ana Garcia MD Primary Care Provider JohnnyEva Rosales Unavailable [phone] Allergies No Known Allergies Reason For Referral [...] Ordered Date Performed Result Body Sit e 02038-QEOYBXI NAIL, 6 OR MORE 12/16/2024 N/A 90072-ILWOOJJ NAIL, 6 OR MORE 02/24/2025 N/A 40473-LRFMQRR NAIL, OR MORE 07/19/2025 N/A 81448-Bclothyz Plate 07/19/2025 N/A 87296-OHOJWRW NAIL, 6 OR MORE 10/03/2025 N/A Encounters Encounter Location Date Provider [facility] [place] [address] 12/16/2024 Eva Black Onychomycosis B35.1 ; Ingrown nail L60.0 ; Pain in right toe(s) M79.674 and Pain in left toe(s) M79.[address] [place] [address] 02/24/2025 Eva Black Onychomycosis B35.1 ; Lower limb length difference M21.70 ; Pain in right toe(s) M79.674 and Pain in left toe(s) M79.[address] [place] [address] 05/10/2025 Eva Black Onychomycosis B35.1 ; Pain in right toe(s) M79.674 and Pain in left toe(s) M79.[address] [place] [address] 07/19/2025 Eva Black Onychomycosis B35.1 ; Pain in right toe(s) M79.674 ; Pain in left toe(s) M79.675 and Ingrown nail L60.[address] [address] 10/03/2025 Eva Black Onychomycosis B35.1 ; Lower limb length difference M21.70 ; Pain in right toe(s) M79.674 and Pain in left toe(s) M79.[address] [address] 07/19/2025 Eva Black Assessments Encounter Date Diagnosis [...] Date *Uric Acid, Serum 04/13/2024 *Sedimentation Rate-Westergren 47374-QSWFCEZ NAIL, 6 OR MORE 12/29/2023 86330-GHKPLGF NAIL, 6 OR MORE 04/01/2024 79111-YISCAFP NAIL, 6 OR MORE 04/29/2023 32586-BVKNGTJ NAIL, 6 OR MORE 07/08/2023 08872-DYENEZT NAIL, 6 OR MORE 09/22/2023 46441-MDEYQUU NAIL, 6 OR MORE 02/13/2023 97304-JWJESSH NAIL, 6 OR MORE 07/08/2024 34311-AKWDLDG NAIL, 6 OR MORE 10/07/2024 16718-EMDICYH NAIL, 6 OR MORE 12/16/2024 51139-NSROJDQ NAIL, 6 OR MORE 02/24/2025 07637-YLBSUEL NAIL, 6 OR MORE 07/19/2025 35881-ZDZMOZI NAIL, 6 OR MORE 10/03/2025 52289-YFGGZEE NAIL, 1-5 12/10/2021 90055-Swbfwwig Plate 12/29/2023 81468-Ksvkcgfr Plate 04/29/2023 59102-Znqjvmme Plate 07/22/2021 68753-Amjsnscq Plate 07/19/2025 49627- Debride <25 sq cm 10/07/2024, J0702- INJECT or DRAIN, JOINT/BUR SA 04/13/202449182, T8649-IAPLA/INJECT, JOINT/BURSA 0 08/17/2017 77711,W9113-MLC TENDON SHEATH/LIGAMENT 0 08/15/2019 44666,P6621-CZI TENDON SHEATH/LIGAMENT 1 78528, J0702- Neuroma/Injection 09/14/20 17 X ray : Ankle, right 3V 04/13/2024 35301 - Tenotomy, open flexor 08/07/2021 Next Appt Details Provider Name:Eva Alas , 12/29/2025 12:30:00 PM, [address], [place], [address], Insurance Providers Payer Name Payer Address Payer Phone Subscriber Number Group Number Insured Name Patient Relationship to Insured Coverage Start Date Coverage End Date Medicare National Govt Sales Rabbit [facility] [address] [facility] [place] [address] [id number] HolliMelissaKassandra Self - patient is the insured [employer] [address] [place] [address] [id number] Melissa De La Garza Self - patient [...]
== END 2025-11-13 13:47 | disposition home or self-care (01) ==
LOC: HO.HUSH 12:53
PROVIDERS: PCP Internal Medicine; Visit Provider Nurse Practitioner Family
DX: N28.1 Cyst of kidney, acquired (principal); R31.9 Hematuria, unspecified; N39.0 Urinary tract infection, site not specified; N40.1 Benign prostatic hyperplasia with lower urinary tract symptoms; N13.8 Other obstructive and reflux uropathy
CPT/HCPCS: 99213; G2211

== ENCOUNTER → 2025-11-13 12:52 | Outpatient (BNVA) | payer MEDICARE, SELFPAY | PROVIDERS: PCP Internal Medicine; Visit Provider Nurse Practitioner Family | DX: N39.0 Urinary tract infection, site not specified (principal); R31.9 Hematuria, unspecified; N28.1 Cyst of kidney, acquired | CPT/HCPCS: 51798; 81003; 99212 ==